=== PATIENT | male | born 1940 | race Caucasian/White ===

== ENCOUNTER → 2018-03-17 | Outpatient (CLI) | payer OTHER, MEDICARE | LOC: BHFA 14:00 | PROVIDERS: ATTEND Internal Medicine Cardiovascular Disease | DX: I25.10 Atherosclerotic heart disease of native coronary artery without angina pectoris (principal); E78.4 Other hyperlipidemia ==

== ENCOUNTER → 2018-04-14 | Outpatient (CLI) | payer OTHER, MEDICARE | LOC: FIMAGING 12:53 | PROVIDERS: ATTEND Internal Medicine Critical Care Medicine | DX: R91.1 Solitary pulmonary nodule (principal); J44.9 Chronic obstructive pulmonary disease, unspecified; N28.1 Cyst of kidney, acquired; I71.2 Thoracic aortic aneurysm, without rupture; Z95.1 Presence of aortocoronary bypass graft ==

== ENCOUNTER → 2018-07-22 | Outpatient (CLI) | payer OTHER, MEDICARE | LOC: BHFA 09:30 | PROVIDERS: ATTEND Internal Medicine Cardiovascular Disease | DX: R07.9 Chest pain, unspecified (principal); I25.10 Atherosclerotic heart disease of native coronary artery without angina pectoris; R06.02 Shortness of breath; R60.9 Edema, unspecified | CPT/HCPCS: 78452; 93017; A9500; J2785 ==

== ENCOUNTER 2018-07-30 00:16 | Inpatient (IN) | payer OTHER, MEDICARE ==
[2018-07-30] MEDS ORDERED: NS 1,000 ML IV ONE (00:17)
--- NOTE | 2018-07-30 00:30 | EDPHY ---
H & P Time Seen by Provider: 07/30/18 00:28 HPI/ROS: HPI CHIEF COMPLAINT: Substernal chest pressure. HISTORY OF PRESENT ILLNESS: 77-year-old male, history of coronary artery disease, and CABG, as well as AAA repair, chronic kidney disease, hypertension, COPD on 4 L nasal cannula 24 hr day, presents emergency room by EMS for chest discomfort. Describes substernal chest pressure. Is currently resolved prior to arrival. He had a for 3 hr prior to getting here. He did take 2 doses of nitro that did not really relieve his chest discomfort. Patient denies recent illness, denies cough, denies fever, denies pleuritic pain. Patient also reports to me is due to have a coronary angiogram this Friday coming up with Dr. Bloom. Past Medical History: Coronary artery disease, chronic kidney disease, hypertension, COPD on oxygen, AAA repair Past Surgical History: AAA repair, CABG, cardiac stent Social History: Denies daily use drugs alcohol tobacco. Resides at [facility]. Family History: Noncontributory Dr. 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 Exam Constitutional appears well nontoxic no acute distress triage nursing summary reviewed, vital signs reviewed, awake/alert. Eyes normal conjunctivae and sclera, EOMI, PERRLA. HENT normal inspection, atraumatic, moist mucus membranes, no epistaxis, neck supple/ no meningismus, no raccoon eyes. Respiratory clear to auscultation bilaterally, normal breath sounds, no respiratory distress, no wheezing. Cardiovascular rate normal, regular rhythm, no murmur, no edema, distal pulses normal. Gastrointestinal soft, non-tender, no rebound, no guarding, normal bowel sounds, no distension, no pulsatile mass. Genitourinary no CVA tenderness. Musculoskeletal no midline vertebral tenderness, full range of motion, no calf swelling, no tenderness of extremities, no meningismus, good pulses, neurovascularly intact. Skin pink, warm, & dry, no rash, skin atraumatic. Neurologic awake, alert and oriented x 3, AAOx3, moves all 4 extremities equally, motor intact, sensory intact, CN II-XII intact, normal cerebellar, normal vision, normal speech. Psychiatric normal mood/affect. Heme/Lymph/Immune no lymphadenopathy. Differential diagnosis includes but is not limited to: ACS, atypical chest pain , pneumothorax, pneumonia, pulmonary embolism, aortic dissection, congestive heart failure, tumor, musculoskeletal pain, esophageal pain, GERD, peptic ulcer disease, pancreatitis Medical Decision Making: Plan for this patient, IV establishment with IV fluid bolus, obtain EKG, full manager cardiac cath, troponin, chest x-ray and re-evaluate. He is chest pain-free at this time. Re-evaluation: EKG interpretation by me on record in [employer] system. Impression time of EKG 0024, sinus rhythm rate of 63 right bundle-branch block present. Abnormal T -wave abnormalities V4 V5 V6. No ST elevation. Troponin 0.29. Patient blood pressure checked in both arms very similar blood pressures. Additional on exam has good bilateral radial pulses. Equal and symmetrical. 1253: Spoke with Dr. Newell about this patient + Trop. Chest Pain. Will be admitted. NPO. Heparin. Plan on cath in am. 0115: Unable to perform CT scan of the chest due to elevated creatinine. Which is close to his baseline 2.3. I discussed the case with Cardiology. Plan for MP over midnight. Heparin drip. Plan for catheterization in the morning. Patient CT scan reviewed from 4 months ago shows a ascending aortic aneurysm 4.5 cm. Patient does not have any back pain or abdominal pain. Patient's vital signs are stable The patient does not have any abdominal pain or significant back pain. Blood pressure stable in both arms. Good radial pulses. Plan for heparin drip for angina and elevated troponin in the setting of coronary artery disease. Plan for catheterization tomorrow. Discussed this case with Dr. Newlel. Discussed this case with Dr. Polanco. Source: Patient, EMS Constitutional: Initial Vital Signs Temperature (C) 36.6 C 07/30/18 00:21 Heart Rate 66 07/30/18 00:21 Respiratory Rate 16 07/30/18 00:21 Blood Pressure 178/98 H 07/30/18 00:21 O2 Sat (%) 97 07/30/18 00:21 O2 Delivery Mode Nasal Cannula O2 (L/minute) 4 Allergies/Adverse Reactions: NSAIDS (Non-Steroidal Anti-Inflamma Allergy (Verified 07/30/18 08:20) Other-Enter Comments Home Medications: Medication Instructions Recorded Aspirin [Aspirin 81mg (*)] 81 mg PO DAILY 07/28/18 Atorvastatin Calcium [Lipitor 40 40 mg PO HS 07/28/18 mg (*)] Fluticasone/Salmeter 250/50Mcg 1 puffs IH BID 07/28/18 [Advair 250/50 (*)] Melatonin [Melatonin 3 MG (*)] 3 mg PO HS 07/28/18 Metoprolol Tartrate [Lopressor 25 25 mg PO BID 07/28/18 mg (*)] Tiotropium [place] [Spiriva 2 inh IH DAILY 07/28/18 Respimat] Zolpidem Tartrate [Ambien Cr] 6.25 mg PO HS 07/28/18 traZODone [traZODONE 100MG (*)] 100 mg PO HS 07/28/18 Albuterol [Proventil Inhaler HFA 1 - 2 puffs IH DAILY PRN 07/30/18 (*)] Aspirin [Aspirin 325 mg (*)] 325 mg PO DAILY PRN 07/30/18 Furosemide [Lasix 20 MG (*)] 20 mg PO DAILY 07/30/18 Ketoconazole 2% [Nizoral 2% Cream 1 evette TP DAILY PRN 07/30/18 (*)] Tamsulosin HCl [Flomax 0.4 MG (*)] 0.4 mg PO HS 07/30/18 guaiFENesin [Mucinex 600 MG (*)] 600 mg PO BID PRN 07/30/18 Medical Decision Making - Data Points Laboratory Results: Laboratory Results 07/30/18 00:31 07/30/18 00:31 Medications Given: Atorvastatin Calcium (Lipitor) 40 mg PO HS [facility] Stop: 01/26/19 20:59 Last Admin: 07/30/18 20:13 Dose: 40 mg Guaifenesin (Mucinex) 1,200 mg PO BID [facility] Stop: 01/26/19 20:59 Last Admin: 07/30/18 20:08 Dose: 600 mg Melatonin (Melatonin) 3 mg PO HS [facility] Stop: 01/26/19 20:59 Last Admin: 07/30/18 20:08 Dose: 3 mg Metoprolol Tartrate (Lopressor) 50 mg PO BID [facility] Stop: 01/26/19 20:59 Last Admin: 07/30/18 20:13 Dose: Not Given Fluticasone/Salmeterol (Advair) 1 puffs IH BID [facility] Stop: 01/26/19 20:59 Last Admin: 07/30/18 21:30 Dose: 1 puffs Tamsulosin HCl (Flomax) 0.4 mg PO [facility] Stop: 01/26/19 20:59 Last Admin: 07/30/18 20:14 Dose: 0.4 mg Trazodone HCl (Trazodone) 100 mg PO [facility] Stop: 01/26/19 20:59 Last Admin: 07/30/18 20:08 Dose: 100 mg Zolpidem Tartrate (Ambien) 5 mg PO [facility] Stop: 01/26/19 20:59 Last Admin: 07/30/18 20:07 Dose: 5 mg Discontinued Medications Aspirin Buffered (Aspirin Ec) 325 mg PO ONCE ONE Stop: 07/30/18 02:11 Last Admin: 07/30/18 02:41 Dose: 325 mg Aspirin Buffered (Aspirin Ec) 325 mg PO ONCALL ONE Stop: 07/30/18 12:20 Last Admin: 07/30/18 12:38 Dose: 325 mg Clopidogrel Bisulfate (Plavix) 300 mg PO ONCE ONE Stop: 07/30/18 14:10 Last Admin: 07/30/18 15:09 Dose: 300 mg Diazepam (Valium) 5 mg PO ONCALL ONE Stop: 07/30/18 12:20 Last Admin: 07/30/18 12:38 Dose: 5 mg Diphenhydramine HCl (Benadryl) 25 mg PO ONCALL ONE Stop: 07/30/18 12:20 Last Admin: 07/30/18 12:38 Dose: 25 mg Famotidine (Pepcid) 20 mg PO ONCALL ONE Stop: 07/30/18 12:20 Last Admin: 07/30/18 12:38 Dose: 20 mg Heparin Sodium (Porcine) (Heparin Injection) 0 unit IVP PRN PRN PRN Reason: re-Boluses required by protcol Stop: 01/26/19 01:29 Last Admin: 07/30/18 02:41 Dose: 5,310 units Sodium Chloride (Ns) 1,000 mls @ 0 mls/hr IV EDNOW ONE; Wide Open PRN Reason: Protocol Stop: 07/30/18 00:18 Last Admin: 07/30/18 00:31 Dose: 1,000 mls Heparin Sodium (Porcine) (Heparin 50 Units/Ml (Premix)) 500 mls @ 0 mls/hr IV EDNOW ONE; Per Protocol PRN Reason: Protocol Stop: 07/30/18 01:26 Last Admin: 07/30/18 03:37 Dose: Not Given Heparin Sodium (Porcine) (Heparin 50 Units/Ml (Premix)) 500 mls @ 0 mls/hr IV CONT [facility]O; Per Protocol PRN Reason: Protocol Stop: 01/26/19 01:29 Last Admin: 07/30/18 02:41 Dose: 500 mls Point of Care Test Results: Chemistry 07/30/18 00:29 POC Troponin I 0.29 ng/mL H ng/mL (0.00-0.08) Departure - Departure Disposition: [facility] Inpatient Acute Clinical Impression: Elevated troponin Chest pain Qualifiers: Chest pain type: unspecified Qualified Code(s): R07.9 - Chest pain, unspecified Condition: Fair
[2018-07-30 00:35] LABS: PLATELET COUNT 170 10^3/uL (150-400)
[2018-07-30 01:04] LABS: INR 0.98 (0.83-1.16); PROTIME(PATIENT) 13.2 SEC (12.0-15.0)
[2018-07-30] MEDS ORDERED: ONDANSETRON DISINTEGRATING 4 MG TAB PO PRN (01:16)
[2018-07-30] MEDS ORDERED: ONDANSETRON 4 MG/2 ML VIAL IVP PRN (01:16)
[2018-07-30] MEDS ORDERED: ACETAMINOPHEN 325 MG TAB PO PRN (01:16)
[2018-07-30] MEDS ORDERED: HEPARIN/DEXTROSE 500 ML IV ONE (01:25)
[2018-07-30] MEDS ORDERED: HEPARIN 10,000 UNIT/10 ML MDV (1,000 UNIT/ML) IVP PRN (01:30)
[2018-07-30] MEDS ORDERED: HEPARIN/DEXTROSE 500 ML IV SCH (01:30)
[2018-07-30] MEDS ORDERED: NITROGLYCERIN 0.4 MG BTL SL PRN (01:44)
--- NOTE | 2018-07-30 01:54 | PDGENHP ---
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 The patient was sitting on his recliner when he noted 7/10, central chest pain. He describes some radiation the L jaw. The pain lasted 3 hours and was generally unchanged by NTG. He has had episodes of similar pain with increasing frequency over the last few months. He has been undergoing evaluation with Dr. Bloom in the clinic. Review of these records reveals recent nuclear stress test with decreased EF (38%) and area of apical perfusion abnormality concerning for ischemia. Due to this he was scheduled for an outpatient C next Friday. At the time of my evaluation he is having very mild discomfort (10/22). Troponin in the ED noted to be in the indeterminate range; ECG on admission is stable compared to prior aside from now in NSR as opposed to AF. Case discussed with ED physician Dr. Rivers; records reviewed in [facility] and [place]; summarized above. History Information - Allergies/Home Medication List Allergies/Adverse Reactions: No Allergies [NKDA] Allergy (Verified 07/27/18 09:18) Home Medications: Aspirin [Aspirin 81mg (*)] 81 mg PO DAILY 07/28/18 [Last Taken Unknown] Atorvastatin Calcium [Lipitor 40 mg (*)] 40 mg PO HS 07/28/18 [Last Taken Unknown] Ferrous Sulfate [Ferrous Sulf 325 MG (*)] 325 mg PO DAILY 07/28/18 [Last Taken Unknown] Fluticasone/Salmeter 250/50Mcg [Advair 250/50 (*)] 1 puffs IH BID 07/28/18 [ Last Taken Unknown] Furosemide [Lasix 40 MG (*)] 20 mg PO DAILY 07/28/18 [Last Taken Unknown] Melatonin [Melatonin 3 MG (*)] 3 mg PO HS 07/28/18 [Last Taken Unknown] Metoprolol Tartrate [Lopressor 25 mg (*)] 25 mg PO BID 07/28/18 [Last Taken Unknown] Tiotropium [place] [Spiriva Respimat] 2 inh IH DAILY 07/28/18 [Last Taken Unknown] Zolpidem Tartrate [Ambien Cr] 6.25 mg PO HS 07/28/18 [Last Taken Unknown] traZODone [traZODONE 100MG (*)] 100 mg PO HS 07/28/18 [Last Taken Unknown] I have personally reviewed and updated: family history, medical history - Past Medical History coronary artery disease, COPD Additional medical history: AAA. CKD - Surgical History Reports: coronary bypass surgery, spinal surgery Additional surgical history: AAA repair - Family History Positive for: stroke. Negative for: CAD - Social History Smoking Status: Former smoker Review of Systems Review of Systems: ROS: 10pt was reviewed & negative except for what was stated in HPI & below Physical Exam Physical Exam: Temp Pulse Resp BP Pulse Ox 36.6 C 58 L 18 147/88 H 99 07/30/18 00:21 07/30/18 01:46 07/30/18 01:46 07/30/18 01:46 07/30/18 01:46 O2 (L/minute) 4 Constitutional: no apparent distress, appears nourished Eyes: PERRL, EOMI Ears, Nose, Mouth, Throat: moist mucous membranes, no oral mucosal ulcers Cardiovascular: regular rate and rhythym, systolic murmur, JVD (2 cm above clavicle @ 45 degrees), edema (2+ b/l KRISTEN) Respiratory: no respiratory distress, clear to auscultation Gastrointestinal: normoactive bowel sounds, soft, non-tender abdomen Skin: warm, normal color Musculoskeletal: full muscle strength, no muscle tenderness Neurologic: AAOx3, CN II-XII Intact Psychiatric: interacting appropriately, not anxious Lab Data & Imaging Review 07/30/18 00:31 07/30/18 00:31 WBC 6.93 10^3/uL (3.80-9.50) 07/30/18 00:31 RBC 3.89 10^6/uL (4.40-6.38) L 07/30/18 00:31 Hgb 12.2 g/dL (13.7-17.5) L 07/30/18 00:31 Hct 36.4 % (40.0-51.0) L 07/30/18 00:31 MCV 93.6 fL (81.5-99.8) 07/30/18 00:31 MCH 31.4 pg (27.9-34.1) 07/30/18 00:31 MCHC 33.5 g/dL (32.4-36.7) 07/30/18 00:31 RDW 13.7 % (11.5-15.2) 07/30/18 00:31 Plt Count 170 10^3/uL (150-400) 07/30/18 00:31 MPV 9.5 fL (8.7-11.7) 07/30/18 00:31 Neut % (Auto) 71.6 % (39.3-74.2) 07/30/18 00:31 Lymph % (Auto) 10.7 % (15.0-45.0) L 07/30/18 00:31 [place] % (Auto) 10.7 % (4.5-13.0) 07/30/18 00:31 Eos % (Auto) 5.1 % (0.6-7.6) 07/30/18 00:31 Baso % (Auto) 0.9 % (0.3-1.7) 07/30/18 00:31 Nucleat RBC Rel Count 0.0 % (0.0-0.2) 07/30/18 00:31 Absolute Neuts (auto) 4.97 10^3/uL (1.70-6.50) 07/30/18 00:31 Absolute Lymphs (auto) 0.74 10^3/uL (1.00-3.00) L 07/30/18 00:31 Absolute Monos (auto) 0.74 10^3/uL (0.30-0.80) 07/30/18 00:31 Absolute Eos (auto) 0.35 10^3/uL (0.03-0.40) 07/30/18 00:31 Absolute Basos (auto) 0.06 10^3/uL (0.02-0.10) 07/30/18 00:31 Absolute Nucleated RBC 0.00 10^3/uL (0-0.01) 07/30/18 00:31 Immature Gran % 1.0 % (0.0-1.1) 07/30/18 00:31 Immature Gran # 0.07 10^3/uL (0.00-0.10) 07/30/18 00:31 PT 13.2 SEC (12.0-15.0) 07/30/18 00:31 INR 0.98 (0.83-1.16) 07/30/18 00:31 APTT 27.2 SEC (23.0-38.0) 07/30/18 00:31 Sodium 140 mEq/L (135-145) 07/30/18 00:31 Potassium 4.8 mEq/L (3.3-5.0) 07/30/18 00:31 Chloride 102 mEq/L (97-110) 07/30/18 00: Carbon Dioxide 29 mEq/l (22-31) 07/30/18 00:31 Anion Gap 9 mEq/L (6-14) 07/30/18 00:31 BUN 38 mg/dL (7-23) H 07/30/18 00:31 Creatinine 2.3 mg/dL (0.7-1.3) H 07/30/18 00:31 Estimated GFR 28 07/30/18 00:31 Glucose 104 mg/dL (70-100) H 07/30/18 00:31 Calcium 9.2 mg/dL (8.5-10.4) 07/30/18 00: Magnesium 2.2 mg/dL (1.6-2.3) 07/30/18 00:31 Total Bilirubin 0.6 mg/dL (0.1-1.4) 07/30/18 00:31 Conjugated Bilirubin 0.3 mg/dL (0.0-0.5) 07/30/18 00:31 Unconjugated Bilirubin 0.3 mg/dL (0.0-1.1) 07/30/18 00:31 AST 21 IU/L (17-59) 07/30/18 00:31 ALT 24 IU/L (21-72) 07/30/18 00:31 Alkaline Phosphatase 75 IU/L (38-126) 07/30/18 00:31 POC Troponin I 0.29 ng/mL (0.00-0.08) H 07/30/18 00:29 NT-Pro-B Natriuret Pep 3810 pg/mL (0-450) H 07/30/18 00:31 Total Protein 7.1 g/dL (6.3-8.2) 07/30/18 00:31 Albumin 4.1 g/dL (3.5-5.0) 07/30/18 00:31 Lipase 196 IU/L (23-300) 07/30/18 00:31 Visualized and Interpreted EKG results: Yes EKG Interpretation: Positive for: normal sinsus rhythm, other (Lateral ST changes stable from comparison ECG), right bundle branch block Assessment & Plan Assessment: 77 yo M w/ CAD s/p CABG, COPD, 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 Plan: 1. Unstable angina - Anginal symptoms increasing in frequency; 7/10 pain today while at rest. Troponin in the indeterminate rage at 0.29. ECG(personally reviewed/interpreted) reveals lateral ST changes but these are stable from prior comparison (07/08/18). - S/p ASA 325 mg x1 - Will start heparin gtt - Monitor on telemetry, trend cardiac enzymes - Maintain NPO - Cardiology consulted, appreciate assistance 2. Hx CAD - S/p CABG in 1997; as described above, he has been having increasingly frequent anginal symptoms over the last few months. Nuclear perfusion stress test from 07/22 revealed apical defect concerning for ischemia and decreased EF(38%). - Acute management as above - Continue home medications pending reconciliation 3. Cardiomyopathy, presumed ischemic - EF 38% noted on 07/22 nuclear perfusion study. BNP elevated at 3810 with no prior comparison. He does have moderate lower extremity but patient states this is chronic. - Daily weights, monitor I/Os - Will hold off on Lasix for now noting likely need for contrast and known CKD - Cardiology consulted 4. COPD, CHRF - On 4 L/min O2 continuously at baseline, currently stable on the same. There is no evidence of acute exacerbation. - Continue home O2 - Continue home medications pending reconciliation 5. CKD, Stage 3/4 - Currently at creatine baseline (~2.3). - Avoid nephrotoxic agents as able - Renally dose medications - Monitor BMP 6. AAA - s/p repair Diet - NPO Code - Full Ppx - Heparin gtt Dispo - Admit under inpatient status
[2018-07-30] MEDS ORDERED: ASPIRIN EC 325 MG TAB PO ONE ×4 (02:10→12:21)
[2018-07-30 06:16] LABS: PLATELET COUNT 150 10^3/uL (150-400)
[2018-07-30] MEDS ORDERED: IOPAMIDOL (ISOVUE-370) 150 ML BTL IV ONE (10:42)
[2018-07-30] MEDS ORDERED: fentaNYL 100 MCG/2 ML INJ ONE (10:42)
[2018-07-30] MEDS ORDERED: LIDOCAINE 1% 300 MG/30 ML SDV ONE (10:42)
[2018-07-30] MEDS ORDERED: MIDAZOLAM 2 MG/2 ML VIAL ONE (10:42)
--- NOTE | 2018-07-30 10:43 | PDMN ---
Medical Necessity Medical necessity: Change to IP, as 07/30/18, per MD & MCG M-40; est los >2 mn for eval/tx of unstable angina; admit for further cardiac monitoring/further workup, Cardiology consult & Heparin drip; comorbid advanced age, COPD, CKD, CAD , CABG, chronic respiratory failure, AAA
--- NOTE | 2018-07-30 11:44 | ASMTCMCOM ---
CM Note CM Note Notes: Pt is a 77 y/o man admitted for chest pain. Pt is schedule for a heart heart. Pt will most likely d/c independent when medically stable. No therapies ordered at this time. CM available for changes. Plan: Independent Date Signed: 07/30/2018 11:44 AM Electronically Signed By:RADHA Shannon
[2018-07-30] MEDS ORDERED: FAMOTIDINE 20 MG TAB PO ONE (12:19)
[2018-07-30] MEDS ORDERED: diphenhydrAMINE 25 MG CAP PO ONE ×2 (12:19→12:21)
[2018-07-30] MEDS ORDERED: DIAZEPAM 5 MG TAB PO ONE (12:19)
[2018-07-30] MEDS ORDERED: FAMOTIDINE 20 MG TAB ONE (12:21)
[2018-07-30] MEDS ORDERED: DIAZEPAM 5 MG TAB ONE (12:21)
--- NOTE | 2018-07-30 12:22 | PDCARPN ---
Cardiology Progress Note Assessment/Plan: Mr. Delgado is a 79 year old male with a history of CAD, prior 3-vessel CABG in 1987, hypertension, chronic hypoxic respiratory failure, chronic kidney disease , and previous abdominal aortic aneurysm repair. He is typically followed by Dr. Bloom. Because of recent episodes of chest discomfort and an outpatient nuclear stress test which suggested apical ischemia, he had been scheduled for a heart catheterization early next week. However, he presented to the emergency room last night. He had an episode of substernal chest tightness that persisted approximately 3 hours. His initial ECG did not demonstrate any acute ischemic changes. His initial troponin was minimally elevated at 0.29. It has subsequently increased to 2.28. He is currently pain free. At this point we will proceed with cardiac catheterization and possible PCI today. 07/30/18 12:28 Subjective: No chest pain today. Objective: Vital Signs (8 Hrs) Temp Pulse Resp BP Pulse Ox 07/30/18 11:18 36.9 C 60 18 136/75 H 97 07/30/18 08:00 36.9 C 61 18 113/67 98 Intake/Output (24 Hrs) 07/29/18 07/30/18 07/31/18 05:59 05:59 05:59 Intake Total 1095 Balance 1095 Intake: Oral (ml) 0 IV Infused (ml) 1095 Heparin/Dextrose 500 ml @ 95 Per Protocol IV CONT [facility] Rx#:[id number] Other: Weight 88.5 kg 88.5 kg Result Diagrams: 07/30/18 05:59 07/30/18 05:59 Cardiac Labs: Cardiac Lab Results (72 Hrs) 07/30/18 05:59 Troponin I 2.280 H - Physical Exam Constitutional: no apparent distress Eyes: anicteric sclera Ears, Nose, Mouth, Throat: moist mucous membranes Cardiovascular: regular rate and rhythm, no murmurs, no gallops Respiratory: clear to auscultate bilat Gastrointestinal: normoactive bowel sounds, no tenderness, no masses Skin: other (2+ LE edema) Neurologic: AAOx3 Psychiatric: not anxious ICD10 Worksheet Patient Problems: Problems Problem Status Onset Chest pain Acute Elevated troponin Acute
--- NOTE | 2018-07-30 12:29 | PDHPUP ---
History & Physical Update H&P update statement: This history and physical update is based on an assessment of the patient which was completed after admission or registration (within 24 hours), but prior to the surgery/procedure. H&P update: H&P reviewed & patient examined, no change in patient's condition since H&P completed
[2018-07-30] MEDS ORDERED: NS 1,000 ML IV SCH (12:30)
--- NOTE | 2018-07-30 12:30 | PDPROPOC ---
Sedation Plan of Care Sedation Plan of Care: vital signs stable, mental status noted, patient educated of risks, benefits, alternatives, patient can tolerate sedation ASA Classification: ASA 2 Planned drugs: fentanyl, midazolam Mallampati Score: Class 2 Mallampati Reference Image: Patient passed 3-3-2 rule?: Yes
[2018-07-30] MEDS ORDERED: ATROPINE SULFATE 1 MG/10 ML SYR IVP PRN (14:06)
[2018-07-30] MEDS ORDERED: HYDROCODONE/APAP 5/325 TAB PO PRN (14:06)
[2018-07-30] MEDS ORDERED: CLOPIDOGREL BISULFATE 75 MG TAB PO ONE (14:09)
--- NOTE | 2018-07-30 14:15 | PDDXCAT ---
Diagnostic Cath Note - . Date: 07/30/18 [place] Opener: Chris Indication: other (Acute coronary syndrome and CAD with h/o CABG) - Procedure Access: right groin Procedure: left heart catheterization, coronary angiography, vein graft injection, DO injection - Materials Left Heart Cath size: 6F Left Heart Cath materials: standard multipack (JL4, JR4, pigtail), David's R, other (Multipurpose A-1) - Findings-Left Heart Catheterization LM: Normal. LAD: High-grade proximal LAD stenosis of at least 80% that jeopardizes a bifurcating diagonal branch; mid-LAD 100%. LCX: Proximal 100%. RCA: Proximal 100%. rSV) SVG to OM branch is widely patent; target vessel with mild irregularities. 2) SVG to distal RCA patent but with severe, diffuse ectasia; focal 70% stenosis in the distal graft body; target vessel with mild irregularities; supplies [id number] collaterals to the distal circumflex system. DO: DO to LAD is widley patent; target vessel with mild irregularites. LVEF: No LV-gram secondary to CKD. Complications: None Estimated blood loss: <50ml Closure method: manual pressure Assessment: 1) Severe sioux multi-vessel CAD. 2) All 3 bypass grafts patent. Plan: The patient has severe three-vessel CAD [id number] patent bypass grafts. The only lesions site with potential for PCI is the proximal LAD which jeopardizes a moderate-sized bifurcating diagonal branch. However, this does not fit anatomically with the apical ischemia that was seen on the patient's recent nuclear stress test. While the focal stenosis in the distal body of the SVG to RCA is 70%, the graft is so large and ectatic at this point that the actual lumen size is probably still a least 2.5 mm. For now, will continue with medical therapy. His metoprolol will be increased to 50 mg twice daily and isosorbide will be added. He will also have clopidogrel added for dual antiplatelet therapy. Patient Problems: Problems Problem Status Onset Chest pain Acute Elevated troponin Acute
[2018-07-30] MEDS: ZOLPIDEM TARTRATE 5 MG TAB PO SCH (20:07)
[2018-07-30] MEDS: MELATONIN 3 MG TAB PO SCH (20:08)
[2018-07-30] MEDS: traZODone 100 MG TAB PO SCH (20:08)
[2018-07-30] MEDS: guaiFENesin 600 MG TAB.ER PO SCH (20:08)
[2018-07-30] MEDS: METOPROLOL TARTRATE 50 MG TAB PO SCH (20:13)
[2018-07-30] MEDS: ATORVASTATIN CALCIUM 40 MG TAB PO SCH (20:13)
[2018-07-30] MEDS: TAMSULOSIN HCL 0.4 MG CAP PO SCH (20:14)
--- NOTE | 2018-07-30 20:24 | HOSPPROG ---
Hospitalist Progress Note Assessment/Plan: * Non-STEMI -cardiac cath without intervention - medical management -Plavix and Imdur added, increase beta-temitope * CAD/CABG -grafts patent on cath * CKD -hydrate post cath -follow creatinine * COPD with chronic respiratory failure 4L * Acute on chronic systolic CHF - EF 38% by stress test -check ECHO Subjective: Chest pain now gone Objective: Vital Signs Temp Pulse Resp BP Pulse Ox 36.7 C 61 16 116/66 96 07/30/18 19:39 07/30/18 19:39 07/30/18 19:39 07/30/18 19:39 07/30/18 19:39 Laboratory Results 07/30/18 05:59 07/30/18 05:59 07/29/18 07/30/18 07/31/18 05:59 05:59 05:59 Intake Total 1095 1085.3 Balance 1095 1085.3 PT 13.2 SEC (12.0-15.0) 07/30/18 00:31 INR 0.98 (0.83-1.16) 07/30/18 00:31 cath report reviewed - grafts patent, no stent placed - Physical Exam Constitutional: no apparent distress, appears nourished, not in pain Cardiovascular: regular rate and rhythym, no murmur, rub, or gallop Respiratory: no respiratory distress, no rales or rhonchi, clear to auscultation Gastrointestinal: normoactive bowel sounds, soft, non-tender abdomen, no palpable masses Skin: no rashes or abrasions, no fluctuance, no induration Neurologic: AAOx3, sensation intact bilaterally Psychiatric: interacting appropriately, not anxious, not encephalopathic, thought process linear ICD10 Worksheet Patient Problems: Problems Problem Status Onset Chest pain Acute Elevated troponin Acute
[2018-07-30] MEDS: FLUTICASONE/SALMETER 250/50MCG DISKUS IH SCH (21:30)
--- NOTE | 2018-07-30 23:58 | CPEKG ---
Test Reason : OPEN Blood Pressure : / mmHG Vent. Rate : 063 BPM Atrial Rate : 063 BPM P-R Int : 165 ms QRS Dur : 141 ms QT Int : 556 ms P-R-T Axes : 051 008 -43 degrees QTc Int : 570 ms Sinus rhythm Atrial premature complex Right bundle branch block Confirmed by Trever Collins ([id number]) on 07/30/2018 11:57:53 PM Also confirmed by Trever Collins ([id number]) on 07/30/2018 11:58:04 PM Referred By: Confirmed By:Trever Collins
[2018-07-31] MEDS: ISOSORBIDE MONONITRATE 30 MG TAB.SR PO SCH (08:44)
[2018-07-31] MEDS: ASPIRIN 81 MG CHEWABLE TAB PO SCH (08:44)
[2018-07-31] MEDS: CLOPIDOGREL BISULFATE 75 MG TAB PO SCH (08:45)
[2018-07-31] MEDS: METOPROLOL TARTRATE 50 MG TAB PO SCH ×2 (08:45→11:20)
[2018-07-31] MEDS: guaiFENesin 600 MG TAB.ER PO SCH ×2 (08:45→21:59)
[2018-07-31] MEDS: FLUTICASONE/SALMETER 250/50MCG DISKUS IH SCH ×2 (09:41→19:51)
[2018-07-31] MEDS: [UNRECOGNIZED DRUG - OTHER] IH SCH (09:42)
[2018-07-31] MEDS: TIOTROPIUM BROMIDE IH SCH (09:42)
--- NOTE | 2018-07-31 12:17 | ECHO ---
[email or web address] [address] [address] Main: [phone] Fax: Transthoracic Echocardiogram Name: MARCI QUIGLEY MR#: [id number] Study Date: 07/31/2018 Study Time: 08:34 AM Date of : 1940 Age: 77 year(s) Height: 172.7 cm (68 in.) Weight: 88.45 kg (195 lb.) BSA: 2.02 m2 Gender: Male Examination: Echo Indication: Post CATH, Hx of CABG Image Quality: Contrast: Requested by: Faith Vasquez BP: 148 mmHg/64 mmHg Heart Rate: Rhythm: Normal sinus rhythm Indication: Post CATH, Hx of CABG Procedure Staff Welfare Manager: Luis Palomares RDCS Reading Physician: Yair Richard MD Requesting Provider: Conclusions: Normal size left ventricle. EF is 53 %. There is basilar inferolateral hypokinesis, there is inferior hypokinesis.. The left atrium is moderately to severely dilated. Mild mitral valve regurgitation is present. Right ventricular systolic pressure measures Right ventricular systolic pressure measures {51}mmHgmmHg. There is no previous echocardiogram for comparison. Measurements: Chambers Valvular Assessment AV/MV Valvular Assessment TV/PV Normal Normal Normal Name Value Range Name Value Range Name Value Range Ao Mar (MM): 3.0 cm (2.2 cm-3.7 AV Vmax: 1.43 m/s (1 m/s-1.7 TR Vmax: 3.22 mm/s ( - ) cm) m/s) TR PGmax: 41 mmHg ( - ) IVSd (2D): 1.0 cm (0.6 cm-1.1 AV maxP mmHg ( - ) syst. PAP: 51 mmHg ( - ) cm) LVOT Vmax: 1.03 m/s (0.7 m/s-1.1 PV Vmax: 0.95 m/s (0.6 m/s-0.9 LVDd (2D): 4.6 cm (4.2 cm-5.9 m/s) m/s) cm) MV E Vmax: 0.75 m/s ( - ) PV PGmax: 4 mmHg ( - ) LVDs (2D): 3.4 cm (2.1 cm-4 MV A Vmax: 0.45 m/s ( - ) cm) MV E/A: 1.67 ( - ) LVPWd (2D): 1.1 cm (0.6 cm-1 cm) LVEF (MM): 53 (>=55 %) Continued Measurements: Chambers Valvular Assessment AV/MV Valvular Assessment TV/PV Name Value Name Value Name Value LADs Lon.4 cm MV E' Septal: 0.11 m/s CVP (est.): 10 mmHg Patient: MARCI QUIGLEY Study Date: 07/31/2018 Page 1 of 2 08:34 AM LA Area: 26.3 cm2 MV E/E' Septal: 7.00 LA Volume: 100 ml MV E/E' Lateral: 6.90 LA Volume Index: 49.5 ml/m2 Findings: Left Ventricle: Normal size left ventricle. Normal global systolic LV function. EF is 53 %. Grade 2 diastolic dysfunction (pseudonormalized LV filling pattern). There is basilar inferolateral hypokinesis, there is inferior hypokinesis.. Right Ventricle: Normal size right ventricle. Left Atrium: The left atrium is moderately to severely dilated. Right Atrium: The right atrium is mildly dilated. Mitral Valve: Mild mitral valve leaflet calcification is present. Mild mitral valve regurgitation is present. Aortic Valve: Mild aortic cusp calcification is noted. Tricuspid Valve: Right ventricular systolic pressure measures Right ventricular systolic pressure measures {51}mmHgmmHg. The pulmonary artery pressure is moderately increased. Pulmonic Valve: The pulmonic valve is normal in appearance and function. Trivial pulmonic valve regurgitation. Aorta: The ascending aorta has been repaired/replaced. Pericardium: No pericardial effusion. Exam Comments: (No Signature Object) Patient: MARCI QUIGLEY Study Date: 07/31/2018 Page 2 of 2 08:34 AM [id number]
[2018-07-31] MEDS: METOPROLOL TARTRATE 25 MG TAB PO SCH ×2 (13:31→22:01)
--- NOTE | 2018-07-31 16:44 | HOSPPROG ---
Hospitalist Progress Note Assessment/Plan: * Non-STEMI -cardiac cath without intervention - medical management -Plavix and Imdur added, continue beta-temitope -unclear if BP will tolerate the Imdur - continue to monitor -check lipid panel in am * CAD/CABG -grafts patent on cath * CKD -hydrate post cath -follow creatinine * COPD with chronic respiratory failure 4L * Acute on chronic diastolic CHF -EF normal by ECHO * Pulmonary HTN with LE edema -secondary to pulm disease -restart Lasix * h/o complicated AAA repair Subjective: Got up with PT today and BP dropped and he got very dizzy Objective: Vital Signs Temp Pulse Resp BP Pulse Ox 36.5 C 49 L 18 109/66 99 07/31/18 16:00 07/31/18 16:00 07/31/18 16:00 07/31/18 16:00 07/31/18 16:00 Laboratory Results 07/30/18 05:59 07/31/18 03:16 07/30/18 07/31/18 08/01/18 05:59 05:59 05:59 Intake Total 1095 1335.3 Output Total 400 Balance 1095 935.3 PT 13.2 SEC (12.0-15.0) 07/30/18 00:31 INR 0.98 (0.83-1.16) 07/30/18 00:31 ECHO - normal EF, + pulmonary HTN Old chart reviewed - previous CT chests all done without IV contrast, never rule out PE US legs - negative for DVT - Physical Exam Constitutional: no apparent distress, appears nourished, not in pain Cardiovascular: regular rate and rhythym, no murmur, rub, or gallop, edema (2+) Gastrointestinal: normoactive bowel sounds, soft, non-tender abdomen, no palpable masses Skin: no rashes or abrasions, no fluctuance, no induration Neurologic: AAOx3, sensation intact bilaterally Psychiatric: interacting appropriately, not anxious, not encephalopathic, thought process linear ICD10 Worksheet Patient Problems: Problems Problem Status Onset Chronic Disease Mgmt/Transitional Care Acute Chest pain Acute Elevated troponin Acute
--- NOTE | 2018-07-31 17:44 | PDCARPN ---
Cardiology Progress Note Assessment/Plan: Mr. Delgado is a 79 year old male with a history of CAD, prior 3-vessel CABG in 1987, hypertension, chronic hypoxic respiratory failure, chronic kidney disease , and previous abdominal aortic aneurysm repair. He is typically followed by Dr. Bloom. Coronary Artery Disease: Cardiac catheterization yesterday demonstrated severe, little traverse, 3-vessel CAD. All 3 of his bypass grafts from 20 years ago are still patent. He has a high grade proximal LAD lesion which jeopardizes a small to moderate-sized diagonal branch. This may be the source of his symptoms but does not match the anatomic distribution of the perfusion abnormality on his recent nuclear stress test. - Medical management for now. - Metoprolol increased. - Isosorbide added. - Clopidogrel added. Hypertension: Adequately controlled. - Continue current medications. Secondary Prevention: A lipid panel from one month ago demonstrated a total cholesterol of 131 with HDL 40, LDL 68, and triglycerides 115. - Continue current statin dosage. Disposition: Anticipate discharge tomorrow. The office staff at [facility] has been instructed to cancel the cardiac catheterization which had been scheduled for this coming Friday and to contact him to arrange a followup appointment with Dr. Bloom. 07/31/18 17:41 Subjective: No complaints. Reviewed/Discussed With: family Objective: Vital Signs (8 Hrs) Temp Pulse Resp BP Pulse Ox 07/31/18 16:00 36.5 C 49 L 18 109/66 99 07/31/18 11:47 36.7 C 59 L 16 142/67 H 99 07/31/18 11:20 56 L Intake/Output (24 Hrs) 07/30/18 07/31/18 08/01/18 05:59 05:59 05:59 Intake Total 1095 1335.3 Output Total 400 Balance 1095 935.3 Intake: Oral (ml) 0 490 IV Intake (ml) 750 IV Infused (ml) 1095 95.3 Heparin/Dextrose 500 ml @ 95 95.3 Per Protocol IV CONT CHAPARRO Rx#:[id number] Output: Urine (ml) 400 Toilet 400 Other: Weight 88.5 kg 88.5 kg 87.815 kg Number of Voids Toilet 1 Result Diagrams: 07/30/18 05:59 07/31/18 03:16 Cardiac Labs: Cardiac Lab Results (72 Hrs) 07/31/18 07/31/18 07/30/18 15:15 09:30 05:59 Troponin I 3.280 H 4.000 H 2.280 H - Physical Exam Constitutional: no apparent distress Eyes: anicteric sclera Ears, Nose, Mouth, Throat: moist mucous membranes Cardiovascular: regular rate and rhythm, no murmurs, no rubs, no gallops Respiratory: clear to auscultate bilat Gastrointestinal: normoactive bowel sounds, no tenderness, no masses Skin: other (2+ edema) Neurologic: AAOx3 Psychiatric: not anxious ICD10 Worksheet Patient Problems: Problems Problem Status Onset Chronic Disease Mgmt/Transitional Care Acute Chest pain Acute Elevated troponin Acute
[2018-07-31] MEDS: ALBUTEROL 60 PUFFS/8 GM MDI IH PRN (19:51)
[2018-07-31] MEDS: MELATONIN 3 MG TAB PO SCH (22:00)
[2018-07-31] MEDS: traZODone 100 MG TAB PO SCH (22:00)
[2018-07-31] MEDS: ATORVASTATIN CALCIUM 40 MG TAB PO SCH (22:00)
[2018-07-31] MEDS: ZOLPIDEM TARTRATE 5 MG TAB PO SCH (22:00)
[2018-07-31] MEDS: TAMSULOSIN HCL 0.4 MG CAP PO SCH (22:01)
[2018-08-01 04:36] LABS: PLATELET COUNT 131 10^3/uL (150-400)
[2018-08-01] MEDS: ALBUTEROL 60 PUFFS/8 GM MDI IH PRN (08:02)
[2018-08-01] MEDS: ISOSORBIDE MONONITRATE 30 MG TAB.SR PO SCH (08:05)
[2018-08-01] MEDS: METOPROLOL TARTRATE 25 MG TAB PO SCH (08:05)
[2018-08-01] MEDS: CLOPIDOGREL BISULFATE 75 MG TAB PO SCH (08:05)
[2018-08-01] MEDS: FLUTICASONE/SALMETER 250/50MCG DISKUS IH SCH (08:06)
[2018-08-01] MEDS: ASPIRIN 81 MG CHEWABLE TAB PO SCH (08:06)
[2018-08-01] MEDS: guaiFENesin 600 MG TAB.ER PO SCH (08:09)
[2018-08-01 08:15] VITALS: BP 176/110
[2018-08-01] MEDS: TIOTROPIUM BROMIDE IH SCH ×2 (09:00→09:41)
[2018-08-01] MEDS ORDERED: FUROSEMIDE 20 MG TAB PO SCH (09:00)
[2018-08-01] MEDS: [UNRECOGNIZED DRUG - OTHER] IH SCH ×2 (09:00→09:41)
--- NOTE | 2018-08-01 09:43 | PDIAF ---
- Diagnosis Diagnosis: non STEMI Code Status: Full Code - Medication Management Discharge Medications: Medications to Continue on Transfer Aspirin [Aspirin 81mg (*)] 81 mg PO DAILY 07/28/18 [Last Taken 07/29/18] Atorvastatin Calcium [Lipitor 40 mg (*)] 40 mg PO HS 07/28/18 [Last Taken ] Fluticasone/Salmeter 250/50Mcg [Advair 250/50 (*)] 1 puffs IH BID 07/28/18 [ Last Taken 07/29/18 21:00] Melatonin [Melatonin 3 MG (*)] 3 mg PO HS 07/28/18 [Last Taken 07/29/18] Metoprolol Tartrate [Lopressor 25 mg (*)] 25 mg PO BID 07/28/18 [Last Taken 21:00] Tiotropium Lucas [Spiriva Respimat] 2 inh IH DAILY 07/28/18 [Last Taken ] Zolpidem Tartrate [Ambien Cr] 6.25 mg PO HS 07/28/18 [Last Taken 07/29/18] traZODone [traZODONE 100MG (*)] 100 mg PO HS 07/28/18 [Last Taken 07/29/18] Albuterol [Proventil Inhaler HFA (*)] 1 - 2 puffs IH DAILY PRN 07/30/18 [Last Taken Unknown] Furosemide [Lasix 20 MG (*)] 20 mg PO DAILY 07/30/18 [Last Taken 07/29/18] Ketoconazole 2% [Nizoral 2% Cream (*)] 1 evette TP DAILY PRN 07/30/18 [Last Taken 3 Days Ago ~07/27/18] Tamsulosin HCl [Flomax 0.4 MG (*)] 0.4 mg PO HS 07/30/18 [Last Taken 07/29/18] guaiFENesin [Mucinex 600 MG (*)] 600 mg PO BID PRN 07/30/18 [Last Taken Unknown] Clopidogrel Bisulfate [Plavix (*)] 75 mg PO DAILY #30 tab 08/01/18 [Last Taken Unknown] Isosorbide Mononitrate [Imdur 30 mg (*)] 30 mg PO DAILY #30 tab.sr 10/20/18 [ Last Taken Unknown] Discharge Medications: Refer to the Discharge Home Medication list for PRN reason. - Orders Services needed: Home Care, Registered Nurse, Physical Therapy, Occupational Therapy Home Care Face to Face: I certify that this patient was under my care and that I had the required [id number] encounter meeting the encounter requirements on the discharge day. My findings support the fact that the patient is homebound as defined in Home Care Face to Face Continued: CMS Chapter 7 Medicare Benefits Manual 30.1.1 , The condition of the patient is such that there exists a normal inability to leave home and consequently, leaving home would require a considerable and taxing effort. Diet Recommendation: no restrictions on diet - Labs/Radiology BMP Date: 08/03/18 - Follow Up Care Current Providers and Referrals: David Espino MD [Primary Care Provider] - As per Instructions
--- NOTE | 2018-08-01 11:26 | PDCARPN ---
Cardiology Progress Note Chief Complaint: Patient reports he would like to go home. Assessment/Plan: Assessment: 77-year-old male with significant history of CAD, prior CABG x3 vessels in 1997 , hypertension, chronic hypoxic respiratory failure, chronic kidney disease, previous AAA repair. Recent outpatient MPI studies suggesting apical ischemia ( had anticipated elective cardiac catheterization scheduled for August 01 sec). Present to ED July 30 for pressure cyst and chest pressure x3 hour. Initial EKG did not show any acute ischemic changes, but elevated troponin up to 4.0. Cardiac catheterization done 07/30/2018 severe buckland 3VD, patent SVG to OM branch, patent SVG to RCA, and patent DO to the LAD. Zephyr by Dr. Perez, no disease was critical enough to need PCI at this time. Recommendation and continuation medical therapy. Patient started on dual anti- platelet therapy of aspirin and clopidogrel. Metoprolol and isosorbide. Echocardiogram (07/31/2018) showing normal LV size with EF 53% with basilar inferior hypokinesis, inferior hypokinesis, LA moderately to severely dilated, mild MR, RVSP 51 mm Hg. Yesterday noting episodes of lightheadedness with positional changes. 08/01/2018: Patient reports no chest pain or pressure. Reports no further episodes of lightheadedness. Denies of any significant orthopnea. Continues cardiac monitoring showing sinus rhythm with occasional PAC. 12 lead electrocardiogram showing sinus rhythm with right bundle branch block, PACs, inverted T-waves in inferior lateral leads, unchanged from previous EKGs. BUN creatinine 30 in 2.2 (patient's baseline). Fasting lipid panel showed adequate suppression with LDL at 69. Plan: 1. NSTEMI/CAD: Cardiac catheterization done showing 3 VD, patent grafts. Determine medical management at this time. Dual anti-platelet aspirin and clopidogrel. Continue on metoprolol. Isosorbide. 2. Hypertension: Mildly elevated today before medications, improved. Continue on med management as above. 3. Acute on chronic heart failure: EF 53% on echo. Continue home dose diuretic. Discussed with patient and family importance of low-sodium intake, daily weights. They are to notify us if he gains more than 2 lb in a day or 5 lb in a week. 4. Hyperlipidemia: Adequate suppression of LDL, continue home statin. 5. Renal insufficiency: Baseline creatinine since cardiac catheterization 6. Chronic hypoxic respiratory disease: Continue on around the clock oxygen. 7. Peripheral vascular disease: Remote AAA repair, anti-platelet therapy as mentioned above, blood pressure management, secondary risk prevention. Patient is planning to be discharged home today. Dr. Perez has notified our office, to schedule a follow-up visit later this week in office. Post cardiac catheterization discharge instructions went over with the patient and family. They have been told that if any problems or concerns, post discharge, they are to notify our office or return to the hospital. 08/01/18 11:26 Subjective: Patient denies of any chest pressure or pain. Reports OLIVAS has not worsen. Denies of any orthopnea, PND, palpitations, lightheadedness, near-syncope or syncopal events. Reviewed/Discussed With: hospitalist (Dr Vasquez), other (Dr Garcia) Objective: Vital Signs (8 Hrs) Temp Pulse Resp BP Pulse Ox 08/01/18 08:15 176/110 H 08/01/18 08:00 36.5 C 79 96 H 184/101 H 4 L 08/01/18 04:00 36.4 C 71 14 127/71 H 97 Intake/Output (24 Hrs) 07/31/18 08/01/18 08/02/18 05:59 05:59 05:59 Intake Total 1335.3 350 Output Total 400 500 Balance 935.3 -150 Intake: Oral (ml) 490 350 IV Intake (ml) 750 IV Infused (ml) 95.3 Heparin/Dextrose 500 ml @ 95.3 Per Protocol IV CONT CHAPARRO Rx#:[id number] Output: Urine (ml) 400 500 Toilet 400 500 Other: Weight 88.5 kg 87.5 kg Number of Voids Toilet 1 1 Result Diagrams: 08/01/18 00:22 08/01/18 04:06 Cardiac Labs: Cardiac Lab Results (72 Hrs) 07/31/18 07/31/18 07/30/18 15:15 09:30 05:59 Troponin I 3.280 H 4.000 H 2.280 H - Physical Exam Constitutional: no apparent distress Ears, Nose, Mouth, Throat: moist mucous membranes Cardiovascular: regular rate and rhythm, no murmurs, no rubs, pulses symmetric bilat, No jugular vein distention (Jugular vein elevation 3-4 cm above sternal notch at a 90 degree angle) Peripheral Pulses: 1+: dorsalis-pedis (R), dorsalis-pedis (L), 2+: carotid (R), carotid (L) Respiratory: other (Diminished in bases bilateral, no rhonchi, rales, wheezing noted. No accessary muscle use, no intercostal muscle retraction noted.) Gastrointestinal: normoactive bowel sounds Skin: warm, no edema (+1 to 2 peripheral edema bilateral lower extremities to ankles.) Neurologic: AAOx3 Psychiatric: cooperative, interactive, following commands ICD10 Worksheet Patient Problems: Problems Problem Status Onset Chronic Disease Mgmt/Transitional Care Acute Chest pain Acute Elevated troponin Acute
--- NOTE | 2018-08-01 12:23 | ASMTLACE ---
LACE Length of stay for Answers: 2 days current admission Comorbidities - select Answers: Chronic pulmonary disease all that apply Congestive heart failure Coronary Artery Disease Moderate or severe liver or renal disease Previous myocardial infarction Other Notes: HTN # of Emergency department Answers: 1-2 visits in the last 6 months Score: 15 Date Signed: 08/01/2018 12:17 PM Electronically Signed By:Leena Solomon RN
--- NOTE | 2018-08-01 12:27 | ASMTCMCOM ---
CM Note CM Note Notes: Patient medically cleared for discharge via hospital medicine. C arranged for RN/PT/OT via [facility]. Daughter taking patient home. He has portable oxygen. CM available should other needs arise. Plan: Home with HHC Date Signed: 08/01/2018 12:26 PM Electronically Signed By:Leena Solomon RN
--- NOTE | 2018-08-02 04:10 | GDS ---
DISCHARGE DIAGNOSES: 1. Joa-JX-teydluxyj myocardial infarction. 2. Coronary artery disease, status post previous coronary artery bypass graft. 3. Chronic kidney disease. Baseline creatinine 2.1. 4. Chronic obstructive pulmonary disease with chronic respiratory failure 4 L. 5. Acute on chronic diastolic congestive heart failure. 6. Pulmonary hypertension with cor pulmonale. 7. History of a complicated abdominal aortic aneurysm repair. HISTORY: The patient is a 77-year-old male who presented with chest pain, was found to have a non-ST -elevation SD. He went to cardiac catheterization, but there were no intervention options, so plan w ill be for medical management. Plavix and Imdur were added to his regimen, and he will continue on h is previous dose of metoprolol. He has chronic kidney disease, but appears to have tolerated the IV contrast dye of the cath without difficulties as his creatinine is stable. Echocardiogram showed nor mal ejection fraction. DISCHARGE MEDICATIONS: Please see computerized record for full detailed list. New medications: 1. Plavix 75 mg p.o. daily. 2. Imdur 30 mg p.o. daily. 3. Nitroglycerin 0.4 mg sublingual q.5 minutes as needed. ADDITIONAL DISCHARGE INSTRUCTION: Follow up with Cardiology and primary care. Greater than 30 minutes' time spent arranging this discharge. Patient seen and examined by me on the day of discharge. /[id number]/MODL
--- NOTE | 2018-08-03 10:47 | CPEKG ---
Test Reason : OPEN Blood Pressure : / mmHG Vent. Rate : 051 BPM Atrial Rate : 051 BPM P-R Int : 164 ms QRS Dur : 140 ms QT Int : 504 ms P-R-T Axes : 055 -17 264 degrees QTc Int : 465 ms Sinus rhythm Right bundle branch block Abnormal T, consider ischemia, lateral leads Confirmed by Raman Hinojosa ([id number]) on 08/03/2018 10:46:41 AM Referred By: Confirmed By:Raman Hinojosa
== END 2018-08-01 12:25 | disposition home health service (06) | DRG 280 ==
LOC: EDUNIT# → OBSVTOIN 02:08 → F2W 02:19
PROVIDERS: ADMIT Student in an Organized Health Care Education/Training Program; ATTEND Student in an Organized Health Care Education/Training Program
PROC: B2111ZZ Fluoroscopy of Multiple Coronary Arteries using Low Osmolar Contrast (ICD-10-PCS; principal; 2018-07-30)
PROC: B2181ZZ Fluoroscopy of Left Internal Mammary Bypass Graft using Low Osmolar Contrast (ICD-10-PCS; principal; 2018-07-30)
PROC: 4A023N7 Measurement of Cardiac Sampling and Pressure, Left Heart, Percutaneous Approach (ICD-10-PCS; principal; 2018-07-30)
PROC: B2121ZZ Fluoroscopy of Single Coronary Artery Bypass Graft using Low Osmolar Contrast (ICD-10-PCS; principal; 2018-07-30)
DX: I21.4 Non-ST elevation (NSTEMI) myocardial infarction (principal); I25.10 Atherosclerotic heart disease of native coronary artery without angina pectoris; I13.0 Hypertensive heart and chronic kidney disease with heart failure and stage 1 through stage 4 chronic kidney disease, or unspecified chronic kidney disease; I50.33 Acute on chronic diastolic (congestive) heart failure; N18.3 Chronic kidney disease, stage 3 (moderate); J44.9 Chronic obstructive pulmonary disease, unspecified; J96.11 Chronic respiratory failure with hypoxia; E78.5 Hyperlipidemia, unspecified; Z95.1 Presence of aortocoronary bypass graft; Z95.5 Presence of coronary angioplasty implant and graft; Z99.81 Dependence on supplemental oxygen; Z87.891 Personal history of nicotine dependence; Z23 Encounter for immunization
CPT/HCPCS: 84484-PO; 85520-90; 97162-GP; 97166-GO; 97535-GO; G0008; G8978-GP-CJ; G8979-GP-CI; G8987-GO-CJ; G8988-GO-CI; J1644; J2250; J3010; Q9967

== ENCOUNTER → 2018-08-13 | Outpatient (CLI) | payer OTHER, MEDICARE | LOC: BHFA 10:45 | PROVIDERS: ATTEND Physician Assistant | DX: I25.10 Atherosclerotic heart disease of native coronary artery without angina pectoris (principal); I21.4 Non-ST elevation (NSTEMI) myocardial infarction; I73.9 Peripheral vascular disease, unspecified; E78.5 Hyperlipidemia, unspecified; Z98.890 Other specified postprocedural states; Z86.79 Personal history of other diseases of the circulatory system; Z95.1 Presence of aortocoronary bypass graft ==

== ENCOUNTER 2018-09-01 18:45 | Inpatient (IN) | payer OTHER, MEDICARE ==
--- NOTE | 2018-09-01 18:54 | EDPHY ---
H & P Stated Complaint: cp lat night took nitro went back to sleep Time Seen by Provider: 09/01/18 18:54 - Personal History Current Tetanus Diphtheria and Acellular Pertussis (TDAP): Yes - Medical/Surgical History Hx Asthma: No Hx Chronic Respiratory Disease: Yes Hx Diabetes: No Hx Cardiac Disease: Yes Hx Renal Disease: Yes Hx Cirrhosis: No Hx Alcoholism: No Hx HIV/AIDS: No Hx Splenectomy or Spleen Trauma: No Other PMH: COPD 4l O2 at home, CKD, CABG 1997, angioplasty, abdominal aortic repair x2, HLD, anemia, HTN - Social History Smoking Status: Former smoker Constitutional: Initial Vital Signs Temperature (C) 36.6 C 09/01/18 18:47 Heart Rate 79 09/01/18 18:47 Respiratory Rate 18 09/01/18 18:47 Blood Pressure 157/85 H 09/01/18 18:47 O2 Sat (%) 96 09/01/18 18:47 O2 Delivery Mode Nasal Cannula O2 (L/minute) 4 Allergies/Adverse Reactions: NSAIDS (Non-Steroidal Anti-Inflamma [NSAIDS (Non-Steroidal Anti-Inflammatory Drug)] Allergy (Unknown, Verified 09/01/18 18:46) Other-Enter Comments Home Medications: Medication Instructions Recorded Aspirin [Aspirin 81mg (*)] 81 mg PO DAILY 07/28/18 Atorvastatin Calcium [Lipitor 40 40 mg PO HS 07/28/18 mg (*)] Fluticasone/Salmeter 250/50Mcg 1 puffs IH BID 07/28/18 [Advair 250/50 (*)] Melatonin [Melatonin 3 MG (*)] 3 mg PO HS 07/28/18 Metoprolol Tartrate [Lopressor 25 25 mg PO BID 07/28/18 mg (*)] Tiotropium [place] [Spiriva 2 inh IH DAILY 07/28/18 Respimat] Zolpidem Tartrate [Ambien Cr] 6.25 mg PO HS 07/28/18 traZODone [traZODONE 100MG (*)] 100 mg PO HS 07/28/18 Albuterol [Proventil Inhaler HFA 1 - 2 puffs IH DAILY PRN 07/30/18 (*)] Furosemide [Lasix 20 MG (*)] 20 mg PO DAILY 07/30/18 Ketoconazole 2% [Nizoral 2% Cream 1 evette TP DAILY PRN 07/30/18 (*)] Tamsulosin HCl [Flomax 0.4 MG (*)] 0.4 mg PO HS 07/30/18 guaiFENesin [Mucinex 600 MG (*)] 600 mg PO BID PRN 07/30/18 Clopidogrel Bisulfate [Plavix (*)] 75 mg PO DAILY #30 tab 08/01/18 Isosorbide Mononitrate [Imdur 30 30 mg PO DAILY #30 tab.sr 08/01/18 mg (*)] Nitroglycerin [Nitrostat 0.4 mg 0.4 mg SL Q5M PRN #30 bottle 08/01/18 (*)] Medical Decision Making ED Course/Re-evaluation: CHIEF COMPLAINT: "I know I had a heart attack last night" HISTORY OF PRESENT ILLNESS: The patient is a 77 y/o male with a history of severe CAD post CABG, ruptured AAA with repair x2, CHF, chronic kidney disease who arrives with his daughter for evaluation after what he describes as a " heart attack" last night. He was admitted last month on 07/30/18 for a nSTEMI and underwent catheterization at that time which showed 100% occlusions of his LCX and RCA, and 80% high-grade proximal stenosis of his LAD that he was told were "too narrow to stent." His bypass grafts had stenosis but were patent. At that time they opted to medically manage patient for this with Nitro, Plavix, and Imdur. Last night he had pain that felt exactly the same as his prior MIs and is sure that he was having a heart attack. He opted not to call 911 or call his daughter because he didn't want to trouble her before she had to go to work today. He took nitro and pain improved by this evening when his daughter heard about the incident and brought him to the ED. He is compliant with his medications including Plavix and aspirin. He has no chest pain currently. REVIEW OF SYSTEMS: A comprehensive 10 system review of systems is otherwise negative aside from elements mentioned in the history of present illness and medical decision making. PHYSICAL EXAM: HR, BP, O2 Sat, RR. Temp noted General Appearance: Alert, well hydrated, appropriate, and non-toxic appearing. Head: Atraumatic without scalp tenderness or obvious injury Eyes: Pupils equal, round, reactive to light and accommodation, EOMI, no trauma , no injection. Ears: Clear bilaterally, no perforation, normal landmarks Nose: Atraumatic, no rhinorrhea, clear. Throat: There is no erythema or exudates, no lesions, normal tonsils, mucus membranes moist. Neck: Supple, nontender, no lymphadenopathy. Respiratory: No retractions, no distress, no wheezes, and no accessory muscle use. Lungs are clear to auscultation bilaterally. Cardiovascular: Regular rate and rhythm, no murmurs, rubs, or gallops. Good capillary refill all extremities. Gastrointestinal: Abdomen is soft, nontender, non-distended, no masses, no rebound, no guarding, no peritoneal signs. Well-healed abdominal scars. Musculoskeletal: Normal active ROM of all extremities, atraumatic. Neurological: Alert, appropriate, and interactive. The patient has non-focal cranial nerves, motor, sensory, and cerebellar exam. Skin: No rashes, good turgor, no nodules on palpation. Past medical history: CAD, MIs, hypertension, renal insufficiency Past surgical history: CABG 1997, AAA repairs - 1993, 2015 Family history: Noncontributory Social history: Lives at [facility]. Daughter at bedside. Retired. DNR per patient. Prior medical records reviewed including admission and cardiology notes for nSTEMI. DIAGNOSTICS/PROCEDURES/CRITICAL CARE TIME: The 12 lead EKG was interpreted by myself. Sinus mechanism. RBBB. Dynamic EKGs compared to 07/30/18 and 08/01/18. See hard copy and/or "tracemaster" electronic copy for interpretation. DIFFERENTIAL DIAGNOSIS: The differential diagnosis for the patient's chest pain included but was not limited to myocardial ischemia, pulmonary embolus, chest wall pain, pleural inflammation, and pulmonary infectious causes. MEDICAL DECISION MAKING: This is a 77 y/o male with severe vasculopathy who presents after reported heart attack symptoms onset last night. He is currently chest pain free. Per patient and most recent catheterization report 07/30/18, he has high-grade stenosis that has been deemed medical management only. He is compliant with his antiplatelet agents. Plan for IV, labs, EKG, and cardiology consult. EKG shows sinus mechanism with RBBB. He has a dynamic EKG from prior. Labs show elevated creatinine, but at baseline for him. Troponin elevated at 0.48. 195: Consulted with Dr. Lombardo, cardiology. He agrees no interventions other than medical management at this time and recommends adding Lovenox and admitting for 24-48 hours. 80mg SQ Lovenox ordered. Spoke with hospitalist service. Dr. Whitfield accepts admission. - Data Points Laboratory Results: 09/01/18 09/01/18 19:26 19:24 POC Hgb 11.2 gm/dL L gm/dL (13.7-17.5) POC Hct 33 % L % (40-51) POC Sodium 138 mEq/L mEq/L (135-145) POC Potassium 4.3 mEq/L mEq/L (3.3-5.0) POC Chloride 101 mEq/L mEq/L (97-110) POC BUN 36 mg/dL H mg/dL (7-23) POC Creatinine 2.4 mg/dL H mg/dL (0.7-1.3) POC Glucose 83 mg/dL mg/dL (70-100) POC Troponin I 0.48 ng/mL H ng/mL (0.00-0.08) Point of Care Test Results: Chemistry 09/01/18 09/01/18 19:26 19:24 POC Sodium 138 mEq/L mEq/L (135-145) POC Potassium 4.3 mEq/L mEq/L (3.3-5.0) POC Chloride 101 mEq/L mEq/L (97-110) POC BUN 36 mg/dL H mg/dL (7-23) POC Creatinine 2.4 mg/dL H mg/dL (0.7-1.3) POC Glucose 83 mg/dL mg/dL (70-100) POC Troponin I 0.48 ng/mL H ng/mL (0.00-0.08) ISTAT H&H 09/01/18 19:26 POC Hgb 11.2 gm/dL L gm/dL (13.7-17.5) POC Hct 33 % L % (40-51) Departure - Departure Disposition: [facility] Inpatient Acute Clinical Impression: NSTEMI (non-ST elevated myocardial infarction) Condition: Fair Referrals: David Espino MD [Primary Care Provider] - As per Instructions Report Scribed for: Nikolas Flores Report Scribed by: Dalia Villagomez Date of Report: 09/01/18 Time of Report: 19:14
[2018-09-01] MEDS ORDERED: ENOXAPARIN 100 MG/ML SYR SC ONE (19:58)
[2018-09-01] MEDS ORDERED: ENOXAPARIN 80 MG/0.8 ML SYR SC ONE (20:02)
[2018-09-01] MEDS ORDERED: ONDANSETRON 4 MG/2 ML VIAL IVP PRN (22:18)
[2018-09-01] MEDS ORDERED: ACETAMINOPHEN 325 MG TAB PO PRN (22:18)
[2018-09-01] MEDS ORDERED: ONDANSETRON DISINTEGRATING 4 MG TAB PO PRN (22:18)
[2018-09-01] MEDS ORDERED: NITROGLYCERIN 0.4 MG BTL SL PRN (22:40)
[2018-09-01 23:00] LABS: PLATELET COUNT 155 10^3/uL (150-400)
[2018-09-01] MEDS ORDERED: ZOLPIDEM TARTRATE 5 MG TAB PO ONE (23:01)
[2018-09-01 23:08] LABS: INR 1.11 (0.83-1.16); PROTIME(PATIENT) 14.5 SEC (12.0-15.0)
--- NOTE | 2018-09-01 23:24 | PDGENHP ---
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 He was sitting in his recliner last night when he had an episode of severe central chest pain reminiscent of his recent NSTEMI. The pain was resistant to NTG and lasted several hours. He decided not to call EMS because he did not want to bother his daughter who had to work today. He finally fell asleep and woke up this morning feeling mostly fine. He thinks he may be a bit more short of breath than usual but otherwise has no complaints. he is chest pain free at the moment. He was admitted last month and evaluated for an NSTEMI. His troponin peaked at 4 during that admission. A cardiac cath showed patient grafts and no intervention was deemed necessary. Instead, he was recommended for medical therapy. Clopidogrel and Imdur were added at that time. He tells me he had been doing quite well since the last episode. He even went to cardiac rehab a few times without chest pain. Today his troponin was noted to be 0.48 in the ED. The case was discussed with Dr. Lombardo who recommended heparin and admission for observation. Case discussed with Dr. Whitfield; records reviewed and summarized above. History Information - Allergies/Home Medication List Allergies/Adverse Reactions: NSAIDS (Non-Steroidal Anti-Inflamma [NSAIDS (Non-Steroidal Anti-Inflammatory Drug)] Allergy (Unknown, Verified 09/01/18 20:54) Other-Enter Comments Home Medications: Aspirin [Aspirin 81mg (*)] 81 mg PO DAILY 07/28/18 [Last Taken 09/01/18] Fluticasone/Salmeter 250/50Mcg [Advair 250/50 (*)] 1 puffs IH BID 07/28/18 [ Last Taken 09/01/18 AM] Melatonin [Melatonin 3 MG (*)] 3 mg PO HS 07/28/18 [Last Taken 08/31/18] Metoprolol Tartrate [Lopressor 25 mg (*)] 25 mg PO BID 07/28/18 [Last Taken AM] Tiotropium [place] [Spiriva Respimat] 2 inh IH DAILY 07/28/18 [Last Taken ] Zolpidem Tartrate [Ambien Cr] 6.25 mg PO HS 07/28/18 [Last Taken 08/31/18] traZODone [traZODONE 100MG (*)] 100 mg PO HS 07/28/18 [Last Taken 08/31/18] Furosemide [Lasix 20 MG (*)] 20 mg PO DAILY 07/30/18 [Last Taken 09/01/18] Tamsulosin HCl [Flomax 0.4 MG (*)] 0.4 mg PO HS 07/30/18 [Last Taken 08/31/18] guaiFENesin [Mucinex 600 MG (*)] 600 mg PO DAILY PRN 07/30/18 [Last Taken ] Albuterol Sulfate [Ventolin Hfa] 1 - 2 puffs IH DAILY PRN 09/01/18 [Last Taken Unknown] Atorvastatin Calcium [Lipitor 20 mg (*)] 20 mg PO Q2D 09/01/18 [Last Taken 08/30] I have personally reviewed and updated: family history, medical history - Past Medical History coronary artery disease, COPD Additional medical history: AAA. CKD - Surgical History Reports: coronary bypass surgery, spinal surgery Additional surgical history: AAA repair - Family History Positive for: stroke. Negative for: CAD - Social History Smoking Status: Former smoker Review of Systems Review of Systems: ROS: 10pt was reviewed & negative except for what was stated in HPI & below Physical Exam Physical Exam: Temp Pulse Resp BP Pulse Ox 36.6 C 70 17 159/93 H 97 09/01/18 21:21 09/01/18 21:21 09/01/18 21:21 09/01/18 21:21 09/01/18 21:21 O2 (L/minute) 3 Constitutional: no apparent distress, not in pain Eyes: PERRL, EOMI Ears, Nose, Mouth, Throat: moist mucous membranes, no oral mucosal ulcers Cardiovascular: regular rate and rhythym, systolic murmur, edema (1+ b/l KRISTEN) Respiratory: no respiratory distress, clear to auscultation Gastrointestinal: normoactive bowel sounds, soft, non-tender abdomen Skin: warm, normal color Neurologic: AAOx3, CN II-XII Intact Psychiatric: interacting appropriately, not anxious Lab Data & Imaging Review 09/01/18 22:51 WBC 6.46 10^3/uL (3.80-9.50) 09/01/18 22:51 RBC 3.61 10^6/uL (4.40-6.38) L 09/01/18 22:51 Hgb 11.2 g/dL (13.7-17.5) L 09/01/18 22:51 POC Hgb 11.2 gm/dL (13.7-17.5) L 09/01/18 19:26 Hct 33.0 % (40.0-51.0) L 09/01/18 22:51 POC Hct 33 % (40-51) L 09/01/18 19:26 MCV 91.4 fL (81.5-99.8) 09/01/18 22:51 MCH 31.0 pg (27.9-34.1) 09/01/18 22:51 MCHC 33.9 g/dL (32.4-36.7) 09/01/18 22:51 RDW 13.4 % (11.5-15.2) 09/01/18 22:51 Plt Count 155 10^3/uL (150-400) 09/01/18 22:51 MPV 8.7 fL (8.7-11.7) 09/01/18 22:51 Neut % (Auto) 75.1 % (39.3-74.2) H 09/01/18 22:51 Lymph % (Auto) 9.0 % (15.0-45.0) L 09/01/18 22:51 Louisa % (Auto) 8.8 % (4.5-13.0) 09/01/18 22:51 Eos % (Auto) 5.4 % (0.6-7.6) 09/01/18 22:51 Baso % (Auto) 0.6 % (0.3-1.7) 09/01/18 22:51 Nucleat RBC Rel Count 0.0 % (0.0-0.2) 09/01/18 22:51 Absolute Neuts (auto) 4.85 10^3/uL (1.70-6.50) 09/01/18 22:51 Absolute Lymphs (auto) 0.58 10^3/uL (1.00-3.00) L 09/01/18 22:51 Absolute Monos (auto) 0.57 10^3/uL (0.30-0.80) 09/01/18 22:51 Absolute Eos (auto) 0.35 10^3/uL (0.03-0.40) 09/01/18 22:51 Absolute Basos (auto) 0.04 10^3/uL (0.02-0.10) 09/01/18 22:51 Absolute Nucleated RBC 0.00 10^3/uL (0-0.01) 09/01/18 22:51 Immature Gran % 1.1 % (0.0-1.1) 09/01/18 22:51 Immature Gran # 0.07 10^3/uL (0.00-0.10) 09/01/18 22:51 RBC/WBC/PLT Morphology TNP 09/01/18 22:51 Platelet Estimate TNP 09/01/18 22:51 PT 14.5 SEC (12.0-15.0) 09/01/18 22:51 INR 1.11 (0.83-1.16) 09/01/18 22:51 APTT 32.8 SEC (23.0-38.0) 09/01/18 22:51 POC Sodium 138 mEq/L (135-145) 09/01/18 19:26 POC Potassium 4.3 mEq/L (3.3-5.0) 09/01/18 19:26 POC Chloride 101 mEq/L (97-110) 09/01/18 19:26 POC BUN 36 mg/dL (7-23) H 09/01/18 19:26 POC Creatinine 2.4 mg/dL (0.7-1.3) H 09/01/18 19:26 POC Glucose 83 mg/dL (70-100) 09/01/18 19:26 POC Troponin I 0.48 ng/mL (0.00-0.08) H 09/01/18 19:24 Visualized and Interpreted EKG results: Yes EKG Interpretation: Positive for: normal sinsus rhythm, right bundle branch block, T waves inversion (Inferior and lateral leads, diminished from prior comparison) Assessment & Plan Assessment: 77 yo M w/ CAD s/p CABG, COPD, 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 Plan: 1. NSTEMI, recurrent - This is his first episode of significant angina after recent admission for NSTEMI. At that time he was medically managed with addition of clopidogrel and Imdur, which had worked well until last evening. Cardiac cath at that time revealed patent grafts and no culprit lesion appropriate for intervention. ECG (personally reviewed/interpreted) reveals inferior and lateral TWI's, but these are improved from previous comparison. Troponin 0.48 on admission. - S/p Lovenox x1 in ED; will start heparin gtt in the morning noting CKD - Monitor on telemetry, trend cardiac enzymes - He may benefit from addition of CCB or Ranolazine - Cardiology consulted (Dr. Lombardo) for further management, appreciate assistance 2. Hx CAD - S/p CABG in 1997; as described above, he was admitted for an NSTEMI last month. Cardiac cath at that time revealed patent bypass grafts. A proximal LAD lesion was noted but this did not fit anatomically with nuclear perfusion study and also jeopardized bifurcating branch if stented. Nuclear perfusion stress test from 07/22 revealed apical defect concerning for ischemia and decreased EF(38%). - Acute management as above - Continue home medications pending reconciliation 3. Cardiomyopathy, presumed ischemic - EF 38% noted on 07/22 nuclear perfusion study but improved to 53% on most recent TTE. He does have moderate lower extremity edema but patient states this is chronic. - Daily weights, monitor I/Os, cardiac diet - Continue home medications as he appears compensated - Cardiology consulted 4. COPD, CHRF - On 4 L/min O2 continuously at baseline, currently stable on the same. There is no evidence of acute exacerbation. - Continue home O2 - Continue home medications 5. CKD, Stage 3/4 - Currently at creatine baseline (~2.3). - Avoid nephrotoxic agents as able - Renally dose medications - Monitor BMP 6. AAA - s/p repair Diet - Cardiac Code - Full Ppx - Heparin gtt Dispo - Admit under inpatient status
[2018-09-01] MEDS: MELATONIN 3 MG TAB PO PRN (23:58)
[2018-09-01] MEDS: traZODone 100 MG TAB PO PRN (23:58)
[2018-09-01] MEDS: guaiFENesin 600 MG TAB.ER PO PRN (23:58)
[2018-09-01] MEDS: METOPROLOL TARTRATE 25 MG TAB PO SCH (23:59)
[2018-09-02 04:24] LABS: PLATELET COUNT 165 10^3/uL (150-400)
--- NOTE | 2018-09-02 08:23 | ASMTLACE ---
THOMASE Acuity / Level of Answers: Yes Care: Did the patient have an inpatient admission? Comorbidities - select Answers: Chronic pulmonary disease all that apply Congestive heart failure Moderate or severe liver or renal disease Previous myocardial infarction Other Notes: HTN; HLD # of Emergency department Answers: 1-2 visits in the last 6 months Score: 14 Date Signed: 09/02/2018 08:22 AM Electronically Signed By:Barbara Gomez
--- NOTE | 2018-09-02 08:35 | PDMN ---
Medical Necessity Medical necessity: Pt meets IP criteria per & MCG M-230; est los >2 mn for eval/tx of NSTEMI; requiring further monitoring, Cardiac consult & Heparin gtt; comorbid CAD, COPD, CKD; per IP order 09/01/18
[2018-09-02] MEDS ORDERED: METOPROLOL TARTRATE 25 MG TAB PO SCH (09:00)
[2018-09-02] MEDS ORDERED: HEPARIN/DEXTROSE 500 ML IV SCH (09:00)
[2018-09-02] MEDS ORDERED: HEPARIN 10,000 UNIT/10 ML MDV (1,000 UNIT/ML) IVP PRN (09:00)
[2018-09-02] MEDS: ASPIRIN 81 MG CHEWABLE TAB PO SCH (09:33)
[2018-09-02] MEDS: CLOPIDOGREL BISULFATE 75 MG TAB PO SCH (09:33)
[2018-09-02] MEDS: FUROSEMIDE 20 MG TAB PO SCH (09:33)
[2018-09-02] MEDS: METOPROLOL TARTRATE 25 MG TAB PO SCH (09:33)
[2018-09-02] MEDS: ISOSORBIDE MONONITRATE 30 MG TAB.SR PO SCH (09:33)
[2018-09-02] MEDS: FLUTICASONE/SALMETER 250/50MCG DISKUS IH SCH ×2 (10:11→20:15)
[2018-09-02] MEDS: Tiotropium Bromide [Spiriva Respimat] 2 INH IH SCH (10:13)
--- NOTE | 2018-09-02 10:26 | PDCARCONS ---
Cardiology Consult Reason for Consult: Recurrent chest pain Chief Complaint: Chest pain Requesting Physician: Pagan History of Present Illness: 77-year-old male well known to our service history of remote coronary artery bypass grafting with recent non-Q-wave myocardial infarction. Cardiac catheterization at that time showed degenerate vein graft to the distal right coronary artery severe [place] 3 vessel disease with a patent mammary artery to the LAD. Patient was felt to be a poor PCI/[place] coronary artery bypass graft candidate and was treated medically. He did well for 30 days. The day before yesterday he had an episode of substernal chest pressure similar to 1 month ago. It persisted overnight. Resolved by the next morning. He called into the office and was advised to come the emergency department. His EKG on arrival was not changed. His troponin was elevated and he was admitted for further evaluation. He has been pain-free since then. I have reviewed his diagnostic angiograms which showed a severely degenerated vein graft to the distal right with a critical stenosis. He had severe [place] disease including unprotected principal diagonal. His mammary artery is widely patent with retrograde filling of the diagonal. Echocardiogram showed inferior hypokinesis with overall preserved LV systolic function. No significant valvular abnormalities. Patient has had no fever or chills. He has had no abdominal pain diarrhea constipation. He has been compliant with medical therapy. On my arrival he is pain-free. He has had no PND orthopnea. No syncope near syncope. No palpitations. Medications: Ambulatory Orders Aspirin [Aspirin 81mg (*)] 81 mg PO DAILY 07/28/18 Fluticasone/Salmeter 250/50Mcg [Advair 250/50 (*)] 1 puffs IH BID 07/28/18 Melatonin [Melatonin 3 MG (*)] 3 mg PO HS 07/28/18 Metoprolol Tartrate [Lopressor 25 mg (*)] 25 mg PO BID 07/28/18 Tiotropium [place] [Spiriva Respimat] 2 inh IH DAILY 07/28/18 Zolpidem Tartrate [Ambien Cr] 6.25 mg PO HS 07/28/18 traZODone [traZODONE 100MG (*)] 100 mg PO HS 07/28/18 Furosemide [Lasix 20 MG (*)] 20 mg PO DAILY 07/30/18 Tamsulosin HCl [Flomax 0.4 MG (*)] 0.4 mg PO HS 07/30/18 guaiFENesin [Mucinex 600 MG (*)] 600 mg PO DAILY PRN 07/30/18 Clopidogrel Bisulfate [Plavix (*)] 75 mg PO DAILY #30 tab 08/01/18 Isosorbide Mononitrate [Imdur 30 mg (*)] 30 mg PO DAILY #30 tab.sr 08/01/18 Nitroglycerin [Nitrostat 0.4 mg (*)] 0.4 mg SL Q5M PRN #30 bottle 08/01/18 Albuterol Sulfate [Ventolin Hfa] 1 - 2 puffs IH DAILY PRN 09/01/18 Atorvastatin Calcium [Lipitor 20 mg (*)] 20 mg PO Q2D 09/01/18 History Information - Allergies/Home Medication List Allergies/Adverse Reactions: NSAIDS (Non-Steroidal Anti-Inflamma [NSAIDS (Non-Steroidal Anti-Inflammatory Drug)] Allergy (Unknown, Verified 09/01/18 20:54) Other-Enter Comments Home Medications: Aspirin [Aspirin 81mg (*)] 81 mg PO DAILY 07/28/18 [Last Taken 09/01/18] Fluticasone/Salmeter 250/50Mcg [Advair 250/50 (*)] 1 puffs IH BID 07/28/18 [ Last Taken 09/01/18 AM] Melatonin [Melatonin 3 MG (*)] 3 mg PO HS 07/28/18 [Last Taken 08/31/18] Metoprolol Tartrate [Lopressor 25 mg (*)] 25 mg PO BID 07/28/18 [Last Taken AM] Tiotropium [place] [Spiriva Respimat] 2 inh IH DAILY 07/28/18 [Last Taken ] Zolpidem Tartrate [Ambien Cr] 6.25 mg PO HS 07/28/18 [Last Taken 08/31/18] traZODone [traZODONE 100MG (*)] 100 mg PO HS 07/28/18 [Last Taken 08/31/18] Furosemide [Lasix 20 MG (*)] 20 mg PO DAILY 07/30/18 [Last Taken 09/01/18] Tamsulosin HCl [Flomax 0.4 MG (*)] 0.4 mg PO HS 07/30/18 [Last Taken 08/31/18] guaiFENesin [Mucinex 600 MG (*)] 600 mg PO DAILY PRN 07/30/18 [Last Taken ] Albuterol Sulfate [Ventolin Hfa] 1 - 2 puffs IH DAILY PRN 09/01/18 [Last Taken Unknown] Atorvastatin Calcium [Lipitor 20 mg (*)] 20 mg PO Q2D 09/01/18 [Last Taken 08/30] I have personally reviewed and updated: family history, medical history, social history, surgical history Past Medical History: - Past Medical History coronary artery disease - Surgical History Reports: coronary bypass surgery - Family History Positive for: non-pertinent - Social History Smoking Status: Former smoker Physical Exam Physical Exam: Temp Pulse Resp BP Pulse Ox 36.6 C 64 17 123/77 H 94 09/02/18 09:28 09/02/18 10:18 09/02/18 10:18 09/02/18 09:28 09/02/18 10:18 O2 (L/minute) 3 Lab and Imaging 09/02/18 03:49 09/02/18 03:49 WBC 5.85 10^3/uL (3.80-9.50) 09/02/18 03:49 RBC 3.35 10^6/uL (4.40-6.38) L 09/02/18 03:49 Hgb 10.3 g/dL (13.7-17.5) L 09/02/18 03:49 POC Hgb 11.2 gm/dL (13.7-17.5) L 09/01/18 19:26 Hct 31.1 % (40.0-51.0) L 09/02/18 03:49 POC Hct 33 % (40-51) L 09/01/18 19:26 MCV 92.8 fL (81.5-99.8) 09/02/18 03:49 MCH 30.7 pg (27.9-34.1) 09/02/18 03:49 MCHC 33.1 g/dL (32.4-36.7) 09/02/18 03:49 RDW 13.5 % (11.5-15.2) 09/02/18 03:49 Plt Count 165 10^3/uL (150-400) 09/02/18 03:49 MPV 9.3 fL (8.7-11.7) 09/02/18 03:49 Neut % (Auto) 68.4 % (39.3-74.2) 09/02/18 03:49 Lymph % (Auto) 10.3 % (15.0-45.0) L 09/02/18 03:49 [place]acken % (Auto) 12.0 % (4.5-13.0) 09/02/18 03:49 Eos % (Auto) 7.0 % (0.6-7.6) 09/02/18 03:49 Baso % (Auto) 0.9 % (0.3-1.7) 09/02/18 03:49 Nucleat RBC Rel Count 0.0 % (0.0-0.2) 09/02/18 03:49 Absolute Neuts (auto) 4.01 10^3/uL (1.70-6.50) 09/02/18 03:49 Absolute Lymphs (auto) 0.60 10^3/uL (1.00-3.00) L 09/02/18 03:49 Absolute Monos (auto) 0.70 10^3/uL (0.30-0.80) 09/02/18 03:49 Absolute Eos (auto) 0.41 10^3/uL (0.03-0.40) H 09/02/18 03:49 Absolute Basos (auto) 0.05 10^3/uL (0.02-0.10) 09/02/18 03:49 Absolute Nucleated RBC 0.00 10^3/uL (0-0.01) 09/02/18 03:49 Immature Gran % 1.4 % (0.0-1.1) H 09/02/18 03:49 Immature Gran # 0.08 10^3/uL (0.00-0.10) 09/02/18 03:49 RBC/WBC/PLT Morphology TNP 09/01/18 22:51 Platelet Estimate TNP 09/01/18 22:51 PT 14.5 SEC (12.0-15.0) 09/01/18 22:51 INR 1.11 (0.83-1.16) 09/01/18 22:51 APTT 32.8 SEC (23.0-38.0) 09/01/18 22:51 Heparin Anti-Xa, Unfract 0.54 IU/mL (0.32-0.67) 09/02/18 03:49 POC Sodium 138 mEq/L (135-145) 09/01/18 19:26 Sodium 138 mEq/L (135-145) 09/02/18 03:49 POC Potassium 4.3 mEq/L (3.3-5.0) 09/01/18 19:26 Potassium 4.4 mEq/L (3.3-5.0) 09/02/18 03:49 POC Chloride 101 mEq/L (97-110) 09/01/18 19:26 Chloride 104 mEq/L (97-110) 09/02/18 03:49 Carbon Dioxide 29 mEq/l (22-31) 09/02/18 03:49 Anion Gap 5 mEq/L (6-14) L 09/02/18 03:49 POC BUN 36 mg/dL (7-23) H 09/01/18 19:26 BUN 38 mg/dL (7-23) H 09/02/18 03:49 Creatinine 2.3 mg/dL (0.7-1.3) H 09/02/18 03:49 POC Creatinine 2.4 mg/dL (0.7-1.3) H 09/01/18 19:26 Estimated GFR 28 09/02/18 03:49 Glucose 115 mg/dL (70-100) H 09/02/18 03:49 POC Glucose 83 mg/dL (70-100) 09/01/18 19:26 Calcium 8.8 mg/dL (8.5-10.4) 09/02/18 03:49 Phosphorus 4.3 mg/dL (2.5-4.5) 09/02/18 03:49 Magnesium 2.2 mg/dL (1.6-2.3) 09/02/18 03:49 POC Troponin I 0.48 ng/mL (0.00-0.08) H 09/01/18 19:24 EKG additional interpertation: Sinus rhythm with inferior Q-waves, right bundle branch block. No acute ST-T changes noted. A/P Assessment: Impression: 77-year-old male known severe coronary disease with degenerate vein graft to the distal right, patent mammary artery to the LAD and [place] disease with recurrent resting chest pain associated with elevation in troponin. EKG does not show acute injury. He has been pain free for 24 hr. I reviewed his diagnostic angiogram from 1 month ago as well as echocardiogram. The only target would be his degenerate vein graft to the distal right. There was poor distal runoff and this is a very old vein graft. This would be a quite high risk procedure with significant risk of no reflow. At this point would recommend 48 hr of Lovenox for unstable angina/non-Q-wave myocardial infarction increase of beta-temitope, continue dual antiplatelet therapy with high-dose statin therapy. Trial of life afterwards. If he has recurrent symptoms would proceed with high risk PCI of the degenerate vein graft. He is hemodynamically stable with normal LV function and should tolerate this well. Questions were answered with him. Will follow him during this hospitalization. Plan: High-dose statin therapy. Lovenox 1 milligram/kilogram subcu twice daily for 48 hr. Increased beta-blockade. Review of Systems Review of Systems: - Review of Systems Constitutional: denies: chills, fever EENTM: no symptoms reported Respiratory: no symptoms reported Cardiac: chest pain. denies: edema, irregular heart rate, lightheadedness, palpitations, syncope Gastrointestinal/Abdominal: no symptoms reported Genitourinary: no symptoms Musculoskelatal: no symptoms Skin: no symptoms Neurological: no symptoms Hematologic/Lymphatic: no symptoms reported Immunologic/allergic: no symptoms reported
[2018-09-02] MEDS ORDERED: ENOXAPARIN 100 MG/ML SYR SC SCH (10:45)
--- NOTE | 2018-09-02 13:53 | ASMTCMCOM ---
CM Note CM Note Notes: Pts case discussed in tx rounds. Pt is a 77 y/o man admitted for non stemi myocardial infraction. Cards has been consulted. Pt will most likely d/c without any needs when medically stable. No therapies ordered at this time. CM available for changes. Plan: Independent Date Signed: 09/02/2018 01:53 PM Electronically Signed By:RADHA Shannon
--- NOTE | 2018-09-02 14:18 | HOSPPROG ---
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 NSTEMI, recurrent - This is his first episode of significant angina after recent admission for NSTEMI. At that time he was medically managed with addition of clopidogrel and Imdur, which had worked well until last evening. Cardiac cath at that time revealed patent grafts and no culprit lesion appropriate for intervention. ECG (personally reviewed/interpreted) reveals inferior and lateral TWI's, but these are improved from previous comparison. Troponin 0.48 on admission. -Cards (Dr. Lombardo) following -Cont with Lovenox BID x 48 hrs -High dose Statin therapy -Increased Beta blockade -If there are recurrent sx's, then Cards would proceed with PCI of degenerate vein graft to the distal right. This would be a quite high risk procedure with significant risk of no reflow. 2. Hx CAD - S/p CABG in 1997; as described above, he was admitted for an NSTEMI last month. 3. Cardiomyopathy, presumed ischemic - EF 38% noted on 07/22 nuclear perfusion study but improved to 53% on most recent TTE. He does have moderate lower extremity edema but patient states this is chronic. - Daily weights, monitor I/Os, cardiac diet - Continue home medications as he appears compensated - Cardiology following 4. COPD, CHRF - On 4 L/min O2 continuously at baseline, currently stable on the same. There is no evidence of acute exacerbation. - Continue home O2 - Continue home medications 5. CKD, Stage 3/4 - Currently at creatine baseline (~2.3). - Avoid nephrotoxic agents as able - Renally dose medications - Monitor BMP 6. AAA - s/p repair Diet - Cardiac Code - Full Ppx - Lovenox Dispo - cont inpatient Subjective: no current cp or sob. Objective: Vital Signs Temp Pulse Resp BP Pulse Ox 36.4 C 56 L 16 91/59 L 97 09/02/18 11:21 18 11:21 09/02/18 11:21 09/02/18 11:21 09/02/18 11:21 Laboratory Results 09/02/18 03:49 09/02/18 03:49 09/01/18 09/02/18 09/03/18 05:59 05:59 05:59 Intake Total 200 Output Total 320 Balance -120 PT 14.5 SEC (12.0-15.0) 09/01/18 22:51 INR 1.11 (0.83-1.16) 09/01/18 22:51 - Physical Exam Constitutional: no apparent distress Eyes: PERRL Ears, Nose, Mouth, Throat: moist mucous membranes, hearing normal Cardiovascular: regular rate and rhythym Respiratory: no respiratory distress Gastrointestinal: normoactive bowel sounds, soft, non-tender abdomen Skin: warm Neurologic: AAOx3 Psychiatric: interacting appropriately, not anxious, not encephalopathic Lymph, Heme, Immunologic: No petechiae ICD10 Worksheet Patient Problems: Problems Problem Status Onset NSTEMI (non-ST elevated myocardial infarction) Acute Chest pain Acute Chronic Disease Mgmt/Transitional Care Acute Elevated troponin Acute
[2018-09-02] MEDS: ENOXAPARIN 100 MG/ML SYR SC SCH (22:07)
[2018-09-02] MEDS: traZODone 100 MG TAB PO PRN (22:07)
[2018-09-02] MEDS: METOPROLOL TARTRATE 50 MG TAB PO SCH (22:08)
[2018-09-02] MEDS: MELATONIN 3 MG TAB PO PRN (22:08)
[2018-09-02] MEDS: TAMSULOSIN HCL 0.4 MG CAP PO SCH (22:08)
[2018-09-02] MEDS: guaiFENesin 600 MG TAB.ER PO PRN (22:09)
[2018-09-03] MEDS: FUROSEMIDE 20 MG TAB PO SCH (08:42)
[2018-09-03] MEDS: ISOSORBIDE MONONITRATE 30 MG TAB.SR PO SCH (08:42)
[2018-09-03] MEDS: ASPIRIN 81 MG CHEWABLE TAB PO SCH (08:42)
[2018-09-03] MEDS: CLOPIDOGREL BISULFATE 75 MG TAB PO SCH (08:42)
[2018-09-03] MEDS: FLUTICASONE/SALMETER 250/50MCG DISKUS IH SCH ×2 (08:43→21:24)
[2018-09-03] MEDS: Tiotropium Bromide [Spiriva Respimat] 2 INH IH SCH (08:43)
[2018-09-03] MEDS ORDERED: ATORVASTATIN CALCIUM 40 MG TAB PO SCH (09:00)
[2018-09-03] MEDS ORDERED: ATORVASTATIN CALCIUM 20 MG TAB PO SCH (09:00)
--- NOTE | 2018-09-03 10:31 | SOAPPROG ---
[facility] Progress Note Assessment/Plan: 1. CAD - Pt has known CAD and is s/p CABG x 3. He presented with an ACS in and was taken to the cardiac catheterization laboratory for risk stratification. Coronary angiography demonstrated 3VD with patent grafts to the LAD and LCX. The SVG to RCA was diseased as well as the [place] LAD prior to the diagonal artery. Pt was not felt to be a good interventional candidate secondary to renal insufficiency and degenerated vein graft. Pt was started on long acting nitrates and did well for approximately 1 month when he developed recurrent symptoms. Will add ranexa to his medications. Discussed high risk intervention if symptoms not controlled with medications. --> Continue asa, plavix, metoprolol, and lipitor --> Continue lovenox for 48 to 72 hours --> Start ranexa 2. Hyperlipidemia - Pts LDL is 84 on atorvastatin 20 mg daily. Will increase atorvastatin to 80 mg daily. 3. bradycardia - Pt has asymptomatic bradycardia. He is unlikely to tolerate higher doses of metoprolol 4. Hypertension - Bp is well controlled on metoprolol. Consider hydralazine. 09/03/18 10:31 Subjective: Pt admitted with recurrent chest pain and + troponin See Dr Lombardo's consult + chest pain this am No further episodes of chest pain No orthopnea or PND Pt is not interested in dialysis if required. Objective: Vital Signs Temp Pulse Resp BP Pulse Ox 36.6 C 61 20 138/70 H 99 09/03/18 08:00 09/03/18 08:00 09/03/18 08:00 09/03/18 08:00 09/03/18 08:00 Laboratory Results 09/03/18 03:38 09/03/18 03:38 09/02/18 09/03/18 09/04/18 05:59 05:59 05:59 Intake Total 200 630 Output Total 320 950 500 Balance -120 -320 -500 PT 14.5 SEC (12.0-15.0) 09/01/18 22:51 INR 1.11 (0.83-1.16) 09/01/18 22:51 Physical Exam - Physical Exam General Appearance: alert, no apparent distress Respiratory: lungs clear Cardiac/Chest: regular rate, rhythm Abdomen: non-tender, soft Extremities: other (trace edema B) ICD10 Worksheet Patient Problems: Problems Problem Status Onset NSTEMI (non-ST elevated myocardial infarction) Acute Chest pain Acute Chronic Disease Mgmt/Transitional Care Acute Elevated troponin Acute
[2018-09-03] MEDS: METOPROLOL TARTRATE 50 MG TAB PO SCH (10:57)
[2018-09-03] MEDS: RANOLAZINE 500 MG TAB.ER PO SCH ×2 (12:58→20:33)
[2018-09-03] MEDS: METOPROLOL TARTRATE 25 MG TAB PO SCH ×2 (12:58→20:33)
--- NOTE | 2018-09-03 13:55 | HOSPPROG ---
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 NSTEMI, recurrent - This is his first episode of significant angina after recent admission for NSTEMI. At that time he was medically managed with addition of clopidogrel and Imdur, which had worked well until last evening. Cardiac cath at that time revealed patent grafts and no culprit lesion appropriate for intervention. ECG (personally reviewed/interpreted) reveals inferior and lateral TWI's, but these are improved from previous comparison. Troponin 0.48 on admission. -Cards (Dr. Lombardo) following -Cont with Lovenox BID x 48 hrs -High dose Statin therapy -decrease Beta temitope due to Bradycardia -Start Ranexa -If there are recurrent sx's, then Cards would proceed with PCI of degenerate vein graft to the distal right. This would be a quite high risk procedure with significant risk of no reflow. 2. Hx CAD - S/p CABG in 1997; as described above, he was admitted for an NSTEMI last month. 3. Cardiomyopathy, presumed ischemic - EF 38% noted on 07/22 nuclear perfusion study but improved to 53% on most recent TTE. He does have moderate lower extremity edema but patient states this is chronic. - Daily weights, monitor I/Os, cardiac diet - Continue home medications as he appears compensated - Cardiology following 4. COPD, CHRF - On 4 L/min O2 continuously at baseline, currently stable on the same. There is no evidence of acute exacerbation. - Continue home O2 - Continue home medications 5. CKD, Stage 3/4 - Currently at creatine baseline (~2.3). - Avoid nephrotoxic agents as able - Renally dose medications - Monitor BMP 6. AAA - s/p repair Diet - Cardiac Code - Full Ppx - Lovenox Dispo - cont inpatient Subjective: no current chest pain. some Bradycardia Objective: Vital Signs Temp Pulse Resp BP Pulse Ox 36.8 C 75 15 107/53 L 98 09/03/18 12:35 09/03/18 12:35 09/03/18 12:35 09/03/18 12:35 09/03/18 12:35 Laboratory Results 09/03/18 03:38 09/03/18 03:38 09/02/18 09/03/18 09/04/18 05:59 05:59 05:59 Intake Total 200 630 Output Total 320 950 500 Balance -120 -320 -500 PT 14.5 SEC (12.0-15.0) 09/01/18 22:51 INR 1.11 (0.83-1.16) 09/01/18 22:51 - Physical Exam Constitutional: no apparent distress Eyes: PERRL Ears, Nose, Mouth, Throat: moist mucous membranes, hearing normal Cardiovascular: regular rate and rhythym Respiratory: no respiratory distress, no rales or rhonchi, clear to auscultation Gastrointestinal: normoactive bowel sounds, soft, non-tender abdomen Skin: warm Neurologic: AAOx3 Psychiatric: interacting appropriately, not anxious, not encephalopathic Lymph, Heme, Immunologic: No petechiae ICD10 Worksheet Patient Problems: Problems Problem Status Onset NSTEMI (non-ST elevated myocardial infarction) Acute Chest pain Acute Chronic Disease Mgmt/Transitional Care Acute Elevated troponin Acute
[2018-09-03] MEDS: MELATONIN 3 MG TAB PO PRN (20:33)
[2018-09-03] MEDS: TAMSULOSIN HCL 0.4 MG CAP PO SCH (20:33)
[2018-09-03] MEDS: ENOXAPARIN 100 MG/ML SYR SC SCH (20:35)
[2018-09-04] MEDS ORDERED: ATORVASTATIN CALCIUM 40 MG TAB PO SCH (08:54)
[2018-09-04] MEDS: Tiotropium Bromide [Spiriva Respimat] 2 INH IH SCH (09:56)
[2018-09-04] MEDS: FLUTICASONE/SALMETER 250/50MCG DISKUS IH SCH ×2 (09:56→21:13)
[2018-09-04] MEDS: FUROSEMIDE 20 MG TAB PO SCH (10:06)
[2018-09-04] MEDS: RANOLAZINE 500 MG TAB.ER PO SCH ×2 (10:06→20:39)
[2018-09-04] MEDS: CLOPIDOGREL BISULFATE 75 MG TAB PO SCH (10:06)
[2018-09-04] MEDS: METOPROLOL TARTRATE 25 MG TAB PO SCH ×2 (10:06→20:39)
[2018-09-04] MEDS: ASPIRIN 81 MG CHEWABLE TAB PO SCH (10:06)
[2018-09-04] MEDS: ISOSORBIDE MONONITRATE 30 MG TAB.SR PO SCH (10:07)
--- NOTE | 2018-09-04 10:49 | SOAPPROG ---
[facility] Progress Note Assessment/Plan: 1. CAD - Pt has known CAD and is s/p CABG x 3. He presented with an ACS in and was taken to the cardiac catheterization laboratory for risk stratification. Coronary angiography demonstrated 3VD with patent grafts to the LAD and LCX. The SVG to RCA was diseased as well as the [place] LAD prior to the diagonal artery. Pt was not felt to be a good interventional candidate secondary to renal insufficiency and degenerated vein graft. Pt was started on long acting nitrates and did well for approximately 1 month when he developed recurrent symptoms. No further angina since starting ranexa. Discussed high risk intervention if symptoms not controlled with medications. --> Continue asa, plavix, metoprolol, and lipitor --> Continue lovenox for 48 to 72 hours --> Continue ranexa. Will check chem 7 on 09/05 as there are case reports of deterioration of renal function with this medication. 2. Hyperlipidemia - Pts LDL is 84 on atorvastatin 20 mg daily. Will increase atorvastatin to 40 mg daily as a dose increase is expected with ranexa. 3. bradycardia - Pt has asymptomatic bradycardia. He is unlikely to tolerate higher doses of metoprolol 4. Hypertension - Bp is well controlled on metoprolol. Consider hydralazine. Subjective: No further episodes of chest pain ambulation is limited at this time No orthopnea or PND Objective: Vital Signs Temp Pulse Resp BP Pulse Ox 36.6 C 75 16 136/75 H 95 09/04/18 08:41 09/04/18 10:06 09/04/18 10:01 09/04/18 08:41 09/04/18 10:01 Laboratory Results 09/03/18 03:38 09/03/18 03:38 09/03/18 09/04/18 09/05/18 05:59 05:59 05:59 Intake Total 630 660 Output Total 950 1225 Balance -320 -565 PT 14.5 SEC (12.0-15.0) 09/01/18 22:51 INR 1.11 (0.83-1.16) 09/01/18 22:51 Physical Exam - Physical Exam General Appearance: no apparent distress Respiratory: lungs clear Cardiac/Chest: regular rate, rhythm Extremities: pedal edema Neuro/Psych: alert, oriented x 3 ICD10 Worksheet Patient Problems: Problems Problem Status Onset NSTEMI (non-ST elevated myocardial infarction) Acute Chest pain Acute Chronic Disease Mgmt/Transitional Care Acute Elevated troponin Acute
--- NOTE | 2018-09-04 11:51 | HOSPPROG ---
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 NSTEMI, recurrent - This is his first episode of significant angina after recent admission for NSTEMI. At that time he was medically managed with addition of clopidogrel and Imdur, which had worked well until last evening. Cardiac cath at that time revealed patent grafts and no culprit lesion appropriate for intervention. ECG (personally reviewed/interpreted) reveals inferior and lateral TWI's, but these are improved from previous comparison. Troponin 0.48 on admission. -Cards (Dr. Lombardo) following -Cont with Lovenox BID x 24 additional hrs -High dose Statin therapy -decrease Beta temitope due to Bradycardia -contRanexa -If there are recurrent sx's, then Cards would proceed with PCI of degenerate vein graft to the distal right. This would be a quite high risk procedure with significant risk of no reflow. 2. Hx CAD - S/p CABG in 1997; as described above, he was admitted for an NSTEMI last month. 3. Cardiomyopathy, presumed ischemic - EF 38% noted on 07/22 nuclear perfusion study but improved to 53% on most recent TTE. He does have moderate lower extremity edema but patient states this is chronic. - Daily weights, monitor I/Os, cardiac diet - Continue home medications as he appears compensated - Cardiology following 4. COPD, CHRF - On 4 L/min O2 continuously at baseline, currently stable on the same. There is no evidence of acute exacerbation. - Continue home O2 - Continue home medications 5. CKD, Stage 3/4 - Currently at creatine baseline (~2.3). - Avoid nephrotoxic agents as able - Renally dose medications - Monitor BMP 6. AAA - s/p repair 7. Insomnia: the pt has been taking his own Ambien. This need pharmacy approval and this was d/w the pt. Ok for pt to take his own Ambien if ok with pharmacy. Diet - Cardiac Code - Full Ppx - Lovenox Dispo - cont inpatient Subjective: no cp or sob. no n/v. Objective: Vital Signs Temp Pulse Resp BP Pulse Ox 36.8 C 63 16 119/67 95 09/04/18 11:14 09/04/18 11:14 09/04/18 11:14 09/04/18 11:14 09/04/18 11:14 Laboratory Results 09/03/18 03:38 09/03/18 03:38 09/03/18 09/04/18 09/05/18 05:59 05:59 05:59 Intake Total 630 660 240 Output Total 950 1225 375 Balance -320 -565 -135 PT 14.5 SEC (12.0-15.0) 09/01/18 22:51 INR 1.11 (0.83-1.16) 09/01/18 22:51 - Physical Exam Constitutional: no apparent distress Eyes: PERRL Ears, Nose, Mouth, Throat: moist mucous membranes Cardiovascular: regular rate and rhythym, No edema Respiratory: no respiratory distress, no rales or rhonchi, clear to auscultation Gastrointestinal: normoactive bowel sounds Skin: warm, normal color Neurologic: AAOx3 Psychiatric: interacting appropriately, not anxious, not encephalopathic Lymph, Heme, Immunologic: No petechiae ICD10 Worksheet Patient Problems: Problems Problem Status Onset NSTEMI (non-ST elevated myocardial infarction) Acute Chest pain Acute Chronic Disease Mgmt/Transitional Care Acute Elevated troponin Acute
[2018-09-04] MEDS: ENOXAPARIN 100 MG/ML SYR SC SCH (20:39)
[2018-09-04] MEDS: TAMSULOSIN HCL 0.4 MG CAP PO SCH (20:39)
[2018-09-05] MEDS: CLOPIDOGREL BISULFATE 75 MG TAB PO SCH (08:19)
[2018-09-05] MEDS: ASPIRIN 81 MG CHEWABLE TAB PO SCH (08:19)
[2018-09-05] MEDS: METOPROLOL TARTRATE 25 MG TAB PO SCH (08:20)
[2018-09-05] MEDS: ISOSORBIDE MONONITRATE 30 MG TAB.SR PO SCH (08:20)
[2018-09-05] MEDS: FUROSEMIDE 20 MG TAB PO SCH (08:20)
[2018-09-05] MEDS ORDERED: ATORVASTATIN CALCIUM 40 MG TAB PO SCH (09:00)
[2018-09-05] MEDS: Tiotropium Bromide [Spiriva Respimat] 2 INH IH SCH (09:23)
[2018-09-05] MEDS: FLUTICASONE/SALMETER 250/50MCG DISKUS IH SCH (09:24)
--- NOTE | 2018-09-05 09:41 | SOAPPROG ---
[facility] Progress Note Assessment/Plan: 1. CAD - Pt has known CAD and is s/p CABG x 3. He presented with an ACS in and was taken to the cardiac catheterization laboratory for risk stratification. Coronary angiography demonstrated 3VD with patent grafts to the LAD and LCX. The SVG to RCA was diseased as well as the [place] LAD prior to the diagonal artery. Pt was not felt to be a good interventional candidate secondary to renal insufficiency and degenerated vein graft. Pt was started on long acting nitrates and did well for approximately 1 month when he developed recurrent symptoms. No further angina since starting ranexa. However, we will need to DC ranexa secondary to renal insufficiency. Discussed high risk intervention if symptoms not controlled with medications. --> Continue asa, plavix, metoprolol, and lipitor --> DC ranexa given renal insufficiency. Will check chem 7 on 09/08 with results to Wolf/dillon/Que --> Increase long acting nitrates to 60 mg per day 2. Hyperlipidemia - Pts LDL is 84 on atorvastatin 20 mg daily. Will increase atorvastatin to 80 mg daily. 3. bradycardia - Pt has asymptomatic bradycardia. He is unlikely to tolerate higher doses of metoprolol 4. Hypertension - Bp is well controlled on metoprolol. Consider hydralazine. Subjective: No further episodes of angina ambulating with out difficulty Cr increased from 2.4 to 2.7 on ranexa No orthopnea or PND Objective: Vital Signs Temp Pulse Resp BP Pulse Ox 36.6 C 48 L 16 148/75 H 98 09/05/18 07:27 09/05/18 09:28 09/05/18 09:28 09/05/18 07:27 09/05/18 09:28 Laboratory Results 09/03/18 03:38 09/05/18 03:40 09/04/18 09/05/18 09/06/18 05:59 05:59 05:59 Intake Total 660 1640 Output Total 1225 1000 Balance -565 640 PT 14.5 SEC (12.0-15.0) 09/01/18 22:51 INR 1.11 (0.83-1.16) 09/01/18 22:51 Physical Exam - Physical Exam General Appearance: alert, no apparent distress Respiratory: lungs clear Cardiac/Chest: regular rate, rhythm Extremities: pedal edema Neuro/Psych: alert, oriented x 3 ICD10 Worksheet Patient Problems: Problems Problem Status Onset NSTEMI (non-ST elevated myocardial infarction) Acute Chest pain Acute Chronic Disease Mgmt/Transitional Care Acute Elevated troponin Acute
[2018-09-05] MEDS ORDERED: NS 500 ML IV ONE (14:07)
--- NOTE | 2018-09-05 14:11 | PDDCSUM ---
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 Pt has known CAD and is s/p CABG x 3. He presented with an ACS in 07/30 and was taken to the cardiac catheterization laboratory for risk stratification. Coronary angiography demonstrated 3VD with patent grafts to the LAD and LCX. The SVG to RCA was diseased as well as the [place] LAD prior to the diagonal artery. Pt was not felt to be a good interventional candidate secondary to renal insufficiency and degenerated vein graft. Pt was started on long acting nitrates and did well for approximately 1 month when he developed recurrent symptoms. No further angina since starting ranexa. However, we will need to DC ranexa secondary to renal insufficiency as Cr increased on the days of admission: Cardiology recommends --> Continue asa, plavix, metoprolol, and lipitor --> DC ranexa given renal insufficiency. Will check chem 7 on 09/08 with results to Wolf/dillon/Que. The pt was given a script for this --> Increase long acting nitrates to 60 mg per day He was noted to have dizziness and confusion just prior to discharge. He was walked around the [place] and again weakness was noted. He was offered and recommended to stay but the pt requests discharge as he feels that he is at baseline. Oral intake was encouraged. IVF was also recommended and ordered as the pt appeared dry but he refused these as well, choosing to increase his PO intake instead. DDX: 1. NSTEMI, recurrent - 2. Hx CAD - S/p CABG in 1997; as described above, he was admitted for an NSTEMI last month. 3. Cardiomyopathy, presumed ischemic - EF 38% noted on 07/22 nuclear perfusion study but improved to 53% on most recent TTE. He does have moderate lower extremity edema but patient states this is chronic. 4. COPD, CHRF - On 4 L/min O2 continuously at baseline, currently stable on the same. There is no evidence of acute exacerbation. 5. Acute on chronic renal injury. Hx of CKD, Stage 3/4 - Currently at creatine baseline (~2.3). -Cr today is 2.7 6. AAA - s/p repair 7. Insomnia Exam: NAD AAOX3 RRR CTA B S/NT/ND MEDS: SEE MED REC F/U: CARDIOLOGY IN 1-2 WEEKS TOTAL TIME SPENT ON D/C IS 35 MINS
--- NOTE | 2018-09-05 14:50 | ASDISCHSUM ---
Discharge Information Plan Status:Home with No Needs Medically Cleared to Leave:09/04/2018 Discharge Date:09/04/2018 CM D/C Disposition:Home, Routine, Self-Care ADT D/C Disposition:Home, Routine, Self-Care Projected Discharge Date:09/04/2018 Transportation at D/C:Family Discharge Delay Reason: Follow-Up Date:09/04/2018 Discharge Slot: Final Diagnosis: Placement Information Patient Contact Information Contact Name:TASHA Relationship:Daughter Address: City: [facility] Phone: State/Zip Code: Email: Financial Information Financial Class:Medicare Primary Plan Desc:MEDICARE INPATIENT Primary Plan Number:[id number] Secondary Plan Desc:[employer]ARP/MDR SUPPLEMENT Secondary Plan Number:[id number] Assessment Information LACE LACE Acuity / Level of Answers: Yes Care: Did the patient have an inpatient admission? Comorbidities - select Answers: Chronic pulmonary disease all that apply Congestive heart failure Moderate or severe liver or renal disease Previous myocardial infarction Other Notes: HTN; HLD # of Emergency department Answers: 1-2 visits in the last 6 months Score: 14 Date Signed: 09/02/2018 08:22 AM Electronically Signed By:Barbara Gomez [facility] CM Progress Note CM Note CM Note Notes: Pts case discussed in tx rounds. Pt is a 77 y/o man admitted for non stemi myocardial infraction. Cards has been consulted. Pt will most likely d/c without any needs when medically stable. No therapies ordered at this time. CM available for changes. Plan: Independent Date Signed: 09/02/2018 01:53 PM Electronically Signed By:RADHA Shannon Case Management Discharge Plan Note Case Management Discharge Discharge Order Complete? Answers: Yes Patient to Obtain Answers: via Family Medications Transportation Arranged Answers: Family/Friends Discharge Comments Notes: 09/05/2018 Case Management Note IM signed. Pt plans for grandson to transport home. There are no identified case management d/c needs. Discharge plan: Independent with follow up as directed. Date Signed: 09/05/2018 02:49 PM Electronically Signed By:Zoe Arriola RN Intervention Information Intervention Type:*Incorrect Registration Date of Service:09/01/2018 08:29 AM Patient Type:Observation Staff Member:DHRUV Howard Courtney Hours: Discipline: Severity: Comment: Intervention Type:*IM-Signed Date of Service:09/05/2018 02:48 PM Patient Type:Inpatient Staff Member:DHRUV Arriola, Zoe Hours: Discipline: Severity: Comment:
[2018-09-05 15:15] VITALS: BP 122/70
--- NOTE | 2018-09-07 20:55 | CPEKG ---
Test Reason : OPEN Blood Pressure : / mmHG Vent. Rate : 064 BPM Atrial Rate : 032 BPM P-R Int : 170 ms QRS Dur : 134 ms QT Int : 526 ms P-R-T Axes : -05 -04 -28 degrees QTc Int : 543 ms Sinus rhythm Atrial premature complexes Right bundle branch block Confirmed by Nikolas Flores ([id number]) on 09/07/2018 8:54:53 PM Referred By: Confirmed By:Nikolas Florse
== END 2018-09-05 15:18 | disposition home or self-care (01) | DRG 281 ==
LOC: F2W 21:13 → OBSVTOIN 21:17
PROVIDERS: ADMIT Internal Medicine; ATTEND Family Medicine
DX: I21.4 Non-ST elevation (NSTEMI) myocardial infarction (principal); I25.10 Atherosclerotic heart disease of native coronary artery without angina pectoris; I12.9 Hypertensive chronic kidney disease with stage 1 through stage 4 chronic kidney disease, or unspecified chronic kidney disease; N18.4 Chronic kidney disease, stage 4 (severe); J96.11 Chronic respiratory failure with hypoxia; I25.5 Ischemic cardiomyopathy; E78.5 Hyperlipidemia, unspecified; D64.9 Anemia, unspecified; I25.2 Old myocardial infarction; J44.9 Chronic obstructive pulmonary disease, unspecified; G47.00 Insomnia, unspecified; R00.1 Bradycardia, unspecified; R42 Dizziness and giddiness; R41.0 Disorientation, unspecified; Z95.1 Presence of aortocoronary bypass graft; Z95.5 Presence of coronary angioplasty implant and graft; Z66 Do not resuscitate
CPT/HCPCS: 82435-PO; 82565-PO; 82947-PO; 84132-PO; 84295-PO; 84484-PO; 84520-PO; 85014-PO; 85520-90; 96374; J1644; J1650

== ENCOUNTER 2018-09-08 15:39 | Inpatient (IN) | payer OTHER, MEDICARE ==
--- NOTE | 2018-09-08 15:47 | EDPHY ---
H & P Time Seen by Provider: 09/08/18 15:42 - Medical/Surgical History Hx Asthma: No Hx Chronic Respiratory Disease: Yes Hx Diabetes: No Hx Cardiac Disease: Yes Hx Renal Disease: Yes Hx Cirrhosis: No Hx Alcoholism: No Hx HIV/AIDS: No Hx Splenectomy or Spleen Trauma: No Other PMH: COPD 4l O2 at home, CKD, CABG 1997, angioplasty, abdominal aortic repair x2, HLD, anemia, HTN, TX unable to stent JUL 30 - Social History Smoking Status: Former smoker Constitutional: Initial Vital Signs Temperature (C) 36.6 C 09/08/18 15:44 Heart Rate 83 09/08/18 15:44 Respiratory Rate 20 09/08/18 15:44 Blood Pressure 106/81 H 09/08/18 15:44 O2 Sat (%) 92 09/08/18 15:44 O2 Delivery Mode Nasal Cannula O2 (L/minute) 4 Allergies/Adverse Reactions: NSAIDS (Non-Steroidal Anti-Inflamma [NSAIDS (Non-Steroidal Anti-Inflammatory Drug)] Allergy (Unknown, Verified 09/08/18 17:19) Other-Enter Comments Home Medications: Medication Instructions Recorded Aspirin [Aspirin 81mg (*)] 81 mg PO DAILY 07/28/18 Fluticasone/Salmeter 250/50Mcg 1 puffs IH BID 07/28/18 [Advair 250/50 (*)] Melatonin [Melatonin 3 MG (*)] 3 mg PO HS 07/28/18 Metoprolol Tartrate [Lopressor 25 25 mg PO BID 07/28/18 mg (*)] Tiotropium [place] [Spiriva 2 inh IH DAILY 07/28/18 Respimat] Zolpidem Tartrate [Ambien Cr] 6.25 mg PO HS 07/28/18 Furosemide [Lasix 20 MG (*)] 20 mg PO DAILY 07/30/18 Tamsulosin HCl [Flomax 0.4 MG (*)] 0.4 mg PO HS 07/30/18 guaiFENesin [Mucinex 600 MG (*)] 600 mg PO DAILY PRN 07/30/18 Clopidogrel Bisulfate [Plavix (*)] 75 mg PO DAILY #30 tab 08/01/18 Nitroglycerin [Nitrostat 0.4 mg 0.4 mg SL Q5M PRN #30 bottle 08/01/18 (*)] Albuterol Sulfate [Ventolin Hfa] 1 - 2 puffs IH DAILY PRN 09/01/18 Atorvastatin Calcium [Lipitor 40 80 mg PO DAILY #30 tab 09/05/18 mg (*)] Isosorbide Mononitrate [Imdur 30 60 mg PO DAILY 09/08/18 mg (*)] Medical Decision Making - Diagnostics Imaging Results: Imaging Impressions Hip X-Ray 09/08/18 15:51 Impression: Mildly displaced fracture of the right femoral neck. Imaging: I viewed and interpreted images myself ED Course/Re-evaluation: CHIEF COMPLAINT: Right leg pain HISTORY OF PRESENT ILLNESS: The patient is an anticoagulated (Lovenox) 77 y/o male with an extensive cardiac history including TX unable to stent JUL 30, CABG 1997, angioplasty, abdominal aortic repair x2 arriving via EMS complaining of right leg pain secondary to falling today. He tripped over his oxygen tube and was unable to catch his fall. He denies hitting his head or loss of consciousness. He was unable to stand up and called 911. While in the emergency department he is still having right leg pain and is unable to lift his right leg due to the pain. No fever, headache, chest pain shortness of breath, abdominal pain, urinary or bowel complaints, numbness. REVIEW OF SYSTEMS: A comprehensive 10 system review of systems is otherwise negative aside from elements mentioned in the history of present illness and medical decision making. PHYSICAL EXAM: HR, BP, O2 Sat, RR. Temp noted General Appearance: Alert, well hydrated, appropriate, and non-toxic appearing. Head: Atraumatic without scalp tenderness or obvious injury Eyes: Pupils equal, round, reactive to light and accommodation, EOMI, no trauma , no injection. Ears: Clear bilaterally, no perforation, normal landmarks Nose: Atraumatic, no rhinorrhea, clear. Throat: There is no erythema or exudates, no lesions, normal tonsils, mucus membranes moist. Neck: Supple, 2+ carotid upstroke, nontender, no lymphadenopathy. Respiratory: No retractions, no distress, no wheezes, and no accessory muscle use. Lungs are clear to auscultation bilaterally. Cardiovascular: Regular rate and rhythm, no murmurs, rubs, or gallops. Bilateral carotid, radial, dorsalis pedis, and posterior tibial pulses intact. Good capillary refill all extremities. Gastrointestinal: Abdomen is soft, nontender, non-distended, no masses, no rebound, no guarding, no peritoneal signs. Musculoskeletal: Shortened and everted right leg. Neurological: Alert, appropriate, and interactive. The patient has normal DTRs and non-focal cranial nerves, motor, sensory, and cerebellar exam. Skin: No rashes, good turgor, no nodules on palpation. Past medical history: COPD 4l O2 at home, CKD, HLD, anemia, HTN, TX unable to stent JUL 30 Past surgical history: CABG 1997, angioplasty, abdominal aortic repair x2 Family history: Denies Social history: Lives in [place], single, retired DIAGNOSTICS/PROCEDURES/CRITICAL CARE TIME: Right hip x-ray: Mildly displaced fracture of the right femoral neck. DIFFERENTIAL DIAGNOSIS: The differential diagnosis for the patient's trauma included but was not limited to intracranial injury, long bone and pelvic bone fractures, spinal injury, intra-abdominal injury, and intra-thoracic injury. MEDICAL DECISION MAKING: The patient is an anticoagulated (Lovenox) 77 y/o male with an extensive cardiac history including TX unable to stent JUL 30, CABG 1997, angioplasty, abdominal aortic repair x2 arriving via EMS complaining of right leg pain secondary to tripping over his oxygen tubing today. On exam his right leg is shortened and everted. Right hip x-ray ordered. 1615: I reviewed patient's hip x-ray at the bedside which reveals a mildly displaced fracture of the right femoral neck. 1616: Reassessed patient and discussed imaging findings. He will need to have surgery; I will consult with orthopedics, cardiology, and the hospitalist for surgery clearance. He is comfortable with plan for admission and probable surgery. 1617: I consulted with Dr. Gilmore, orthopedic surgery, regarding this patient. 1624: I consulted with Melissa at [facility] regarding this patient. [facility] will consult on this patient during his admission. 1642: I consulted with Dr. Perez, forgesmith, regarding this patient. 1647: I consulted with the hospitalist service, Dr. Doherty accepts admission of this patient. 1736: I consulted with Dr. Gilmore regarding this patient as he is in the emergency department now. - Data Points Laboratory Results: Laboratory Results 09/08/18 16:36 09/08/18 16:36 09/08/18 09/08/18 09/08/18 16:36 16:36 16:36 WBC 7.61 10^3/uL 10^3/uL (3.80-9.50) RBC 3.58 10^6/uL L 10^6/uL (4.40-6.38) Hgb 11.0 g/dL L g/dL (13.7-17.5) Hct 32.6 % L % (40.0-51.0) MCV 91.1 fL fL (81.5-99.8) MCH 30.7 pg pg (27.9-34.1) MCHC 33.7 g/dL g/dL (32.4-36.7) RDW 13.6 % % (11.5-15.2) Plt Count 175 10^3/uL 10^3/uL (150-400) MPV 9.4 fL fL (8.7-11.7) Neut % (Auto) 82.1 % H % (39.3-74.2) Lymph % (Auto) 4.2 % L % (15.0-45.0) [place] % (Auto) 9.9 % % (4.5-13.0) Eos % (Auto) 2.2 % % (0.6-7.6) Baso % (Auto) 0.5 % % (0.3-1.7) Nucleat RBC Rel Count 0.0 % % (0.0-0.2) Absolute Neuts (auto) 6.25 10^3/uL 10^3/uL (1.70-6.50) Absolute Lymphs (auto) 0.32 10^3/uL L 10^3/uL (1.00-3.00) Absolute Monos (auto) 0.75 10^3/uL 10^3/uL (0.30-0.80) Absolute Eos (auto) 0.17 10^3/uL 10^3/uL (0.03-0.40) Absolute Basos (auto) 0.04 10^3/uL 10^3/uL (0.02-0.10) Absolute Nucleated RBC 0.00 10^3/uL 10^3/uL (0-0.01) Immature Gran % 1.1 % % (0.0-1.1) Immature Gran # 0.08 10^3/uL 10^3/uL (0.00-0.10) RBC/WBC/PLT Morphology TNP Platelet Estimate TNP PT 13.6 SEC SEC (12.0-15.0) INR 1.02 (0.83-1.16) APTT 26.9 SEC SEC (23.0-38.0) Sodium 136 mEq/L mEq/L (135-145) Potassium 4.7 mEq/L mEq/L (3.3-5.0) Chloride 99 mEq/L mEq/L (97-110) Carbon Dioxide 28 mEq/l mEq/l (22-31) Anion Gap 9 mEq/L mEq/L (6-14) BUN 36 mg/dL H mg/dL (7-23) Creatinine 2.2 mg/dL H mg/dL (0.7-1.3) Estimated GFR 29 Glucose 103 mg/dL H mg/dL (70-100) Calcium 9.0 mg/dL mg/dL (8.5-10.4) Medications Given: Discontinued Medications Hydromorphone HCl (Dilaudid) 1 mg IVP EDNOW ONE Stop: 09/08/18 16:58 Last Admin: 09/08/18 17:00 Dose: 1 mg Sodium Chloride (Ns) 1,000 mls @ 0 mls/hr IV EDNOW ONE; Wide Open PRN Reason: Protocol Stop: 09/08/18 16:23 Last Admin: 09/08/18 16:38 Dose: 1,000 mls Departure - Departure Disposition: [facility] Inpatient Acute Clinical Impression: Fracture of femoral neck, right Qualifiers: Encounter type: initial encounter Fracture type: closed Qualified Code(s): S72.001A - Fracture of unspecified part of neck of right femur, initial encounter for closed fracture Condition: Fair Referrals: Patient,NotPresent [Unknown] - As per Instructions Report Scribed for: Nikolas Flores Report Scribed by: Ebonie Ladd Date of Report: 09/08/18 Time of Report: 16:04
[2018-09-08] MEDS ORDERED: NS 1,000 ML IV ONE (16:22)
[2018-09-08 16:43] LABS: PLATELET COUNT 175 10^3/uL (150-400)
[2018-09-08 16:51] LABS: INR 1.02 (0.83-1.16); PROTIME(PATIENT) 13.6 SEC (12.0-15.0)
[2018-09-08] MEDS ORDERED: HYDROmorphONE/DILAUDID 2 MG/ML INJ IVP ONE (16:57)
[2018-09-08] MEDS ORDERED: HYDROmorphONE/DILAUDID 1 MG/ML INJ IVP PRN (17:07)
[2018-09-08] MEDS ORDERED: ONDANSETRON DISINTEGRATING 4 MG TAB PO PRN (17:07)
[2018-09-08] MEDS ORDERED: NITROGLYCERIN 0.4 MG BTL SL PRN (17:57)
[2018-09-08] MEDS ORDERED: LACTULOSE 20 GM/30 ML UDCUP PO PRN (18:06)
[2018-09-08] MEDS ORDERED: POLYETHYLENE GLYCOL 3350 17 GM PKT PO PRN (18:06)
[2018-09-08] MEDS ORDERED: MAGNESIUM HYDROXIDE 30 ML UDCUP PO PRN (18:06)
--- NOTE | 2018-09-08 18:06 | PDGENHP ---
History and Physical - Chief Complaint Right hip fracture - History of Present Illness 77 y/o male with an extensive and complicated cardiac history presents after sustaining a mechanical fall today, subsequently fracturing his right femoral neck with mild displacement per hip x-ray. He was getting up from a sitting position at home and unfortunately, tripped on his oxygen tank and landed on his right hip. He denies hitting his head or LOC. No other pain noted. He denies recent sickness, n/v, chest pains, lightheadedness, headache, fevers, chills, dysuria. Past Medical/Surgical History 1. COPD (home oxygen 4L [place] baseline) 2. NSTEMI, unable to stent in July 2018 3. AAA repair x 2 4. HTN 5. CABG x 3 (1997) 6. Angioplasty 7. HLD 8. Anemia 9. CKD IV 10. Cauda Equina Syndrome (1993 - residual RLE weakness) 11. Laminectomy x 2 Social 1. Former smoker of cigarettes. Quit in 2015. He vapes flavors (i.e., mint, strawberry, watermelon), no nicotine. Denies alcohol or illicit drug use. 2. Daughter lives in [place] 3. He lives independently in a senior-living community. It is not assisted- living. Does not use any ambulation device. Vital Signs 106/81 83 HR 92 % 4L NC 36.6c History Information - Allergies/Home Medication List Allergies/Adverse Reactions: NSAIDS (Non-Steroidal Anti-Inflamma [NSAIDS (Non-Steroidal Anti-Inflammatory Drug)] Allergy (Unknown, Verified 09/08/18 17:19) Other-Enter Comments Home Medications: Aspirin [Aspirin 81mg (*)] 81 mg PO DAILY 07/28/18 [Last Taken 09/08/18] Fluticasone/Salmeter 250/50Mcg [Advair 250/50 (*)] 1 puffs IH BID 07/28/18 [ Last Taken 09/08/18 AM DOSE] Melatonin [Melatonin 3 MG (*)] 3 mg PO HS 07/28/18 [Last Taken 09/07/18] Metoprolol Tartrate [Lopressor 25 mg (*)] 25 mg PO BID 07/28/18 [Last Taken AM DOSE] Tiotropium [place] [Spiriva Respimat] 2 inh IH DAILY 07/28/18 [Last Taken ] Zolpidem Tartrate [Ambien Cr] 6.25 mg PO HS 07/28/18 [Last Taken 09/07/18] Furosemide [Lasix 20 MG (*)] 20 mg PO DAILY 07/30/18 [Last Taken 09/08/18] Tamsulosin HCl [Flomax 0.4 MG (*)] 0.4 mg PO HS 07/30/18 [Last Taken 09/07/18] guaiFENesin [Mucinex 600 MG (*)] 600 mg PO DAILY PRN 07/30/18 [Last Taken ] Albuterol Sulfate [Ventolin Hfa] 1 - 2 puffs IH DAILY PRN 09/01/18 [Last Taken Unknown] Isosorbide Mononitrate [Imdur 30 mg (*)] 60 mg PO DAILY 09/08/18 [Last Taken ] I have personally reviewed and updated: family history, medical history, social history, surgical history Past Medical History: See HPI list - Past Medical History coronary artery disease Additional medical history: AAA. CKD - Surgical History Reports: coronary bypass surgery Additional surgical history: AAA repair - Family History Positive for: non-pertinent - Social History Smoking Status: Former smoker Alcohol Use: None Drug Use: None Additional social history: See HPI list Review of Systems Review of Systems: ROS: 10pt was reviewed & negative except for what was stated in HPI & below Constitutional: Reports: recent injury EENMT: Reports: no symptoms Cardiac: Reports: no symptoms Respiratory: Reports: cough (Chronic), shortness of breath (Chronic) Gastrointestinal: Reports: constipation (Last BM was yesterday and it was hard stool) Genitourinary: Reports: no symptoms Muscolosketal: Reports: joint pain (Right hip), muscle pain Skin: Reports: other (Bruises LUE) Neurological: Reports: depressed, pre-existing deficit (Cauda equina syndrome 1993 - residual RLE weakness.) Hematologic/Lymphatic: Reports: easy bruising Immunologic/Allergy: Reports: other (See Allergy list) Physical Exam Physical Exam: Lab data and imaging were reviewed Temp Pulse Resp BP Pulse Ox 36.6 C 76 20 108/69 96 09/08/18 15:44 09/08/18 17:47 09/08/18 17:47 09/08/18 17:47 09/08/18 17:47 O2 (L/minute) 4 Constitutional: appears nourished, uncomfortable Eyes: PERRL, anicteric sclera, EOMI Ears, Nose, Mouth, Throat: moist mucous membranes, hearing normal, ears appear normal, no oral mucosal ulcers Cardiovascular: regular rate and rhythym, no murmur, rub, or gallop, pulses symmetric bilaterally, No edema Peripheral Pulses: 2+: dorsalis-pedis (R) (Radial 2+), dorsalis-pedis (L) ( Radial 2+) Respiratory: reduced air movement (Reduced air throughout lung field) Gastrointestinal: normoactive bowel sounds, soft, non-tender abdomen, no palpable masses, other (Soft, rounded abdomen) Genitourinary: no bladder fullness, no bladder tenderness Skin: warm, normal color, no fluctuance, no induration, abrasion (Noted LUE bruises - he reports these are from the IVs a month prior), No mottled Musculoskeletal: joint tenderness (Unable to move RLE d/t pain and weakness; quad strength 3/5), pain with ROM Neurologic: AAOx3, CN II-XII Intact, other (RLE sensation is decreased d/t 1994 cauda equina) Psychiatric: interacting appropriately, not anxious, not encephalopathic, thought process linear Lymph, Heme, Immunologic: no cervical LAD, no supraclavicular LAD Lab Data & Imaging Review 09/08/18 16:36 09/08/18 16:36 WBC 7.61 10^3/uL (3.80-9.50) 09/08/18 16:36 RBC 3.58 10^6/uL (4.40-6.38) L 09/08/18 16:36 Hgb 11.0 g/dL (13.7-17.5) L 09/08/18 16:36 Hct 32.6 % (40.0-51.0) L 09/08/18 16:36 MCV 91.1 fL (81.5-99.8) 09/08/18 16:36 MCH 30.7 pg (27.9-34.1) 09/08/18 16:36 MCHC 33.7 g/dL (32.4-36.7) 09/08/18 16:36 RDW 13.6 % (11.5-15.2) 09/08/18 16:36 Plt Count 175 10^3/uL (150-400) 09/08/18 16:36 MPV 9.4 fL (8.7-11.7) 09/08/18 16:36 Neut % (Auto) 82.1 % (39.3-74.2) H 09/08/18 16:36 Lymph % (Auto) 4.2 % (15.0-45.0) L 09/08/18 16:36 [place] % (Auto) 9.9 % (4.5-13.0) 09/08/18 16:36 Eos % (Auto) 2.2 % (0.6-7.6) 09/08/18 16:36 Baso % (Auto) 0.5 % (0.3-1.7) 09/08/18 16:36 Nucleat RBC Rel Count 0.0 % (0.0-0.2) 09/08/18 16:36 Absolute Neuts (auto) 6.25 10^3/uL (1.70-6.50) 09/08/18 16:36 Absolute Lymphs (auto) 0.32 10^3/uL (1.00-3.00) L 09/08/18 16:36 Absolute Monos (auto) 0.75 10^3/uL (0.30-0.80) 09/08/18 16:36 Absolute Eos (auto) 0.17 10^3/uL (0.03-0.40) 09/08/18 16:36 Absolute Basos (auto) 0.04 10^3/uL (0.02-0.10) 09/08/18 16:36 Absolute Nucleated RBC 0.00 10^3/uL (0-0.01) 09/08/18 16:36 Immature Gran % 1.1 % (0.0-1.1) 09/08/18 16:36 Immature Gran # 0.08 10^3/uL (0.00-0.10) 09/08/18 16:36 RBC/WBC/PLT Morphology TNP 09/08/18 16:36 Platelet Estimate TNP 09/08/18 16:36 PT 13.6 SEC (12.0-15.0) 09/08/18 16:36 INR 1.02 (0.83-1.16) 09/08/18 16:36 APTT 26.9 SEC (23.0-38.0) 09/08/18 16:36 Sodium 136 mEq/L (135-145) 09/08/18 16:36 Potassium 4.7 mEq/L (3.3-5.0) 09/08/18 16:36 Chloride 99 mEq/L (97-110) 09/08/18 16:36 Carbon Dioxide 28 mEq/l (22-31) 09/08/18 16:36 Anion Gap 9 mEq/L (6-14) 09/08/18 16:36 BUN 36 mg/dL (7-23) H 09/08/18 16:36 Creatinine 2.2 mg/dL (0.7-1.3) H 09/08/18 16:36 Estimated GFR 29 09/08/18 16:36 Glucose 103 mg/dL (70-100) H 09/08/18 16:36 Calcium 9.0 mg/dL (8.5-10.4) 09/08/18 16:36 Assessment & Plan Plan: 77 y/o male with extensive and complicated cardiac history presents with right femoral neck fracture after sustaining a mechanical fall. 1. Cardiac history/recent NSTEMI with inability to stent -Cards has been consulted and is aware; Dr. Perez is aware and has spoken with the patient. Dr. Perez will give cardiac clearance. -D/t recent AL and extensive health history, the pt is at very high risk of complications -Continue ASA and plavix for now 2. Right hip fracture -Ortho has been consulted and is aware; Dr. Gilmore at bedside with pt discussing surgical options. He will need a hemiarthroplasty versus pinning. Pt requested Dr. Sosa from [facility] to perform surgery because Dr. Sosa has performed numerous successful surgeries on his family members. Dr. Sosa is willing to care for the patient. -Pain control PO/IVP PRN Chronic health conditions: 1. COPD (home oxygen 4L NC baseline): continue oxygen use and home medications 2. HTN: continue home medications 3. HLD: continue home medications 4. Anemia 5. CKD IV: monitor. Gentle IVF. Diet: Cardiac now, NPO at midnight for possible surgery tomorrow VTE ppx: SCDs, will appreciate ortho and cards recommendation post-op for anti- coag Code: DNR Dispo: Admit to inpatient
--- NOTE | 2018-09-08 18:51 | GCON ---
DATE OF CONSULTATION: 09/08/2018 REFERRING PHYSICIAN: Nikolas Flores MD HISTORY: The patient is a 77-year-old male familiar to me from a hospital admission in July of this year for a non ST-segment elevation myocardial infarction. He has a history of CAD with a prior 3-vessel CABG performed 20 years ago. He also has hypertension, chronic hypoxic respiratory failure, chronic kidney disease, and previous abdominal aortic aneurysm repair. During his admission in July, his troponin peaked at approximately 4.0. He underwent a cardiac catheterization, which demonstrated severe [place] 3-vessel coronary disease, including a high-grade proximal LAD lesion, which jeopardizes a bifurcating diagonal branch. His left internal mammary graft to the left anterior descending is patent and provides retrograde filling of the diagonal branch in question. His saphenous vein graft to the circumflex territory was widely patent. He has a severely degenerated, and aneurysmal saphenous vein graft to the RCA, which has a high-grade stenosis in the distal graft body. He was felt to be high risk for PCI of his distal SVG to RCA lesion because of his renal insufficiency and because of the severe ectatic, aneurysmal appearance of the graft combined with its age. Therefore, he was managed medically with the addition of a long-acting nitrate and Plavix, in addition to his baseline aspirin. The patient did well for a few weeks and was participating in cardiac rehab without chest discomfort. However, he presented a week ago with recurrent chest pain, and had a small increase in his troponin up to 0.48. He was seen by 2 of my interventional cardiology colleagues who both also agreed that he was an unattractive candidate for percutaneous coronary intervention. He received subcutaneous Lovenox for 48 hours and was discharged home. Today, he tripped on his oxygen tubing sustaining a fall that produced a right intertrochanteric hip fracture. Surgical correction is now being contemplated. PAST MEDICAL HISTORY: 1. Coronary artery disease. 2. COPD. 3. Hypertension. 4. Chronic hypoxic respiratory failure. 5. Monoclonal gammopathy. 6. Iron deficiency anemia. 7. Secondary pulmonary hypertension. PAST SURGICAL HISTORY: 1. Coronary bypass surgery in 1987. 2. Abdominal aortic aneurysm repair, most recently in 2016. FAMILY HISTORY: Noncontributory. SOCIAL HISTORY: He is single and lives alone. He has a daughter in the local area. He is a former smoker. He does not consume alcohol. REVIEW OF SYMPTOMS: Notable for chronic shortness of breath, and recent issues with angina. Hip pain related to his fall today. Otherwise, a 10-point review was negative. PHYSICAL EXAMINATION: VITAL SIGNS: Heart rate in the 70s with sinus rhythm on monitor. Blood pressure 108/69. O2 saturation 96% on 4 L/min nasal cannula oxygen. GENERAL: The patient is a chronically ill-appearing male in no acute distress. He is alert and oriented x3. He exhibits pursed lip breathing. HEAD AND NECK: No scleral icterus. Mucous membranes moist. Carotid pulses 2+ without bruits. There is no JVD. CHEST: Lung hugo with diminished breath sounds throughout. CARDIAC: Regular rate and rhythm with a normal S1 and S2. There is no murmur or gallop. ABDOMEN: Soft, nontender, nondistended, with normal bowel sounds. EXTREMITIES: 2+ bilateral lower extremity edema. ECG: His ECG demonstrates normal sinus rhythm. He has a right bundle branch block. There are no Q-waves or acute ischemic changes. IMPRESSION: This is a 77-year-old male with the complex cardiac and medical history as outlined above. He sustained a mechanical fall and hip fracture. Surgery for his hip fracture is now being contemplated. RECOMMENDATIONS: Clearly, with his long-term and recent history, he is at significantly increased risk of an adverse perioperative cardiac event. However , his near-term morbidity and mortality without surgical correction of his hip fracture is also very high. Would likely prefer proceeding with surgical hip repair despite his high risk. An additional concern is the fact that he has been on dual antiplatelet therapy, which increases his risk of significant blood loss in conjunction with surgery. A limited review of the medical literature indicates that platelet transfusion preoperatively in the setting of antiplatelet therapy is not beneficial. /[id number]/MODL MTDD
--- NOTE | 2018-09-08 19:22 | HOSPPROG ---
Hospitalist Progress Note Assessment/Plan: I have personally seen and evaluated Gulshan Delgado. I agree with the assessment and plan as outlined by ROSALINA Barnes. Objective: Vital Signs Temp Pulse Resp BP Pulse Ox 36.9 C 93 16 174/84 H 90 L 09/08/18 18:27 09/08/18 18:27 09/08/18 18:27 09/08/18 18:27 09/08/18 18:27 09/07/18 09/08/18 09/09/18 05:59 05:59 05:59 Output Total 0 Balance 0 PT 13.6 SEC (12.0-15.0) 09/08/18 16:36 INR 1.02 (0.83-1.16) 09/08/18 16:36 ICD10 Worksheet Patient Problems: Problems Problem Status Onset Fracture of femoral neck, right Acute Chest pain Acute Chronic Disease Mgmt/Transitional Care Acute Elevated troponin Acute NSTEMI (non-ST elevated myocardial infarction) Acute
--- NOTE | 2018-09-08 20:04 | ASMTLACE ---
LACE Acuity / Level of Answers: Yes Care: Did the patient have an inpatient admission? Comorbidities - select Answers: Chronic pulmonary disease all that apply Coronary Artery Disease History of falls Moderate or severe liver or renal disease Previous myocardial infarction Other Notes: HTN, HLD, NSTEMI, AAA repair x 2, CABGx3, CK D stage IV, laminectomy x2, anemia, angioplasty , c auda equina syndrome (w/residual RLE weaknes s) # of Emergency department Answers: 3-4 visits in the last 6 months Score: 19 Date Signed: 09/08/2018 08:04 PM Electronically Signed By:Maria De Jesus Elise RN
--- NOTE | 2018-09-08 20:27 | ASMTCMCOM ---
CM Note CM Note Notes: Pt presented to the ED via EMS for right sided hip pain after having a mechanical fall at home. Pt had tripped on his oxygen tubing while trying to get out of his recliner and look at his calendar for upcoming medical appt possibilities. Pt admitted for a right femoral neck fracture. Received a call from Hamida Stiles RN w/[facility] ([phone]). Pt has extensive PMH including 2 recent SD's (admtd 07/30-08/01/18 and 09/01-09/05/18). TC re-started following pt this last weekend when he was d/c'd home again. See H&P for additional PMH. Pt's PCP is Dr David Espino at [facility]. [facility] RN [employer], Mayra Agee ([phone]) has also been involved with following pt and recently set pt up w/[facility] PT to start tomorrow. Per Hamida, pt has been depressed recently due to his recent SD's (they were unable to stent) and complex ongoing medical issues. Hamida states that Kiera Soto ([phone]), Behavioral Health Specialist at [facility], called pt today and was talking to him when he tripped on his oxygen tubing and fell. 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 Pt normally is on 4L O2 at home. Pt is normally independent w/ADLs. Spoke w/pt and discussed that he may be recommended to DC to SNF. Pt states he understands this and had been in a SNF in [place] after his AAA repair. Pt's daughter, Elizabeth Delgado ([phone]), is also a pharmacist that works in [place] but lives in [place]; she is on her way to [facility] this evening. Pt also has a son, Soren. Exact DC needs TBD. CM to follow. Date Signed: 09/08/2018 08:26 PM Electronically Signed By:Maria De Jesus Elise RN
[2018-09-08] MEDS: ONDANSETRON 4 MG/2 ML VIAL IVP PRN (21:22)
[2018-09-08] MEDS: NS 1,000 ML IV SCH (21:57)
[2018-09-08] MEDS: oxyCODONE IR 5 MG TAB PO PRN (22:24)
[2018-09-08] MEDS: FLUTICASONE/SALMETER 250/50MCG DISKUS IH SCH (22:31)
[2018-09-08] MEDS: PROMETHAZINE HCL 25 MG/ML INJ IVP PRN (23:22)
[2018-09-09] MEDS: ONDANSETRON 4 MG/2 ML VIAL IVP PRN (01:23)
[2018-09-09] MEDS: MELATONIN 3 MG TAB PO SCH ×2 (01:37→21:00)
[2018-09-09] MEDS: METOPROLOL TARTRATE 25 MG TAB PO SCH ×3 (01:38→21:00)
[2018-09-09] MEDS: SENNOSIDES/DOCUSATE SODIUM TAB PO SCH ×3 (01:38→21:00)
[2018-09-09] MEDS: TAMSULOSIN HCL 0.4 MG CAP PO SCH ×2 (01:38→21:00)
[2018-09-09] MEDS: Zolpidem Tartrate [Ambien Cr] 6.25 MG PO SCH ×2 (01:38→21:00)
[2018-09-09] MEDS ORDERED: LORazepam 2 MG/ML INJ IVP ONE (04:31)
--- NOTE | 2018-09-09 05:20 | GCON ---
REFERRING PHYSICIAN: Nikolas Flores MD CHIEF COMPLAINT: Right hip fracture. HISTORY OF PRESENT ILLNESS: The patient is a 77-year-old male with a complicated cardiac history who was brought in by ambulance after a fall at home today where he states he was at home and tripped on his oxygen tank tubing, landing on his right hip. He complains of pain in the right hip and inabili ty to bear weight. I was consulted by Dr. Flores for orthopedic management of his fracture. Of not e, the patient had a recent admission for an [place] and is being treated with heparin, as he is in "un-st entable" per Cardiology service. Of note, the patient states that his right leg is weak due to cauda equina syndrome in 1993. He states he has a poor sensation of the foot and inability to push off. He ambulates without any assistive device. PAST MEDICAL HISTORY: He has COPD, on 4 L home oxygen. He has a past history of an NSTEMI that was unable to be stented in July 2018. He has had a AAA repair x2 and a history of hypertension. He has had a CABG in 1997. He has hyperlipidemia, anemia, CKD, has a history of cauda equina syndrome i n 1993. PAST SURGICAL HISTORY: He has had 2 laminectomies for the cauda equina syndrome. He has had a CABG and AAA repair x2. SOCIAL HISTORY: He is a former smoker. He lives with his daughter in [place]. He lives independent ly in a shelter community. OBJECTIVE: GENERAL: Lying in bed, in no apparent distress. EXTREMITIES: Right lower extremity lake rtened, rotated right leg. Pain with log roll. The foot is well perfused. IMAGING: X-ray of the pelvis was reviewed by me and shows a displaced femoral neck fracture for Adriana en 4. ASSESSMENT/PLAN: Status post right femoral neck fracture. I recommend a timely having a hemiarthrop lasty or total hip arthroplasty for this injury. His has a significant perioperative cardiac risk an d will need to work with Cardiology to decide on the best perioperative risk modification and timing. I would personally recommend a hemiarthroplasty to decrease operative time, assess cardiac risk. A fter discussion, the patient wished to have another orthopedic surgeon assume his care. I will help facilitate. /[id number]/MODL
--- NOTE | 2018-09-09 06:16 | SOAPPROG ---
[facility] Progress Note Assessment/Plan: Assessment: R femoral neck fx Plan: R hip hemiarthroplasty planned for this evening pending medical clearance. IF concern too great, can consider percutaneous screw fixation. This will, however require limited weight bearing and a high risk of non - union. 09/09/18 06:14 Objective: Vital Signs Temp Pulse Resp BP Pulse Ox 36.9 C 86 17 155/91 H 95 09/09/18 04:00 09/09/18 04:00 09/09/18 04:00 09/09/18 04:00 09/09/18 04:00 09/08/18 09/09/18 09/10/18 05:59 05:59 05:59 Output Total 325 Balance -325 PT 13.6 SEC (12.0-15.0) 09/08/18 16:36 INR 1.02 (0.83-1.16) 09/08/18 16:36 ICD10 Worksheet Patient Problems: Problems Problem Status Onset Fracture of femoral neck, right Acute Chest pain Acute Chronic Disease Mgmt/Transitional Care Acute Elevated troponin Acute NSTEMI (non-ST elevated myocardial infarction) Acute
[2018-09-09] MEDS: NS 1,000 ML IV SCH ×2 (07:25→16:52)
[2018-09-09] MEDS: ASPIRIN 81 MG CHEWABLE TAB PO SCH (07:27)
[2018-09-09] MEDS: CLOPIDOGREL BISULFATE 75 MG TAB PO SCH (07:27)
[2018-09-09] MEDS: PROMETHAZINE HCL 25 MG/ML INJ IVP PRN (08:47)
[2018-09-09] MEDS: Tiotropium Bromide [Spiriva Respimat] IH SCH (08:52)
[2018-09-09] MEDS: FLUTICASONE/SALMETER 250/50MCG DISKUS IH SCH ×2 (08:53→20:30)
--- NOTE | 2018-09-09 10:54 | PDMN ---
Medical Necessity Medical necessity: Pt meets IP criteria as of 09/09/2018 per MD and VERNA VERDUGO- ( Musculoskeletal Disease); est los > 2 mn for ongoing tx and management of R femoral neck fracture after mechanical fall; requiring IV pain management, orthopedic consult with suggested surgical intervention, cardiology consult (d/ t recent NSTEMI and complicated cardiac hx), and therapies. Comorbid advanced age, COPD, HTN, anemia, CKD
[2018-09-09] MEDS: FUROSEMIDE 20 MG TAB PO SCH (11:08)
[2018-09-09] MEDS: ISOSORBIDE MONONITRATE 30 MG TAB.SR PO SCH (11:09)
[2018-09-09] MEDS: ATORVASTATIN CALCIUM 40 MG TAB PO SCH (11:14)
--- NOTE | 2018-09-09 12:15 | PDCARPN ---
Cardiology Progress Note Assessment/Plan: 77 year old male with multiple cardiovascular and medical problems. Currently admitted after a mechanical fall and right hip fracture. Has a history of CAD with a remote CABG in 1987. He has had 2 recent ischemic episodes. The first was a non-ST elevation ID in July with a peak troponin of 4.0. The second event was milder acute coronary syndrome just over a week ago with a troponin of 0.48. Currently chest pain free. Cardiac catheterization in July demonstrated severe [place] 3-vessel CAD. All of his bypass grafts are open but he does have a high-grade stenosis in the distal portion of the SVG to RCA. There is also a diagonal branch of the LAD at some jeopardy. Three out of the five interventional cardiologists in our group have recently been involved in his care. All 3 felt that he had very poor prospects for PCI and that any such procedure would be high-risk. He has been on dual antiplatelet therapy with aspirin and clopidogrel since his event in July. He has preserved left ventricular systolic function and no hemodynamically significant valvular heart disease. He is scheduled for surgery for his hip fracture later today. He is at significantly increased risk for cardiac instability perioperatively. However, I think the prospects of a catastrophic and/or fatal cardiac event are fairly low given his normal LV function and the fact that the majority of his myocardium is adequately revascularized. The considerable morbidity and mortality of an unrepaired hip fracture at his age favors proceeding with his surgery, despite his suboptimal cardiac status and the potential for excess bleeding related to his antiplatelet therapy. As mentioned in my dictation yesterday, prophylactic platelet transfusion has not been shown to be effective for patients on aspirin and clopidogrel. 09/09/18 12:10 Subjective: No chest pain. Objective: Vital Signs (8 Hrs) Temp Pulse Resp BP Pulse Ox 09/09/18 11:09 83 160/100 H 09/09/18 08:56 84 16 90 L 09/09/18 07:38 37.4 C 83 17 160/85 H 92 Intake/Output (24 Hrs) 09/08/18 09/09/18 09/10/18 05:59 05:59 05:59 Output Total 325 650 Balance -325 -650 Output: Urine (ml) 325 250 Urinal 325 250 Emesis (ml) 400 Other: Weight 84.822 kg Number of Voids Urinal 1 Number of Emesis 1 2 Occurrences Result Diagrams: 09/08/18 16:36 09/08/18 16:36 - Physical Exam Constitutional: other (chronically ill-appearing) Eyes: anicteric sclera Ears, Nose, Mouth, Throat: moist mucous membranes Cardiovascular: regular rate and rhythm, no murmurs Respiratory: other (clear anteriorly) Gastrointestinal: normoactive bowel sounds, no tenderness, no masses Psychiatric: not anxious ICD10 Worksheet Patient Problems: Problems Problem Status Onset Fracture of femoral neck, right Acute Chest pain Acute Chronic Disease Mgmt/Transitional Care Acute Elevated troponin Acute NSTEMI (non-ST elevated myocardial infarction) Acute
[2018-09-09] MEDS: IPRATROPIUM/ALBUTEROL 3 ML DEYVIAL IH PRN (15:19)
[2018-09-09] MEDS: METOCLOPRAMIDE 10 MG/2 ML VIAL IVP PRN (15:38)
[2018-09-09] MEDS ORDERED: BUPIVACAINE 0.5% 30 ML SDV ONE (15:51)
[2018-09-09] MEDS ORDERED: NS 1,000 ML IV ONE (16:44)
--- NOTE | 2018-09-09 17:36 | HOSPPROG ---
Hospitalist Progress Note Assessment/Plan: 77 y/o male with extensive and complicated cardiac history presents with right femoral neck fracture after sustaining a mechanical fall. First Encounter, chart reviewed. #Right hip fracture -D/W Dr Sosa -plan for OR today - hemiarthroplasty versus pinning -Pain control PO/IVP PRN # Cardiac history/recent NSTEMI with inability to stent -D/W Dr. Perez is aware and has spoken with the patient -D/t recent MT and extensive health history, the pt is at very high risk of complications -Hold ASA and plavix #Nausea -cont supportive care Chronic health conditions: #COPD (home oxygen 4L NC baseline): continue oxygen use and home medications add duonebs #HTN: continue home medications #HLD: continue home medications #Anemia -follow labs post op #CKD IV: -monitor. -Gentle IVF. Diet: NPO for surgery VTE ppx: SCDs, will appreciate ortho and cards recommendation post-op for anti-coag Code: DNR Subjective: Doesn't feel well. Frustrated. Tired. Objective: Vital Signs Temp Pulse Resp BP Pulse Ox 36.7 C 90 16 156/87 H 91 L 09/09/18 16:19 09/09/18 16:19 09/09/18 16:19 09/09/18 16:19 09/09/18 16:19 09/08/18 09/09/18 09/10/18 05:59 05:59 05:59 Intake Total 863 Output Total 325 1100 Balance -325 -237 PT 13.6 SEC (12.0-15.0) 09/08/18 16:36 INR 1.02 (0.83-1.16) 09/08/18 16:36 - Physical Exam Constitutional: chronically ill appearing, obese, uncomfortable Eyes: PERRL, anicteric sclera, EOMI Ears, Nose, Mouth, Throat: moist mucous membranes, hearing normal, ears appear normal Cardiovascular: No JVD, No tachycardia, No edema Respiratory: no respiratory distress, no rales or rhonchi, reduced air movement Gastrointestinal: normoactive bowel sounds, No tenderness, No ascites Skin: warm, normal color, No mottled Musculoskeletal: pain with ROM, muscular tenderness, abnormal gait, generalized weakness Neurologic: AAOx3 Psychiatric: interacting appropriately, not anxious, not encephalopathic, thought process linear ICD10 Worksheet Patient Problems: Problems Problem Status Onset NSTEMI (non-ST elevated myocardial infarction) Acute Fracture of femoral neck, right Acute Chronic Disease Mgmt/Transitional Care Acute Chest pain Acute Elevated troponin Acute
--- NOTE | 2018-09-09 19:41 | PDANEPAE ---
ANE History of Present Illness hip maida ANE Past Medical History - Cardiovascular History Hx Hypertension: Yes Hx Arrhythmias: Yes Hx Chest Pain: Yes Hx Coronary Artery / Peripheral Vascular Disease: Yes Hx CHF / Valvular Disease: No Hx Palpitations: No Cardiovascular History Comment: s/p SC 07-30 and 08-30, no PCI possible - Pulmonary History Hx COPD: Yes Hx Asthma/Reactive Airway Disease: No Hx Recent Upper Respiratory Infection: No Hx Oxygen in Use at Home: Yes O2 in Use at Home (L/minute): 4 Hx Sleep Apnea: No Sleep Apnea Screening Result - Last Documented: Positive - Neurologic History Hx Cerebrovascular Accident: No Hx Seizures: No Hx Dementia: No - Endocrine History Hx Diabetes: No Hypothyroid: No Hyperthyroid: No Obesity: no - Renal History Hx Renal Disorders: Yes - Liver History Hx Hepatic Disorders: No - Chronic Pain History Chronic Pain: No ANE Review of Systems Review of Systems: - Exercise capacity Exercise capacity: <4 METS ANE Patient History - Allergies Allergies/Adverse Reactions: NSAIDS (Non-Steroidal Anti-Inflamma [NSAIDS (Non-Steroidal Anti-Inflammatory Drug)] Allergy (Unknown, Verified 09/08/18 17:19) Other-Enter Comments - Home Medications Home medications: home medication list seen and reviewed Home Medications: Aspirin [Aspirin 81mg (*)] 81 mg PO DAILY 07/28/18 [Last Taken 09/08/18] Fluticasone/Salmeter 250/50Mcg [Advair 250/50 (*)] 1 puffs IH BID 07/28/18 [ Last Taken 09/08/18 AM DOSE] Melatonin [Melatonin 3 MG (*)] 3 mg PO HS 07/28/18 [Last Taken 09/07/18] Metoprolol Tartrate [Lopressor 25 mg (*)] 25 mg PO BID 07/28/18 [Last Taken AM DOSE] Tiotropium [place] [Spiriva Respimat] 2 inh IH DAILY 07/28/18 [Last Taken ] Zolpidem Tartrate [Ambien Cr] 6.25 mg PO HS 07/28/18 [Last Taken 09/07/18] Furosemide [Lasix 20 MG (*)] 20 mg PO DAILY 07/30/18 [Last Taken 09/08/18] Tamsulosin HCl [Flomax 0.4 MG (*)] 0.4 mg PO HS 07/30/18 [Last Taken 09/07/18] guaiFENesin [Mucinex 600 MG (*)] 600 mg PO DAILY PRN 07/30/18 [Last Taken ] Albuterol Sulfate [Ventolin Hfa] 1 - 2 puffs IH DAILY PRN 09/01/18 [Last Taken Unknown] Isosorbide Mononitrate [Imdur 30 mg (*)] 60 mg PO DAILY 09/08/18 [Last Taken ] - NPO status NPO Status: no food or drink >8 hours NPO Since - Liquids (Date): 09/09/18 NPO Since - Liquids (Time): 00:00 NPO Since - Solids (Date): 09/09/18 NPO Since - Solids (Time): 00:00 - Anes Hx Anes Hx: no prior problems - Smoking Hx Smoking Status: Former smoker - Alcohol Use Alcohol Use: None ANE Labs/Vital Signs - Labs Result Diagrams: 09/08/18 16:36 09/08/18 16:36 - Vital Signs Blood Pressure: 156/87 Heart Rate: 90 Respiratory Rate: 16 O2 Sat (%): 91 Height: 175.26 cm Weight: 84.822 kg ANE Physical Exam - Airway Mallampati Score: Class 2 Mouth exam: normal dental/mouth exam - Pulmonary Pulmonary: no respiratory distress - Cardiovascular Cardiovascular: regular rate and rhythym - ASA Status ASA Status: IV ANE Anesthesia Plan Anesthesia Plan: general endotracheal anesthesia (extensive discussion with patient and daughter regarding the risks involved with today's anesthetic including, transfusion, post-op resp failure, periop SC, and periop .)
[2018-09-09] MEDS ORDERED: ROCURONIUM 100 MG/10 ML VIAL ONE (19:43)
[2018-09-09] MEDS ORDERED: PHENYLEPHRINE 10 MG/ML SDV ONE (19:43)
[2018-09-09] MEDS ORDERED: SUCCINYLCHOLINE CHLORIDE 200 MG/10 ML SYR IVP ONE (19:43)
[2018-09-09] MEDS ORDERED: LIDOCAINE 2% 5 ML SDV ONE (19:44)
[2018-09-09] MEDS ORDERED: fentaNYL 250 MCG/5 ML INJ ONE (19:44)
[2018-09-09] MEDS ORDERED: PROPOFOL 200 MG/20 ML VIAL ONE (19:44)
[2018-09-09] MEDS ORDERED: ceFAZolin 2 GM/DEXTROSE 100 ML IV ONE (20:38)
[2018-09-09] MEDS ORDERED: ceFAZolin 1 GM VIAL ONE ×2 (21:09)
[2018-09-09] MEDS ORDERED: ALBUMIN 5% 250 ML BOTTLE IV ONE (21:24)
[2018-09-09] MEDS ORDERED: ONDANSETRON 4 MG/2 ML VIAL ONE (22:08)
[2018-09-09] MEDS ORDERED: NALOXONE HCL 0.4 MG/ML INJ IVP PRN (22:32)
[2018-09-09] MEDS ORDERED: fentaNYL 100 MCG/2 ML INJ IVP PRN (22:32)
[2018-09-09] MEDS ORDERED: ONDANSETRON 4 MG/2 ML VIAL IVP PRN (22:32)
[2018-09-09] MEDS ORDERED: ALBUTEROL 3 ML DEYVIAL IH PRN (22:32)
[2018-09-09] MEDS ORDERED: PHENYLEPHRINE HCL 100 MCG/ML SYR IVP PRN (22:32)
--- NOTE | 2018-09-09 22:34 | POSTANESTH ---
Post Anesthetic Evaluation Cardiovascular Status: Normal, Stable Respiratory Status: Normal, Stable Level of Consciousness/Mental Status: Can Participate in Eval Pain Control: Adequate, Prn Tx Ordered Nausea/Vomiting Control: Adequate, Prn Tx Ordered Complications Possibly Related to Anesthesia: None Noted
--- NOTE | 2018-09-09 22:34 | POSTOPPROG ---
Post Op Note Date of Operation: 09/09/18 Surgeon: Oscar Sosa Anesthesia: GET(General Endotracheal) Pre-op Diagnosis: R femoral neck fx Post-op Diagnosis: same Procedure: R hip hemiarthroplasty Inf/Abcess present in the surg proc area at time of surgery?: No EBL: 50-100
--- NOTE | 2018-09-09 23:48 | GOP ---
DATE OF OPERATION: 09/08/2018 SURGEON: Oscar Sosa MD ANESTHESIA: General. PREOPERATIVE DIAGNOSIS: POSTOPERATIVE DIAGNOSIS: Right femoral neck fracture. PROCEDURE PERFORMED: Right hip bipolar hemiarthroplasty. FINDINGS: ESTIMATED BLOOD LOSS: Approximately 100 mL. INDICATIONS: Patient is a 77-year-old with a significant heart and lung history. He tripped on his oxygen, falling, resulting in a displaced right femoral neck fracture. After a thorough discussion w ith the patient regarding treatment options, it was recommended that operative treatment consisting o f implant hemiarthroplasty be pursued. It was acknowledged by his canvas shrinker and anesthesiologist that patient was at a very high risk for intraoperative fatality, but despite this, there was no real good option other than pursuing operative treatment. Patient acknowledged he understood the potenti al risks, including but not limited to, bleeding; infection; neurovascular damage including loss of l imb or limb function; implant failure including dislocation, periprosthetic fracture, subsidence, or progressive pain requiring revision or conversion to a total hip arthroplasty; and anesthetic risks. He acknowledged he understood the potential risks, planned procedure, and postoperative plan well an d had all questions answered. He gave consent for the operative procedure. DESCRIPTION OF PROCEDURE: The patient was brought to the operating after IV antibiotics were adminis tered. He was placed in a supine position on his bed, where general anesthetic was administered. Pa tient was transferred to the operating table with gel padding and pegboard support and transferred to a left lateral decubitus position with axillary roll and padding of all bony prominences. The right hip and lower extremity were prepped and draped in standard sterile fashion. A longitudinal incisio n was made and centered on the greater trochanter along the lateral aspect of the upper thigh and hip . Skin and subcutaneous tissue were sharply incised. Dissection was carried down through the glutea l fascia. Trochanteric bursa was excised. A Wen clamp was placed underneath the gluteal tendons, and a portion of them were released with electrocautery. The anterior capsule was identified and ope neil in an "H-type fashion." A provisional neck cut on the femur was made with a saw and bone portion s removed with a rongeur. Utilizing a corkscrew, the femoral head was removed en toto and measured t o be 50 mm. A 50 mm trial showed favorable fit. The hip was then dislocated to allow for preparatio n of the femur. A box osteotome was utilized to create a lateralizing position along the medial aspe ct of the greater trochanter. A migratory farm hand was then placed on the intramedullary canal. Broaching was performed starting at 0 and progressing. At size 3, very favorable stability was achieved. A -3 head-neck extension was applied with a 50 mm trial head, and trial reduction was performed. Hip was found to be stable with symmetric leg lengths. Definitive implants were then placed. A size 3 stem was impacted into place, ensuring a favorable version which had been accomplished during broaching w as maintained. A -3 head-neck extension and 50 mm bipolar head were placed. Reduction was performed . While the joint was not "unstable," it was felt to be slightly loose. His hip was dislocated, and the bipolar head was removed. A +0 head/neck insertion was then placed, and a bipolar head was put back on. Hip was reduced and found to be very stable throughout all range of motions. Leg lengths w ere symmetric. Attention was directed towards closure. The capsule was closed with 0 Vicryl suture in interrupted f ashion. The gluteal fascia and fascia over the vastus lateralis were similarly closed with 0 Vicryl interrupted fashion. The deep subcu was closed with 2-0 Vicryl suture in interrupted fashion. The s ubcutaneous tissue was closed with 3-0 Vicryl suture in interrupted fashion. Skin was closed with sk in ravi. 0.5% Marcaine without epinephrine was injected in the wound sites. The wounds were dres sed with sterile Adaptic, 4 x 4, and ABD. An abduction pillow was placed, and the patient was taken to the recovery room in stable condition postoperatively. All sponge, needle, and instrument counts were reported as being correct. POSTOPERATIVE DIAGNOSIS: Right femoral neck fracture. DRAINS: None. COMPLICATIONS: None. PLAN: The patient will be admitted for medical management. He would be weightbearing as tolerated o n his operative extremity. /[id number]/MODL
[2018-09-10] MEDS: FLUTICASONE/SALMETER 250/50MCG DISKUS IH SCH ×2 (05:56→21:19)
[2018-09-10] MEDS: Tiotropium Bromide [Spiriva Respimat] IH SCH (05:58)
[2018-09-10] MEDS: METOPROLOL TARTRATE 25 MG TAB PO SCH ×2 (08:37→21:58)
[2018-09-10] MEDS: ASPIRIN 81 MG CHEWABLE TAB PO SCH (08:37)
[2018-09-10] MEDS: ATORVASTATIN CALCIUM 40 MG TAB PO SCH (08:37)
[2018-09-10] MEDS: CLOPIDOGREL BISULFATE 75 MG TAB PO SCH (08:37)
[2018-09-10] MEDS: METOCLOPRAMIDE 10 MG/2 ML VIAL IVP PRN ×2 (08:37→20:09)
[2018-09-10] MEDS: FUROSEMIDE 20 MG TAB PO SCH (08:38)
[2018-09-10] MEDS: SENNOSIDES/DOCUSATE SODIUM TAB PO SCH ×2 (08:38→22:01)
[2018-09-10] MEDS: ISOSORBIDE MONONITRATE 30 MG TAB.SR PO SCH (08:38)
--- NOTE | 2018-09-10 08:42 | SOAPPROG ---
SOAP Progress Note Assessment/Plan: Assessment: Plan: Objective: Vital Signs Temp Pulse Resp BP Pulse Ox 36.9 C 82 25 H 122/57 H 98 09/10/18 07:17 09/10/18 07:17 09/10/18 07:17 09/10/18 07:17 09/10/18 07:17 Laboratory Results 09/10/18 05:17 09/10/18 05:17 09/09/18 09/10/18 09/11/18 05:59 05:59 05:59 Intake Total 5963 Output Total 325 2550 Balance -325 3413 PT 13.6 SEC (12.0-15.0) 09/08/18 16:36 INR 1.02 (0.83-1.16) 09/08/18 16:36 ICD10 Worksheet Patient Problems: Problems Problem Status Onset Fracture of femoral neck, right Acute Chest pain Acute Chronic Disease Mgmt/Transitional Care Acute Elevated troponin Acute NSTEMI (non-ST elevated myocardial infarction) Acute
[2018-09-10] MEDS ORDERED: AMIODARONE HCL 200 ML IV ONE (09:55)
[2018-09-10] MEDS ORDERED: AMIODARONE HCL 100 ML IV ONE (09:55)
--- NOTE | 2018-09-10 10:43 | HOSPPROG ---
Hospitalist Progress Note Assessment/Plan: 77 yo M a cad, 02 dependent copd here w hip fracture 77 y/o male with extensive and complicated cardiac history presents with right femoral neck fracture after sustaining a mechanical fall. First Encounter, chart reviewed. Right hip fracture s/p hemiarthroplasty Cardiac history/recent NSTEMI with inability to stent no CP did have CP w last NSTEMI continue asa/plavix/statin AF: recurrent but has had before on amio gtt- used this during last episode after AAA repair COPD (home oxygen 4L NC baseline): on 4 L proph: needs lmwh CKD and asa/plavix noted start 09/11 CKD IV: follow daily Diet: NPO for surgery VTE ppx: SCDs, will appreciate ortho and cards recommendation post-op for anti-coag Code: DNR Subjective: case d/w river leslie and lonnie. AF today, not new. pain OK Objective: Vital Signs Temp Pulse Resp BP Pulse Ox 36.9 C 82 25 H 122/57 H 98 09/10/18 07:17 09/10/18 07:17 09/10/18 07:17 09/10/18 07:17 09/10/18 07:17 Laboratory Results 09/10/18 05:17 09/10/18 05:17 09/09/18 09/10/18 09/11/18 05:59 05:59 05:59 Intake Total 5963 Output Total 325 2550 Balance -325 3413 PT 13.6 SEC (12.0-15.0) 09/08/18 16:36 INR 1.02 (0.83-1.16) 09/08/18 16:36 - Physical Exam Constitutional: no apparent distress, appears nourished Eyes: PERRL, anicteric sclera Ears, Nose, Mouth, Throat: moist mucous membranes, hearing normal Cardiovascular: no murmur, rub, or gallop, irregularly irregular Respiratory: no respiratory distress, no rales or rhonchi Gastrointestinal: normoactive bowel sounds, soft, non-tender abdomen Genitourinary: no bladder fullness, No davis in urethra Skin: warm, normal color Musculoskeletal: full muscle strength Neurologic: AAOx3 ICD10 Worksheet Patient Problems: Problems Problem Status Onset Fracture of femoral neck, right Acute Chest pain Acute Chronic Disease Mgmt/Transitional Care Acute Elevated troponin Acute NSTEMI (non-ST elevated myocardial infarction) Acute
--- NOTE | 2018-09-10 11:25 | PDCARPN ---
Cardiology Progress Note Assessment/Plan: 77 year-old male with a complex cardiovascular and medical history. Has had 2 recent acute coronary syndromes. He was admitted to the hospital yesterday after a mechanical fall resulting in a right hip fracture. The patient underwent surgical repair yesterday evening. 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 He does not notice his arrhythmia. He is hemodynamically stable. He also had postoperative atrial fibrillation following repair of his abdominal aortic aneurysm in 2016. He reports that, at that time, he was on amiodarone temporarily. He also reports that he had a number of side affects but he cannot provide specifics. - Will load with intravenous amiodarone. - Will then plan for very low-dose oral amiodarone consisting of 50 mg daily or potentially only on Friday/Friday/Friday. Anemia: His hematocrit went from 32.6 pre-op to 22.6 today. The patient has been on dual antiplatelet therapy with aspirin and clopidogrel raising significant concern over the potential for excess bleeding at the time of his surgery. There was no mention of significant blood loss in the operative report or the anesthesiologist's postoperative assessment. - Will monitor with serial hemoglobin/hematocrit. - Would have a low threshold for considering transfusion with packed red blood cells given his cardiac status. 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 Cardiac catheterization in July of this year demonstrated severe [place] CAD, a patent DO to LAD graft, a patent SVG to obtuse marginal, and a patent but highly degenerated and aneurysmal SVG to the RCA with a high grade stenosis in the distal graft body. I ,and 2 other interventional cardiologists in our practice, have deemed his SVG to the RCA to be a poor target for PCI associated with significantly increased risk for complications or poor outcome. - He is not experiencing any angina at present. - Continue medical management and secondary prevention. 09/10/18 11:25 Subjective: No angina. Objective: Vital Signs (8 Hrs) Temp Pulse Resp BP Pulse Ox 09/10/18 07:17 36.9 C 82 25 H 122/57 H 98 09/10/18 05:56 84 22 H 100 09/10/18 04:00 36.4 C 85 19 149/62 H 100 Intake/Output (24 Hrs) 09/09/18 09/10/18 09/11/18 05:59 05:59 05:59 Intake Total 5963 Output Total 325 2550 Balance -325 3413 Intake: Oral (ml) 1250 IV Intake (ml) 3000 IV Infused (ml) 1713 Ns 1,000 ml @ 100 mls/hr 1663 IV CONT [facility] Rx#: [id number] ceFAZolin 1 GM/DEXTROSE 50 50 ml @ 200 mls/hr IV Q8H [facility] Rx#:[id number] Output: Urine (ml) 325 1550 Catheter 1050 Urinal 325 500 Estimated Blood Loss (ml) 400 Emesis (ml) 600 Other: Weight 84.822 kg 84.822 kg Intake Quantity Yes Sufficient Number of Voids Urinal 1 2 Number of Emesis 1 2 Occurrences Result Diagrams: 09/10/18 05:17 09/10/18 05:17 - Physical Exam Constitutional: no apparent distress Eyes: anicteric sclera Ears, Nose, Mouth, Throat: moist mucous membranes Cardiovascular: irregularly irregular Respiratory: other (clear anteriorly) Gastrointestinal: normoactive bowel sounds, no tenderness, no masses Skin: other (2+ edema) Neurologic: AAOx3 Psychiatric: not anxious ICD10 Worksheet Patient Problems: Problems Problem Status Onset Fracture of femoral neck, right Acute Chest pain Acute Chronic Disease Mgmt/Transitional Care Acute Elevated troponin Acute NSTEMI (non-ST elevated myocardial infarction) Acute
--- NOTE | 2018-09-10 11:27 | GCON ---
SILVERER CONSULTATION REASON FOR ADMISSION: Status post hip fracture, atrial fibrillation. HISTORY OF PRESENT ILLNESS: The patient is a very pleasant 77-year-old white male with an extensive past medical history, including chronic renal insufficiency, anemia, coronary artery disease with byp ass and angioplasty, hypertension, and chronic obstructive pulmonary disease, for which he is on supp lemental oxygen at home. He apparently tripped over his oxygen tank, landing on his right hip. He t hen sought medical attention and was found to have a hip fracture, which has subsequently been repair ed. He was admitted to the intensive care unit because of atrial fibrillation with rapid response. In discussion with the patient, he states that with the exception of his hip pain, he is doing quite well. He denies any chest pain, pleuritic-type chest pain or angina equivalent. There is no cough o r production of sputum. He has no fever or night sweats. He recently moved to [place] in January of this year to be closer to his daughter. PAST MEDICAL HISTORY: Significant for chronic obstructive pulmonary disease, coronary artery disease , anemia, chronic renal insufficiency, cauda equina syndrome. PAST SURGICAL HISTORY: Had coronary bypass graft, AAA repair, angioplasty, and laminectomy x2. FAMILY HISTORY: Noncontributory. REVIEW OF SYSTEMS: Ten-point review of systems was performed and negative, except for what is listed in the HPI. SOCIAL HISTORY: Previous heavy smoker, quit several years ago. He does continue to vape. He denies any significant alcohol use. 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 He is single, with 3 children . He has lived in [place] since January of this year, is originally from [place] and [place]. MEDICATIONS: At home include aspirin, Advair, melatonin, metoprolol, Spiriva, Ambien, Lasix, Flomax, Mucinex, Ventolin, and Imdur. PHYSICAL EXAM: VITAL SIGNS: Blood pressure is 122/57, pulse 82, respirations 25, temperature 36.9, oxygen saturation 98% on 4 L. GENERAL: He is a thin, but well-developed elderly white male who is r esting comfortably, on supplemental oxygen. HEENT: Eyes PERRL, EOMI. He has bilateral arcus senili s present. Throat shows no erythema nor tonsillar hypertrophy. NECK: Supple. No cervical adenopat hy. HEART: Irregular/regular with a 2/6 systolic murmur at the left sternal border, without radiati on. LUNGS: Diminished breath sounds, with significant prolongation of expiratory phase, but there i s no wheeze. ABDOMEN: Soft, nontender. Bowel sounds are present in all 4 quadrants. EXTREMITIES: No clubbing, cyanosis, or edema. LABORATORIES: White count is 9.1, hemoglobin 8.6, hematocrit 26, and platelet count is 142. Sodium 141, potassium 4.3, chloride 104. CO2 is 33, BUN 36, creatinine 2. Glucose is 131. IMPRESSION: 1. Hip fracture, status post right hip hemiarthroplasty. 2. Atrial fibrillation with rapid response. 3. Chronic obstructive pulmonary disease, on supplemental oxygen. 4. History of coronary artery disease. 5. Chronic renal insufficiency. RECOMMENDATIONS: 1. Agree with amiodarone. 2. Frequent nebulization of both albuterol and Atrovent. 3. DVT and PE prophylaxis. 4. Stress ulcer prophylaxis. 5. Adequate pain control. 6. PT and OT. /[id number]/MODL
--- NOTE | 2018-09-10 12:23 | CPEKG ---
Test Reason : OPEN Blood Pressure : / mmHG Vent. Rate : 106 BPM Atrial Rate : 130 BPM P-R Int : 189 ms QRS Dur : 136 ms QT Int : 364 ms P-R-T Axes : 061 -22 -08 degrees QTc Int : 484 ms Atrial fibrillation -- New since September 01, 2018 Right bundle branch block Nonspecific T abnormalities, lateral leads Confirmed by Rohan Jon ([id number]) on 09/10/2018 12:22:34 PM Referred By: Confirmed By:Rohan Jon
[2018-09-10] MEDS: ALBUTEROL 60 PUFFS/8 GM MDI IH PRN (13:30)
[2018-09-10] MEDS: ENOXAPARIN 30 MG/0.3 ML SYR SC SCH (14:55)
[2018-09-10] MEDS ORDERED: AMIODARONE HCL 540 MG in D5W 300 ML IV ONE (17:00)
[2018-09-10] MEDS: ONDANSETRON 4 MG/2 ML VIAL IVP PRN (18:46)
[2018-09-10] MEDS: PROMETHAZINE HCL 25 MG/ML INJ IVP PRN (20:02)
[2018-09-10] MEDS: TAMSULOSIN HCL 0.4 MG CAP PO SCH (21:30)
[2018-09-10] MEDS: MELATONIN 3 MG TAB PO SCH (22:01)
[2018-09-10] MEDS: Zolpidem Tartrate [Ambien Cr] 6.25 MG PO SCH (22:01)
[2018-09-11] MEDS ORDERED: CEPACOL LOZENGE PO ONE (04:43)
[2018-09-11 05:09] LABS: PLATELET COUNT 153 10^3/uL (150-400)
[2018-09-11] MEDS: FLUTICASONE/SALMETER 250/50MCG DISKUS IH SCH ×2 (09:22→20:46)
[2018-09-11] MEDS: Tiotropium Bromide [Spiriva Respimat] IH SCH (09:22)
--- NOTE | 2018-09-11 09:47 | ASMTCMCOM ---
CM Note CM Note Notes: Therapies are recommending SNF rehab for patient. Will meet with patient today to discuss which programs he is interested in. CM will follow. Date Signed: 09/11/2018 09:46 AM Electronically Signed By:Sherri Tyson LCSW
[2018-09-11] MEDS: METOPROLOL TARTRATE 25 MG TAB PO SCH ×2 (09:50→21:35)
[2018-09-11] MEDS: ENOXAPARIN 30 MG/0.3 ML SYR SC SCH (09:50)
--- NOTE | 2018-09-11 09:50 | PDINTPN ---
Chemical Analytical Sampler Progress Note Assessment/Plan: Assessment/plan: * Hip fracture-status post hemiarthroplasty * Atrial fibrillation with rapid ventricular response-on amiodarone -will discuss with Cardiology rib guarding cardioversion * COPD-stable * Coronary artery disease * Chronic renal insufficiency * Pain-well controlled * VTE prophylaxis * Nutrition-adequate Subjective: Sitting up in chair. Resting comfortably. Pain well tolerated. No current complaints. Objective: Vital Signs Temp Pulse Resp BP Pulse Ox 36.7 C 84 18 143/87 H 90 L 09/11/18 08:00 09/11/18 09:24 09/11/18 09:24 09/11/18 08:00 09/11/18 09:24 Laboratory Results 09/11/18 04:50 09/11/18 04:50 09/10/18 09/11/18 09/12/18 05:59 05:59 05:59 Intake Total 5963 651 Output Total 2550 750 Balance 3413 -99 PT 13.6 SEC (12.0-15.0) 09/08/18 16:36 INR 1.02 (0.83-1.16) 09/08/18 16:36 - Time Spent With Patient Time Spent With Patient: 35 min of time spent with patient, over 1/2 involved coordination of care or counseling. Case discussed with nursing Physical Exam - Physical Exam General Appearance: WD/WN, alert EENT: PERRL/EOMI Neck: non-tender, full range of motion Respiratory: prolonged expiration, No respiratory distress, No wheezing Cardiac/Chest: systolic murmur, irregularly irregular Peripheral Pulses: 2+: carotid (R), carotid (L), femoral (R), femoral (L), dorsalis-pedis (R), dorsalis-pedis (L) Abdomen: normal bowel sounds, non-tender, soft Male Genitalia: deferred Rectal: deferred Skin: normal color, warm/dry Extremities: normal range of motion, non-tender, normal inspection, normal capillary refill Neuro/Psych: alert, normal mood/affect, oriented x 3 ICD10 Worksheet Patient Problems: Problems Problem Status Onset Fracture of femoral neck, right Acute Chest pain Acute Chronic Disease Mgmt/Transitional Care Acute Elevated troponin Acute NSTEMI (non-ST elevated myocardial infarction) Acute
[2018-09-11] MEDS: ASPIRIN 81 MG CHEWABLE TAB PO SCH (09:51)
[2018-09-11] MEDS: ATORVASTATIN CALCIUM 40 MG TAB PO SCH (09:51)
[2018-09-11] MEDS: FUROSEMIDE 20 MG TAB PO SCH (09:51)
[2018-09-11] MEDS: ISOSORBIDE MONONITRATE 30 MG TAB.SR PO SCH (09:51)
[2018-09-11] MEDS: SENNOSIDES/DOCUSATE SODIUM TAB PO SCH ×2 (09:55→21:35)
[2018-09-11] MEDS: AMIODARONE HCL 200 MG TAB PO SCH (14:32)
[2018-09-11] MEDS: guaiFENesin 600 MG TAB.ER PO PRN (14:35)
--- NOTE | 2018-09-11 15:10 | HOSPPROG ---
Hospitalist Progress Note Assessment/Plan: 77 yo M a cad, 02 dependent copd here w hip fracture 77 y/o male with extensive and complicated cardiac history presents with right femoral neck fracture after sustaining a mechanical fall. First Encounter, chart reviewed. Right hip fracture s/p hemiarthroplasty Cardiac history/recent NSTEMI with inability to stent no CP did have CP w last NSTEMI continue asa/plavix/statin AF: recurrent but has had before on amio gtt- used this during last episode after AAA repair COPD (home oxygen 4L NC baseline): on 4 L this is chronic hypoxemic respiratory failure proph: needs lmwh CKD and asa/plavix noted start 09/11 holding plavix (no stents) CKD IV: follow daily Diet: NPO for surgery VTE ppx: SCDs, will appreciate ortho and cards recommendation post-op for anti-coag Code: DNR Subjective: case d.w dr leslie. has not moved bowels. feels well Objective: Vital Signs Temp Pulse Resp BP Pulse Ox 36.9 C 78 28 H 109/66 100 09/11/18 11:22 09/11/18 11:22 09/11/18 11:22 09/11/18 11:22 09/11/18 11:22 Laboratory Results 09/11/18 04:50 09/11/18 04:50 09/10/18 09/11/18 09/12/18 05:59 05:59 05:59 Intake Total 5963 651 Output Total 2550 750 Balance 3413 -99 PT 13.6 SEC (12.0-15.0) 09/08/18 16:36 INR 1.02 (0.83-1.16) 09/08/18 16:36 - Physical Exam Constitutional: no apparent distress, appears nourished Eyes: PERRL, anicteric sclera Ears, Nose, Mouth, Throat: moist mucous membranes, hearing normal Cardiovascular: regular rate and rhythym, no murmur, rub, or gallop Respiratory: no respiratory distress, no rales or rhonchi Gastrointestinal: normoactive bowel sounds, soft, non-tender abdomen Genitourinary: no bladder fullness, No davis in urethra Skin: warm, normal color Musculoskeletal: No full muscle strength Neurologic: AAOx3 ICD10 Worksheet Patient Problems: Problems Problem Status Onset Fracture of femoral neck, right Acute Chest pain Acute Chronic Disease Mgmt/Transitional Care Acute Elevated troponin Acute NSTEMI (non-ST elevated myocardial infarction) Acute
--- NOTE | 2018-09-11 16:01 | ASMTCMCOM ---
CM Note CM Note Notes: Spoke with patient who chose [facility] rehab. A referral was sent to [facility]. CM will follow. Date Signed: 09/11/2018 04:00 PM Electronically Signed By:Sherri Tyson LCSW
--- NOTE | 2018-09-11 17:35 | CPEKG ---
Test Reason : OPEN Blood Pressure : / mmHG Vent. Rate : 071 BPM Atrial Rate : 128 BPM P-R Int : 133 ms QRS Dur : 136 ms QT Int : 444 ms P-R-T Axes : 134 000 -28 degrees QTc Int : 483 ms Atrial fibrillation Incomplete right bundle branch block No significant change from September 10, 2018 Confirmed by Rohan Jon ([id number]) on 09/11/2018 5:34:26 PM Referred By: Confirmed By:Rohan Jon
--- NOTE | 2018-09-11 18:11 | SOAPPROG ---
SOAP Progress Note Assessment/Plan: Assessment: R femoral neck fx Plan: R hip hemiarthroplasty planned for this evening pending medical clearance. IF concern too great, can consider percutaneous screw fixation. This will, however require limited weight bearing and a high risk of non - union. 09/09/18 06:14 09/11/18 18:09 S/P R hip hemiarthroplasty Up ambulating Minimal R hip pain Dresiing intact. No D/C leg lengths/rotation = Con't OOB/PT OK for D/C from ortho standpoint when medically stable Objective: Vital Signs Temp Pulse Resp BP Pulse Ox 36.9 C 84 19 109/66 91 L 09/11/18 11:22 09/11/18 16:00 09/11/18 16:00 09/11/18 16:00 09/11/18 16:00 Laboratory Results 09/11/18 04:50 09/11/18 04:50 09/10/18 09/11/18 09/12/18 05:59 05:59 05:59 Intake Total 5963 651 860 Output Total 2550 750 640 Balance 3413 -99 220 PT 13.6 SEC (12.0-15.0) 09/08/18 16:36 INR 1.02 (0.83-1.16) 09/08/18 16:36 ICD10 Worksheet Patient Problems: Problems Problem Status Onset Fracture of femoral neck, right Acute Chest pain Acute Chronic Disease Mgmt/Transitional Care Acute Elevated troponin Acute NSTEMI (non-ST elevated myocardial infarction) Acute
[2018-09-11] MEDS: MELATONIN 3 MG TAB PO SCH (21:35)
[2018-09-11] MEDS: TAMSULOSIN HCL 0.4 MG CAP PO SCH (21:35)
[2018-09-11] MEDS: POLYETHYLENE GLYCOL 3350 17 GM PKT PO SCH (21:35)
[2018-09-11] MEDS: Zolpidem Tartrate [Ambien Cr] 6.25 MG PO SCH (21:35)
--- NOTE | 2018-09-11 23:15 | PDCARPN ---
Cardiology Progress Note Assessment/Plan: Late entry - Patient was seen mid-day today. 77 year-old male with a complex cardiovascular and medical history. Has had 2 recent acute coronary syndromes. He was admitted to the hospital 09/08 after a mechanical fall resulting in a right hip fracture. The patient underwent surgical repair 09/09. Paroxysmal Atrial Fibrillation: The patient went into atrial fibrillation with a rapid ventricular response in the print developer automatic hours of 09/10 and he did not notice his arrhythmia. He remained hemodynamically stable. He also had postoperative atrial fibrillation following abdominal aortic aneurysm repair in 2016. He reports that, at that time, he was on amiodarone for 4-5 months. He also reports that he had some side affects but he cannot provide specifics. - Loaded with intravenous amiodarone overnight; he appears to be transitioning to sinus rhythm. - Will then plan for amiodarone 200 mg QD while in-hospital followed by very low -dose oral amiodarone consisting of 50 mg daily or potentially only on Friday/ Friday/Friday. Anemia: His hematocrit went from 32.6 pre-op to 26.6 yesterday and 24.6 today. The patient has been on dual antiplatelet therapy with aspirin and clopidogrel raising significant concern over the potential for excess bleeding at the time of his surgery. There was no mention of significant blood loss in the operative report or the anesthesiologist's postoperative assessment. - Will monitor with serial hemoglobin/hematocrit. - Would have a low threshold for considering transfusion with packed red blood cells given his cardiac status. 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 Cardiac catheterization in July of this year demonstrated severe [place] CAD, a patent DO to LAD graft, a patent SVG to obtuse marginal, and a patent but highly degenerated and aneurysmal SVG to the RCA with a high grade stenosis in the distal graft body. I ,and 2 other interventional cardiologists in our practice, have deemed his SVG to the RCA to be a poor target for PCI associated with significantly increased risk for complications or poor outcome. - He is not experiencing any angina at present. - He was started on dual antiplatelet therapy to reduce the theoretic risk of a recurrent ischemic event after his NSTEMI in July; he now needs systemic anticoagulation for DVT prophylaxis following hip surgery; his clopidogrel may be DCed at this point. - Continue medical management and secondary prevention. 09/11/18 23:27 Subjective: No CV complaints. Objective: Vital Signs (8 Hrs) Temp Pulse Resp BP Pulse Ox 09/11/18 21:35 80 127/73 H 09/11/18 20:00 36.8 C 80 26 H 100 09/11/18 16:00 84 19 109/66 91 L Intake/Output (24 Hrs) 09/10/18 09/11/18 09/12/18 05:59 05:59 05:59 Intake Total 5963 651 860 Output Total 2550 750 640 Balance 3413 -99 220 Intake: Oral (ml) 1250 100 860 IV Intake (ml) 3000 IV Infused (ml) 1713 551 Amiodarone HCl 100 ml @ 100 600 mls/hr IV ONCE ONE Rx #:[id number] Amiodarone HCl 200 ml @ 200 33.333 mls/hr IV ONCE ONE Rx#:[id number] Amiodarone HCl 540 mg In 171 D5w 300 ml @ 16.667 mls/ hr IV ONCE ONE Rx#: [id number] Ns 1,000 ml @ 100 mls/hr 1663 IV CONT [place] Rx#: [id number] ceFAZolin 1 GM/DEXTROSE 50 80 50 ml @ 200 mls/hr IV Q8H [facility] Rx#:[id number] Output: Urine (ml) 1550 575 640 Catheter 1050 Urinal 500 575 640 Estimated Blood Loss (ml) 400 Emesis (ml) 600 175 Other: Weight 84.822 kg Urine Specific [place] Urinal 1 Intake Quantity Yes Sufficient Number of Voids Urinal 2 Number of Stools Urinal 0 Bladder Scan Volume (ml) Urinal 254 Number of Emesis 2 Occurrences Result Diagrams: 09/11/18 04:50 09/11/18 04:50 - Physical Exam Constitutional: no apparent distress Eyes: anicteric sclera Ears, Nose, Mouth, Throat: moist mucous membranes Cardiovascular: regular rate and rhythm, no murmurs, no gallops Respiratory: clear to auscultate bilat Gastrointestinal: normoactive bowel sounds, no tenderness, no masses Skin: other (Mild LE edema) Neurologic: AAOx3 Psychiatric: not anxious ICD10 Worksheet Patient Problems: Problems Problem Status Onset Fracture of femoral neck, right Acute Chest pain Acute Chronic Disease Mgmt/Transitional Care Acute Elevated troponin Acute NSTEMI (non-ST elevated myocardial infarction) Acute
[2018-09-12] MEDS ORDERED: AMIODARONE A.FIB-LOAD DOSE(ORDER 1/3) PREMIX IV ONE (00:30)
[2018-09-12] MEDS ORDERED: AMIODARONE A.FIB-6HR INFSN (ORDER 2/3) PREMIX IV ONE (00:30)
[2018-09-12 05:51] LABS: PLATELET COUNT 177 10^3/uL (150-400)
[2018-09-12] MEDS ORDERED: AMIODARONE A.FIB-18HR INFSN (ORDER 3/3) IV ONE (07:00)
[2018-09-12] MEDS: METOCLOPRAMIDE 10 MG/2 ML VIAL IVP PRN (07:57)
[2018-09-12] MEDS: Tiotropium Bromide [Spiriva Respimat] IH SCH (09:00)
[2018-09-12] MEDS: FLUTICASONE/SALMETER 250/50MCG DISKUS IH SCH ×2 (09:00→20:02)
[2018-09-12] MEDS: POLYETHYLENE GLYCOL 3350 17 GM PKT PO SCH ×2 (09:36→22:07)
[2018-09-12] MEDS: SENNOSIDES/DOCUSATE SODIUM TAB PO SCH ×2 (09:36→22:07)
[2018-09-12] MEDS: ISOSORBIDE MONONITRATE 30 MG TAB.SR PO SCH (09:43)
[2018-09-12] MEDS: METOPROLOL TARTRATE 25 MG TAB PO SCH ×2 (09:43→19:55)
[2018-09-12] MEDS: FUROSEMIDE 20 MG TAB PO SCH (09:43)
[2018-09-12] MEDS: ENOXAPARIN 30 MG/0.3 ML SYR SC SCH (09:43)
[2018-09-12] MEDS: ASPIRIN 81 MG CHEWABLE TAB PO SCH (09:44)
[2018-09-12] MEDS: ATORVASTATIN CALCIUM 40 MG TAB PO SCH (09:44)
[2018-09-12] MEDS ORDERED: FUROSEMIDE 20 MG/2 ML VIAL IVP ONE ×2 (10:20→14:00)
[2018-09-12] MEDS: AMIODARONE HCL 200 MG TAB PO SCH (10:51)
--- NOTE | 2018-09-12 12:26 | PDCARPN ---
Cardiology Progress Note Chief Complaint: Patient reports fatigue. Assessment/Plan: Assessment: 77-year-old male with history of CAD, prior CABG x3 vessels 20 years ago, recent cardiac catheterization in July of this year demonstrating severe [place] CAD, patent DO to LAD, patent SVG to OM, patent but highly degraded and aneurysm a SVG to RCA with high-grade stenosis in the distal body (felt by interventional cardiology to be a poor target for PCI with significant increased risk for complications and or poor outcome). Ischemic cardiomyopathy (EF 53% echo 07/2018), COPD, hypertension, hyperlipidemia, PVD with previous AAA repair x2 chronic hypoxic respiratory failure, monoclonal gammopath, iron deficient see anemia, secondary pulmonary hypertension, chronic kidney disease stage 4. Admitted on 09/08 status pulse mechanical fall with diagnosis a right hip fracture. Underwent repair evening of 09/08. Postoperatively developed atrial fibrillation with rapid ventricular response. Has been started on IV amiodarone. Noted postop anemia. 09/12/2018: Patient maintains AFib with rates running at rest 100-110, with exertion, up to the 140s. Continues to be on amiodarone drip. Patient reports palpitations, denies of any significant chest pressure. Laboratories today show decrease in H&H today at 7.9 in 23.8. Patient denies of any significant shortness of breath, but is very sedentary due to recent surgery. Plan: 1. Paroxysmal atrial fibrillation: Continues to be in atrial fibrillation with better rate control, since being placed on amiodarone drip. Potentially elevated heart rate also due to anemia. Continue on amiodarone drip for 24 hr, with plans of transitioning back to oral amiodarone. Continue on metoprolol. Anticoagulated on Lovenox. 2. CAD: Recent catheterization noting ischemic coronary artery disease, unamenable to PCI. Patient has been resumed on aspirin, per Dr. Perez, clopidogrel has been discontinued due to needing systemic anticoagulation. Patient denies of any chest pressure. Continue on metoprolol, and isosorbide. Secondary risk prevention of atorvastatin. 3. Anemia: H&H down. Patient with known flow limiting CAD, postop atrial fibrillation and hemoglobin less than 8, hematocrit less than 24. After discussion with both Dr. Howard and Dr. Matthew, have ordered for transfusion today , 2 units packed red blood cells. Will plan for patient to get 20 of Lasix IV after each dose. Recheck H&H in a.m.. 4. Ischemic cardiomyopathy: Most recent echocardiogram showing EF of 53%. Patient has been resumed on home dose beta-temitope metoprolol. He has not a candidate for [place] or Arb due to his renal insufficiency. Continue on isosorbide. Consideration of starting hydralazine if BP can tolerate. 5. Hyperlipidemia: Resumed on home dose of atorvastatin. 6. Femur fracture: Status post repair. Defer treatment to orthopedics and physical therapy. 7. Chronic kidney disease: Baseline creatinine 2.0. Will monitor closely. Repeat BMP in a.m.. 09/12/18 12:23 Subjective: He denies of any chest pressure or pain. Denies of any shortness of breath. Does admit that he feels palpitations with fast heart rates. Denies of any orthopnea. Lightheadedness, near-syncope or syncopal events. Reviewed/Discussed With: hospitalist (Dr Howard), other (Dr Matthew) Objective: Vital Signs (8 Hrs) Temp Pulse Resp BP Pulse Ox 09/12/18 08:00 36.9 C 118 H 18 121/88 H 99 Intake/Output (24 Hrs) 09/11/18 09/12/18 09/13/18 05:59 05:59 05:59 Intake Total 651 1405 Output Total 750 1065 Balance -99 340 Intake: Oral (ml) 100 1160 IV Infused (ml) 551 245 Amiodarone HCl 100 ml @ 100 600 mls/hr IV ONCE ONE Rx #:[id number] Amiodarone HCl 100 ml @ 100 600 mls/hr IV ONCE ONE Rx #:[id number] Amiodarone HCl 200 ml @ 200 33.333 mls/hr IV ONCE ONE Rx#:[id number] Amiodarone HCl 540 mg In 171 D5w 300 ml @ 16.667 mls/ hr IV ONCE ONE Rx#: [id number] Amiodarone HCl 540 mg In 145 D5w 300 ml @ 16.667 mls/ hr IV ONCE ONE Rx#: [id number] ceFAZolin 1 GM/DEXTROSE 80 50 ml @ 200 mls/hr IV Q8H [facility] Rx#:[id number] Output: Urine (ml) 575 1065 Urinal 575 1065 Emesis (ml) 175 Other: Urine Specific [place] Urinal 1 Number of Stools Urinal 0 Bladder Scan Volume (ml) Urinal 254 Result Diagrams: 09/12/18 05:40 09/12/18 05:40 - Physical Exam Constitutional: WDWN, no apparent distress Ears, Nose, Mouth, Throat: moist mucous membranes Cardiovascular: irregularly irregular (Atrial fibrillation), pulses symmetric bilat, No jugular vein distention, No carotid bruit Peripheral Pulses: 1+: dorsalis-pedis (R), dorsalis-pedis (L), 2+: carotid (R), carotid (L) Respiratory: other (Diminished in bases bilateral, no rhonchi, rales, or wheezing noted.) Gastrointestinal: normoactive bowel sounds Skin: warm Neurologic: AAOx3 Psychiatric: cooperative, interactive ICD10 Worksheet Patient Problems: Problems Problem Status Onset NSTEMI (non-ST elevated myocardial infarction) Acute Fracture of femoral neck, right Acute Chronic Disease Mgmt/Transitional Care Acute Chest pain Acute Elevated troponin Acute
--- NOTE | 2018-09-12 15:50 | HOSPPROG ---
Hospitalist Progress Note Assessment/Plan: 77 yo M a cad, 02 dependent copd here w hip fracture 77 y/o male with extensive and complicated cardiac history presents with right femoral neck fracture after sustaining a mechanical fall. First Encounter, chart reviewed. ABLA: 2 units today Right hip fracture s/p hemiarthroplasty Cardiac history/recent NSTEMI with inability to stent no CP did have CP w last NSTEMI continue asa/plavix/statin AF: recurrent but has had before on amio gtt- used this during last episode after AAA repair COPD (home oxygen 4L [place] baseline): on 4 L this is chronic hypoxemic respiratory failure proph: needs lmwh CKD and asa/plavix noted start 09/11 holding plavix (no stents) CKD IV: follow daily Diet: regular VTE ppx: see above Code: DNR Subjective: case d/w shamar emiliano, cardiology RESEARCH BIOSTATISTICIAN Objective: Vital Signs Temp Pulse Resp BP Pulse Ox 36.8 C 100 25 H 114/70 98 09/12/18 12:00 09/12/18 12:00 09/12/18 12:00 09/12/18 12:00 09/12/18 12:00 Laboratory Results 09/12/18 05:40 09/12/18 05:40 09/11/18 09/12/18 09/13/18 05:59 05:59 05:59 Intake Total 651 1405 350 Output Total 750 1065 Balance -99 340 350 PT 13.6 SEC (12.0-15.0) 09/08/18 16:36 INR 1.02 (0.83-1.16) 09/08/18 16:36 - Physical Exam Constitutional: no apparent distress, appears nourished Eyes: PERRL, anicteric sclera Ears, Nose, Mouth, Throat: moist mucous membranes, hearing normal Cardiovascular: regular rate and rhythym, no murmur, rub, or gallop Respiratory: no respiratory distress, no rales or rhonchi Gastrointestinal: normoactive bowel sounds, soft, non-tender abdomen Genitourinary: no bladder fullness, No davis in urethra Skin: warm, normal color Musculoskeletal: No full muscle strength Neurologic: AAOx3 ICD10 Worksheet Patient Problems: Problems Problem Status Onset Fracture of femoral neck, right Acute Chest pain Acute Chronic Disease Mgmt/Transitional Care Acute Elevated troponin Acute NSTEMI (non-ST elevated myocardial infarction) Acute
[2018-09-12] MEDS: TAMSULOSIN HCL 0.4 MG CAP PO SCH (20:11)
[2018-09-12] MEDS: Zolpidem Tartrate [Ambien Cr] 6.25 MG PO SCH (20:58)
[2018-09-12] MEDS: MELATONIN 3 MG TAB PO SCH (20:58)
[2018-09-13 03:40] LABS: PLATELET COUNT 201 10^3/uL (150-400)
[2018-09-13] MEDS: AMIODARONE HCL 200 MG TAB PO SCH (07:31)
[2018-09-13] MEDS: METOPROLOL TARTRATE 25 MG TAB PO SCH ×2 (07:32→20:50)
[2018-09-13] MEDS ORDERED: ENOXAPARIN 40 MG/0.4 ML SYR SC SCH (09:00)
[2018-09-13] MEDS: BISACODYL 10 MG SUPP PR PRN (09:02)
[2018-09-13] MEDS: ASPIRIN 81 MG CHEWABLE TAB PO SCH (09:04)
[2018-09-13] MEDS: POLYETHYLENE GLYCOL 3350 17 GM PKT PO SCH ×2 (09:04→22:03)
[2018-09-13] MEDS: FUROSEMIDE 20 MG TAB PO SCH (09:04)
[2018-09-13] MEDS: ISOSORBIDE MONONITRATE 30 MG TAB.SR PO SCH (09:04)
[2018-09-13] MEDS: ATORVASTATIN CALCIUM 40 MG TAB PO SCH (09:04)
[2018-09-13] MEDS: SENNOSIDES/DOCUSATE SODIUM TAB PO SCH ×2 (09:04→20:50)
--- NOTE | 2018-09-13 09:33 | PDCARPN ---
Cardiology Progress Note Assessment/Plan: 77-year-old male with history of CAD, prior CABG x3 vessels 20 years ago, recent cardiac catheterization in July of this year demonstrating severe [place] CAD, patent DO to LAD, patent SVG to OM, patent but highly degraded and aneurysm a SVG to RCA with high-grade stenosis in the distal body (felt by interventional cardiology to be a poor target for PCI with significant increased risk for complications and or poor outcome). Ischemic cardiomyopathy (EF 53% echo 07/2018), COPD, hypertension, hyperlipidemia, PVD with previous AAA repair x2 chronic hypoxic respiratory failure, monoclonal gammopathy, iron deficiency anemia, secondary pulmonary hypertension, chronic kidney disease stage 4. Admitted on 09/08 status pulse mechanical fall with diagnosis a right hip fracture. Underwent repair evening of 09/08. Postoperatively developed atrial fibrillation with rapid ventricular response. 1. PAF -d.w. Dr. Huntley and Dr. Howard. Patient will be changed to full dose lovenox, CHADSVASC 4 -continue PO amiodarone, consider RASHAD guided cardioversion prior to d.c. 2. CAD, ICMP -no intervention -BB continued. No ACEI or ARB due to CRI 3. Anemia -post transfusion 4. HLD Subjective: Feels well, no new complaint Reviewed/Discussed With: multidisciplinary team Time Spent with Patient: greater than 25 minutes Time Spent with Patient: Greater than 25 minutes spent on this patients care, greater than 50% of time spent counseling, educating, and coordinating care regarding the above mentioned plan. Objective: Vital Signs (8 Hrs) Temp Pulse Resp BP Pulse Ox 09/13/18 07:30 118 H 15 144/89 H 93 09/13/18 03:28 36.5 C 112 H 24 H 153/97 H 98 Intake/Output (24 Hrs) 09/11/18 09/12/18 09/13/18 11:59 11:59 11:59 Intake Total 651 1405 1554 Output Total 750 1065 1625 Balance -99 340 -71 Intake: Oral (ml) 100 1160 500 IV Infused (ml) 551 527 354 Amiodarone HCl 100 ml @ 100 600 mls/hr IV ONCE ONE Rx #:[id number] Amiodarone HCl 100 ml @ 100 600 mls/hr IV ONCE ONE Rx #:[id number] Amiodarone HCl 200 ml @ 200 33.333 mls/hr IV ONCE ONE Rx#:[id number] Amiodarone HCl 540 mg In 171 D5w 300 ml @ 16.667 mls/ hr IV ONCE ONE Rx#: [id number] Amiodarone HCl 540 mg In 145 354 D5w 300 ml @ 16.667 mls/ hr IV ONCE ONE Rx#: [id number] ceFAZolin 1 GM/DEXTROSE 80 50 ml @ 200 mls/hr IV Q8H [facility] Rx#:[id number] Packed Red Blood Cells ( 700 ml) Output: Urine (ml) 575 1065 1625 Urinal 575 1065 1625 Emesis (ml) 175 Other: Urine Specific [place] Urinal 1 Number of Stools Urinal 0 0 Bladder Scan Volume (ml) Urinal 254 Result Diagrams: 09/13/18 03:25 09/13/18 03:25 Telemetry: AFIB with controlled V rate ICD10 Worksheet Patient Problems: Problems Problem Status Onset NSTEMI (non-ST elevated myocardial infarction) Acute Fracture of femoral neck, right Acute Chronic Disease [facility]/Transitional Care Acute Chest pain Acute Elevated troponin Acute
[2018-09-13] MEDS ORDERED: ENOXAPARIN 80 MG/0.8 ML SYR SC SCH (09:45)
[2018-09-13] MEDS ORDERED: ENOXAPARIN 40 MG/0.4 ML SYR SC ONE (10:00)
[2018-09-13] MEDS: Tiotropium Bromide [Spiriva Respimat] IH SCH (10:22)
[2018-09-13] MEDS: FLUTICASONE/SALMETER 250/50MCG DISKUS IH SCH ×2 (10:22→21:10)
[2018-09-13] MEDS: guaiFENesin 600 MG TAB.ER PO PRN (10:26)
[2018-09-13] MEDS: METOCLOPRAMIDE 10 MG/2 ML VIAL IVP PRN (10:54)
[2018-09-13] MEDS ORDERED: METOPROLOL TARTRATE 25 MG TAB PO ONE (14:04)
--- NOTE | 2018-09-13 14:08 | HOSPPROG ---
Hospitalist Progress Note Assessment/Plan: 77 yo M a cad, 02 dependent copd here w hip fracture 77 y/o male with extensive and complicated cardiac history presents with right femoral neck fracture after sustaining a mechanical fall. First Encounter, chart reviewed. ABLA: 2 units today Right hip fracture s/p hemiarthroplasty Cardiac history/recent NSTEMI with inability to stent no CP did have CP w last NSTEMI continue asa/plavix/statin AF: recurrent but has had before on amio gtt- used this during last episode after AAA repair 09/13 faster now that off amio gtt on metoprolol give add'l 25 po X 1 now should be cardioverted this admit on full dose anticoag COPD (home oxygen 4L [place] baseline): on 4 L this is chronic hypoxemic respiratory failure proph: needs lmwh CKD and asa/plavix noted start 09/11 holding plavix (no stents) CKD IV: follow daily Diet: regular VTE ppx: see above Code: DNR Subjective: case d/w dr dunn. tele: af in low 100's. faster than yesterday. moved bowels Objective: Vital Signs Temp Pulse Resp BP Pulse Ox 36.7 C 116 H 20 113/78 95 09/13/18 12:00 09/13/18 12:00 09/13/18 12:00 09/13/18 12:00 09/13/18 12:00 Laboratory Results 09/13/18 03:25 09/13/18 03:25 09/12/18 09/13/18 09/14/18 05:59 05:59 05:59 Intake Total 1405 1554 Output Total 1065 1625 250 Balance 340 -71 -250 PT 13.6 SEC (12.0-15.0) 09/08/18 16:36 INR 1.02 (0.83-1.16) 09/08/18 16:36 - Physical Exam Constitutional: no apparent distress, appears nourished Eyes: PERRL, anicteric sclera Ears, Nose, Mouth, Throat: moist mucous membranes, hearing normal Cardiovascular: irregularly irregular Respiratory: no respiratory distress, no rales or rhonchi Gastrointestinal: normoactive bowel sounds, soft, non-tender abdomen Genitourinary: no bladder fullness, No davis in urethra Skin: warm, normal color Musculoskeletal: full muscle strength Neurologic: AAOx3 ICD10 Worksheet Patient Problems: Problems Problem Status Onset Fracture of femoral neck, right Acute Chest pain Acute Chronic Disease Mgmt/Transitional Care Acute Elevated troponin Acute NSTEMI (non-ST elevated myocardial infarction) Acute
[2018-09-13] MEDS: ENOXAPARIN 80 MG/0.8 ML SYR SC SCH (20:48)
[2018-09-13] MEDS: TAMSULOSIN HCL 0.4 MG CAP PO SCH (20:49)
[2018-09-13] MEDS: MELATONIN 3 MG TAB PO SCH (20:49)
[2018-09-13] MEDS: Zolpidem Tartrate [Ambien Cr] 6.25 MG PO SCH (21:10)
[2018-09-13] MEDS: ALBUTEROL 60 PUFFS/8 GM MDI IH PRN (22:40)
[2018-09-14] MEDS: guaiFENesin 600 MG TAB.ER PO PRN (05:33)
[2018-09-14] MEDS: ATORVASTATIN CALCIUM 40 MG TAB PO SCH (08:55)
[2018-09-14] MEDS: METOPROLOL TARTRATE 25 MG TAB PO SCH ×2 (08:56→21:51)
[2018-09-14] MEDS: AMIODARONE HCL 200 MG TAB PO SCH (08:56)
[2018-09-14] MEDS: ASPIRIN 81 MG CHEWABLE TAB PO SCH (08:56)
[2018-09-14] MEDS: SENNOSIDES/DOCUSATE SODIUM TAB PO SCH ×2 (09:01→21:51)
[2018-09-14] MEDS: ISOSORBIDE MONONITRATE 30 MG TAB.SR PO SCH (09:02)
[2018-09-14] MEDS: FUROSEMIDE 20 MG TAB PO SCH (09:03)
[2018-09-14] MEDS: FLUTICASONE/SALMETER 250/50MCG DISKUS IH SCH ×2 (09:05→21:26)
[2018-09-14] MEDS: Tiotropium Bromide [Spiriva Respimat] IH SCH (09:05)
[2018-09-14] MEDS: ENOXAPARIN 80 MG/0.8 ML SYR SC SCH ×2 (09:06→21:51)
[2018-09-14] MEDS: POLYETHYLENE GLYCOL 3350 17 GM PKT PO SCH ×2 (09:06→21:50)
[2018-09-14 09:50] LABS: CREATINE KINASE 162 IU/L (0-224)
[2018-09-14] MEDS ORDERED: ATROPINE SULFATE 1 MG/10 ML SYR IVP ONE (09:51)
[2018-09-14] MEDS ORDERED: NS 1,000 ML IV ONE (09:52)
--- NOTE | 2018-09-14 09:58 | HOSPPROG ---
Hospitalist Progress Note Assessment/Plan: 77 yo M a cad, 02 dependent copd here w hip fracture 77 y/o male with extensive and complicated cardiac history presents with right femoral neck fracture after sustaining a mechanical fall. First Encounter, chart reviewed. ABLA: 2 units today Right hip fracture s/p hemiarthroplasty, pod 5 Cardiac history/recent NSTEMI with inability to stent no CP did have CP w last NSTEMI continue asa/statin/bb AF: recurrent but has had before on amio gtt- used this during last episode after AAA repair 09/13 faster now that off amio gtt on metoprolol give add'l 25 po X 1 now 09/14 remains in AF w rates > 100 DCCV today d/w cardiology CP: severe CAD he says different than previous NSTEMI cycle trop COPD (home oxygen 4L [place] baseline): on 4 L this is chronic hypoxemic respiratory failure proph: needs lmwh CKD and asa/plavix noted start 09/11 holding plavix (no stents) CKD IV: follow daily Diet: regular VTE ppx: see above Code: DNR Subjective: chest pain this AM- ekg w no ischemic changes (interp by me). case d.w dr maxwell Objective: Vital Signs Temp Pulse Resp BP Pulse Ox 36.8 C 120 H 20 148/113 H 96 09/14/18 07:26 09/14/18 08:56 09/14/18 07:26 09/14/18 09:02 09/14/18 07:26 Laboratory Results 09/13/18 03:25 09/13/18 03:25 09/13/18 09/14/18 09/15/18 05:59 05:59 05:59 Intake Total 1554 1050 Output Total 1625 815 Balance -71 235 PT 13.6 SEC (12.0-15.0) 09/08/18 16:36 INR 1.02 (0.83-1.16) 09/08/18 16:36 - Physical Exam Constitutional: no apparent distress, appears nourished Eyes: PERRL, anicteric sclera Ears, Nose, Mouth, Throat: moist mucous membranes, hearing normal Cardiovascular: no murmur, rub, or gallop, irregularly irregular Respiratory: no respiratory distress, no rales or rhonchi Gastrointestinal: normoactive bowel sounds, soft, non-tender abdomen Genitourinary: No davis in urethra Skin: warm, normal color Musculoskeletal: No full muscle strength Neurologic: AAOx3 ICD10 Worksheet Patient Problems: Problems Problem Status Onset Fracture of femoral neck, right Acute Chest pain Acute Chronic Disease [facility]/Transitional Care Acute Elevated troponin Acute NSTEMI (non-ST elevated myocardial infarction) Acute
[2018-09-14] MEDS ORDERED: MIDAZOLAM 2 MG/2 ML VIAL ONE (11:51)
[2018-09-14] MEDS ORDERED: fentaNYL 100 MCG/2 ML INJ ONE (11:52)
[2018-09-14] MEDS ORDERED: ETOMIDATE 40 MG/20 ML INJ ONE (11:52)
--- NOTE | 2018-09-14 12:36 | PDTEE1 ---
RASHAD Cardioversion Procedure Procedure: electrical cardioversion, transesophageal echo Indications: atrial fibrillation Consent: signed and in chart Procedural Details: PROCEDURE: Elective RAHSAD and DC cardioversion. DATE OF PROCEDURE: 09/14/2018 COMPLICATIONS: None CELLOPHANE BAG MACHINE OPERATOR: Alfredo Bloom MD INDICATION AND APPROPRIATE USE CRITERIA: PROCEDURE IN DETAIL: After informed consent was obtained and n.p.o. status was confirmed, the back of the patient's throat was numbed with 1% cetacaine solution. The RASHAD probe was advanced in to the patient's esophagus and the ultrasound reviewed without evidence of left atrial clot or thrombus. Please see the RASHAD report for other details. We proceeded with elective DC cardioversion, the pads were placed in the anterior and posterior position. The patient was given 7mg of Etomidate. 200Joules of synchronized biphasic counter shock was delivered with the patches in the anterior and posterior position. The patient was successfully returned to normal sinus rhythm with PACs intermittent junctional escape. FINAL IMPRESSION: Successful elective DC cardioversion without immediate complication. I am concerned about the frequency of the ectopy post cardioversion, and I am concerned that the likelihood of recurrent atrial fibrillation will be high. Synchronized cardioversion attempt #1: 200J Results: normal sinus rhythm Conclusions: successful RASHAD cardioversion Conclusion Comment: Successful RASHAD/Cardioversion. Patient converted to normal sinus rhythm with frequent and consecutive PAC's and PVC's. The patient was given 150mg of Amiodarone to try to stabilize the rhythm post cardioversion. Patient Problems: Problems Problem Status Onset NSTEMI (non-ST elevated myocardial infarction) Acute Fracture of femoral neck, right Acute Chronic Disease Mgmt/Transitional Care Acute Chest pain Acute Elevated troponin Acute
[2018-09-14] MEDS ORDERED: AMIODARONE HCL 100 ML IV ONE (13:00)
--- NOTE | 2018-09-14 15:17 | ECHO ---
[email or web address] [address] [address] Main: [phone] Fax: Transesophageal Echocardiography Name: MARCI QUIGLEY MR#: [id number] Study Date: 09/14/2018 Study Time: 11:50 AM Date of : 1940 Age: 77 year(s) Height: ( ) Weight: ( ) BSA: Gender: Male Examination: RASHAD Indication: afib;pre-cardioversion Image Quality: Contrast: Requested by: Alfredo Bloom Heart Rate: Rhythm: BP: / Procedure Staff Greige Goods Marker: Mara Ruano [facility] Reading Physician: Alfredo Bloom MD Requesting Provider: RASHAD Exam Details Conclusions: Normal size left ventricle. Normal global systolic LV function. Normal size right ventricle. Normal RV function. Left atrial enlargement. No thrombus in left appendage. There is an aneurysm off the SVG noted near the right atrium. This RASHAD was done as a study to evaluate risk of cardioversion in a patient with atrial fibrillation who has been off of anticoagulation for repair of a broken hip. The RASHAD was negative for left atrial appendage clot as well as negative for spontaneous echocontrast. We proceeded with sucessful elective DC cardioversion. The patient has known RCA SVG aneurysm by CT which is noted to be partially impinging on the tricuspid valve annulus without causing concommitant tricuspid stenosis or significant regurgitation. Measurements: Chambers Valvular Assessment AV/MV Valvular Assessment TV/PV Normal Normal Normal Name Value Range Name Value Range Name Value Range Additional Measurements: Findings: Left Ventricle: Patient: MARCI QUIGLEY Study Date: 09/14/2018 Page 1 of 2 11:50 AM Normal size left ventricle. Normal global systolic LV function. Right Ventricle: Normal size right ventricle. Normal RV function. Left Atrium: Left atrial enlargement. . Left Atrial Appendage: No thrombus in left appendage. Right Atrium: There is an aneurysm off the SVG noted near the right atrium. Mitral Valve: The mitral valve is normal in appearance and function. Moderate mitral valve regurgitation is present. Aortic Valve: The aortic valve is tri-leaflet and functions normally. There is no aortic valve regurgitation. Tricuspid Valve: The tricuspid valve is normal in appearance and function. Mild tricuspid regurgitation is present. l1n (No Signature Object) Patient: MARCI QUIGLEY Study Date: 09/14/2018 Page 2 of 2 11:50 AM [id number]
[2018-09-14] MEDS ORDERED: AMIODARONE HCL 200 ML IV ONE (16:17)
[2018-09-14] MEDS: IPRATROPIUM/ALBUTEROL 3 ML DEYVIAL IH PRN (16:20)
--- NOTE | 2018-09-14 16:41 | CPEKG ---
Test Reason : OPEN Blood Pressure : / mmHG Vent. Rate : 114 BPM Atrial Rate : 125 BPM P-R Int : 146 ms QRS Dur : 134 ms QT Int : 367 ms P-R-T Axes : 000 -20 -22 degrees QTc Int : 506 ms Atrial fibrillation Right bundle branch block Borderline ST depression, lateral leads Confirmed by Yanick Ga ([id number]) on 09/14/2018 4:41:13 PM Referred By: Confirmed By:Yanick Ga
--- NOTE | 2018-09-14 16:42 | CPEKG ---
Test Reason : OPEN Blood Pressure : / mmHG Vent. Rate : 075 BPM Atrial Rate : 141 BPM P-R Int : 089 ms QRS Dur : 136 ms QT Int : 410 ms P-R-T Axes : 000 -20 -30 degrees QTc Int : 458 ms Sinus rhythm Supraventricular bigeminy Short WI interval Right bundle branch block Borderline ST depression, lateral leads Confirmed by Yanick Ga ([id number]) on 09/14/2018 4:42:40 PM Referred By: Confirmed By:Yanick Ga
[2018-09-14] MEDS: MELATONIN 3 MG TAB PO SCH (21:51)
[2018-09-14] MEDS: TAMSULOSIN HCL 0.4 MG CAP PO SCH (21:51)
[2018-09-14] MEDS: Zolpidem Tartrate [Ambien Cr] 6.25 MG PO SCH (22:01)
[2018-09-15] MEDS ORDERED: AMIODARONE HCL 540 MG in D5W 300 ML IV ONE
[2018-09-15] MEDS: IPRATROPIUM/ALBUTEROL 3 ML DEYVIAL IH PRN (09:39)
--- NOTE | 2018-09-15 09:43 | HOSPPROG ---
Hospitalist Progress Note Assessment/Plan: 77 yo M a cad, 02 dependent copd here w hip fracture 77 y/o male with extensive and complicated cardiac history presents with right femoral neck fracture after sustaining a mechanical fall. First Encounter, chart reviewed. ABLA: 2 units today Right hip fracture s/p hemiarthroplasty, pod 5 Cardiac history/recent NSTEMI with inability to stent no CP did have CP w last NSTEMI continue asa/statin/bb low level + trop noted AF: recurrent but has had before on amio gtt- used this during last episode after AAA repair 09/13 faster now that off amio gtt on metoprolol give add'l 25 po X 1 now 09/14 remains in AF w rates > 100 DCCV today d/w cardiology 09/15: two ekg's overnight probably AF, although could be sinus w pAC's ( interp by me) 1. repeat ekg now 2. repeat DCCV if AF 3. d/w alissa renal: poor uop overnight feels dry hold lasix, check labs IVF if cr rising CP: severe CAD he says different than previous NSTEMI cycle trop COPD (home oxygen 4L [place] baseline): on 4 L this is chronic hypoxemic respiratory failure proph: needs lmwh CKD and asa/plavix noted start 09/11 holding plavix (no stents) CKD IV: follow daily Diet: regular VTE ppx: see above Code: DNR Subjective: case discussed w dr maxwell Objective: Vital Signs Temp Pulse Resp BP Pulse Ox 37.3 C 95 16 138/82 H 95 09/15/18 07:09 09/15/18 07:09 09/15/18 07:09 09/15/18 07:09 09/15/18 07:09 Laboratory Results 09/13/18 03:25 09/13/18 03:25 09/14/18 09/15/18 09/16/18 05:59 05:59 05:59 Intake Total 1050 780 Output Total 815 Balance 235 780 PT 13.6 SEC (12.0-15.0) 09/08/18 16:36 INR 1.02 (0.83-1.16) 09/08/18 16:36 - Physical Exam Constitutional: no apparent distress, appears nourished Eyes: PERRL, anicteric sclera Ears, Nose, Mouth, Throat: moist mucous membranes, hearing normal Cardiovascular: no murmur, rub, or gallop, irregularly irregular Respiratory: no respiratory distress, no rales or rhonchi Gastrointestinal: normoactive bowel sounds, soft, non-tender abdomen Genitourinary: no bladder fullness, No davis in urethra Skin: warm, normal color Musculoskeletal: full muscle strength, no muscle tenderness Neurologic: AAOx3 Psychiatric: interacting appropriately ICD10 Worksheet Patient Problems: Problems Problem Status Onset Fracture of femoral neck, right Acute Chest pain Acute Chronic Disease [facility]/Transitional Care Acute Elevated troponin Acute NSTEMI (non-ST elevated myocardial infarction) Acute
[2018-09-15] MEDS: FLUTICASONE/SALMETER 250/50MCG DISKUS IH SCH ×2 (09:54→21:47)
[2018-09-15] MEDS: Tiotropium Bromide [Spiriva Respimat] IH SCH (09:54)
[2018-09-15] MEDS: ISOSORBIDE MONONITRATE 30 MG TAB.SR PO SCH (10:13)
[2018-09-15] MEDS: ASPIRIN 81 MG CHEWABLE TAB PO SCH (10:14)
[2018-09-15] MEDS: ATORVASTATIN CALCIUM 40 MG TAB PO SCH (10:14)
[2018-09-15] MEDS: ENOXAPARIN 80 MG/0.8 ML SYR SC SCH ×2 (10:15→21:21)
[2018-09-15] MEDS: SENNOSIDES/DOCUSATE SODIUM TAB PO SCH ×2 (10:15→21:20)
[2018-09-15] MEDS: AMIODARONE HCL 200 MG TAB PO SCH (10:15)
[2018-09-15] MEDS: METOPROLOL TARTRATE 25 MG TAB PO SCH ×2 (10:15→21:21)
[2018-09-15] MEDS: FUROSEMIDE 20 MG TAB PO SCH (10:24)
[2018-09-15] MEDS: POLYETHYLENE GLYCOL 3350 17 GM PKT PO SCH ×2 (10:36→21:26)
--- NOTE | 2018-09-15 11:49 | CPEKG ---
Test Reason : OPEN Blood Pressure : / mmHG Vent. Rate : 100 BPM Atrial Rate : 179 BPM P-R Int : 135 ms QRS Dur : 137 ms QT Int : 444 ms P-R-T Axes : 069 054 043 degrees QTc Int : 573 ms Atrial fibrillation PVC Right bundle branch block Confirmed by Yanick Ga ([id number]) on 09/15/2018 11:48:57 AM Referred By: Confirmed By:Yanick Ga
--- NOTE | 2018-09-15 11:52 | CPEKG ---
Test Reason : OPEN Blood Pressure : / mmHG Vent. Rate : 124 BPM Atrial Rate : 222 BPM P-R Int : 135 ms QRS Dur : 136 ms QT Int : 365 ms P-R-T Axes : 000 032 -20 degrees QTc Int : 525 ms Atrial fibrillation Right bundle branch block Confirmed by Yanick Ga ([id number]) on 09/15/2018 11:51:44 AM Referred By: Confirmed By:Yanick Ga
--- NOTE | 2018-09-15 12:28 | CPEKG ---
Test Reason : OPEN Blood Pressure : / mmHG Vent. Rate : 091 BPM Atrial Rate : 137 BPM P-R Int : 124 ms QRS Dur : 143 ms QT Int : 430 ms P-R-T Axes : 083 -09 000 degrees QTc Int : 530 ms Atrial Fibrillation Multiple premature complexes, vent & supraven Right bundle branch block Confirmed by Yanick Ga ([id number]) on 09/15/2018 12:28:45 PM Referred By: Confirmed By:Yanick Ga
--- NOTE | 2018-09-15 15:11 | ASMTCMCOM ---
CM Note CM Note Notes: Discussed pt in rounds. 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 [facility] has attempted to evaluate him for placement, but he has been too weak or ill to participate. They will attempt again. PT is recommending SNF at this time and pt has been accepted by [facility]. Transitional Care team is also following him. Pt is likely to discharge tomorrow. CM to follow. D/C Plan: [facility] v [facility] Date Signed: 09/15/2018 03:10 PM Electronically Signed By:Yesy Burdick
[2018-09-15] MEDS: METOCLOPRAMIDE 10 MG/2 ML VIAL IVP PRN (16:55)
[2018-09-15] MEDS: MELATONIN 3 MG TAB PO SCH (21:25)
[2018-09-15] MEDS: TAMSULOSIN HCL 0.4 MG CAP PO SCH (21:26)
[2018-09-15] MEDS: ALBUTEROL 60 PUFFS/8 GM MDI IH PRN (21:47)
[2018-09-15] MEDS: Zolpidem Tartrate [Ambien Cr] 6.25 MG PO SCH (22:13)
--- NOTE | 2018-09-15 22:50 | PDCARPN ---
Cardiology Progress Note Chief Complaint: A fib with rapid ventricular response s/p cardioversion and repeat amiodarone load. Assessment/Plan: Assessment: 1. Atrial fibrillation with rapid ventricular response. status post cardioversion yesterday. The patient has had frequent and consecutive PACS and PVCs with intermittent sinus beats as well as a junctional escape rhythm. I have reloaded with additional IV Amiodarone to try to control the patient's rhythm and prevent recurrent atrial fibrillation. 2. 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 The patient has had 3 episodes of chest discomfort with associated troponin elevation and has evidence of severe [place] band vessel and graft obstruction with a stentable lesion of the SVG to the RCA. this same vesslel not only supplies the distal RCA but also the circumflex proper via a right to left collateral. At some point, once the issues with his hip fracture and anemia have settled down the coronary obstruction and recurrent chest discomfort with troponin elevation will have to be addressed. 3. Hip fracture status post ORIF complicated by post operative bleeding/anemia requiring transfusion as well as atrial fibrillation with RVR requiring cardioversion. Once the perioperative bleeding risk is lower he may benefit from planned high risk PCI to address 2, above, Plan: As above. 09/15/18 22:39 Subjective: I am feeling better and have less chest pain. Reviewed/Discussed With: family, hospitalist, multidisciplinary team Time Spent with Patient: greater than 25 minutes Time Spent with Patient: Greater than 25 minutes spent on this patients care, greater than 50% of time spent counseling, educating, and coordinating care regarding the above mentioned plan. Objective: Vital Signs (8 Hrs) Temp Pulse Resp BP Pulse Ox 09/15/18 21:40 83 11 L 96 09/15/18 21:21 74 127/82 H 09/15/18 20:00 37.6 C 76 20 89/54 L 95 09/15/18 16:00 36.9 C 78 20 106/75 93 Intake/Output (24 Hrs) 09/14/18 09/15/18 09/16/18 05:59 05:59 05:59 Intake Total 1050 780 480 Output Total 815 510 Balance 235 780 -30 Intake: Oral (ml) 1050 780 480 Output: Urine (ml) 815 510 Urinal 815 510 Other: Intake Quantity Yes Yes Sufficient Number of Voids Bedside Commode 1 Urinal 1 2 Number of Stools Bedside Commode 1 Result Diagrams: 09/15/18 09:50 09/15/18 09:50 Cardiac Labs: Cardiac Lab Results (72 Hrs) 09/14/18 09/14/18 15:50 09:26 CK-MB (CK-2) Fraction 2.35 Troponin I 0.120 H 0.104 H EKG: Sinus rhythm with frequent and consecutive PACs with intermittent junctional escape beats and intermittent PVCs Telemetry: See EKG interpretation above. Similar findings on telemetry.... - Physical Exam Constitutional: no apparent distress Eyes: PERRL, EOMI, anicteric sclera Ears, Nose, Mouth, Throat: moist mucous membranes Cardiovascular: systolic murmur, irregularly irregular Respiratory: clear to auscultate bilat, no crackles, no wheezes Gastrointestinal: normoactive bowel sounds, no tenderness, no masses Skin: no rashes Neurologic: AAOx3 Psychiatric: cooperative, interactive - . Pending Discharge Within 24 Hours: Yes ICD10 Worksheet Patient Problems: Problems Problem Status Onset NSTEMI (non-ST elevated myocardial infarction) Acute Fracture of femoral neck, right Acute Chronic Disease Mgmt/Transitional Care Acute Chest pain Acute Elevated troponin Acute
[2018-09-16] MEDS: ASPIRIN 81 MG CHEWABLE TAB PO SCH (08:05)
[2018-09-16] MEDS: ATORVASTATIN CALCIUM 40 MG TAB PO SCH (08:05)
[2018-09-16] MEDS: METOPROLOL TARTRATE 25 MG TAB PO SCH ×2 (08:05→21:33)
[2018-09-16] MEDS: ISOSORBIDE MONONITRATE 30 MG TAB.SR PO SCH (08:08)
[2018-09-16] MEDS: ACETAMINOPHEN 325 MG TAB PO PRN (08:08)
[2018-09-16] MEDS: guaiFENesin 600 MG TAB.ER PO PRN (08:08)
[2018-09-16] MEDS: SENNOSIDES/DOCUSATE SODIUM TAB PO SCH ×2 (08:08→21:29)
[2018-09-16] MEDS: AMIODARONE HCL 200 MG TAB PO SCH (08:08)
[2018-09-16] MEDS: oxyCODONE IR 5 MG TAB PO PRN (08:09)
[2018-09-16] MEDS: ENOXAPARIN 80 MG/0.8 ML SYR SC SCH ×2 (08:10→21:35)
[2018-09-16] MEDS: METOCLOPRAMIDE 10 MG/2 ML VIAL IVP PRN ×2 (08:18→17:19)
[2018-09-16] MEDS: IPRATROPIUM/ALBUTEROL 3 ML DEYVIAL IH PRN ×2 (08:18→21:04)
[2018-09-16] MEDS: FLUTICASONE/SALMETER 250/50MCG DISKUS IH SCH ×2 (08:40→21:06)
[2018-09-16] MEDS: Tiotropium Bromide [Spiriva Respimat] IH SCH (08:40)
[2018-09-16] MEDS: POLYETHYLENE GLYCOL 3350 17 GM PKT PO SCH ×2 (09:27→22:01)
--- NOTE | 2018-09-16 16:31 | CPEKG ---
Test Reason : persistent atrial fibrillation Blood Pressure : / mmHG Vent. Rate : 106 BPM Atrial Rate : 211 BPM P-R Int : 047 ms QRS Dur : 137 ms QT Int : 394 ms P-R-T Axes : 000 -29 005 degrees QTc Int : 524 ms Atrial fibrillation Right bundle branch block Probable inferior infarct, age indeterminate Lateral leads are also involved Confirmed by Yanick Ga ([id number]) on 09/16/2018 4:30:57 PM Referred By: Confirmed By:Yanick Ga
--- NOTE | 2018-09-16 16:52 | HOSPPROG ---
Hospitalist Progress Note Assessment/Plan: 77 y/o male with extensive and complicated cardiac history presents with right femoral neck fracture after sustaining a mechanical fall. First Encounter, chart reviewed. #Recent ABLA: No e/o of ongoing bleed #Hypotension: -Query Postural -appears to be improving with small IVF bolus #Right hip fracture s/p hemiarthroplasty, pod 6 #Cardiac history/recent NSTEMI with inability to stent/recurrent NSTEMI continue asa/statin/bb Afib with RVR s/p Cardioversion -cont Amio -Cont Lopressor -Cards following -AC with Lovenox Acute on Chronic Renal Failure, stage IV, at baseline Cr which is around 2.0 COPD (home oxygen 4L [place] baseline): on 4 L this is chronic hypoxemic respiratory failure RUL Nodule: will obtain CT now Diet: regular VTE ppx: see above Code: DNR Plan: was called to bedside urgently due to BP 60/40. The pt feels weak. No CP. A 250ml Bolus was already ordered an on repeat the BP is better now in the 70's systolic. He is not having any CP. The abrupt drop in BP occurred while working with PT. He reports a hx of postural hypotension. BP prior to today's has been appropriate. I ordered a stat H/H and this is unchanged, he does not have acute bleeding. A CXR showed a new RUL nodule. BP after an hour was in the 90's systolic and this afternoon it is within his baseline range. will await Card recc regarding ongoing dosing of Nitrate and BB. cont AC, will need to d/w Cards. await CT chest total critical care time with this pt with acute hypotension is 35 minutes Subjective: no cp or sob. no n/v. feels weak, lightheaded. Objective: Vital Signs Temp Pulse Resp BP Pulse Ox 36.6 C 74 16 120/79 99 09/16/18 15:46 09/16/18 15:46 09/16/18 15:46 09/16/18 15:46 09/16/18 15:46 Laboratory Results 09/16/18 12:30 09/16/18 05:46 09/15/18 09/16/18 09/17/18 05:59 05:59 05:59 Intake Total 780 880 250 Output Total 1510 Balance 780 -630 250 PT 13.6 SEC (12.0-15.0) 09/08/18 16:36 INR 1.02 (0.83-1.16) 09/08/18 16:36 - Physical Exam Constitutional: chronically ill appearing Eyes: PERRL Ears, Nose, Mouth, Throat: moist mucous membranes, hearing normal Cardiovascular: regular rate and rhythym Respiratory: no respiratory distress, no rales or rhonchi, reduced air movement Gastrointestinal: normoactive bowel sounds Skin: warm Neurologic: AAOx3 Psychiatric: interacting appropriately, not anxious, not encephalopathic Lymph, Heme, Immunologic: No petechiae ICD10 Worksheet Patient Problems: Problems Problem Status Onset Fracture of femoral neck, right Acute Chest pain Acute Chronic Disease Mgmt/Transitional Care Acute Elevated troponin Acute NSTEMI (non-ST elevated myocardial infarction) Acute
[2018-09-16] MEDS: TAMSULOSIN HCL 0.4 MG CAP PO SCH (21:34)
[2018-09-16] MEDS: MELATONIN 3 MG TAB PO SCH (21:34)
[2018-09-16] MEDS: Zolpidem Tartrate [Ambien Cr] 6.25 MG PO SCH (21:35)
[2018-09-17 04:48] LABS: PLATELET COUNT 239 10^3/uL (150-400)
[2018-09-17 04:55] LABS: INR 1.14 (0.83-1.16); PROTIME(PATIENT) 14.8 SEC (12.0-15.0)
[2018-09-17] MEDS: ALBUTEROL 60 PUFFS/8 GM MDI IH PRN (05:40)
[2018-09-17] MEDS ORDERED: ATROPINE SULFATE 1 MG/10 ML SYR IVP ONE (06:00)
[2018-09-17] MEDS: FUROSEMIDE 20 MG TAB PO SCH (08:40)
[2018-09-17] MEDS: METOPROLOL TARTRATE 25 MG TAB PO SCH ×2 (08:40→22:07)
[2018-09-17] MEDS: ATORVASTATIN CALCIUM 40 MG TAB PO SCH (08:40)
[2018-09-17] MEDS: AMIODARONE HCL 200 MG TAB PO SCH (08:41)
[2018-09-17] MEDS: ENOXAPARIN 80 MG/0.8 ML SYR SC SCH ×2 (08:42→22:06)
--- NOTE | 2018-09-17 09:28 | PDHPUP ---
History & Physical Update H&P update statement: This history and physical update is based on an assessment of the patient which was completed after admission or registration (within 24 hours), but prior to the surgery/procedure. H&P update: H&P reviewed & patient examined, changes noted H&P changes: patient has reverted to atrial fibrillation needs cardioversion to help avoid hypotension
--- NOTE | 2018-09-17 09:29 | PDPROPOC ---
Sedation Plan of Care Sedation Plan of Care: vital signs stable, mental status noted, patient educated of risks, benefits, alternatives, patient can tolerate sedation ASA Classification: ASA 3 Planned drugs: midazolam, other (etomidate) Mallampati Score: Class 3 Mallampati Reference Image: Patient passed 3-3-2 rule?: Yes
[2018-09-17] MEDS ORDERED: ADENOSINE 6 MG/2 ML VIAL ONE ×2 (09:59→10:03)
[2018-09-17] MEDS ORDERED: ATROPINE SULFATE 1 MG/10 ML SYR ONE (10:00)
[2018-09-17] MEDS ORDERED: ETOMIDATE 40 MG/20 ML INJ ONE (10:00)
--- NOTE | 2018-09-17 10:02 | CPEKG ---
Test Reason : OPEN Blood Pressure : / mmHG Vent. Rate : 092 BPM Atrial Rate : 128 BPM P-R Int : 130 ms QRS Dur : 140 ms QT Int : 498 ms P-R-T Axes : 044 004 057 degrees QTc Int : 617 ms Atrial fibrillation versus atrial bigeminy (with the latter half of the ECG) Right bundle branch block In comparison to prior ECG, atrial fibrillation was more noted. Confirmed by Raman Hinojosa ([id number]) on 09/17/2018 10:02:38 AM Referred By: Confirmed By:Raman Hinojosa
[2018-09-17] MEDS ORDERED: fentaNYL 100 MCG/2 ML INJ ONE (10:17)
[2018-09-17] MEDS ORDERED: MIDAZOLAM 2 MG/2 ML VIAL ONE (10:17)
[2018-09-17] MEDS: FLUTICASONE/SALMETER 250/50MCG DISKUS IH SCH ×2 (10:56→21:06)
[2018-09-17] MEDS: Tiotropium Bromide [Spiriva Respimat] IH SCH (10:57)
[2018-09-17] MEDS: SENNOSIDES/DOCUSATE SODIUM TAB PO SCH ×2 (12:46→22:09)
[2018-09-17] MEDS: ASPIRIN 81 MG CHEWABLE TAB PO SCH (12:46)
[2018-09-17] MEDS: BISACODYL 10 MG SUPP PR PRN (13:44)
--- NOTE | 2018-09-17 14:01 | ASMTCMCOM ---
CM Note CM Note Notes: 09/17/2018 Case Management Note Pt had cardioversion today. Updated [facility] [employer] [facility] Inpatient rehab notified case management via phone on Friday that review was complete and pt was declined. Case Management d/c poc: [facility] when medically stable. Case Management to follow. Date Signed: 09/17/2018 02:00 PM Electronically Signed By:Zoe Arriola RN
[2018-09-17] MEDS: POLYETHYLENE GLYCOL 3350 17 GM PKT PO SCH ×2 (14:29→22:09)
[2018-09-17] MEDS: ISOSORBIDE MONONITRATE 30 MG TAB.SR PO SCH (14:29)
--- NOTE | 2018-09-17 18:11 | HOSPPROG ---
Hospitalist Progress Note Assessment/Plan: 77 y/o male with extensive and complicated cardiac history presents with right femoral neck fracture after sustaining a mechanical fall. First Encounter, chart reviewed. #Recent ABLA: No e/o of ongoing bleed #Hypotension: #Right hip fracture s/p hemiarthroplasty, pod 6 #Cardiac history/recent NSTEMI with inability to stent/recurrent NSTEMI continue asa/statin/bb Afib with RVR s/p Cardioversion -cont Amio -Cont Lopressor -Cards following -AC with Lovenox Acute on Chronic Renal Failure, stage IV, at baseline Cr which is around 2.0 COPD (home oxygen 4L [place] baseline): on 4 L this is chronic hypoxemic respiratory failure RUL Nodule: will obtain CT now Diet: regular VTE ppx: see above Code: DNR Plan: -pt had cardioversion today. Hopefully he will stay in Sinus. Monitor overnight. Cont CV meds. Imdur is being held -Cont AC. For now cont Lovenox but once cleared from further procedures will need oral agent -I will discuss the result of his CT scan and nodule with him tomorrow Subjective: Had cardioversion today. no cp or sob. Objective: Vital Signs Temp Pulse Resp BP Pulse Ox 36.6 C 84 18 100/71 98 09/17/18 15:24 09/17/18 15:24 09/17/18 15:24 09/17/18 15:24 09/17/18 15:24 Laboratory Results 09/17/18 03:52 09/17/18 03:52 09/16/18 09/17/18 09/18/18 05:59 05:59 05:59 Intake Total 880 450 250 Output Total 1510 575 350 Balance -630 -125 -100 PT 14.8 SEC (12.0-15.0) 09/17/18 03:52 INR 1.14 (0.83-1.16) 09/17/18 03:52 - Physical Exam Constitutional: no apparent distress Eyes: PERRL, EOMI Ears, Nose, Mouth, Throat: moist mucous membranes, hearing normal Cardiovascular: regular rate and rhythym, No edema Respiratory: no respiratory distress, no rales or rhonchi Gastrointestinal: normoactive bowel sounds, soft, non-tender abdomen Skin: warm Neurologic: AAOx3 Psychiatric: interacting appropriately, not anxious, not encephalopathic Lymph, Heme, Immunologic: No petechiae ICD10 Worksheet Patient Problems: Problems Problem Status Onset Fracture of femoral neck, right Acute Chest pain Acute Chronic Disease Mgmt/Transitional Care Acute Elevated troponin Acute NSTEMI (non-ST elevated myocardial infarction) Acute
[2018-09-17] MEDS: guaiFENesin 600 MG TAB.ER PO PRN (18:25)
--- NOTE | 2018-09-17 19:23 | CPIP ---
PROCEDURE PERFORMED: Elective synchronized DC cardioversion. PROCEDURE IN DETAIL: After informed consent was obtained, n.p.o. status was confirmed, the patient w as anesthetized with 2 mg of Versed and appropriate 5 mg dose of etomidate given at less than 0.8 mcg per kilo. After adequate deep sedation had been achieved, the patient underwent an adenosine infusi on to determine if he had underlying sinus rhythm. There was no evidence of sinus rhythm and it appe ared that there may have been unorganized atrial activity suggestive of atrial fibrillation. For thi s reason, the patient underwent elective DC cardioversion with 360 joules of biphasic countershock, d elivered with patches in the anterior and posterior position with subsequent return of the rhythm wit h an intermittent junctional sinus arrest and sinus pauses of 1 to 1.2 seconds with frequent and cons ecutive PACs. FINAL IMPRESSION: Successful elective DC cardioversion for indication of probable atrial fibrillatio n with subsequent rhythm as a junctional escape rhythm with intermittent sinus arrest, frequent PACs, both isolated and consecutively. /[id number]/MODL
[2018-09-17] MEDS: METOCLOPRAMIDE 10 MG/2 ML VIAL IVP PRN (20:07)
[2018-09-17] MEDS: Zolpidem Tartrate [Ambien Cr] 6.25 MG PO SCH (22:07)
[2018-09-17] MEDS: MELATONIN 3 MG TAB PO SCH (22:07)
[2018-09-17] MEDS: TAMSULOSIN HCL 0.4 MG CAP PO SCH (22:07)
[2018-09-17] MEDS: oxyCODONE IR 5 MG TAB PO PRN (23:22)
[2018-09-18] MEDS: IPRATROPIUM/ALBUTEROL 3 ML DEYVIAL IH PRN ×2 (01:46→08:54)
[2018-09-18 04:02] LABS: PLATELET COUNT 271 10^3/uL (150-400)
[2018-09-18] MEDS: Tiotropium Bromide [Spiriva Respimat] IH SCH (08:48)
[2018-09-18] MEDS: FLUTICASONE/SALMETER 250/50MCG DISKUS IH SCH ×2 (08:48→20:47)
[2018-09-18] MEDS: METOPROLOL TARTRATE 25 MG TAB PO SCH ×2 (09:14→22:12)
[2018-09-18] MEDS: ASPIRIN 81 MG CHEWABLE TAB PO SCH (09:14)
[2018-09-18] MEDS: ATORVASTATIN CALCIUM 40 MG TAB PO SCH (09:14)
[2018-09-18] MEDS: FUROSEMIDE 20 MG TAB PO SCH (09:14)
[2018-09-18] MEDS: AMIODARONE HCL 200 MG TAB PO SCH (09:14)
[2018-09-18] MEDS: ENOXAPARIN 80 MG/0.8 ML SYR SC SCH ×2 (09:14→22:13)
[2018-09-18] MEDS: SENNOSIDES/DOCUSATE SODIUM TAB PO SCH ×2 (09:15→22:11)
[2018-09-18] MEDS: POLYETHYLENE GLYCOL 3350 17 GM PKT PO SCH ×2 (09:15→22:16)
[2018-09-18] MEDS: oxyCODONE IR 5 MG TAB PO PRN (09:24)
--- NOTE | 2018-09-18 10:17 | CPEKG ---
Test Reason : OPEN Blood Pressure : / mmHG Vent. Rate : 088 BPM Atrial Rate : 126 BPM P-R Int : 147 ms QRS Dur : 137 ms QT Int : 497 ms P-R-T Axes : 057 -36 044 degrees QTc Int : 602 ms atrial fibrillation. Right bundle branch block Nonspecific T abnormalities, lateral leads Confirmed by Yanick Ga ([id number]) on 09/18/2018 10:17:38 AM Referred By: Confirmed By:Yanick Ga
--- NOTE | 2018-09-18 10:23 | CPEKG ---
Test Reason : OPEN Blood Pressure : / mmHG Vent. Rate : 053 BPM Atrial Rate : 101 BPM P-R Int : 110 ms QRS Dur : 143 ms QT Int : 591 ms P-R-T Axes : 020 -14 000 degrees QTc Int : 555 ms atrial fibrillation. Non specific st-t changes Supraventricular bigeminy Right bundle branch block Confirmed by Yanick Ga ([id number]) on 09/18/2018 10:23:43 AM Referred By: Confirmed By:Yanick Ga
--- NOTE | 2018-09-18 16:23 | HOSPPROG ---
Hospitalist Progress Note Assessment/Plan: 77 y/o male with extensive and complicated cardiac history presents with right femoral neck fracture after sustaining a mechanical fall. First Encounter, chart reviewed. #Recent ABLA: No e/o of ongoing bleed #Hypotension: improving #Right hip fracture s/p hemiarthroplasty #Cardiac history/recent NSTEMI with inability to stent/recurrent NSTEMI continue asa/statin/bb Afib with RVR s/p Cardioversion -cont Amio -Cont Lopressor -Cards following -AC with Lovenox Acute on Chronic Renal Failure, stage IV, at baseline Cr which is around 2.0 COPD (home oxygen 4L NC baseline): on 4 L this is chronic hypoxemic respiratory failure RUL Nodule Ventricular Tachycardia: -17 beats, not symptomatic -awaiting Cards reccs Diet: regular VTE ppx: see above Code: DNR Plan: -Awaiting Cards reccs -Cont AC. For now cont Lovenox but once cleared from further procedures will need oral agent -I will discuss the result of his CT scan with Oncology today Subjective: had 17 beats of Vtach today. no cp or sob. Objective: Vital Signs Temp Pulse Resp BP Pulse Ox 36.9 C 71 18 98/62 L 98 09/18/18 15:14 09/18/18 15:14 09/18/18 15:14 09/18/18 15:14 09/18/18 15:14 Laboratory Results 09/18/18 03:32 09/18/18 03:32 09/17/18 09/18/18 09/19/18 05:59 05:59 05:59 Intake Total 450 450 360 Output Total 575 525 175 Balance -125 -75 185 PT 14.8 SEC (12.0-15.0) 09/17/18 03:52 INR 1.14 (0.83-1.16) 09/17/18 03:52 - Physical Exam Constitutional: no apparent distress Eyes: PERRL Ears, Nose, Mouth, Throat: moist mucous membranes, hearing normal Cardiovascular: regular rate and rhythym, no murmur, rub, or gallop Respiratory: no respiratory distress, no rales or rhonchi, clear to auscultation Gastrointestinal: normoactive bowel sounds, soft, non-tender abdomen Skin: warm Musculoskeletal: full muscle strength Neurologic: AAOx3 Psychiatric: interacting appropriately, not anxious, not encephalopathic ICD10 Worksheet Patient Problems: Problems Problem Status Onset Fracture of femoral neck, right Acute Chest pain Acute Chronic Disease Mgmt/Transitional Care Acute Elevated troponin Acute NSTEMI (non-ST elevated myocardial infarction) Acute
[2018-09-18] MEDS ORDERED: TEMAZEPAM 15 MG CAP PO PRN (19:04)
--- NOTE | 2018-09-18 19:17 | PDPROPOC ---
Sedation Plan of Care Sedation Plan of Care: vital signs stable, mental status noted, patient educated of risks, benefits, alternatives, patient can tolerate sedation ASA Classification: ASA 4 Planned drugs: fentanyl, midazolam Mallampati Score: Class 2 Mallampati Reference Image: Patient passed 3-3-2 rule?: Yes
--- NOTE | 2018-09-18 19:18 | PDHPUP ---
History & Physical Update H&P update statement: This history and physical update is based on an assessment of the patient which was completed after admission or registration (within 24 hours), but prior to the surgery/procedure. H&P update: H&P reviewed & patient examined, no change in patient's condition since H&P completed (the patient had a 17 beat run of ventricular tachycardia.) , changes noted
--- NOTE | 2018-09-18 19:21 | PDCARPN ---
Cardiology Progress Note Chief Complaint: I am feeling weak and dizzy when I stand Assessment/Plan: Assessment: 1. Atrial fibrillation with rapid ventricular response. status post cardioversion again yesterday. The patient has had frequent and consecutive PACS and PVCs with intermittent sinus beats as well as a junctional escape rhythm. I have reloaded with additional IV Amiodarone to try to control the patient's rhythm and prevent recurrent atrial fibrillation. the patient had a 17 beat run of wide complex tachycardia and we planned to so a cath today to REPAIR THE SVG TO THE RCA BUT WE WERE BUMPED LATE IN THE DAY WITH AN ACUTE ME PLAN TO DO HIM AT 930 AM WITH PLANNED INTERVENTION FROM THE RIGHT GROIN. 2. 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 The patient has had 3 episodes of chest discomfort with associated troponin elevation and has evidence of severe koi vessel and graft obstruction with a stentable lesion of the SVG to the RCA. this same vesslel not only supplies the distal RCA but also the circumflex proper via a right to left collateral. 3. Hip fracture status post ORIF complicated by post operative bleeding/anemia requiring transfusion as well as atrial fibrillation with RVR requiring cardioversion. Plan: CATH TOMORROW. 09/15/18 22:39 09/18/18 19:18 Objective: Vital Signs (8 Hrs) Temp Pulse Resp BP Pulse Ox 09/18/18 15:14 36.9 C 71 18 98/62 L 98 09/18/18 11:48 36.8 C 73 18 111/70 98 Intake/Output (24 Hrs) 09/17/18 09/18/18 09/19/18 05:59 05:59 05:59 Intake Total 450 450 360 Output Total 575 525 225 Balance -125 -75 135 Intake: Oral (ml) 200 450 360 IV Intake (ml) 250 Output: Urine (ml) 575 450 225 Urinal 575 450 225 Emesis (ml) 75 Other: Number of Voids Bedside Commode 1 Urinal 1 Number of Stools Bedside Commode 1 Incontinence 1 Number of Emesis 1 Occurrences Result Diagrams: 09/18/18 03:32 09/18/18 03:32 - Physical Exam Constitutional: other (weak orthostatic) Eyes: PERRL, EOMI, anicteric sclera Ears, Nose, Mouth, Throat: moist mucous membranes Cardiovascular: irregularly irregular Respiratory: clear to auscultate bilat Gastrointestinal: normoactive bowel sounds, no tenderness, no masses Neurologic: AAOx3 Psychiatric: cooperative, interactive, following commands ICD10 Worksheet Patient Problems: Problems Problem Status Onset NSTEMI (non-ST elevated myocardial infarction) Acute Fracture of femoral neck, right Acute Chronic Disease Mgmt/Transitional Care Acute Chest pain Acute Elevated troponin Acute
[2018-09-18] MEDS: METOCLOPRAMIDE 10 MG/2 ML VIAL IVP PRN (19:39)
[2018-09-18] MEDS: MELATONIN 3 MG TAB PO SCH (22:12)
[2018-09-18] MEDS: TAMSULOSIN HCL 0.4 MG CAP PO SCH (22:12)
[2018-09-18] MEDS: Zolpidem Tartrate [Ambien Cr] 6.25 MG PO SCH (22:13)
[2018-09-19 04:19] LABS: PLATELET COUNT 298 10^3/uL (150-400)
[2018-09-19 04:34] LABS: INR 1.17 (0.83-1.16); PROTIME(PATIENT) 15.1 SEC (12.0-15.0)
[2018-09-19] MEDS ORDERED: NS 1,000 ML IV ONE (06:00)
[2018-09-19] MEDS ORDERED: FAMOTIDINE 20 MG TAB PO ONE ×2 (06:00→09:45)
[2018-09-19] MEDS ORDERED: DIAZEPAM 5 MG TAB PO ONE ×2 (06:00→09:45)
[2018-09-19] MEDS: ASPIRIN 81 MG CHEWABLE TAB PO SCH (08:01)
[2018-09-19] MEDS: METOPROLOL TARTRATE 25 MG TAB PO SCH ×2 (08:01→22:15)
[2018-09-19] MEDS: ATORVASTATIN CALCIUM 40 MG TAB PO SCH (08:01)
[2018-09-19] MEDS: SENNOSIDES/DOCUSATE SODIUM TAB PO SCH ×2 (08:01→22:16)
[2018-09-19] MEDS: AMIODARONE HCL 200 MG TAB PO SCH (08:01)
[2018-09-19] MEDS: Tiotropium Bromide [Spiriva Respimat] IH SCH (09:06)
[2018-09-19] MEDS: FLUTICASONE/SALMETER 250/50MCG DISKUS IH SCH ×2 (09:07→21:52)
[2018-09-19] MEDS ORDERED: LIDOCAINE 1% 300 MG/30 ML SDV ONE (09:17)
[2018-09-19] MEDS ORDERED: fentaNYL 100 MCG/2 ML INJ ONE ×2 (09:17→10:40)
[2018-09-19] MEDS ORDERED: IOPAMIDOL (ISOVUE-370) 150 ML BTL IV ONE (09:18)
[2018-09-19] MEDS ORDERED: MIDAZOLAM 2 MG/2 ML VIAL ONE ×2 (09:18→10:40)
[2018-09-19] MEDS ORDERED: EPINEPHrine 1 MG/10 ML SYR IVP ONE (10:09)
[2018-09-19] MEDS ORDERED: ATROPINE SULFATE 1 MG/10 ML SYR ONE (10:09)
[2018-09-19] MEDS ORDERED: BIVALIRUDIN 250 MG/5 ML VIAL IV ONE (10:09)
[2018-09-19] MEDS: POLYETHYLENE GLYCOL 3350 17 GM PKT PO SCH ×2 (10:54→22:17)
[2018-09-19] MEDS ORDERED: CLOPIDOGREL BISULFATE 75 MG TAB ONE (11:45)
[2018-09-19] MEDS ORDERED: CLOPIDOGREL BISULFATE 75 MG TAB PO ONE (11:46)
[2018-09-19] MEDS ORDERED: OXYCODONE/APAP 5/325 TAB PO PRN (11:46)
[2018-09-19] MEDS ORDERED: ATROPINE SULFATE 1 MG/10 ML SYR IVP PRN (11:46)
[2018-09-19] MEDS ORDERED: NS 1,000 ML IV SCH (12:00)
[2018-09-19] MEDS: FUROSEMIDE 20 MG TAB PO SCH (12:40)
[2018-09-19] MEDS: ENOXAPARIN 80 MG/0.8 ML SYR SC SCH (12:47)
--- NOTE | 2018-09-19 17:12 | HOSPPROG ---
Hospitalist Progress Note Assessment/Plan: 77 y/o male with extensive and complicated cardiac history presents with right femoral neck fracture after sustaining a mechanical fall. The pt has a hx of SVGA along the RCA. He has been having Ventricular Tachycardia per below and is scheduled for cardiac cath today. #Recent ABLA: No e/o of ongoing bleed #Hypotension: resolved #Right hip fracture s/p hemiarthroplasty #Cardiac history/recent NSTEMI with inability to stent/recurrent NSTEMI continue asa/statin/bb Afib with RVR s/p Cardioversion -cont Amio -Cont Lopressor -Cards following -AC with Lovenox. Will need to be changed to an oral agent pending Cath Acute on Chronic Renal Failure, stage IV, at baseline Cr which is around 2.0 COPD (home oxygen 4L NC baseline): on 4 L this is chronic hypoxemic respiratory failure RUL Nodule Ventricular Tachycardia: -17 beats, not symptomatic -awaiting Cards reccs Diet: regular VTE ppx: see above Code: DNR Plan: -Cardiac cath today -I had a discussion with Oncology about the pt's chest CT which is suspicious for malignancy. They will consult. Subjective: no cp or sob. no n/v. awaiting cath Objective: Vital Signs Temp Pulse Resp BP Pulse Ox 36.9 C 77 21 H 113/62 95 09/19/18 07:11 09/19/18 16:00 09/19/18 16:00 09/19/18 16:00 09/19/18 16:00 Laboratory Results 09/19/18 03:24 09/19/18 03:24 09/18/18 09/19/18 09/20/18 05:59 05:59 05:59 Intake Total 450 510 398 Output Total 525 525 700 Balance -75 -15 -302 PT 15.1 SEC (12.0-15.0) H 09/19/18 03:24 INR 1.17 (0.83-1.16) H 09/19/18 03:24 - Physical Exam Constitutional: no apparent distress Eyes: PERRL Ears, Nose, Mouth, Throat: moist mucous membranes, hearing normal Cardiovascular: regular rate and rhythym, No edema Respiratory: no respiratory distress, no rales or rhonchi, clear to auscultation Gastrointestinal: normoactive bowel sounds, soft, non-tender abdomen Skin: warm Neurologic: AAOx3 Psychiatric: interacting appropriately, not anxious, not encephalopathic Lymph, Heme, Immunologic: No petechiae ICD10 Worksheet Patient Problems: Problems Problem Status Onset Fracture of femoral neck, right Acute Chest pain Acute Chronic Disease Mgmt/Transitional Care Acute Elevated troponin Acute NSTEMI (non-ST elevated myocardial infarction) Acute
[2018-09-19] MEDS: guaiFENesin 600 MG TAB.ER PO PRN (20:57)
[2018-09-19] MEDS: ALBUTEROL 60 PUFFS/8 GM MDI IH PRN (21:52)
[2018-09-19] MEDS: Zolpidem Tartrate [Ambien Cr] 6.25 MG PO SCH (22:15)
[2018-09-19] MEDS: MELATONIN 3 MG TAB PO SCH (22:15)
[2018-09-19] MEDS: TAMSULOSIN HCL 0.4 MG CAP PO SCH (22:15)
--- NOTE | 2018-09-19 23:36 | CPIP ---
PROCEDURE PERFORMED: 1. Coronary catheterization. 2. Saphenous vein graft angiography of the saphenous vein graft to the right coronary artery. 3. Percutaneous coronary angioplasty of anastomosis of the saphenous vein graft to the distal right coronary artery. 4. Stent of saphenous vein graft of the right coronary artery with a 5.0 x 16 bare metal stent. COMPLICATIONS: None. FIELD RADIO TECHNICIAN: Alfredo Bloom MD. INDICATIONS FOR THE PROCEDURE: Unstable angina with recurrent subendocardial myocardial infarction r ight foot as well as junctional bradycardia and hypotension. PROCEDURE IN DETAIL: After informed consent was obtained and n.p.o. status was confirmed, the region of the right groin was cleaned, prepped, and draped in sterile fashion. A micropuncture set was use d to gain access to the right common femoral artery with single anterior puncture of the vessel. The patient then underwent diagnostic angiography with the use of a 6-[place] multipurpose guiding cathet er. An attempt to place a filter wire in the distal vein graft to the RCA was unsuccessful as the le adina in the RCA which was 95% was noted to be too tight for the wire to pass with the associated bask et. We therefore abandoned the FilterWire. Initially an Intuition wire was used to balloon open the vessel with a 3.0 x 12 NC Emerge balloon. The vessel was subsequently stented with a 5.0 x 16 bare metal coronary stent. This was inflated to maximum pressure of 21 atmospheres. Attempts to post dil ate over the same wire were unsuccessful and therefore 0.014 wiggle wire was advanced across the sten t with a loop to ensure that we were not behind a stent strut. The Intuition wire was then removed, and the vessel was ballooned with a 6.0 x 15 coronary balloon to maximum pressure of 16 atmospheres, which should be 6.45 mm in size. Following angiography, it was noted that there was a critical steno sis of the anastomosis to the distal RCA distal to the saphenous vein graft aneurysm and therefore, a n Intuition wire was directed into this area, and the vessel was primarily ballooned with a 3.0 x 12 Emerge balloon with excellent angiographic results, 10% residual stenosis of the anastomosis lesion t o the PLV branch of the RCA, and a 10% residual stenosis of the 90% stenosis of the saphenous vein gr aft to the RCA proximal to the aneurysm. Of note is that post stent implantation and post procedure angiography documented that the saphenous vein graft aneurysm was pressurized and appeared to be puls atile with each systolic contraction of the heart consistent with the pressurized SVG aneurysm. Ther e was excellent ANGY-3 flow to the PLV, PLV branches and the large collateral to the circumflex obtus e marginal with significant improvement in coronary flow as well as improvement in the patient's rhyt hm from a junctional escape rhythm in the 60s to sinus rhythm in the 80s with a blood pressure of 110 systolic post procedure. IMPRESSION: Successful balloon angioplasty and stent implantation of a critical stenosis of the saph enous vein graft to the right coronary artery with balloon angioplasty of the anastomosis of the saph enous vein graft to the right coronary artery, PLV proper. The patient should be treated for at leas t 30 days with aspirin and Plavix in combination. Consideration for ongoing Plavix treatment along w ith Eliquis may be reasonable because the patient has had atrial fibrillation. It may be reasonable to use Eliquis 5 mg p.o. b.i.d. as well as Plavix 75, to be continued indefinitely post procedure. /[id number]/MODL
[2018-09-20] MEDS: IPRATROPIUM/ALBUTEROL 3 ML DEYVIAL IH PRN ×2 (04:56→20:22)
[2018-09-20] MEDS: POLYETHYLENE GLYCOL 3350 17 GM PKT PO SCH ×2 (08:02→20:22)
[2018-09-20] MEDS: METOPROLOL TARTRATE 25 MG TAB PO SCH ×2 (08:03→21:24)
[2018-09-20] MEDS: ASPIRIN EC 325 MG TAB PO SCH (08:04)
[2018-09-20] MEDS: FUROSEMIDE 20 MG TAB PO SCH (08:04)
[2018-09-20] MEDS: AMIODARONE HCL 200 MG TAB PO SCH (08:04)
[2018-09-20] MEDS: CLOPIDOGREL BISULFATE 75 MG TAB PO SCH (08:04)
[2018-09-20] MEDS: ATORVASTATIN CALCIUM 40 MG TAB PO SCH (08:04)
[2018-09-20] MEDS: APIXABAN 5 MG TAB PO SCH ×2 (08:04→21:23)
[2018-09-20] MEDS: SENNOSIDES/DOCUSATE SODIUM TAB PO SCH ×2 (08:05→20:22)
[2018-09-20] MEDS ORDERED: APIXABAN 5 MG TAB PO SCH (09:00)
[2018-09-20] MEDS: FLUTICASONE/SALMETER 250/50MCG DISKUS IH SCH ×2 (09:39→20:22)
[2018-09-20] MEDS: Tiotropium Bromide [Spiriva Respimat] IH SCH (09:39)
--- NOTE | 2018-09-20 15:41 | PDCARPN ---
Cardiology Progress Note Assessment/Plan: 77 year-old male with a complex cardiovascular and medical history. Has had recent recurrent acute coronary syndromes. He was admitted to the hospital after a mechanical fall resulting in a right hip fracture. The patient underwent surgical repair 09/09. Paroxysmal Atrial Fibrillation: Has had issues with post-op AF/RVR requiring IV and PO amiodarone plus cardioversion. In NSR today. - Cont PO amiodarone. - Systemic anticoagulation with Eliquis. 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 Cardiac catheterization in July of this year demonstrated severe [place] CAD, a patent DO to LAD graft, a patent SVG to obtuse marginal, and a patent but highly degenerated and aneurysmal SVG to the RCA with a high grade stenosis in the distal graft body. High risk for complications and poor outcome led to deferring PCI. However, with recurrent episodes od angina and small troponin increases, it was felt the risk had to be taken. Dr. Bloom performed successful PCI/stent in the distal body of SVG to RCA yesterday along with balloon PTCA just distal to the graft anastamosis. - He is not experiencing any angina at present. - He is currently on aspirin, clopidogrel, and Eliquis. At some point the aspirin component of his DAPT can be stopped as long as he is taking Eliquis. - Continue medical management and secondary prevention. 09/20/18 15:48 Subjective: No chest pain. Objective: Vital Signs (8 Hrs) Temp Pulse Resp BP Pulse Ox 09/20/18 12:00 36.7 C 71 18 92/51 L 95 09/20/18 09:43 66 27 H 99 09/20/18 09:10 62 Intake/Output (24 Hrs) 09/19/18 09/20/18 09/21/18 05:59 05:59 05:59 Intake Total 510 723 Output Total 525 1210 100 Balance -15 -487 -100 Intake: Oral (ml) 510 IV Intake (ml) 0 IV Infused (ml) 723 Ns 1,000 ml @ 100 mls/hr 723 IV CONT CHAPARRO Rx#: [id number] Output: Urine (ml) 525 1210 100 Incontinence 100 Urinal 525 1210 Other: Number of Voids Urinal 1 2 Number of Stools Incontinence 1 Result Diagrams: 09/19/18 03:24 09/19/18 03:24 - Physical Exam Constitutional: no apparent distress (chronically ill-appearing), other Eyes: anicteric sclera Ears, Nose, Mouth, Throat: moist mucous membranes Cardiovascular: regular rate and rhythm, no murmurs, no gallops Respiratory: clear to auscultate bilat Gastrointestinal: normoactive bowel sounds, no tenderness, no masses Skin: other (mild edema) Neurologic: AAOx3 Psychiatric: not anxious ICD10 Worksheet Patient Problems: Problems Problem Status Onset NSTEMI (non-ST elevated myocardial infarction) Acute Fracture of femoral neck, right Acute Chronic Disease Mgmt/Transitional Care Acute Chest pain Acute Elevated troponin Acute
--- NOTE | 2018-09-20 15:50 | HOSPPROG ---
Hospitalist Progress Note Assessment/Plan: * Femoral neck fracture s/p hemiarthroplasty * Non-STEMI -h/o CAD/CABG - stent to SVG graft yesterday -ASA/Plavix -stop ASA after 30 days * afib s/p cardioversion -amiodarone, metoprolol -Eliquis * Vtach -possible due to ischemia -follow post stent * Acute blood loss anemia - stable * COPD with chronic respiratory failure 4L * Right lung mass -outpatient PET/CT * CKD - at baseline creatinine 2.0 * AAA repair Subjective: Lots of clear drainage from hip wound Objective: Vital Signs Temp Pulse Resp BP Pulse Ox 36.7 C 71 18 92/51 L 95 09/20/18 12:00 09/20/18 12:00 09/20/18 12:00 09/20/18 12:00 09/20/18 12:00 Laboratory Results 09/19/18 03:24 09/19/18 03:24 09/19/18 09/20/18 09/21/18 05:59 05:59 05:59 Intake Total 510 723 Output Total 525 1210 100 Balance -15 -487 -100 PT 15.1 SEC (12.0-15.0) H 09/19/18 03:24 INR 1.17 (0.83-1.16) H 09/19/18 03:24 cath report reviewed - stent to SVG CT chest - concerning for lung cancer RU lobe EKG viewed, my personal interpretation is - afib with RBBB - Physical Exam Constitutional: no apparent distress, appears nourished, not in pain Cardiovascular: regular rate and rhythym, no murmur, rub, or gallop Respiratory: no respiratory distress, no rales or rhonchi, clear to auscultation Gastrointestinal: normoactive bowel sounds, soft, non-tender abdomen, no palpable masses Skin: no rashes or abrasions, no fluctuance, no induration Neurologic: AAOx3, sensation intact bilaterally Psychiatric: interacting appropriately, not anxious, not encephalopathic, thought process linear ICD10 Worksheet Patient Problems: Problems Problem Status Onset Fracture of femoral neck, right Acute Chest pain Acute Chronic Disease Mgmt/Transitional Care Acute Elevated troponin Acute NSTEMI (non-ST elevated myocardial infarction) Acute
[2018-09-20] MEDS: MELATONIN 3 MG TAB PO SCH (21:23)
[2018-09-20] MEDS: TAMSULOSIN HCL 0.4 MG CAP PO SCH (21:23)
[2018-09-20] MEDS: Zolpidem Tartrate [Ambien Cr] 6.25 MG PO SCH (21:24)
[2018-09-21 04:35] LABS: PLATELET COUNT 312 10^3/uL (150-400)
[2018-09-21] MEDS: FLUTICASONE/SALMETER 250/50MCG DISKUS IH SCH ×2 (08:10→20:16)
[2018-09-21] MEDS: Tiotropium Bromide [Spiriva Respimat] IH SCH (08:10)
[2018-09-21] MEDS: IPRATROPIUM/ALBUTEROL 3 ML DEYVIAL IH PRN ×2 (08:10→20:16)
[2018-09-21] MEDS: FUROSEMIDE 20 MG TAB PO SCH (10:20)
[2018-09-21] MEDS: ASPIRIN EC 325 MG TAB PO SCH (10:20)
[2018-09-21] MEDS: APIXABAN 5 MG TAB PO SCH ×2 (10:22→21:08)
[2018-09-21] MEDS: SENNOSIDES/DOCUSATE SODIUM TAB PO SCH ×2 (10:22→21:07)
[2018-09-21] MEDS: AMIODARONE HCL 200 MG TAB PO SCH (10:22)
[2018-09-21] MEDS: METOPROLOL TARTRATE 25 MG TAB PO SCH ×2 (10:22→21:08)
[2018-09-21] MEDS: CLOPIDOGREL BISULFATE 75 MG TAB PO SCH (10:22)
[2018-09-21] MEDS: POLYETHYLENE GLYCOL 3350 17 GM PKT PO SCH (10:23)
[2018-09-21] MEDS: ATORVASTATIN CALCIUM 40 MG TAB PO SCH (10:23)
[2018-09-21] MEDS ORDERED: FUROSEMIDE 40 MG/4 ML VIAL IVP ONE (12:22)
[2018-09-21] MEDS ORDERED: POLYETHYLENE GLYCOL 3350 17 GM PKT PO PRN (12:23)
--- NOTE | 2018-09-21 12:26 | ASMTCMCOM ---
CM Note CM Note Notes: Per hospital medicine, patient will transfer to SNF tomorrow. Christin at [facility] notified. Date Signed: 09/21/2018 12:25 PM Electronically Signed By:Orin Huber RN
--- NOTE | 2018-09-21 12:41 | WOCRNPDOC ---
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 Patient stated he was not aware of the wound until pointed out to him by staff, and stated that he bruises easily. Please reconsult if wound opens.
--- NOTE | 2018-09-21 13:32 | PDCARPN ---
Cardiology Progress Note Chief Complaint: CAD with admit chest pain Assessment/Plan: Assessment: 77 year-old male with a complex cardiovascular and medical history. Recent recurrent ACS. He was admitted to the hospital 09/08 after a mechanical fall with right hip fracture, and surgical repair 09/09. 1. Paroxysmal Atrial Fibrillation: Post-op AF/RVR requiring IV and PO amiodarone and DCCV. SR yesterday. Today Atrial Fib with well controlled rate 74. - Cont PO amiodarone, and anticoagulation with Eliquis. 2. Coronary Artery Disease: History of multivessel CAD with 3-vessel CABG 20 years ago. Cardiac angiogram in July 2018 showed severe [place] CAD, a patent DO to LAD graft, a patent SVG to obtuse marginal, and a patent but highly degenerated and aneurysmal SVG to the RCA with a high grade stenosis in the distal graft body. High risk for complications and poor outcome led to deferring PCI. However, with recurrent episodes of angina and small troponin increases, it was felt the risk had to be taken. He was taken to the cathode maker by Dr. Bloom with successful PCI/stent in the distal body of SVG to RCA Sep 20 2018, along with balloon PTCA just distal to the graft anastomosis. Today he has no chest pain or SOB. Current medications: aspirin, clopidogrel, and Eliquis. After 30 days the aspirin component of his DAPT can be stopped as long as he continues Eliquis. Plan: Continue to follow closely on Telemetry monitoring for V-Tach which he has had in the past. He is in A Fib with well controlled Ventricular rate of 74. 09/21/18 13:17 Reviewed/Discussed With: family, hospitalist, multidisciplinary team Time Spent with Patient: greater than 25 minutes Time Spent with Patient: Greater than 25 minutes spent on this patients care, greater than 50% of time spent counseling, educating, and coordinating care regarding the above mentioned plan. Objective: Vital Signs (8 Hrs) Temp Pulse Resp BP Pulse Ox 09/21/18 11:29 36.8 C 74 18 122/68 H 96 09/21/18 08:11 72 94 09/21/18 07:41 36.4 C 81 19 128/75 H 91 L Intake/Output (24 Hrs) 09/20/18 09/21/18 09/22/18 05:59 05:59 05:59 Intake Total 723 500 Output Total 1210 750 Balance -487 -250 Intake: Oral (ml) 500 IV Intake (ml) 0 IV Infused (ml) 723 Ns 1,000 ml @ 100 mls/hr 723 IV CONT CHAPARRO Rx#: [id number] Output: Urine (ml) 1210 750 Incontinence 400 Urinal 1210 350 Other: Intake Quantity Yes Sufficient Number of Voids Bedside Commode 1 Urinal 2 1 Number of Stools Bedside Commode 1 Incontinence 1 Result Diagrams: 09/21/18 03:38 09/21/18 03:22 - Physical Exam Constitutional: no apparent distress Cardiovascular: no rubs, no gallops, irregularly irregular Respiratory: clear to auscultate bilat, no crackles, no wheezes Skin: warm Neurologic: AAOx3 Psychiatric: cooperative, interactive ICD10 Worksheet Patient Problems: Problems Problem Status Onset Fracture of femoral neck, right Acute Chest pain Acute Chronic Disease [facility]/Transitional Care Acute Elevated troponin Acute NSTEMI (non-ST elevated myocardial infarction) Acute
--- NOTE | 2018-09-21 16:15 | HOSPPROG ---
Hospitalist Progress Note Assessment/Plan: * Femoral neck fracture s/p hemiarthroplasty * Non-STEMI -h/o CAD/CABG - s/p stent to SVG graft -ASA/Plavix -stop ASA after 30 days * afib s/p cardioversion -amiodarone, metoprolol -Eliquis * Vtach -possible due to ischemia -follow post stent * Acute blood loss anemia - stable * COPD with chronic respiratory failure 4L * Right lung mass -outpatient PET/CT * CKD - at baseline creatinine 2.0 -watch closely s/p IV contrast for cardiac cath * AAA repair * Acute on chronic diastolic CHF -volume overload with evidence of pulmonary edema -IV lasix Subjective: more SOB today, still swollen with serosanguinous drainage from wound Objective: Vital Signs Temp Pulse Resp BP Pulse Ox 36.8 C 65 21 H 131/68 H 94 09/21/18 15:36 09/21/18 15:36 09/21/18 15:36 09/21/18 15:36 09/21/18 15:36 Laboratory Results 09/21/18 03:38 09/21/18 03:22 09/20/18 09/21/18 09/22/18 05:59 05:59 05:59 Intake Total 723 500 Output Total 1210 750 450 Balance -487 -250 -450 PT 15.1 SEC (12.0-15.0) H 09/19/18 03:24 INR 1.17 (0.83-1.16) H 09/19/18 03:24 OLD CHART REVIEWED - had ECHO in july that showed EF 53% tele - rate controlled afib - Physical Exam Constitutional: no apparent distress, appears nourished, not in pain Cardiovascular: no murmur, rub, or gallop, irregularly irregular, edema Respiratory: inspiratory crackles, respiratory distress (mild), No expiratory wheeze Gastrointestinal: normoactive bowel sounds, soft, non-tender abdomen, no palpable masses Skin: no rashes or abrasions, no fluctuance, no induration Neurologic: AAOx3, sensation intact bilaterally Psychiatric: interacting appropriately, not anxious, not encephalopathic, thought process linear ICD10 Worksheet Patient Problems: Problems Problem Status Onset NSTEMI (non-ST elevated myocardial infarction) Acute Fracture of femoral neck, right Acute Chronic Disease Mgmt/Transitional Care Acute Chest pain Acute Elevated troponin Acute
[2018-09-21] MEDS: ALBUTEROL 60 PUFFS/8 GM MDI IH PRN (17:46)
[2018-09-21] MEDS: METOCLOPRAMIDE 10 MG/2 ML VIAL IVP PRN (18:26)
[2018-09-21] MEDS: MELATONIN 3 MG TAB PO SCH (21:07)
[2018-09-21] MEDS: TAMSULOSIN HCL 0.4 MG CAP PO SCH (21:07)
[2018-09-22] MEDS: IPRATROPIUM/ALBUTEROL 3 ML DEYVIAL IH PRN (04:36)
[2018-09-22] MEDS: FUROSEMIDE 20 MG TAB PO SCH (06:17)
[2018-09-22] MEDS: Tiotropium Bromide [Spiriva Respimat] IH SCH (08:23)
[2018-09-22] MEDS: FLUTICASONE/SALMETER 250/50MCG DISKUS IH SCH ×2 (08:23→21:52)
[2018-09-22] MEDS: AMIODARONE HCL 200 MG TAB PO SCH (08:52)
[2018-09-22] MEDS: ASPIRIN EC 325 MG TAB PO SCH (08:52)
[2018-09-22] MEDS: METOPROLOL TARTRATE 25 MG TAB PO SCH ×2 (08:52→20:55)
[2018-09-22] MEDS: SENNOSIDES/DOCUSATE SODIUM TAB PO SCH ×2 (08:52→20:55)
[2018-09-22] MEDS: ATORVASTATIN CALCIUM 40 MG TAB PO SCH (08:53)
[2018-09-22] MEDS: APIXABAN 5 MG TAB PO SCH ×2 (08:53→20:55)
[2018-09-22] MEDS: CLOPIDOGREL BISULFATE 75 MG TAB PO SCH (08:53)
[2018-09-22] MEDS: IPRATROPIUM/ALBUTEROL 3 ML DEYVIAL IH SCH ×3 (11:14→21:52)
--- NOTE | 2018-09-22 16:03 | HOSPPROG ---
Hospitalist Progress Note Assessment/Plan: * Femoral neck fracture s/p hemiarthroplasty * Non-STEMI -h/o CAD/CABG - s/p stent to SVG graft -ASA/Plavix -stop ASA after 30 days * afib s/p cardioversion -amiodarone, metoprolol -Eliquis * Vtach -possible due to ischemia -follow post stent * Acute blood loss anemia - stable * COPD with chronic respiratory failure 4L * Right lung mass -outpatient PET/CT * CKD - baseline creatinine 2.0 -watch closely s/p IV contrast for cardiac cath -creatinine rising - continue to monitor * AAA repair * Acute on chronic diastolic CHF -hold further lasix due to creatinine rising Subjective: Very SOB, very bad night Objective: Vital Signs Temp Pulse Resp BP Pulse Ox 36.7 C 68 20 93/50 L 98 09/22/18 12:00 09/22/18 12:00 09/22/18 12:00 09/22/18 11:48 09/22/18 12:00 Laboratory Results 09/21/18 03:38 09/22/18 03:10 09/21/18 09/22/18 09/23/18 05:59 05:59 05:59 Intake Total 500 250 Output Total 750 1450 Balance -250 -1200 PT 15.1 SEC (12.0-15.0) H 09/19/18 03:24 INR 1.17 (0.83-1.16) H 09/19/18 03:24 CXR viewed, my personal interpretation is - very hyperexpanded d/w Dr. Colby regarding increased creatinine - he sees Dr. Barroso as outpatient - Physical Exam Constitutional: no apparent distress, appears nourished, not in pain Cardiovascular: regular rate and rhythym, no murmur, rub, or gallop, edema Respiratory: no respiratory distress, no rales or rhonchi, clear to auscultation Gastrointestinal: normoactive bowel sounds, soft, non-tender abdomen, no palpable masses Skin: no rashes or abrasions, no fluctuance, no induration Neurologic: AAOx3, sensation intact bilaterally Psychiatric: interacting appropriately, not anxious, not encephalopathic, thought process linear ICD10 Worksheet Patient Problems: Problems Problem Status Onset NSTEMI (non-ST elevated myocardial infarction) Acute Fracture of femoral neck, right Acute Chronic Disease Mgmt/Transitional Care Acute Chest pain Acute Elevated troponin Acute
--- NOTE | 2018-09-22 17:20 | GCON ---
DATE OF CONSULTATION: 09/22/2018 REASON FOR CONSULTATION: Opinion regarding rising creatinine. HISTORY OF PRESENT ILLNESS: The patient is a very pleasant 77-year-old gentleman with known stage 4 chronic kidney disease, baseline creatinine as an outpatient in the 2.2 to 2.4 range, measured glomer ular filtration rate in June 2018 was 28 cc/minute. The patient has a complicated past medical history with chronic kidney disease stage 4, hypertension, vascular disease, coronary artery disease status post coronary artery bypass grafting x3 in 1987. Status post aortic aneurysm repair x2, most r ecently in 2015. This was complicated by acute kidney injury requiring 5 weeks of hemodialysis. 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 Pu lmonary hypertension and systolic heart failure. The patient moved from [place] to the [facility] 2017 to be closer to his daughter. He follows with Dr. Barroso for his chronic kidney disease sta ge 4, initial consultation was in March with followup in June. The patient was in his usual state of health until July when he had some chest pain with a rise in his troponin level, he had a coronary angiogram at that time, but no intervention. His angiogram sh owed aneurysmal dilatation and severe stenosis of the saphenous vein graft to his RCA and he also had a severe high-grade proximal LAD lesion, but his previous bypass grafting was apparently protective. The patient had another episode of chest pain with a moderate rise in troponin in August. The matt hardin is on chronic oxygen therapy and tripped over his oxygen cannula on 09/08/2018, sustaining a hi p fracture. After consultation with Cardiology, he did undergo right hemiarthroplasty. Postoperativ romain, he did have a couple of episodes of atrial fibrillation requiring direct cardioversion, transeso phageal echocardiogram was negative for left atrial clot. He was started on Plavix at that time. Th e patient due to his atrial fibrillation was taken back to the technical laboratory asst on 09/19/2018 and underwent s tenting of the high-grade right coronary artery, saphenous vein graft. A bare metal stent was placed . 30 days of aspirin and Plavix as well as Eliquis was to be continued. I have been asked to see for a rising serum creatinine over the course of the past several days from 1.9 on the day of the cardia c catheterization, now has increased to 2.1 on the and 2.3 today. Urine output has been reasona ble with 1.5 L from yesterday to today, 750 cc the day prior, 1.2 L the day prior to that (postop loni nt day 1.) Currently, he feels well, his hip is a bit sore. He has not been having fevers, chills, nausea, vomiting, chest pain. He does have chronic shortness of breath, which is about at his baseli ne with intermittently productive cough. No hemoptysis, hematemesis, epistaxis, abdominal pain, diar rosa, constipation, melena, hematochezia, blurry vision, double vision, headache, orthopnea, paroxysm al nocturnal dyspnea, palpitations, syncope, gross hematuria or dysuria. CURRENT MEDICATIONS: Include: 1. Albuterol inhalers. 2. Amiodarone 200 mg daily. 3. Eliquis 5 mg twice daily. 4. Aspirin 325 mg daily. 5. Lipitor 40 mg daily. 6. Plavix 75 mg daily. 7. Lasix 20 mg daily. 8. Imdur 60 mg daily. 9. Reglan every 6 hours as needed for nausea. 10. Metoprolol 25 mg twice daily. 11. Zofran. 12. Oxycodone. 13. Restoril. 14. Flomax 0.4 mg daily. PAST MEDICAL HISTORY: Significant for: 1. Chronic kidney disease stage 4, likely due to a combination of nephrosclerosis of aging, hyperten adina, congestive heart failure, and vascular disease. Baseline creatinine between 2.2 and 2.4. 2. Proteinuria. 3. Hypertension. 4. Peripheral vascular occlusive disease. 5. Status post abdominal aortic aneurysm repair twice, most recently in 2015. 6. COPD. 7. Coronary artery disease. 8. Status post 3 vessel coronary artery bypass grafting in 1987. 9. Recent coronary stent placed on 09/19/2018. 10. History of needing temporary dialysis (5 weeks) after his last aortic aneurysm repair. 11. 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 12. History of pulmonary nodules. 13. Pulmonary hypertension. 14. Systolic congestive heart failure with an ejection fraction of 40%. 15. History of non ST elevated acute myocardial infarction in July and August of 2018. 16. Anemia of chronic kidney disease. FAMILY HISTORY: Negative for renal failure. ALLERGIES: None known. 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 He has not had tobacco for greater than 10 years. Does not use alcohol, IV or recreation al drugs. He enjoys fly fishing and boating. 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 REVIEW OF SYSTEMS: A complete 12-point review of systems was performed with pertinent positives and negatives as per the previous sections. PHYSICAL EXAMINATION: VITAL SIGNS: Blood pressure is 125/68, pulse 72, respirations 18, temperature 36.9 degrees. Over the course of the past several days since his cardiac catheterization he has see n blood pressures as low as 92/51 on the , on the , he had a blood pressure of 103/62, on the he has had blood pressures of 90/60, most recently 125/68. I should say on the he did have a blood pressure of 95/60, as well. GENERAL: He is sitting up in his chair. He is awake, alert, cooperative and is in no acute distress , pain seems to be managed fine. HEENT: Pupils are reactive to light. Extraocular movements are int act. Mucous membranes are moist. NECK: No lymphadenopathy. He does have some JVD. HEART: Regular . Tones are distant. No rub. No S3. Has a grade 1/6 murmur. LUNGS: Decreased breath sounds in hi s bases. No rhonchi or wheezes. ABDOMEN: Bowel sounds are positive. Soft, nontender, nondistended. No obvious organomegaly, masses, or bruits. EXTREMITIES: Trace to +1 edema. No cyanosis or clubbin g. Edema greater on the right than on the left. NEUROLOGIC: No asterixis. He moves all of his extr emities. SKIN: Changes of arterial insufficiency in his lower extremities bilaterally. LYMPH: No pal pable lymphadenopathy or lymphedema. MUSCULOSKELETAL: No effusions. He does have tenderness over hi s right hip. LABORATORY: Serum sodium is 135, potassium 4, chloride 102, CO2 27, BUN 32, creatinine 2.3 up from 2 .1 yesterday and 1.9 two days prior to that, calcium 8.2. WBCs 8, hemoglobin 8.7, hematocrit 26, love telet count 312,000. Baseline hemoglobin between 12 and 12.5. Lipid panel on admission showed a cholesterol of 82, trigly cerides of 120, LDL 34, HDL 24. IMPRESSION: 1. Acute kidney injury with a rise in his serum creatinine of 1.9 up to most recently 2.3, I suspect this is due in part to intravenous contrast after his stenting. Also, he has had a number of low bl ood pressures in the 90s over 50s and 60s, he says his blood pressure generally runs in the 110s to 1 20s over 70s. 2. Chronic kidney disease stage 4, baseline creatinine appears to be around 2.2 to 2.4, at least ove r the course of the past 6 months. 3. Fall at home. 4. Right hip fracture status post repair with right hemiarthroplasty. 5. Non ST elevated myocardial infarction in July and August. 6. Postop day #3 stenting of aneurysmal and high-grade stenosis of the saphenous vein graft to the r ight coronary artery. 7. Paroxysmal atrial fibrillation status post cardioversion x2 since he has been in the hospital. 8. Chronic anti-platelet therapy. 9. Hypertension, but most recently hypotensive. 10. Peripheral vascular disease. 11. Chronic obstructive pulmonary disease. RECOMMENDATIONS: 1. I do not think I would do anything differently at this time other than watch his blood pressures closely, we may need to adjust his anti hypertensive medications, however, after a recent acute myoca rdial infarction, I would like to keep his beta temitope and nitrates in place. 2. No urgent dialysis needs. 3. Continue to follow his electrolytes, volume status and renal function. 4. Sounds like he may be going to a rehab unit tomorrow, I think if his creatinine is stable to decr ease that would be fine. 5. He has an appointment to see Dr. Barroso on September 30. all. 6. Questions were answered to the patient's satisfaction. Thank you for allowing me to participate in the care of your patient. If there are any questions, ple ase do not hesitate to contact us. We will be following along with you. /[id number]/MODL
[2018-09-22] MEDS: TAMSULOSIN HCL 0.4 MG CAP PO SCH (20:53)
[2018-09-22] MEDS: MELATONIN 3 MG TAB PO SCH (20:54)
[2018-09-22] MEDS: Zolpidem Tartrate [Ambien Cr] 6.25 MG PO SCH ×2 (21:27)
[2018-09-22] MEDS: oxyCODONE IR 5 MG TAB PO PRN (23:10)
[2018-09-23] MEDS: IPRATROPIUM/ALBUTEROL 3 ML DEYVIAL IH SCH ×4 (06:14→21:53)
[2018-09-23] MEDS: METOCLOPRAMIDE 10 MG/2 ML VIAL IVP PRN (08:28)
[2018-09-23] MEDS: APIXABAN 5 MG TAB PO SCH ×2 (09:16→21:42)
[2018-09-23] MEDS: SENNOSIDES/DOCUSATE SODIUM TAB PO SCH ×2 (09:16→21:42)
[2018-09-23] MEDS: METOPROLOL TARTRATE 25 MG TAB PO SCH (09:17)
[2018-09-23] MEDS: ASPIRIN EC 325 MG TAB PO SCH (09:17)
[2018-09-23] MEDS: CLOPIDOGREL BISULFATE 75 MG TAB PO SCH (09:17)
[2018-09-23] MEDS: ATORVASTATIN CALCIUM 40 MG TAB PO SCH (09:17)
[2018-09-23] MEDS: AMIODARONE HCL 200 MG TAB PO SCH (09:17)
[2018-09-23] MEDS: guaiFENesin 600 MG TAB.ER PO PRN (09:22)
--- NOTE | 2018-09-23 11:55 | PDCARPN ---
Cardiology Progress Note Assessment/Plan: Assessment: 77 year-old male with a complex cardiovascular and medical history. Recent recurrent ACS. He was admitted to the hospital 09/08 after a mechanical fall with right hip fracture, and surgical repair 09/09. 1. Paroxysmal Atrial Fibrillation: Post-op AF/RVR requiring IV and PO amiodarone and DCCV. SR yesterday. Today Atrial Fib with well controlled rate 74. - Cont PO amiodarone, and anticoagulation with Eliquis. 2. Coronary Artery Disease: History of multivessel CAD with 3-vessel CABG 20 years ago. Cardiac angiogram in July 2018 showed severe nondalton CAD, a patent DO to LAD graft, a patent SVG to obtuse marginal, and a patent but highly degenerated and aneurysmal SVG to the RCA with a high grade stenosis in the distal graft body. High risk for complications and poor outcome led to deferring PCI. However, with recurrent episodes of angina and small troponin increases, it was felt the risk had to be taken. He was taken to the molder labels by Dr. Bloom with successful PCI/stent in the distal body of SVG to RCA Sep 20 2018, along with balloon PTCA just distal to the graft anastomosis. Today he has no chest pain or SOB. Current medications: aspirin, clopidogrel, and Eliquis. After 30 days the aspirin component of his DAPT can be stopped as long as he continues Eliquis. Plan: Continue to follow closely on Telemetry monitoring for V-Tach which he has had in the past. He is in A Fib with well controlled Ventricular rate of 74. 09/21/18 13:17 09/22/18 patient was seen and evaluated. His Cr had elevated to 2.5, likely related to contrast used for Angiogram, and perhaps not hydrating well enough. His exam was unchanged. He did walk with physical therapy to the day room and felt he tolerated it well. 09/23/18 11:47 Gulshan continues to improve. He has no cardiac complaints. He was seen by Nephrology yesterday with no new recommendations. His Cr baseline is 2.2 to 2.4. [place] the increase Cr was due to angiogram, and hypotension yesterday. No V -Tach has been noted on telemetry since before revascularization with Stent placement. He feels he is progressing well. He will likely be going to Rehab for his hip fracture in the next couple days. 09/23/18 17:47 Dr Neville Terrazas re-examined Gulshan. Will get weight in AM. Agrees with reducing Metoprolol dose. Watch his Hgb as it has declined. This may be contributing to his SOB. He has COPD, and he likely is SOB related to his COPD. Recommend Spirometer. Will check BNP in AM. Medications were reviewed, and no recommendation for changing dose except the Metoprolol. Reviewed/Discussed With: multidisciplinary team Time Spent with Patient: greater than 25 minutes Time Spent with Patient: Greater than 25 minutes spent on this patients care, greater than 50% of time spent counseling, educating, and coordinating care regarding the above mentioned plan. Objective: Vital Signs (8 Hrs) Temp Pulse Resp BP Pulse Ox 09/23/18 09:17 76 118/70 09/23/18 08:00 37.2 C 76 19 118/70 99 Intake/Output (24 Hrs) 09/22/18 09/23/18 09/24/18 05:59 05:59 05:59 Intake Total 250 118 Output Total 1450 800 300 Balance -1200 -800 -182 Intake: Oral (ml) 250 118 Output: Urine (ml) 1450 800 300 Incontinence 325 Urinal 1450 475 300 Other: Number of Voids Incontinence 1 1 Urinal 1 1 Result Diagrams: 09/21/18 03:38 09/23/18 06:03 - Physical Exam Constitutional: no apparent distress Cardiovascular: regular rate and rhythm, no murmurs, no rubs Respiratory: clear to auscultate bilat, no crackles, no wheezes Skin: warm, no edema, other (abdomen full,not firm) Neurologic: AAOx3 Psychiatric: cooperative, interactive ICD10 Worksheet Patient Problems: Problems Problem Status Onset NSTEMI (non-ST elevated myocardial infarction) Acute Fracture of femoral neck, right Acute Chronic Disease Mgmt/Transitional Care Acute Chest pain Acute Elevated troponin Acute
[2018-09-23] MEDS: Tiotropium Bromide [Spiriva Respimat] IH SCH (12:11)
[2018-09-23] MEDS: FLUTICASONE/SALMETER 250/50MCG DISKUS IH SCH ×2 (12:11→21:51)
--- NOTE | 2018-09-23 12:17 | SOAPPROG ---
SOAP Progress Note Assessment/Plan: Assessment: CKD 4, baseline creat 2.2-2.4 NIRMALA after cath, likely combination of hypotension and contrast, creat 2.4 today , 2.3 yesterday 1.9 most of his hospital stay AMI, s/p stenting of RCA SVG 09/19/18 Intermitant hypotension since cor intervention complained of nausea and vomiting this morning, better now Plan: May need to consider adjusting cardiac meds for low BP, will leave that to cardiology continue other therapies check troponin/CK/EKG 09/23/18 11:57 Subjective: nausea and vomiting this morning no cp or worsening of SOB up to chair at bedside Objective: Vital Signs Temp Pulse Resp BP Pulse Ox 37.2 C 76 19 118/70 99 09/23/18 08:00 09/23/18 09:17 09/23/18 08:00 09/23/18 09:17 09/23/18 08:00 Laboratory Results 09/21/18 03:38 09/23/18 06:03 09/22/18 09/23/18 09/24/18 05:59 05:59 05:59 Intake Total 250 118 Output Total 1450 800 300 Balance -1200 -800 -182 PT 15.1 SEC (12.0-15.0) H 09/19/18 03:24 INR 1.17 (0.83-1.16) H 09/19/18 03:24 Physical Exam - Physical Exam General Appearance: alert Respiratory: rales, No wheezing, No pleural rub Cardiac/Chest: regular rate, rhythm, edema, No friction rub Abdomen: normal bowel sounds, non-tender, soft Extremities: swelling Neuro/Psych: alert, oriented x 3 ICD10 Worksheet Patient Problems: Problems Problem Status Onset Fracture of femoral neck, right Acute Chest pain Acute Chronic Disease Mgmt/Transitional Care Acute Elevated troponin Acute NSTEMI (non-ST elevated myocardial infarction) Acute
[2018-09-23] MEDS ORDERED: NS 500 ML IV ONE (13:55)
[2018-09-23 14:11] LABS: CREATINE KINASE 111 IU/L (0-224)
[2018-09-23] MEDS: ALBUTEROL 60 PUFFS/8 GM MDI IH PRN (14:15)
--- NOTE | 2018-09-23 16:19 | HOSPPROG ---
Hospitalist Progress Note Assessment/Plan: * Femoral neck fracture s/p hemiarthroplasty * Non-STEMI -h/o CAD/CABG - s/p stent to SVG graft -ASA/Plavix -stop ASA after 30 days * afib s/p cardioversion -amiodarone, metoprolol -Eliquis * Vtach -possible due to ischemia -follow post stent * Acute blood loss anemia - stable * COPD with chronic respiratory failure 4L * Right lung mass -outpatient PET/CT * CKD - baseline creatinine 2.0 -watch closely s/p IV contrast for cardiac cath -creatinine rising - continue to monitor * AAA repair * Acute on chronic diastolic CHF -hold further lasix due to creatinine rising * SOB/OLIVAS -unclear etiology - rule out viral -check limited ECHO Subjective: Still very SOB, worse at night, OLIVAS with only minimal exertion - started after cath Objective: Vital Signs Temp Pulse Resp BP Pulse Ox 36.8 C 65 16 114/64 92 09/23/18 15:54 09/23/18 15:54 09/23/18 15:54 09/23/18 15:54 09/23/18 15:54 Microbiology 09/23/18 13:13 Respiratory Panel (PCR) - Final Nasal, Sinus - Swab No Organism Detected By Pcr Laboratory Results 09/21/18 03:38 09/23/18 06:03 09/22/18 09/23/18 09/24/18 05:59 05:59 05:59 Intake Total 250 368 Output Total 1450 800 550 Balance -1200 -800 -182 PT 15.1 SEC (12.0-15.0) H 09/19/18 03:24 INR 1.17 (0.83-1.16) H 09/19/18 03:24 d/w DR. Mary and Radha Ace - very SOB, vomited - Physical Exam Constitutional: no apparent distress, appears nourished, not in pain Cardiovascular: regular rate and rhythym, no murmur, rub, or gallop Respiratory: no respiratory distress, no rales or rhonchi, clear to auscultation Gastrointestinal: normoactive bowel sounds, soft, non-tender abdomen, no palpable masses Skin: no rashes or abrasions, no fluctuance, no induration Neurologic: AAOx3, sensation intact bilaterally Psychiatric: interacting appropriately, not anxious, not encephalopathic, thought process linear ICD10 Worksheet Patient Problems: Problems Problem Status Onset NSTEMI (non-ST elevated myocardial infarction) Acute Fracture of femoral neck, right Acute Chronic Disease Mgmt/Transitional Care Acute Chest pain Acute Elevated troponin Acute
--- NOTE | 2018-09-23 16:48 | ECHO ---
[email or web address] [address] Main: [phone] Fax: Transthoracic Echocardiogram Name: MARCI QUIGLEY MR#: [id number] Study Date: 09/23/2018 Study Time: 02:30 PM Date of : 1940 Age: 77 year(s) Height: 175.3 cm (69 in.) Weight: 84.82 kg (187 lb.) BSA: 2.01 m2 Gender: Male Examination: Limited Echo Indication: assess for change from last echo/severe SOB/OLIVAS since cardiac cath Image Quality: Contrast: Requested by: Faith Vasquez BP: 72 mmHg/43 mmHg Heart Rate: Rhythm: Indication: assess for change from last echo/severe SOB/OLIVAS since cardiac cath Procedure Staff Green Meat Packer: Annmarie Valverde RDCS Reading Physician: Neville Terrazas MD Requesting Provider: Conclusions: The ejection fraction is estimated to be 65-70 %. LV basal inferior akinesis. All remaining LV segments have normal motion.. Normal RV function. There is mild thickening of the mitral valve leaflets. Mild mitral valve leaflet calcification is present. Trivial mitral valve regurgitation. Trivial tricuspid valve regurgitation. The IVC is dilated. No pericardial effusion. No pleural effusion. Measurements: Chambers Valvular Assessment AV/MV Valvular Assessment TV/PV Normal Normal Normal Name Value Range Name Value Range Name Value Range EF Range: 65-70 % Continued Measurements: Findings: Left Ventricle: The ejection fraction is estimated to be 65-70 %. LV basal inferior akinesis. All remaining LV segments have normal motion.. Right Ventricle: Normal RV function. Mitral Valve: There is mild thickening of the mitral valve leaflets. Mild mitral valve leaflet calcification is present. Trivial mitral valve regurgitation. Patient: MARCI QUIGLEY Study Date: 09/23/2018 Page 1 of 2 02:30 PM Tricuspid Valve: The tricuspid valve appears normal. Trivial tricuspid valve regurgitation. IVC: The IVC is dilated. Pericardium: No pericardial effusion. No pleural effusion. (No Signature Object) Patient: MARCI QUIGLEY Study Date: 09/23/2018 Page 2 of 2 02:30 PM [id number]
[2018-09-23] MEDS: TAMSULOSIN HCL 0.4 MG CAP PO SCH (21:42)
[2018-09-23] MEDS: Zolpidem Tartrate [Ambien Cr] 6.25 MG PO SCH (21:43)
[2018-09-23] MEDS: MELATONIN 3 MG TAB PO SCH (21:46)
[2018-09-23] MEDS: ACETAMINOPHEN 325 MG TAB PO PRN (23:15)
[2018-09-23] MEDS: oxyCODONE IR 5 MG TAB PO PRN (23:16)
[2018-09-24] MEDS: IPRATROPIUM/ALBUTEROL 3 ML DEYVIAL IH SCH ×2 (05:14→09:52)
[2018-09-24 07:54] VITALS: BP 166/84
[2018-09-24] MEDS ORDERED: METOPROLOL TARTRATE 25 MG TAB PO SCH ×3 (08:00→21:00)
[2018-09-24 08:45] LABS: PLATELET COUNT 341 10^3/uL (150-400)
--- NOTE | 2018-09-24 08:46 | SOAPPROG ---
SOAP Progress Note Assessment/Plan: Assessment: CKD 4, baseline creat 2.2-2.4 NIRMALA after cath, likely combination of hypotension and contrast, creat pending today, 2.4 yesterday 2.3 day prior, 1.9 most of his hospital stay AMI, s/p stenting of RCA SVG 09/19/18 Intermitant hypotension since cor intervention Plan: metoprolol at 12.5mg BID, bp better today continue other therapies check troponin again today 09/23/18 11:57 09/24/18 08:43 Subjective: up to chair brighter spirits today no nausea or vomiting today no cp or significant sob says his edema is better than at home Objective: Vital Signs Temp Pulse Resp BP Pulse Ox 36.8 C 66 19 166/84 H 100 09/24/18 07:52 09/24/18 07:52 09/24/18 07:52 09/24/18 07:52 09/24/18 07:52 Microbiology 09/23/18 13:13 Respiratory Panel (PCR) - Final Nasal, Sinus - Swab No Organism Detected By Pcr Laboratory Results 09/21/18 03:38 09/23/18 06:03 09/23/18 09/24/18 09/25/18 05:59 05:59 05:59 Intake Total 368 Output Total 800 850 Balance -800 -482 PT 15.1 SEC (12.0-15.0) H 09/19/18 03:24 INR 1.17 (0.83-1.16) H 09/19/18 03:24 Physical Exam - Physical Exam General Appearance: alert Neck: normal inspection Respiratory: rales, No rhonchi, No wheezing Cardiac/Chest: regular rate, rhythm, edema, No friction rub Abdomen: normal bowel sounds, non-tender, soft Skin: warm/dry Extremities: swelling (trace to +1) Neuro/Psych: alert, normal mood/affect, oriented x 3 ICD10 Worksheet Patient Problems: Problems Problem Status Onset Fracture of femoral neck, right Acute Chest pain Acute Chronic Disease Mgmt/Transitional Care Acute Elevated troponin Acute NSTEMI (non-ST elevated myocardial infarction) Acute
[2018-09-24] MEDS: ASPIRIN EC 325 MG TAB PO SCH (09:49)
[2018-09-24] MEDS: APIXABAN 5 MG TAB PO SCH (09:50)
[2018-09-24] MEDS: ATORVASTATIN CALCIUM 40 MG TAB PO SCH (09:50)
[2018-09-24] MEDS: CLOPIDOGREL BISULFATE 75 MG TAB PO SCH (09:51)
[2018-09-24] MEDS: AMIODARONE HCL 200 MG TAB PO SCH (09:51)
[2018-09-24] MEDS: SENNOSIDES/DOCUSATE SODIUM TAB PO SCH (09:51)
[2018-09-24] MEDS: FLUTICASONE/SALMETER 250/50MCG DISKUS IH SCH (09:52)
[2018-09-24] MEDS: Tiotropium Bromide [Spiriva Respimat] IH SCH (09:52)
--- NOTE | 2018-09-24 10:00 | PDIAF ---
- Diagnosis Diagnosis: hip fracture, cardiac stent Code Status: Do Not Resuscitate - Medication Management Discharge Medications: electronically signed and located in the Home Medication List. - Orders Services needed: Physical Therapy, Occupational Therapy Diet Recommendation: no restrictions on diet Additional Instructions: For new cardiac stent - must stay of Plavix for minimum 1 year Take Aspirin 325mg for 1 month, then stop, but stay on Plavix Post-op hip instructions per ortho - Dr. Sosa Outpatient PET/CT with Dr. Mayberry to evaluate lung mass - Follow Up Care Current Providers and Referrals: Oscar Sosa MD [Medical Doctor] - Patient,NotPresent [Unknown] - As per Instructions Raman Mayberry MD [Medical Doctor] - Ar Perez MD [Medical Doctor] - follow up in 2 weeks
--- NOTE | 2018-09-24 11:40 | ASMTDCNOTE ---
Case Management Discharge Discharge Order Complete? Answers: Yes Patient to Obtain Answers: Other Notes: [facility] Medications Transportation Arranged Answers: Other Notes: wheelchair with O2 arranged by [facility] Transport will Pick (Date 09/24/2018 01:15 PM & Time) Faxed Final Orders Answers: Yes Notes: to [facility] Agency/Facility Transfer Answers: Yes Notes: to [facility] Report Printed & Faxed to Receiving Agency Discharge Comments Notes: 09/24/2018 Case Management Note Faxed final orders to [facility]. RN to call report. Transport arranged by Alina at [facility] for 1300 sampler pickup. Case Management d/c poc: [facility]hab Date Signed: 09/24/2018 11:40 AM Electronically Signed By:Zoe Arriola RN
--- NOTE | 2018-09-24 11:41 | ASDISCHSUM ---
Discharge Information Plan Status:SNF Medically Cleared to Leave:09/23/2018 Discharge Date:09/23/2018 CM D/C Disposition:Shelter Facility ADT D/C Disposition:Shelter Facility Projected Discharge Date:09/14/2018 11:00 AM Transportation at D/C:Wheelchair Van Discharge Delay Reason: Follow-Up Date:09/14/2018 11:00 AM Discharge Slot: Final Diagnosis: Placement Information Referral Type:*Half-Way/SNF Referral ID:[id number] Provider Name:[facility] Address 1:[address] Address 2: City:[place] Selection Factors: State:[place] Patient Contact Information Contact Name:TASHA Relationship:Daughter Address:[address] City:[place] Alternate Phone: State/Zip Code:[place] [address] Email: Financial Information Financial Class:Medicare Primary Plan Desc:MEDICARE INPATIENT Primary Plan Number:[id number] Secondary Plan Desc:AARP/MDR SUPPLEMENT Secondary Plan Number:[id number] Assessment Information LACE LACE Acuity / Level of Answers: Yes Care: Did the patient have an inpatient admission? Comorbidities - select Answers: Chronic pulmonary disease all that apply Coronary Artery Disease History of falls Moderate or severe liver or renal disease Previous myocardial infarction Other Notes: HTN, HLD, NSTEMI, AAA repair x 2, CABGx3, CK D stage IV, laminectomy x2, anemia, angioplasty , c auda equina syndrome (w/residual RLE weaknes s) # of Emergency department Answers: 3-4 visits in the last 6 months Score: 19 Date Signed: 09/08/2018 08:04 PM Electronically Signed By:Maria De Jesus Elise RN [facility] CM Progress Note CM Note CM Note Notes: Pt presented to the ED via EMS for right sided hip pain after having a mechanical fall at home. Pt had tripped on his oxygen tubing while trying to get out of his recliner and look at his calendar for upcoming medical appt possibilities. Pt admitted for a right femoral neck fracture. Received a call from Hamida Stiles RN w/[facility] Transitional Care ([phone]). Pt has extensive PMH including 2 recent NC's (admtd 07/30-08/01/18 and 09/01-09/05/18). TC re-started following pt this last weekend when he was d/c'd home again. See H&P for additional PMH. Pt's PCP is Dr David Espino at [facility]. [place] RN Senior Analyst Programmer, Mayra Agee ([phone]) has also been involved with following pt and recently set pt up w/[facility] PT to start tomorrow. Per Hamida, pt has been depressed recently due to his recent NC's (they were unable to stent) and complex ongoing medical issues. Hamida states that Kiera Soto ([phone]), Behavioral Health Specialist at [place], called pt today and was talking to him when he tripped on his oxygen tubing and fell. 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 Pt normally is on 4L O2 at home. Pt is normally independent w/ADLs. Spoke w/pt and discussed that he may be recommended to DC to SNF. Pt states he understands this and had been in a SNF in [place] after his AAA repair. Pt's daughter, Elizabeth Delgado ([phone]), is also a pharmacist that works in [place] but lives in [place]; she is on her way to [facility] this evening. Pt also has a son, Soren. Exact DC needs TBD. CM to follow. Date Signed: 09/08/2018 08:26 PM Electronically Signed By:Maria De Jesus Elise RN [facility] CM Progress Note CM Note CM Note Notes: Therapies are recommending SNF rehab for patient. Will meet with patient today to discuss which programs he is interested in. CM will follow. Date Signed: 09/11/2018 09:46 AM Electronically Signed By:Sherir Tyson LCSW [facility] CM Progress Note CM Note CM Note Notes: [facility] A referral was sent to [facility]. CM will follow. Date Signed: 09/11/2018 04:00 PM Electronically Signed By:Sherri Tyson LCSW [facility] CM Progress Note CM Note CM Note Notes: Discussed pt in rounds. 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 In Rehab has attempted to evaluate him for placement, but he has been too weak or ill to participate. They will attempt again. PT is recommending SNF at this time and pt has been accepted by [facility]. Transitional Care team is also following him. Pt is likely to discharge tomorrow. CM to follow. D/C Plan: [facility] Rehab v Inpt Rehab Date Signed: 09/15/2018 03:10 PM Electronically Signed By:Yesy Burdick [facility] CM Progress Note CM Note CM Note Notes: 09/17/2018 Case Management Note Pt had cardioversion today. Updated [place] via [employer]. Inpatient rehab notified case management via phone on Friday that review was complete and pt was declined. Case Management d/c poc: [facility] rehab when medically stable. Case Management to follow. Date Signed: 09/17/2018 02:00 PM Electronically Signed By:Zoe Arriola RN [facility] CM Progress Note CM Note CM Note Notes: Per hospital medicine, patient will transfer to [facility] tomorrow. Christin at [facility] notified. Date Signed: 09/21/2018 12:25 PM Electronically Signed By:Orin Huber RN Case Management Discharge Plan Note Case Management Discharge Discharge Order Complete? Answers: Yes Patient to Obtain Answers: Other Notes: [facility] Medications Transportation Arranged Answers: Other Notes: wheelchair with O2 arranged by [facility] Transport will Pick (Date 09/24/2018 01:15 PM & Time) Faxed Final Orders Answers: Yes Notes: to [facility] Agency/Facility Transfer Answers: Yes Notes: to [facility] Report Printed & Faxed to Receiving Agency Discharge Comments Notes: 09/24/2018 Case Management Note [facility] to call report. Transport arranged by Alina at [facility] for [address] room. [facility] Date Signed: 09/24/2018 11:40 AM Electronically Signed By:Zoe Arriola RN Intervention Information Intervention Type:*IM-Signed Date of Service:09/24/2018 10:30 AM Patient Type:Inpatient Staff Member:Barbara Gomez Hours: Discipline: Severity: Comment:
--- NOTE | 2018-09-24 12:34 | PDCARPN ---
Cardiology Progress Note Assessment/Plan: Assessment: 77 year-old male with a complex cardiovascular and medical history. Recent recurrent ACS. He was admitted to the hospital 09/08 after a mechanical fall with right hip fracture, and surgical repair 09/09. 1. Paroxysmal Atrial Fibrillation: Post-op AF/RVR requiring IV and PO amiodarone and DCCV. SR yesterday. Today Atrial Fib with well controlled rate 74. - Cont PO amiodarone, and anticoagulation with Eliquis. 2. Coronary Artery Disease: History of multivessel CAD with 3-vessel CABG 20 years ago. Cardiac angiogram in July 2018 showed severe anvik CAD, a patent DO to LAD graft, a patent SVG to obtuse marginal, and a patent but highly degenerated and aneurysmal SVG to the RCA with a high grade stenosis in the distal graft body. High risk for complications and poor outcome led to deferring PCI. However, with recurrent episodes of angina and small troponin increases, it was felt the risk had to be taken. He was taken to the lab rn by Dr. Bloom with successful PCI/stent in the distal body of SVG to RCA Sep 20 2018, along with balloon PTCA just distal to the graft anastomosis. Today he has no chest pain or SOB. Current medications: aspirin, clopidogrel, and Eliquis. After 30 days the aspirin component of his DAPT can be stopped as long as he continues Eliquis. Plan: Continue to follow closely on Telemetry monitoring for V-Tach which he has had in the past. He is in A Fib with well controlled Ventricular rate of 74. 09/21/18 13:17 09/22/18 patient was seen and evaluated. His Cr had elevated to 2.5, likely related to contrast used for Angiogram, and perhaps not hydrating well enough. His exam was unchanged. He did walk with physical therapy to the day room and felt he tolerated it well. 09/23/18 11:47 Gulshan continues to improve. He has no cardiac complaints. He was seen by Nephrology yesterday with no new recommendations. His Cr baseline is 2.2 to 2.4. [place] the increase Cr was due to angiogram, and hypotension yesterday. No V -Tach has been noted on telemetry since before revascularization with Stent placement. He feels he is progressing well. He will likely be going to Rehab for his hip fracture in the next couple days. 09/23/18 17:47 Dr Neville Terrazas re-examined Gulshan. Will get weight in AM. Agrees with reducing Metoprolol dose. Watch his Hgb as it has declined. This may be contributing to his SOB. He has COPD, and he likely is SOB related to his COPD. Recommend Spirometer. Will check BNP in AM. Medications were reviewed, and no recommendation for changing dose except the Metoprolol. 09/24/18 12:25 Gulshan is up in the chair. he denies SOB when sitting. He did walk in the rucker this morning and got SOB. He is talkative, and appears in no distress. He does have 1+ pitting edema lower legs. His abdomen is full, and firmer than yesterday. BNP today 8000+, Will restart Lasix at 10 mg QD, taking into consideration his tendency for elevation of Cr. The Lasix has been on HOLD. He is tolerating the lower dose of Metoprolol well (now at 25 mg QD). He continues on Eliquis, Plavix and ASA. After 30 days on the ASA/Plavix combo, he can stop the ASA. (Approx Oct 20 2018.)He does have a follow up with Dr Bloom in one month scheduled. He is generally doing better today. Subjective: I feel better today. Not SOB sitting in the chair. With walk I do get SOB. Reviewed/Discussed With: hospitalist, multidisciplinary team Time Spent with Patient: greater than 25 minutes Time Spent with Patient: Greater than 25 minutes spent on this patients care, greater than 50% of time spent counseling, educating, and coordinating care regarding the above mentioned plan. Objective: Vital Signs (8 Hrs) Temp Pulse Resp BP Pulse Ox 09/24/18 09:56 72 18 98 09/24/18 07:52 36.8 C 66 19 166/84 H 100 Intake/Output (24 Hrs) 09/23/18 09/24/18 09/25/18 05:59 05:59 05:59 Intake Total 368 Output Total 800 850 Balance -800 -482 Intake: Oral (ml) 368 IV Intake (ml) 0 Output: Urine (ml) 800 850 Incontinence 325 Urinal 475 850 Other: Number of Voids Incontinence 1 Urinal 1 Result Diagrams: 09/24/18 08:10 09/24/18 08:10 Cardiac Labs: Cardiac Lab Results (72 Hrs) 09/24/18 09/23/18 08:05 12:59 Troponin I 0.123 H 0.133 H - Physical Exam Constitutional: no apparent distress Cardiovascular: regular rate and rhythm, no murmurs, no rubs Respiratory: clear to auscultate bilat, no crackles, no wheezes Skin: warm Neurologic: AAOx3 Psychiatric: cooperative, interactive ICD10 Worksheet Patient Problems: Problems Problem Status Onset NSTEMI (non-ST elevated myocardial infarction) Acute Fracture of femoral neck, right Acute Chronic Disease Mgmt/Transitional Care Acute Chest pain Acute Elevated troponin Acute
[2018-09-24] MEDS ORDERED: FUROSEMIDE 20 MG TAB PO SCH (15:00)
--- NOTE | 2018-09-25 04:28 | GDS ---
DISCHARGE DIAGNOSES: 1. Femoral neck fracture, status post hemiarthroplasty. 2. Bwx-ED-obuyitizv myocardial infarction. 3. Status post stent to the SVG graft. 4. Coronary artery disease, status post previous coronary artery bypass graft. 5. Atrial fibrillation, status post cardioversion. 6. Ventricular tachycardia due to ischemia, no recurrence post stent. 7. Acute blood loss anemia. 8. Chronic obstructive pulmonary disease with chronic respiratory failure 4 L. 9. Right lung mass. Needs outpatient PET-CT scan. 10. Chronic kidney disease. Baseline creatinine 2.0-2.4. 11. Abdominal aortic aneurysm repair. 12. Acute on chronic diastolic congestive heart failure. HISTORY: The patient is a 77-year-old male, who presented with a femoral neck fracture. He went to surgery with Dr. Sosa and had a hemiarthroplasty. His hospitalization was prolonged due to cardiac decompensation, non ST-elevation UT, atrial fibrillation requiring cardioversion, and ventricular ta chycardia. After his hip fracture, he went to cardiac catheterization and had a stent placed to his SVG graft. He has a previous history of CABG and was known to have a stenosis at this level and medical manageme nt had been attempted; however, was felt to have failed, and so decision was made to proceed with loni nt to the graft despite his high risk status. He has done relatively well with this stent, although he did go into some worsening renal failure due to the IV contrast, although this was mild and transi ent, and he was back to his baseline creatinine at the time of discharge. He also had new onset atrial fibrillation during this hospitalization and underwent cardioversion. Shyanne gardner is now on amiodarone and metoprolol as well as Eliquis for stroke prevention. He will be on triple therapy; aspirin, Plavix and Eliquis for 30 days. However, after 30 days are complete, he can go to Plavix and Eliquis alone. Ventricular tachycardia was noted prior to his cardiac stent. This is presumed due to ischemia as he has had no recurrence of ventricular tachycardia since the stent was placed. His respiratory status has also been marginal during this hospitalization. We incidentally found a r ight lung mass that is suspicious for cancer and outpatient PET-CT scan is recommended. He was given nebulizer treatments and significant respiratory support as he was having problems with severe short ness of breath after his cardiac catheterization. At the time of discharge, however, I believe he montalvo s stabilized to near baseline and can transfer to [facility] for further rehabilitation. DISCHARGE MEDICATIONS: Please see computerized record for full detailed list. New medications: 1. Amiodarone 200 mg p.o. daily. 2. Aspirin 325 mg p.o. daily. 3. Eliquis 5 mg p.o. twice daily. 4. Oxycodone 5-10 mg p.o. q.3 hours as needed. 5. Aspirin increased from 81 to 325 mg p.o. daily. Discontinued medications are: Imdur 60 mg p.o. daily. ADDITIONAL DISCHARGE INSTRUCTIONS: 1. Must stay on Plavix for 1 year after new cardiac stent. 2. Take aspirin 325 mg for 1 month and then stop and go to Plavix alone. 3. Outpatient PET-CT scan with Dr. Mayberry to evaluate lung mass. 4. Postoperative hip fracture per Orthopedic surgery, and he should follow up with Dr. Sosa the 1s t week in October. 5. Follow up with Dr. Ar Perez of Cardiology in 2 weeks. Greater than 30 minutes' time was spent arranging this discharge. Patient was seen and examined by aneesh gardner on day of discharge. /[id number]/MODL
== END 2018-09-24 13:52 | DRG 469 ==
LOC: EDUNIT# → EDBD → F3N 18:22 → F2N 09-09 23:53 → F3N 09-13 15:35 → F2W 09-14 12:44 → F2N 09-19 11:40 → F2W 09-19 16:55
PROVIDERS: ADMIT Internal Medicine; ATTEND Internal Medicine
PROC: 0SRR0JZ Replacement of Right Hip Joint, Femoral Surface with Synthetic Substitute, Open Approach (ICD-10-PCS; principal; 2018-09-08)
PROC: 30233N1 Transfusion of Nonautologous Red Blood Cells into Peripheral Vein, Percutaneous Approach (ICD-10-PCS; 2018-09-09)
PROC: 5A2204Z Restoration of Cardiac Rhythm, Single (ICD-10-PCS; 2018-09-14)
PROC: B245ZZ4 Ultrasonography of Left Heart, Transesophageal (ICD-10-PCS; 2018-09-14)
PROC: 5A2204Z Restoration of Cardiac Rhythm, Single (ICD-10-PCS; 2018-09-18)
PROC: 027034Z Dilation of Coronary Artery, One Artery with Drug-eluting Intraluminal Device, Percutaneous Approach (ICD-10-PCS; 2018-09-19)
DX: S72.001A Fracture of unspecified part of neck of right femur, initial encounter for closed fracture (principal); I21.4 Non-ST elevation (NSTEMI) myocardial infarction; I13.0 Hypertensive heart and chronic kidney disease with heart failure and stage 1 through stage 4 chronic kidney disease, or unspecified chronic kidney disease; I50.33 Acute on chronic diastolic (congestive) heart failure; N18.4 Chronic kidney disease, stage 4 (severe); I47.2 Ventricular tachycardia; D62 Acute posthemorrhagic anemia; J96.10 Chronic respiratory failure, unspecified whether with hypoxia or hypercapnia; W01.0XXA Fall on same level from slipping, tripping and stumbling without subsequent striking against object, initial encounter; Y92.019 Unspecified place in single-family (private) house as the place of occurrence of the external cause; E86.9 Volume depletion, unspecified; I25.10 Atherosclerotic heart disease of native coronary artery without angina pectoris; I48.0 Paroxysmal atrial fibrillation; J44.9 Chronic obstructive pulmonary disease, unspecified; R91.8 Other nonspecific abnormal finding of lung field; Z95.1 Presence of aortocoronary bypass graft; Z87.891 Personal history of nicotine dependence; Z66 Do not resuscitate; I25.5 Ischemic cardiomyopathy; E78.5 Hyperlipidemia, unspecified; Z99.81 Dependence on supplemental oxygen; I45.10 Unspecified right bundle-branch block
CPT/HCPCS: 96374; 97110-GO; 97110-GP; 97116-GP; 97162-GP; 97164-GP; 97166-GO; 97530-GO; 97530-GP; 97535-GO; C1725; C1769; C1876; C1884; C1887; G8978-GP-CJ; G8978-GP-CM; G8979-GP-CI; G8979-GP-CJ; G8987-GO-CL; G8988-GO-CI; J0153; J0282; J0330; J0461; J0583; J0690; J1170; J1200; J1644; J1650; J1940; J2060; J2250; J2270; J2370; J2405; J2550; J2704; J2765; J3010; P9016; P9041; Q9967

== ENCOUNTER 2018-09-29 11:46 | Inpatient (IN) | payer OTHER, MEDICARE ==
--- NOTE | 2018-09-29 12:01 | EDPHY ---
HPI/HX/ROS/PE/MDM Narrative: CHIEF COMPLAINT: Abdominal distention HISTORY OF PRESENT ILLNESS: This patient is a 77 year old male with history of COPD, kidney disease, CHF, CAD s/p CABG and stent placement. He recently had a prolonged admission following femoral neck fracture s/p hemiarthroplasty which was complicated due to cardiac decompensation, non-STEMI with stent placement, atrial fibrillation, and ventricular tachycardia. He was discharged to rehab five days ago, 09/24/18 , and feels as if he has been "going downhill" since then. He complains of weakness, nausea, and inability to sleep. He endorses cough. His last bowel movement was Friday, three days ago. He has been taking hydrocodone as directed for pain. He is currently on triple anticoagulation therapy with aspirin, Plavix, and Eliquis. No fever, chills, chest pain, palpitations, vomiting, diarrhea, urinary complaints, headache, lightheadedness. REVIEW OF SYSTEMS: A comprehensive 10 system review of systems is otherwise negative aside from elements mentioned in the history of present illness and medical decision making. PAST MEDICAL HISTORY: 1. Stage IV COPD, on 4L O2. 2. Stage IV CKD, previously on dialysis. 3. History of AAA s/p repair. 4. Laminectomy. 5. CAD s/p CABG. 6. Right femoral neck fracture s/p right hip replacement 09/08/18. 7. Atrial fibrillation s/p cardioversion. Medications: Ambien, Amiodarone, ASA, Breo, Eliquis, Flomax, DuoNeb, Lasix, Lipitor, Metoprolol, Melatonin, Nitro prn, Oxycodone, Plavix, Reglan, Ventolin. SOCIAL HISTORY: Currently staying at [facility] following recent admission. Retired. Lives in [place]. VITAL SIGNS: Reviewed by me GENERAL: Elderly, weak, tired-appearing. In no respiratory distress. HEENT: Atraumatic. Eyes: No icterus, no injection. Mouth: dry mucous membranes, lips are bleeding due to dryness. No erythema or lesions. Neck: supple with no adenopathy. LUNGS: Clear to auscultation bilaterally, no wheezes, rhonchi or rales. CARDIAC: Regular rate and rhythm, no rubs, murmurs or gallops. ABDOMEN: Grossly distended, tympanitic, diffusely tender. No rebound or guarding. BACK: No CVA tenderness. EXTREMITIES: No trauma. No edema. Range of motion is normal throughout. NEURO: Alert and oriented, grossly nonfocal. SKIN: Warm and dry, no rash. PSYCHIATRIC: Normal mentation, no agitation. Portions of this note were transcribed by a medical administrator. I personally performed a history, physical exam, medical decision making, and confirmed accuracy of information the transcribed note. ED Course: 77 year old male who is currently on triple anticoagulation therapy (ASA, Eliquis, Plavix) presents with apparent failure to thrive in rehabilitation following a prolonged admission for right femoral neck fracture with significant cardiac complications. He has significant abdominal distention and tenderness on exam. Plan for EKG, labs including CBC, chemistries, troponin, liver, UA. Plan for x-ray of abdomen. 12-LEAD EKG: Please see the full report in [facility]. My interpretation: Sinus rhythm, rate 67. RBBB. Laboratory studies consistent with worsening renal failure, creatinine 2.8. Patient was noted to have acute blood loss anemia during his recent admission, and his hematocrit is low at 25.6 today. X-ray of abdomen shows evidence of obstipation. Troponin elevated at 0.37. Plan to admit for concerns regarding dehydration, worsening renal failure, abdominal pain, elevated troponin. 13:13 Spoke with hospitalist service. Dr. Whitfield accepts admission for renal failure, dehydration, obstipation, abdominal pain. MDM: Differential diagnoses for the patient's symptom complex was considered including but not limited to constipation, obstipation, bowel obstruction, severe dehydration, electrolyte abnormalities, worsening renal insufficiency, coronary artery disease. - Data Points Imaging Results: Imaging Impressions Abdomen X-Ray 09/29/18 12:05 Impression: Suspect obstipation vs ileus. Imaging: I viewed and interpreted images myself Laboratory Results: Laboratory Results 09/29/18 12:07 09/29/18 12:07 09/29/18 09/29/18 09/29/18 13:02 12:07 12:07 WBC RBC Hgb Hct MCV MCH MCHC RDW Plt Count MPV Neut % (Auto) Lymph % (Auto) [place] % (Auto) Eos % (Auto) Baso % (Auto) Nucleat RBC Rel Count Absolute Neuts (auto) Absolute Lymphs (auto) Absolute Monos (auto) Absolute Eos (auto) Absolute Basos (auto) Absolute Nucleated RBC Immature Gran % Seg Neutrophils % Band Neutrophils % Lymphocytes % Monocytes % Eosinophils % Basophils % Metamyelocytes % Myelocytes % Promyelocytes % Blast Cells % Immature Gran # Absolute Seg Neuts Absolute Band Neuts Absolute Lymphocytes Absolute Monocytes Absolute Eosinophils Absolute Basophils Absolute Metamyelocyte Absolute Myelocytes Absolute Promyelocytes Absolute Plasma Cells Nucleated RBCs Absolute Blast Cells Plasma Cells % Platelet Estimate PT 20.8 SEC H SEC (12.0-15.0) INR 1.78 H (0.83-1.16) Sodium Potassium Chloride Carbon Dioxide Anion Gap BUN Creatinine Estimated GFR Glucose Calcium Total Bilirubin Conjugated Bilirubin Unconjugated Bilirubin AST ALT Alkaline Phosphatase POC Troponin I 0.31 ng/mL H ng/mL (0.00-0.08) Troponin I NT-Pro-B Natriuret Pep 10471 pg/mL H pg/mL (0-450) Total Protein Albumin 09/29/18 09/29/18 09/29/18 12:07 12:07 12:07 WBC 10.06 10^3/uL H 10^3/uL (3.80-9.50) RBC 2.75 10^6/uL L 10^6/uL (4.40-6.38) Hgb 8.4 g/dL L g/dL (13.7-17.5) Hct 25.6 % L % (40.0-51.0) MCV 93.1 fL fL (81.5-99.8) MCH 30.5 pg pg (27.9-34.1) MCHC 32.8 g/dL g/dL (32.4-36.7) RDW 14.6 % % (11.5-15.2) Plt Count 368 10^3/uL 10^3/uL (150-400) MPV 8.6 fL L fL (8.7-11.7) Neut % (Auto) Not Reported Lymph % (Auto) Not Reported [place] % (Auto) Not Reported Eos % (Auto) Not Reported Baso % (Auto) Not Reported Nucleat RBC Rel Count Not Reported Absolute Neuts (auto) Not Reported Absolute Lymphs (auto) Not Reported Absolute Monos (auto) Not Reported Absolute Eos (auto) Not Reported Absolute Basos (auto) Not Reported Absolute Nucleated RBC Not Reported Immature Gran % Not Reported Seg Neutrophils % 91.0 % % Band Neutrophils % 0.0 % % Lymphocytes % 3.0 % % Monocytes % 4.0 % % Eosinophils % 0.0 % % Basophils % 2.0 % % Metamyelocytes % 0.0 % % Myelocytes % 0.0 % % Promyelocytes % 0.0 % % Blast Cells % 0.0 % % Immature Gran # Not Reported Absolute Seg Neuts 9.15 10^3/uL H 10^3/uL (1.70-6.50) Absolute Band Neuts 0.00 10^3/uL 10^3/uL (0.00-0.70) Absolute Lymphocytes 0.30 10^3/uL L 10^3/uL (1.00-3.00) Absolute Monocytes 0.40 10^3/uL 10^3/uL (0.30-0.80) Absolute Eosinophils 0.00 10^3/uL L 10^3/uL (0.03-0.40) Absolute Basophils 0.20 10^3/uL H 10^3/uL (0.02-0.10) Absolute Metamyelocyte 0.00 10^3/mL 10^3/mL (0.00-0.00) Absolute Myelocytes 0.00 10^3/mL 10^3/mL (0.00-0.00) Absolute Promyelocytes 0.00 10^3/uL 10^3/uL (0.00-0.00) Absolute Plasma Cells 0.00 10^3/uL 10^3/uL (0.00-0.00) Nucleated RBCs 0 /100 WBC /100 WBC (0-0) Absolute Blast Cells 0.00 10^3/uL 10^3/uL (0.00-0.00) Plasma Cells % 0.0 % % Platelet Estimate ADEQUATE (ADEQ) PT INR Sodium 132 mEq/L L mEq/L (135-145) Potassium 4.6 mEq/L mEq/L (3.5-5.2) Chloride 97 mEq/L mEq/L (97-110) Carbon Dioxide 27 mEq/l mEq/l (22-31) Anion Gap 8 mEq/L mEq/L (6-14) BUN 41 mg/dL H mg/dL (7-23) Creatinine 2.8 mg/dL H mg/dL (0.7-1.3) Estimated GFR 22 Glucose 126 mg/dL H mg/dL (70-100) Calcium 8.2 mg/dL L mg/dL (8.5-10.4) Total Bilirubin 1.1 mg/dL mg/dL (0.1-1.4) Conjugated Bilirubin 0.6 mg/dL H mg/dL (0.0-0.5) Unconjugated Bilirubin 0.5 mg/dL mg/dL (0.0-1.1) AST 23 IU/L IU/L (17-59) ALT 19 IU/L L IU/L (21-72) Alkaline Phosphatase 73 IU/L IU/L (38-126) POC Troponin I Troponin I 0.369 ng/mL H ng/mL (0.000-0.034) NT-Pro-B Natriuret Pep Total Protein 6.1 g/dL L g/dL (6.3-8.2) Albumin 3.0 g/dL L g/dL (3.5-5.0) Medications Given: Albuterol/Ipratropium (Duoneb) 3 ml IH Q6HRS [facility] Stop: 03/28/19 17:59 Last Admin: 09/29/18 21:36 Dose: 3 ml Sodium Chloride (Ns) 1,000 mls @ 75 mls/hr IV CONT [facility] Stop: 03/28/19 15:14 Last Admin: 09/29/18 18:35 Dose: 1,000 mls Metoclopramide HCl (Reglan) 5 mg PO TID [facility] Stop: 03/28/19 15:59 Last Admin: 09/29/18 20:24 Dose: 5 mg Scopolamine HBr (Scopolamine Patch) 1 patch TD Q72H [facility] Stop: 03/28/19 17:14 Last Admin: 09/29/18 18:35 Dose: 1 patch Discontinued Medications Bisacodyl (Dulcolax Rectal) 10 mg GA ONCE ONE Stop: 09/29/18 15:09 Last Admin: 09/29/18 18:36 Dose: 10 mg Sodium Chloride (Ns) 1,000 mls @ 0 mls/hr IV ONCE ONE; Wide Open PRN Reason: Protocol Stop: 09/29/18 12:06 Last Admin: 09/29/18 12:19 Dose: 1,000 mls Ondansetron HCl (Zofran) 4 mg IVP EDNOW ONE Stop: 09/29/18 12:06 Last Admin: 09/29/18 12:20 Dose: 4 mg Point of Care Test Results: Chemistry 09/29/18 13:02 POC Troponin I 0.31 ng/mL H ng/mL (0.00-0.08) General Time Seen by Provider: 09/29/18 11:48 Initial Vital Signs: Initial Vital Signs Temperature (C) 37 C 09/29/18 11:53 Heart Rate 76 09/29/18 11:53 Respiratory Rate 11 L 09/29/18 11:53 Blood Pressure 124/72 H 09/29/18 11:53 O2 Sat (%) 95 09/29/18 11:53 O2 Delivery Mode Nasal Cannula O2 (L/minute) 4 Allergies/Adverse Reactions: NSAIDS (Non-Steroidal Anti-Inflamma [NSAIDS (Non-Steroidal Anti-Inflammatory Drug)] Allergy (Unknown, Verified 09/08/18 17:19) Other-Enter Comments Home Medications: Medication Instructions Recorded Melatonin [Melatonin 3 MG (*)] 3 mg PO HS 07/28/18 Metoprolol Tartrate [Lopressor 25 12.5 mg PO BID 07/28/18 mg (*)] Tiotropium [place] [Spiriva 2 inh IH DAILY 07/28/18 Respimat] Zolpidem Tartrate [Ambien Cr] 6.25 mg PO HS 07/28/18 Furosemide [Lasix 20 MG (*)] 20 mg PO DAILY 07/30/18 Tamsulosin HCl [Flomax 0.4 MG (*)] 0.4 mg PO HS 07/30/18 Clopidogrel Bisulfate [Plavix (*)] 75 mg PO DAILY #30 tab 08/01/18 Nitroglycerin [Nitrostat 0.4 mg 0.4 mg SL Q5M PRN #30 bottle 08/01/18 (*)] Albuterol Sulfate [Ventolin Hfa] 1 - 2 puffs IH DAILY PRN 09/01/18 Amiodarone HCl [Pacerone (*)] 200 mg PO DAILY #30 tab 09/24/18 Apixaban [Eliquis] 5 mg PO BID #60 tab 09/24/18 Aspirin EC [Aspirin EC 325 mg (*)] 325 mg PO DAILY #30 tab 09/24/18 oxyCODONE IR [Oxycodone Ir (*)] 5 - 10 mg PO Q3HRS PRN #20 tab 09/24/18 Atorvastatin Calcium [Lipitor 40 40 mg PO HS 09/29/18 mg (*)] Fluticasone/Vilanterol [Breo 1 each IH DAILY 09/29/18 Ellipta 100-25 Mcg INH] Ipratropium/Albuterol [Duoneb (*)] 3 ml IH Q6HRS 09/29/18 Metoclopramide [Reglan 5 mg (*)] 5 mg PO Q8HRS PRN 09/29/18 Metoclopramide [Reglan 5 mg (*)] 5 mg PO TID 09/29/18 guaiFENesin [Mucinex 600 MG (*)] 600 mg PO DAILY 09/29/18 Departure - Departure Disposition: [facility] Acute Clinical Impression: Obstipation, Dehydration, Elevated troponin Abdominal pain Qualifiers: Abdominal location: generalized Qualified Code(s): R10.84 - Generalized abdominal pain Renal failure Qualifiers: Renal failure chronicity: acute on chronic Acute renal failure type: unspecified Chronic kidney disease stage: stage 4 (severe) Qualified Code(s): N17.9 - Acute kidney failure, unspecified Condition: Fair Report Scribed for: Gina Rivera Report Scribed by: Kate Whitney Date of Report: 09/29/18 Time of Report: 12:01
[2018-09-29] MEDS ORDERED: ONDANSETRON 4 MG/2 ML VIAL IVP ONE (12:05)
[2018-09-29] MEDS ORDERED: NS 1,000 ML IV ONE (12:05)
[2018-09-29 12:11] LABS: PLATELET COUNT 368 10^3/uL (150-400)
[2018-09-29] MEDS ORDERED: ONDANSETRON DISINTEGRATING 4 MG TAB PO PRN (13:51)
[2018-09-29] MEDS ORDERED: ACETAMINOPHEN 325 MG TAB PO PRN (13:51)
[2018-09-29 14:12] LABS: INR 1.78 (0.83-1.16); PROTIME(PATIENT) 20.8 SEC (12.0-15.0)
--- NOTE | 2018-09-29 14:58 | PDGENHP ---
<Berenice Mallory - Last Filed: 09/29/18 16:14> History and Physical - Chief Complaint Abdominal pain, nausea, vomiting - History of Present Illness 77 y/o male with extensive and complicated medial history presents to the emergency from his rehab facility with increased creatinine levels, abdominal discomfort and distention, and nausea. He was recently admitted here on 09/08/18 d/t mechanical fall that caused a right hip fracture. Subsequently, the same day he underwent a right hip hemiarthroplasty after being cleared by cardiology, although it was noted he was a high risk for adverse events d/t his multiple morbidities. Postoperatively, he had a couple of episodes of atrial fibrillation requiring cardioversion. RASHAD was negative for left atrial clot. He was started on Plavix at that time. D/t his atrial fibrillation, he went to the slab puller on and was stented the high-grade right coronary artery , saphenous vein graft with a bare metal stent. He was to continue aspirin and Plavix for 30 days as well as continuation of his Eliquis. At the same time, Dr. Mike Garcia consulted with the pt for his increasing creatinine levels; no urgent dialysis and no changes to his medications were recommended as well as monitoring his blood pressures closely with the possibility of adjusting blood pressure medications but keeping his beta temitope and nitrates d/t his recent DE. He was scheduled to see Dr. Barroso tomorrow as a f/u. The pt was discharged on 09/24/18 to a rehab facility. The pt reports since stent placement, he noticed he is more out of breath with positional changes and it takes approximately one minute before he is able to catch his breath and carry on with his activity. Denies chest pains, fevers, chills. Approximately 4 days ago, he experienced nausea and vomiting. The sight of food or the smell of food is what triggers his vomiting. It is a small amount each time and it usually is food or clear liquids. He has vomited 2-3 times per day. Denies hematemesis. He admits to poor fluid intake, preferring coffee over water. His last bowel movement was Friday and he normally has them every 3 days. He does not have the urge to defecate currently. Denies hematochezia or melena. Abdominal discomfort is rated 1-4/ 10. He also discusses the inability to sleep; uses Oxy IR, Melatonin, and Ambien to help him sleep. He reports reasons for possible insomnia is anxiety and depression. He denies any issues with his surgical hip, mild pain with ambulation and use of a walker. At the rehab facility, he is out of bed 1-2 times with physical therapy/occupational therapy and will occasionally sit up in a chair. Abdominal x-ray: obstipation vs ileus He is being admitted for further diagnostic work-up and monitoring. Past Medical/Surgical History 1. CKD, Stage IV, baseline creatinine 2.2-2.4 2. Proteinuria 3. Hypertension 4. Peripheral vascular occlusive disease 5. S/p AAA repair x 2 (most recent one in 2015) 6. COPD (3-4L NC O2 baseline) 7. CAD 8. S/p CABG x 3 vessels (1987) 9. Coronary stent (09/19/18) 10. Hx of temporary dialysis (5 weeks) after last AAA repair 11. 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 Hx of pulmonary nodules 13. Systolic CHF with EF 40% 15. Hx of non-STEMI in July and August 2018 16. Anemia of CKD Social 1. Former smoker of cigarettes. Quit in 2016. He vapes flavors, no nicotine. Denies alcohol or illicit drug use. 2. Daughter, Elizabeth, lives in [place] 3. He lives in a senior-living facility community. Not assisted-living. Vital Signs 107/67 67 HR 20 Respirations 37.0c 96% 4L NC History Information - Allergies/Home Medication List Allergies/Adverse Reactions: NSAIDS (Non-Steroidal Anti-Inflamma [NSAIDS (Non-Steroidal Anti-Inflammatory Drug)] Allergy (Unknown, Verified 09/08/18 17:19) Other-Enter Comments Home Medications: Melatonin [Melatonin 3 MG (*)] 3 mg PO HS 07/28/18 [Last Taken 09/07/18] Metoprolol Tartrate [Lopressor 25 mg (*)] 12.5 mg PO BID 07/28/18 [Last Taken AM DOSE] Tiotropium [place] [Spiriva Respimat] 2 inh IH DAILY 07/28/18 [Last Taken ] Zolpidem Tartrate [Ambien Cr] 6.25 mg PO HS 07/28/18 [Last Taken 09/07/18] Furosemide [Lasix 20 MG (*)] 20 mg PO DAILY 07/30/18 [Last Taken 09/08/18] Tamsulosin HCl [Flomax 0.4 MG (*)] 0.4 mg PO HS 07/30/18 [Last Taken 09/07/18] Albuterol Sulfate [Ventolin Hfa] 1 - 2 puffs IH DAILY PRN 09/01/18 [Last Taken Unknown] Atorvastatin Calcium [Lipitor 40 mg (*)] 40 mg PO HS 09/29/18 [Last Taken Unknown] Fluticasone/Vilanterol [Breo Ellipta 100-25 Mcg INH] 1 each IH DAILY 09/29/18 [ Last Taken Unknown] Ipratropium/Albuterol [Duoneb (*)] 3 ml IH Q6HRS 09/29/18 [Last Taken Unknown] Metoclopramide [Reglan 5 mg (*)] 5 mg PO Q8HRS PRN 09/29/18 [Last Taken Unknown] Metoclopramide [Reglan 5 mg (*)] 5 mg PO TID 09/29/18 [Last Taken Unknown] guaiFENesin [Mucinex 600 MG (*)] 600 mg PO DAILY 09/29/18 [Last Taken Unknown] I have personally reviewed and updated: family history, medical history, social history, surgical history Past Medical History: See HPI list - Past Medical History coronary artery disease Additional medical history: AAA. CKD - Surgical History Reports: coronary bypass surgery Additional surgical history: AAA repair - Family History Positive for: non-pertinent - Social History Smoking Status: Former smoker Additional social history: See HPI list Review of Systems Review of Systems: ROS: 10pt was reviewed & negative except for what was stated in HPI & below Constitutional: Reports: malaise, recent injury EENMT: Reports: other (Dry mouth, cracked lips) Cardiac: Reports: no symptoms Respiratory: Reports: shortness of breath Gastrointestinal: Reports: vomitting, abdominal pain (RLQ - rating it 1-4/10), abdominal distention, nausea, other (+flatus) Genitourinary: Reports: no symptoms Muscolosketal: Reports: no symptoms Skin: Reports: dryness Neurological: Reports: anxiety, depressed, pre-existing deficit Hematologic/Lymphatic: Reports: anemia Immunologic/Allergy: Reports: other (See Allergy list) Physical Exam Physical Exam: Lab data and imaging reviewed EKG: SR, RBBB Abdominal x-ray: see HPI list WBC: 10.06 RBC: 2.76 Hgb/Hct: 8.4/25.6 MCV: 93.1 Na: 132 BUN/Creatinine: 41/2.8 Ca: 8.2 Troponin: 0.31 Total protein: 6.1 Albumin: 3.0 Temp Pulse Resp BP Pulse Ox 37 C 67 20 107/67 96 09/29/18 11:53 09/29/18 13:00 09/29/18 13:00 09/29/18 13:00 09/29/18 13:00 Constitutional: no apparent distress, other (Dried blood on mouth) Eyes: PERRL, anicteric sclera, EOMI Ears, Nose, Mouth, Throat: hearing normal, ears appear normal, dry mucous membranes Cardiovascular: regular rate and rhythym, no murmur, rub, or gallop, edema (BLE mild edema - non-pitting) Peripheral Pulses: 2+: dorsalis-pedis (R) (Radial 2+), dorsalis-pedis (L) ( Radial 2+) Respiratory: reduced air movement (Throughout entire lung field) Gastrointestinal: normoactive bowel sounds, tenderness (RLQ tenderness; however around the area of discomfort are bruises from Lovenox injections.), distension Genitourinary: no bladder fullness, no bladder tenderness Skin: warm, abrasion (BUE multiple bruises - he is unsure how he received those bruises. Didn't remember running into anything. No bruises noted on BLE. Some abdominal bruises from Lovenox injections.) Musculoskeletal: full muscle strength, no muscle tenderness, normal joint ROM, no joint effusions, other (Right hip surgical incision is C/D/I. ) Neurologic: AAOx3, sensation intact bilaterally, CN II-XII Intact Psychiatric: interacting appropriately, not anxious, not encephalopathic, thought process linear Lymph, Heme, Immunologic: no cervical LAD, no supraclavicular LAD Lab Data & Imaging Review 09/29/18 12:07 09/29/18 12:07 WBC 10.06 10^3/uL (3.80-9.50) H 09/29/18 12:07 RBC 2.75 10^6/uL (4.40-6.38) L 09/29/18 12:07 Hgb 8.4 g/dL (13.7-17.5) L 09/29/18 12:07 Hct 25.6 % (40.0-51.0) L 09/29/18 12:07 MCV 93.1 fL (81.5-99.8) 09/29/18 12:07 MCH 30.5 pg (27.9-34.1) 09/29/18 12:07 MCHC 32.8 g/dL (32.4-36.7) 09/29/18 12:07 RDW 14.6 % (11.5-15.2) 09/29/18 12:07 Plt Count 368 10^3/uL (150-400) 09/29/18 12:07 MPV 8.6 fL (8.7-11.7) L 09/29/18 12:07 Neut % (Auto) Not Reported 09/29/18 12:07 Lymph % (Auto) Not Reported 09/29/18 12:07 [place] % (Auto) Not Reported 09/29/18 12:07 Eos % (Auto) Not Reported 09/29/18 12:07 Baso % (Auto) Not Reported 09/29/18 12:07 Nucleat RBC Rel Count Not Reported 09/29/18 12:07 Absolute Neuts (auto) Not Reported 09/29/18 12:07 Absolute Lymphs (auto) Not Reported 09/29/18 12:07 Absolute Monos (auto) Not Reported 09/29/18 12:07 Absolute Eos (auto) Not Reported 09/29/18 12:07 Absolute Basos (auto) Not Reported 09/29/18 12:07 Absolute Nucleated RBC Not Reported 09/29/18 12:07 Immature Gran % Not Reported 09/29/18 12:07 Seg Neutrophils % 91.0 % 09/29/18 12:07 Band Neutrophils % 0.0 % 09/29/18 12:07 Lymphocytes % 3.0 % 09/29/18 12:07 Monocytes % 4.0 % 09/29/18 12:07 Eosinophils % 0.0 % 09/29/18 12:07 Basophils % 2.0 % 09/29/18 12:07 Metamyelocytes % 0.0 % 09/29/18 12:07 Myelocytes % 0.0 % 09/29/18 12:07 Promyelocytes % 0.0 % 09/29/18 12:07 Blast Cells % 0.0 % 09/29/18 12:07 Immature Gran # Not Reported 09/29/18 12:07 Absolute Seg Neuts 9.15 10^3/uL (1.70-6.50) H 09/29/18 12:07 Absolute Band Neuts 0.00 10^3/uL (0.00-0.70) 09/29/18 12:07 Absolute Lymphocytes 0.30 10^3/uL (1.00-3.00) L 09/29/18 12:07 Absolute Monocytes 0.40 10^3/uL (0.30-0.80) 09/29/18 12:07 Absolute Eosinophils 0.00 10^3/uL (0.03-0.40) L 09/29/18 12:07 Absolute Basophils 0.20 10^3/uL (0.02-0.10) H 09/29/18 12:07 Absolute Metamyelocyte 0.00 10^3/mL (0.00-0.00) 09/29/18 12:07 Absolute Myelocytes 0.00 10^3/mL (0.00-0.00) 09/29/18 12:07 Absolute Promyelocytes 0.00 10^3/uL (0.00-0.00) 09/29/18 12:07 Absolute Plasma Cells 0.00 10^3/uL (0.00-0.00) 09/29/18 12:07 Nucleated RBCs 0 /100 WBC (0-0) 09/29/18 12:07 Absolute Blast Cells 0.00 10^3/uL (0.00-0.00) 09/29/18 12:07 Plasma Cells % 0.0 % 09/29/18 12:07 Platelet Estimate ADEQUATE (ADEQ) 09/29/18 12:07 PT 20.8 SEC (12.0-15.0) H 09/29/18 12:07 INR 1.78 (0.83-1.16) H 09/29/18 12:07 Sodium 132 mEq/L (135-145) L 09/29/18 12:07 Potassium 4.6 mEq/L (3.5-5.2) 09/29/18 12:07 Chloride 97 mEq/L (97-110) 09/29/18 12:07 Carbon Dioxide 27 mEq/l (22-31) 09/29/18 12:07 Anion Gap 8 mEq/L (6-14) 09/29/18 12:07 BUN 41 mg/dL (7-23) H 09/29/18 12:07 Creatinine 2.8 mg/dL (0.7-1.3) H 09/29/18 12:07 Estimated GFR 22 09/29/18 12:07 Glucose 126 mg/dL (70-100) H 09/29/18 12:07 Calcium 8.2 mg/dL (8.5-10.4) L 09/29/18 12:07 Total Bilirubin 1.1 mg/dL (0.1-1.4) 09/29/18 12:07 Conjugated Bilirubin 0.6 mg/dL (0.0-0.5) H 09/29/18 12:07 Unconjugated Bilirubin 0.5 mg/dL (0.0-1.1) 09/29/18 12:07 AST 23 IU/L (17-59) 09/29/18 12:07 ALT 19 IU/L (21-72) L 09/29/18 12:07 Alkaline Phosphatase 73 IU/L (38-126) 09/29/18 12:07 POC Troponin I 0.31 ng/mL (0.00-0.08) H 09/29/18 13:02 Troponin I 0.369 ng/mL (0.000-0.034) H 09/29/18 12:07 Total Protein 6.1 g/dL (6.3-8.2) L 09/29/18 12:07 Albumin 3.0 g/dL (3.5-5.0) L 09/29/18 12:07 Assessment & Plan Plan: 77 y/o male presents with approximately 4 days worth of nausea, vomiting, and abdominal discomfort and distention; imaging suggests possible ileus. 1. Acute Abdominal pain: Abdominal x-ray demonstrates possible ileus. I do not think it is obstipation as he was actively passing gas while I was in the room and while I pressed on his abdomen. He also had active bowel sounds, tympanic with percussion. -NPO status; may brush teeth; may use mouth swabs; give chap stick for dry lips -Suppository -Anti-emetics (Zofran) PRN -PT/OT to evaluate the pt 2. Hyponatremia: he has had poor PO intake and vomiting for a few days now. -IV NS 3. Acute Renal failure on chronic renal failure -Consult nephrology; message left with Dr. Marylou Arango to consult -CBC/CMP tomorrow -Gentle IV NS -Avoid nephrotoxic medications 4. Insomnia -Avoid narcotics if possible -Reduce stimulation an hour before going to bed - no television, no cell phones or computers. Dim the lights. -May continue Melatonin and Ambien 5. Recent stent placement -Cont tele/pulse ox monitoring -Cycle trops x 2 -May continue plavix, aspirin -May use Nitroglycerin PRN 6. Atrial Fibrillation -Stable. May continue Eliquis and amiodarone. -May use Nitroglycerin PRN 7. COPD -Reiterated to the pt he needs to f/u outpatient for the pulmonary nodules found on CXR. -Continue to use ipratropium/albuterol and tiotropium bromide Diet: NPO Code: DNR VTE ppx: SCDs, Eliquis Dispo: Admit to inpatient <Murray Whitfield - Last Filed: 09/29/18 19:52> History and Physical - History of Present Illness Review of Systems Review of Systems: Physical Exam Physical Exam: Temp Pulse Resp BP Pulse Ox 36.7 C 67 17 112/62 96 09/29/18 19:25 09/29/18 19:25 09/29/18 19:25 09/29/18 19:25 09/29/18 19:25 O2 (L/minute) 4 Lab Data & Imaging Review 09/29/18 12:07 09/29/18 12:07 WBC 10.06 10^3/uL (3.80-9.50) H 09/29/18 12:07 RBC 2.75 10^6/uL (4.40-6.38) L 09/29/18 12:07 Hgb 8.4 g/dL (13.7-17.5) L 09/29/18 12:07 Hct 25.6 % (40.0-51.0) L 09/29/18 12:07 MCV 93.1 fL (81.5-99.8) 09/29/18 12:07 MCH 30.5 pg (27.9-34.1) 09/29/18 12:07 MCHC 32.8 g/dL (32.4-36.7) 09/29/18 12:07 RDW 14.6 % (11.5-15.2) 09/29/18 12:07 Plt Count 368 10^3/uL (150-400) 09/29/18 12:07 MPV 8.6 fL (8.7-11.7) L 09/29/18 12:07 Neut % (Auto) Not Reported 09/29/18 12:07 Lymph % (Auto) Not Reported 09/29/18 12:07 [place] % (Auto) Not Reported 09/29/18 12:07 Eos % (Auto) Not Reported 09/29/18 12:07 Baso % (Auto) Not Reported 09/29/18 12:07 Nucleat RBC Rel Count Not Reported 09/29/18 12:07 Absolute Neuts (auto) Not Reported 09/29/18 12:07 Absolute Lymphs (auto) Not Reported 09/29/18 12:07 Absolute Monos (auto) Not Reported 09/29/18 12:07 Absolute Eos (auto) Not Reported 09/29/18 12:07 Absolute Basos (auto) Not Reported 09/29/18 12:07 Absolute Nucleated RBC Not Reported 09/29/18 12:07 Immature Gran % Not Reported 09/29/18 12:07 Seg Neutrophils % 91.0 % 09/29/18 12:07 Band Neutrophils % 0.0 % 09/29/18 12:07 Lymphocytes % 3.0 % 09/29/18 12:07 Monocytes % 4.0 % 09/29/18 12:07 Eosinophils % 0.0 % 09/29/18 12:07 Basophils % 2.0 % 09/29/18 12:07 Metamyelocytes % 0.0 % 09/29/18 12:07 Myelocytes % 0.0 % 09/29/18 12:07 Promyelocytes % 0.0 % 09/29/18 12:07 Blast Cells % 0.0 % 09/29/18 12:07 Immature Gran # Not Reported 09/29/18 12:07 Absolute Seg Neuts 9.15 10^3/uL (1.70-6.50) H 09/29/18 12:07 Absolute Band Neuts 0.00 10^3/uL (0.00-0.70) 09/29/18 12:07 Absolute Lymphocytes 0.30 10^3/uL (1.00-3.00) L 09/29/18 12:07 Absolute Monocytes 0.40 10^3/uL (0.30-0.80) 09/29/18 12:07 Absolute Eosinophils 0.00 10^3/uL (0.03-0.40) L 09/29/18 12:07 Absolute Basophils 0.20 10^3/uL (0.02-0.10) H 09/29/18 12:07 Absolute Metamyelocyte 0.00 10^3/mL (0.00-0.00) 09/29/18 12:07 Absolute Myelocytes 0.00 10^3/mL (0.00-0.00) 09/29/18 12:07 Absolute Promyelocytes 0.00 10^3/uL (0.00-0.00) 09/29/18 12:07 Absolute Plasma Cells 0.00 10^3/uL (0.00-0.00) 09/29/18 12:07 Nucleated RBCs 0 /100 WBC (0-0) 09/29/18 12:07 Absolute Blast Cells 0.00 10^3/uL (0.00-0.00) 09/29/18 12:07 Plasma Cells % 0.0 % 09/29/18 12:07 Platelet Estimate ADEQUATE (ADEQ) 09/29/18 12:07 PT 20.8 SEC (12.0-15.0) H 09/29/18 12:07 INR 1.78 (0.83-1.16) H 09/29/18 12:07 Sodium 132 mEq/L (135-145) L 09/29/18 12:07 Potassium 4.6 mEq/L (3.5-5.2) 09/29/18 12:07 Chloride 97 mEq/L (97-110) 09/29/18 12:07 Carbon Dioxide 27 mEq/l (22-31) 09/29/18 12:07 Anion Gap 8 mEq/L (6-14) 09/29/18 12:07 BUN 41 mg/dL (7-23) H 09/29/18 12:07 Creatinine 2.8 mg/dL (0.7-1.3) H 09/29/18 12:07 Estimated GFR 22 09/29/18 12:07 Glucose 126 mg/dL (70-100) H 09/29/18 12:07 Calcium 8.2 mg/dL (8.5-10.4) L 09/29/18 12:07 Total Bilirubin 1.1 mg/dL (0.1-1.4) 09/29/18 12:07 Conjugated Bilirubin 0.6 mg/dL (0.0-0.5) H 09/29/18 12:07 Unconjugated Bilirubin 0.5 mg/dL (0.0-1.1) 09/29/18 12:07 AST 23 IU/L (17-59) 09/29/18 12:07 ALT 19 IU/L (21-72) L 09/29/18 12:07 Alkaline Phosphatase 73 IU/L (38-126) 09/29/18 12:07 POC Troponin I 0.31 ng/mL (0.00-0.08) H 09/29/18 13:02 Troponin I 0.369 ng/mL (0.000-0.034) H 09/29/18 12:07 NT-Pro-B Natriuret Pep 30559 pg/mL (0-450) H 09/29/18 12:07 Total Protein 6.1 g/dL (6.3-8.2) L 09/29/18 12:07 Albumin 3.0 g/dL (3.5-5.0) L 09/29/18 12:07 Urine Color YELLOW 09/29/18 15:47 Urine Appearance CLEAR 09/29/18 15:47 Urine pH 5.0 (5.0-7.5) 09/29/18 15:47 Ur Specific [place] 1.013 (1.002-1.030) 09/29/18 15:47 Urine Protein NEGATIVE (NEGATIVE) 09/29/18 15:47 Urine Ketones NEGATIVE (NEGATIVE) 09/29/18 15:47 Urine Blood NEGATIVE (NEGATIVE) 09/29/18 15:47 Urine Nitrate NEGATIVE (NEGATIVE) 09/29/18 15:47 Urine Bilirubin NEGATIVE (NEGATIVE) 09/29/18 15:47 Urine Urobilinogen 2.0 EU (0.2-1.0) H 09/29/18 15:47 Ur Leukocyte Esterase NEGATIVE (NEGATIVE) 09/29/18 15:47 Urine RBC 1-3 /hpf (0-3) 09/29/18 15:47 Urine WBC 1-3 /hpf (0-3) 09/29/18 15:47 Ur Epithelial Cells TRACE /lpf (NONE-1+) 09/29/18 15:47 Urine Bacteria TRACE /hpf (NONE SEEN) H 09/29/18 15:47 Urine Mucus TRACE /lpf (NONE-1+) 09/29/18 15:47 Urine Glucose NEGATIVE (NEGATIVE) 09/29/18 15:47 Assessment & Plan Assessment: Abdominal pain (Acute) Dehydration (Acute) Obstipation (Acute) Renal failure (Acute) I saw this patient today with ROSALINA Barnes of hospital Medicine and I agree with the assessment and plan outlined.
[2018-09-29] MEDS ORDERED: BISACODYL 10 MG SUPP PR ONE (15:08)
[2018-09-29] MEDS ORDERED: NITROGLYCERIN 0.4 MG BTL SL PRN (15:55)
[2018-09-29] MEDS ORDERED: SCOPOLAMINE HYDROBROMIDE 1 MG/3 DAYS PATCH TD SCH (17:15)
[2018-09-29] MEDS ORDERED: traMADol 50 MG TAB PO PRN (17:16)
[2018-09-29] MEDS: IPRATROPIUM/ALBUTEROL 3 ML DEYVIAL IH SCH ×2 (18:05→21:36)
[2018-09-29] MEDS: NS 1,000 ML IV SCH (18:35)
[2018-09-29] MEDS: METOCLOPRAMIDE 5 MG TAB PO SCH ×2 (18:38→20:24)
--- NOTE | 2018-09-29 19:54 | PDGENHP ---
History and Physical History and Physical: I saw this patient today with him Mohamud and agree with her assessment plans This patient comes in with nausea vomiting and dehydration which I believe is probably due to an ileus. The ileus seems to be related to his recent hip fracture and surgery for that. There does not appear to be any kind of intra- abdominal process specifically. He has been receiving some Reglan and this is not helping with the bowel function. It helped a bit with the nausea but he has had no bowel movement for 4+ days at this time. I do not see anything that suggested obstruction at this time based on the current assessment. Notably he has not required any narcotic medicines for his hip pain for the last few days he says. I think he is stable from his recent cardiac events and treatments during the last hospitalization. He seems to be making good progress healing from his hip fracture and surgery. His renal function is a bit higher than his baseline at this time I think from dehydration.
--- NOTE | 2018-09-29 20:36 | SOAPPROG ---
SOAP Progress Note Assessment/Plan: Assessment: NIRMALA on CKD4- non-oliguric -recent contrast 09/19 for cardiac stent, now with poor po intake/ileus- looks dry on exam and agree with IVF -will ask nursing to bladder scan as well to ensure not retaining urine (has history of BPH and recent narcotics/surgery) -no NSAIDs, IV Contrast -not on brandon inhib and would avoid for now given worsening renal function, lower BP -allow BP to run a bit higher with NIRMALA Abd pain, constipation- Xray suggestive of ileus vs obstipation -NPO and IVF for hydration -getting reglan -abd exam benign currently, continued close monitoring -?narcotic related from recent surgery Recent R total hip- incision looks good, pain controlled CAD s/p stent RCA 09/19 and SVG -on plavix, statin, eliquis, bblocker -no brandon inhib given NIRMALA Anemia ckd/acute illness- hct stable since d/c but on lower end -check iron stores -transfuse if Hb <7 A fib- on amiodarone and eliquis I discussed with RN Marylou Keith MD [facility] pager [phone] 09/29/18 20:55 Subjective: 77 M with CAD (s/p recent stent RCA and SVG 09/19/18), recent total R hip, A fib , CKD4 admitted from rehab facility with abd pain, poor po intake. Baseline Cr low 2, now Cr up to 2.8. He notes no BM since Friday. No n/v but notes less po intake. Xray with ileus and started on reglan and IVF. Denies dysuria, hematuria, difficulty emptying bladder. No sob, cp. [place] removed from R hip incision and notes pain controlled. No fevers, drainage from wound. Currently getting IVF, and is NPO. [place] weak since arrival and has not gotten out of bed. Objective: Vital Signs Temp Pulse Resp BP Pulse Ox 36.7 C 67 17 112/62 96 09/29/18 19:25 18 19:25 18 19:25 09/29/18 19:25 09/29/18 19:25 18 18 09/30/18 05:59 05:59 05:59 Output Total 350 Balance -350 PT 20.8 SEC (12.0-15.0) H 09/29/18 12:07 INR 1.78 (0.83-1.16) H 09/29/18 12:07 Physical Exam - Physical Exam General Appearance: alert, no apparent distress EENT: other (dry MM) Neck: supple Respiratory: lungs clear, normal breath sounds Cardiac/Chest: regular rate, rhythm, other (no rub) Abdomen: non-tender, distended, other (no rebound, no guarding) Skin: warm/dry, other (no rash) Extremities: other (no edema, R hip incision c/d/i) Neuro/Psych: alert, oriented x 3 ICD10 Worksheet Patient Problems: Problems Problem Status Onset Abdominal pain Acute Dehydration Acute Obstipation Acute Renal failure Acute Chest pain Acute Chronic Disease Mgmt/Transitional Care Acute Elevated troponin Acute Fracture of femoral neck, right Acute NSTEMI (non-ST elevated myocardial infarction) Acute
--- NOTE | 2018-09-29 22:13 | CPEKG ---
Test Reason : OPEN Blood Pressure : / mmHG Vent. Rate : 067 BPM Atrial Rate : 067 BPM P-R Int : 153 ms QRS Dur : 147 ms QT Int : 517 ms P-R-T Axes : 034 -27 -40 degrees QTc Int : 546 ms Sinus rhythm Right bundle branch block Confirmed by Gina Rivera [id number]) on 09/29/2018 10:13:06 PM Referred By: Confirmed By:Gina Rivera
[2018-09-29] MEDS: BIOTENE DRY MOUTH ORAL RINSE 237 ML BTL MM PRN (22:40)
[2018-09-29] MEDS: TAMSULOSIN HCL 0.4 MG CAP PO SCH (22:41)
[2018-09-29] MEDS: APIXABAN 5 MG TAB PO SCH (22:41)
[2018-09-29] MEDS: MELATONIN 3 MG TAB PO SCH (22:41)
[2018-09-29] MEDS: ATORVASTATIN CALCIUM 40 MG TAB PO SCH (22:41)
[2018-09-29] MEDS: METOPROLOL TARTRATE 25 MG TAB PO SCH (22:53)
[2018-09-30] MEDS: Zolpidem Tartrate [Ambien Cr] 6.25 MG PO SCH (00:06)
[2018-09-30 04:56] LABS: PLATELET COUNT 297 10^3/uL (150-400)
[2018-09-30] MEDS: NS 1,000 ML IV SCH (05:05)
[2018-09-30] MEDS: BIOTENE DRY MOUTH ORAL RINSE 237 ML BTL MM PRN ×2 (05:27→23:54)
[2018-09-30] MEDS: IPRATROPIUM/ALBUTEROL 3 ML DEYVIAL IH SCH ×4 (06:12→22:25)
--- NOTE | 2018-09-30 08:11 | SOAPPROG ---
SOAP Progress Note Assessment/Plan: Assessment: NIRMALA on CKD4- non-oliguric -baseline Cr low 2, now up to 2.9-- suspect ATN in setting of recent contrast, ileus with poor po intake, lower BP -recent contrast 09/19 for cardiac stent -looked dry on admit and started on IVF -bladder scan 180 cc- will recheck today as could have some retention contributing. Will check renal u/s as well. -no NSAIDs, IV Contrast -not on brandon inhib and would avoid for now given worsening renal function, lower BP. Holding beta temitope currently as well. -allow BP to run a bit higher with NIRMALA -continue IVF for now-- reassess after nebs given SOB- I think this is more reactive airway rather than fluid overload but could get CXR to help better assess if not improving with nebs -would give PRBCs today with Hb and known CAD SOB -tight sounding with poor air movement on exam-- will give nebs now -consider CXR if not improving Abd pain, constipation- Xray suggestive of ileus vs obstipation -NPO and IVF for hydration -getting reglan, has not had BM since Friday -abd exam benign currently, continued close monitoring -?narcotic related from recent surgery -defer to hospitalist for further eval Recent R total hip- incision looks good, pain controlled CAD s/p stent RCA 09/19 and SVG -on plavix, statin, eliquis -no brandon inhib given NIRMALA Anemia ckd/acute illness- hct stable since d/c but on lower end, no active bleeding noted -check iron stores -would transfuse today A fib- on amiodarone and eliquis I discussed with RN Marylou Keith MD [facility] pager [phone] 09/30/18 08:11 Subjective: More SOB and feels like hard to exhale. No BM. No CP. No fevers. Objective: Vital Signs Temp Pulse Resp BP Pulse Ox 36.6 C 67 20 111/72 99 09/30/18 03:38 09/30/18 03:38 09/30/18 03:38 09/30/18 05:15 09/30/18 03:38 Laboratory Results 09/30/18 03:22 09/30/18 03:22 09/29/18 09/30/18 10/01/18 05:59 05:59 05:59 Intake Total 900 Output Total 1030 Balance -130 PT 20.8 SEC (12.0-15.0) H 09/29/18 12:07 INR 1.78 (0.83-1.16) H 09/29/18 12:07 Physical Exam - Physical Exam General Appearance: other (tachypneic, pursed lip breathing, NAD) EENT: other (mmm) Neck: supple Respiratory: decreased breath sounds (tight) Cardiac/Chest: regular rate, rhythm, other (no m/r) Abdomen: non-tender, distended Skin: warm/dry Extremities: other (trace LE edema) Neuro/Psych: alert, oriented x 3 ICD10 Worksheet Patient Problems: Problems Problem Status Onset Abdominal pain Acute Dehydration Acute Elevated troponin Acute Obstipation Acute Renal failure Acute Chest pain Acute Chronic Disease Mgmt/Transitional Care Acute Fracture of femoral neck, right Acute NSTEMI (non-ST elevated myocardial infarction) Acute
--- NOTE | 2018-09-30 08:26 | ASMTLACE ---
SHANNEN Comorbidities - select Answers: Chronic pulmonary disease all that apply Congestive heart failure Coronary Artery Disease Moderate or severe liver or renal disease Previous myocardial infarction Other Notes: HTN; HLD # of Emergency department Answers: 3-4 visits in the last 6 months Score: 15 Date Signed: 09/30/2018 08:26 AM Electronically Signed By:Barbara Gomez
[2018-09-30] MEDS: METOCLOPRAMIDE 5 MG TAB PO SCH ×3 (08:50→21:02)
[2018-09-30] MEDS: Tiotropium Bromide [Spiriva Respimat] IH SCH (08:58)
[2018-09-30] MEDS: Fluticasone/Vilanterol [Breo Ellipta 100-25 Mcg Inh] IH SCH (09:02)
[2018-09-30] MEDS: CLOPIDOGREL BISULFATE 75 MG TAB PO SCH (10:02)
[2018-09-30] MEDS: guaiFENesin 600 MG TAB.ER PO SCH (10:02)
[2018-09-30] MEDS: AMIODARONE HCL 200 MG TAB PO SCH (10:02)
[2018-09-30] MEDS: ASPIRIN EC 325 MG TAB PO SCH (10:02)
[2018-09-30] MEDS: METOPROLOL TARTRATE 25 MG TAB PO SCH ×2 (10:02→23:53)
[2018-09-30] MEDS: APIXABAN 5 MG TAB PO SCH (10:02)
--- NOTE | 2018-09-30 10:38 | PDMN ---
Medical Necessity Medical necessity: [facility] M200 Ileus: 77 yo w/ acute abd pain, prob ileus, hyponatremia (132), and acute on chronic renal fx (creat 2.8). Meets [facility] IP criteria for ileus, inability to maintain PO hydration. NPO status, IVF started. Recent hospitalization for DA secondary hip fx complicated by NSTEMI. Sig medical hx w/ CKD, HTN, AAA repair 2015, CAD/CABG 1987, recent ME w / stent placement, COPD, sCHF.
--- NOTE | 2018-09-30 13:04 | HOSPPROG ---
Hospitalist Progress Note Assessment/Plan: 77 y/o male presents with approximately 4 days worth of nausea, vomiting, and abdominal discomfort and distention; imaging suggests possible ileus. 1. Acute Abdominal pain: Abdominal x-ray demonstrates possible ileus. -NPO status; may brush teeth; may use mouth swabs; give chap stick for dry lips -Suppository -Anti-emetics (Zofran) PRN -PT/OT to evaluate the pt 2. Hyponatremia: he has had poor PO intake and vomiting for a few days now. -IV NS, improved to 136 this AM 3. Acute Renal failure on chronic renal failure -Nephrology following, Cr 2.9 this AM, 2.8 yesterday -Gentle IV NS per Nephrology -Continue H/H, Avoid nephrotoxic medications 4. Encephalopathy -Patient with waxing and waning mental status, although oriented x3 upon questioning this afternoon - Avoid narcotics if possible -Reduce stimulation an hour before going to bed - no television, no cell phones or computers. Dim the lights. -May continue Melatonin -D/c scopolamine patch 5. Recent stent placement -Cont tele/pulse ox monitoring -Continue plavix, aspirin -Nitroglycerin PRN 6. Atrial Fibrillation -Stable. Continue Eliquis and amiodarone. 7. COPD -Reiterated to the pt he needs to f/u outpatient for the pulmonary nodules found on CXR. -Continue to use ipratropium/albuterol and tiotropium bromide Diet: NPO Code: DNR VTE ppx: SCDs, Eliquis Dispo: Pending clinical course Subjective: Patient AAOx3 but having some visual hallucinations Objective: Vital Signs Temp Pulse Resp BP Pulse Ox 36.3 C 77 22 H 118/59 L 92 09/30/18 12:27 09/30/18 12:27 09/30/18 12:27 09/30/18 12:27 09/30/18 12:27 Laboratory Results 09/30/18 03:22 09/30/18 03:22 09/29/18 09/30/18 10/01/18 05:59 05:59 05:59 Intake Total 900 Output Total 1030 100 Balance -130 -100 PT 20.8 SEC (12.0-15.0) H 09/29/18 12:07 INR 1.78 (0.83-1.16) H 09/29/18 12:07 - Physical Exam Constitutional: chronically ill appearing Eyes: PERRL Ears, Nose, Mouth, Throat: moist mucous membranes Cardiovascular: irregularly irregular Gastrointestinal: soft, non-tender abdomen Skin: warm Musculoskeletal: generalized weakness Neurologic: AAOx3 Psychiatric: encephalopathic, poor memory ICD10 Worksheet Patient Problems: Problems Problem Status Onset Abdominal pain Acute Dehydration Acute Elevated troponin Acute Obstipation Acute Renal failure Acute Chest pain Acute Chronic Disease Mgmt/Transitional Care Acute Fracture of femoral neck, right Acute NSTEMI (non-ST elevated myocardial infarction) Acute
--- NOTE | 2018-09-30 13:58 | CPEKG ---
Test Reason : OPEN Blood Pressure : / mmHG Vent. Rate : 067 BPM Atrial Rate : 067 BPM P-R Int : 153 ms QRS Dur : 147 ms QT Int : 517 ms P-R-T Axes : 034 -27 -40 degrees QTc Int : 546 ms Sinus rhythm Right bundle branch block Confirmed by Vincenzo Lombardo ([id number]) on 09/30/2018 1:57:42 PM Referred By: Confirmed By:Vincenzo Lombardo
--- NOTE | 2018-09-30 14:45 | ASMTCMCOM ---
CM Note CM Note Notes: Pt is a 77 y/o man admitted for renal failure, dehydration and obstipation and abdominal pain. CM met w/ pts ex Mali and pt for dispo planning. Pt is confused and appears to be hallucinating. Mali lives in [place]. Pts daughter Gabby lives here in [place] and is a pharmacist. Mali did not want CM to call Gabby today. Gabby is MDPOA. Her number is [phone]. Pt recently getting rehab at [facility]. Pt nor Mali would like to return there. Mali would like CM to speak to Gabby tomorrow when she has a day off. CM to follow. Plan: Most likely SNF Date Signed: 09/30/2018 02:44 PM Electronically Signed By:RADHA Shannon
[2018-09-30] MEDS ORDERED: MAGNESIUM HYDROXIDE 30 ML UDCUP PO PRN (17:46)
[2018-09-30] MEDS ORDERED: LACTULOSE 20 GM/30 ML UDCUP PO PRN (17:46)
[2018-09-30] MEDS ORDERED: BISACODYL 10 MG SUPP PR PRN (17:46)
[2018-09-30] MEDS: ATORVASTATIN CALCIUM 40 MG TAB PO SCH (23:52)
[2018-09-30] MEDS: SENNOSIDES/DOCUSATE SODIUM TAB PO SCH (23:52)
[2018-09-30] MEDS: FERRO-SEQUELS 65 MG TAB.ER PO SCH (23:53)
[2018-09-30] MEDS: TAMSULOSIN HCL 0.4 MG CAP PO SCH (23:53)
[2018-09-30] MEDS: MELATONIN 3 MG TAB PO SCH (23:53)
[2018-09-30] MEDS: APIXABAN 2.5 MG TAB PO SCH (23:53)
[2018-10-01] MEDS: NS 1,000 ML IV SCH ×2 (00:07→12:27)
[2018-10-01] MEDS: ONDANSETRON 4 MG/2 ML VIAL IVP PRN (01:08)
[2018-10-01] MEDS: Zolpidem Tartrate [Ambien Cr] 6.25 MG PO SCH ×2 (02:33→21:12)
[2018-10-01] MEDS ORDERED: HALOPERIDOL LACT 5 MG/ML INJ IVP PRN (03:30)
[2018-10-01 04:49] LABS: PLATELET COUNT 352 10^3/uL (150-400)
[2018-10-01] MEDS: IPRATROPIUM/ALBUTEROL 3 ML DEYVIAL IH SCH ×4 (05:44→21:54)
--- NOTE | 2018-10-01 08:27 | SOAPPROG ---
SOAP Progress Note Assessment/Plan: Assessment: NIRMALA, looks a bit vol depleted, creat 3 today CKD 4, baseline as outpatient 2.2-2.4 CAD, recent PTCI/stent SVG of RCA Fall at home with R hip fx/repair in late August Plan: continue IVF continue physical therapy follow lytes vol and renal function No HD needs, suspect will start to see renal recovery soon He doesn't want to go back to [facility] 10/01/18 08:24 Subjective: feels better today slept well no cp sob nausea or vomiting appetite not great energy about the same, maybe a little better than yesterday Objective: Vital Signs Temp Pulse Resp BP Pulse Ox 37.4 C 66 22 H 141/84 H 96 10/01/18 07:49 10/01/18 07:49 10/01/18 07:49 10/01/18 07:49 10/01/18 07:49 Laboratory Results 10/01/18 03:40 10/01/18 03:40 09/30/18 10/01/18 10/02/18 05:59 05:59 05:59 Intake Total 900 2030 Output Total 1030 375 Balance -130 1655 PT 20.8 SEC (12.0-15.0) H 09/29/18 12:07 INR 1.78 (0.83-1.16) H 09/29/18 12:07 Physical Exam - Physical Exam General Appearance: alert, other (ill appearing as compared to how he looked when I saw him last) Neck: normal inspection Respiratory: No rhonchi, No wheezing Cardiac/Chest: edema (RLE after hip surg, no sig edema on L), systolic murmur, irregularly irregular, No friction rub Abdomen: normal bowel sounds, non-tender, soft Skin: warm/dry Extremities: other (edema on right (side of surgery)) Neuro/Psych: alert, normal mood/affect, oriented x 3 ICD10 Worksheet Patient Problems: Problems Problem Status Onset Abdominal pain Acute Dehydration Acute Elevated troponin Acute Obstipation Acute Renal failure Acute Chest pain Acute Chronic Disease Mgmt/Transitional Care Acute Fracture of femoral neck, right Acute NSTEMI (non-ST elevated myocardial infarction) Acute
[2018-10-01] MEDS: APIXABAN 2.5 MG TAB PO SCH ×2 (10:44→21:00)
[2018-10-01] MEDS: CLOPIDOGREL BISULFATE 75 MG TAB PO SCH (10:44)
[2018-10-01] MEDS: SENNOSIDES/DOCUSATE SODIUM TAB PO SCH ×2 (10:44→21:00)
[2018-10-01] MEDS: FERRO-SEQUELS 65 MG TAB.ER PO SCH ×2 (10:44→20:59)
[2018-10-01] MEDS: AMIODARONE HCL 200 MG TAB PO SCH (10:44)
[2018-10-01] MEDS: METOPROLOL TARTRATE 25 MG TAB PO SCH ×2 (10:45→20:59)
[2018-10-01] MEDS: guaiFENesin 600 MG TAB.ER PO SCH (10:45)
[2018-10-01] MEDS: Tiotropium Bromide [Spiriva Respimat] IH SCH (10:45)
[2018-10-01] MEDS: METOCLOPRAMIDE 5 MG TAB PO SCH ×3 (10:45→20:59)
[2018-10-01] MEDS: ASPIRIN EC 325 MG TAB PO SCH (10:45)
[2018-10-01] MEDS: Fluticasone/Vilanterol [Breo Ellipta 100-25 Mcg Inh] IH SCH (10:46)
--- NOTE | 2018-10-01 12:42 | ASMTCMCOM ---
CM Note CM Note Notes: Pts case discussed in morning rounds. Pt is still confused and it may be hospital delirium. CM met w/ daughter and ex for dispo planning. Daughter would like referrals sent to [facility] and [facility] in [place]. First choice is [facility] because they want to stay in [place]. PASRR completed. CM informed [facility] that pt does not want to return. CM to follow. Plan: SNF Date Signed: 10/01/2018 12:42 PM Electronically Signed By:RADHA Shannon
--- NOTE | 2018-10-01 13:51 | HOSPPROG ---
Hospitalist Progress Note Assessment/Plan: 77 y/o male presents with approximately 4 days worth of nausea, vomiting, and abdominal discomfort and distention; imaging suggests possible ileus. 1. Acute Abdominal pain: Abdominal x-ray demonstrates possible ileus. -NPO status; may brush teeth; may use mouth swabs; give chap stick for dry lips -Suppository , Bowel Regimen ordered on 09/30 -Anti-emetics (Zofran) PRN -PT/OT to evaluate the pt 2. Hyponatremia: he has had poor PO intake and vomiting for a few days now. -IV NS, improved to 138 this AM 3. Acute Renal failure on chronic renal failure -Nephrology following, Cr 3.1 this AM, 2.8 yesterday -Nephrology following, appreciate recs, continue IV -Continue monitoring BMP, I/O, Avoid nephrotoxic medications 4. Encephalopathy -Patient with waxing and waning mental status, although oriented x3 upon questioning -Avoid narcotics if possible -Reduce stimulation an hour before going to bed - no television, no cell phones or computers. Dim the lights. -Continue Ambien, added Trazodone for tonight -D/c scopolamine patch 5. Recent stent placement -Cont tele/pulse ox monitoring -Continue plavix, aspirin -Nitroglycerin PRN 6. Atrial Fibrillation -Stable. Continue Eliquis and amiodarone. 7. COPD -Reiterated to the pt he needs to f/u outpatient for the pulmonary nodules found on CXR. -Continue to use ipratropium/albuterol and tiotropium bromide Diet: NPO Code: DNR VTE ppx: SCDs, Eliquis Dispo: Pending clinical course Subjective: Patient reports feeling tired this morning, having tangential thought process Objective: Vital Signs Temp Pulse Resp BP Pulse Ox 36.8 C 66 20 116/49 L 99 10/01/18 11:33 10/01/18 11:33 10/01/18 11:33 10/01/18 11:33 10/01/18 11:33 Laboratory Results 10/01/18 03:40 10/01/18 03:40 09/30/18 10/01/18 10/02/18 05:59 05:59 05:59 Intake Total 900 2030 Output Total 1030 375 200 Balance -130 1655 -200 PT 20.8 SEC (12.0-15.0) H 09/29/18 12:07 INR 1.78 (0.83-1.16) H 09/29/18 12:07 - Physical Exam Constitutional: chronically ill appearing Eyes: PERRL Ears, Nose, Mouth, Throat: dry mucous membranes Cardiovascular: regular rate and rhythym Respiratory: no respiratory distress Gastrointestinal: soft, non-tender abdomen, distension Skin: warm Musculoskeletal: full muscle strength Neurologic: AAOx3 Psychiatric: No thought process linear ICD10 Worksheet Patient Problems: Problems Problem Status Onset Abdominal pain Acute Dehydration Acute Elevated troponin Acute Obstipation Acute Renal failure Acute Chest pain Acute Chronic Disease Mgmt/Transitional Care Acute Fracture of femoral neck, right Acute NSTEMI (non-ST elevated myocardial infarction) Acute
[2018-10-01] MEDS: MELATONIN 3 MG TAB PO SCH (20:59)
[2018-10-01] MEDS: TAMSULOSIN HCL 0.4 MG CAP PO SCH (20:59)
[2018-10-01] MEDS: ATORVASTATIN CALCIUM 40 MG TAB PO SCH (20:59)
[2018-10-01] MEDS: traZODone 100 MG TAB PO SCH (20:59)
[2018-10-01] MEDS: FLUTICASONE/SALMETER 250/50MCG DISKUS IH SCH (21:54)
[2018-10-02] MEDS: NS 1,000 ML IV SCH ×2 (02:49→18:20)
[2018-10-02 04:39] LABS: PLATELET COUNT 324 10^3/uL (150-400)
[2018-10-02] MEDS: IPRATROPIUM/ALBUTEROL 3 ML DEYVIAL IH SCH ×6 (05:48→23:43)
[2018-10-02] MEDS: SENNOSIDES/DOCUSATE SODIUM TAB PO SCH ×2 (08:06→20:43)
[2018-10-02] MEDS: guaiFENesin 600 MG TAB.ER PO SCH (08:06)
[2018-10-02] MEDS: METOPROLOL TARTRATE 25 MG TAB PO SCH ×2 (08:07→20:43)
[2018-10-02] MEDS: METOCLOPRAMIDE 5 MG TAB PO SCH (08:07)
[2018-10-02] MEDS: FERRO-SEQUELS 65 MG TAB.ER PO SCH ×2 (08:07→20:44)
[2018-10-02] MEDS: CLOPIDOGREL BISULFATE 75 MG TAB PO SCH (08:07)
[2018-10-02] MEDS: ASPIRIN EC 325 MG TAB PO SCH (08:07)
[2018-10-02] MEDS: AMIODARONE HCL 200 MG TAB PO SCH (08:07)
[2018-10-02] MEDS: APIXABAN 2.5 MG TAB PO SCH ×2 (08:07→20:43)
--- NOTE | 2018-10-02 08:37 | SOAPPROG ---
SOAP Progress Note Assessment/Plan: Assessment: NIRMALA, still looks a bit vol depleted, creat down to 2.8 today, UOP picking up nicely today CKD 4, baseline as outpatient 2.2-2.4 CAD, recent PTCI/stent SVG of RCA Fall at home with R hip fx/repair in late August obstipation Plan: continue IVF consider a more aggressive bowel regimen continue physical therapy follow lytes vol and renal function No HD needs, suspect will start to see renal recovery soon He doesn't want to go back to [facility] 10/01/18 08:24 10/02/18 08:33 Subjective: mouth sore still no BM since last Friday no cp sob nausea or vomiting getting up with help hip feels better remains NPO Objective: Vital Signs Temp Pulse Resp BP Pulse Ox 36.9 C 76 18 149/76 H 94 10/02/18 07:13 10/02/18 07:13 10/02/18 07:13 10/02/18 07:13 10/02/18 07:13 Laboratory Results 10/02/18 03:38 10/02/18 03:38 10/01/18 10/02/18 10/03/18 05:59 05:59 05:59 Intake Total 2030 1795 Output Total 375 1010 Balance 1655 785 PT 20.8 SEC (12.0-15.0) H 09/29/18 12:07 INR 1.78 (0.83-1.16) H 09/29/18 12:07 Physical Exam - Physical Exam General Appearance: alert Neck: normal inspection Respiratory: rales (bases), No rhonchi, No wheezing, No pleural rub Cardiac/Chest: regular rate, rhythm, edema, systolic murmur, No gallop Abdomen: normal bowel sounds, non-tender, soft Extremities: pedal edema Neuro/Psych: alert, normal mood/affect, oriented x 3 ICD10 Worksheet Patient Problems: Problems Problem Status Onset Abdominal pain Acute Dehydration Acute Elevated troponin Acute Obstipation Acute Renal failure Acute Chest pain Acute Chronic Disease Mgmt/Transitional Care Acute Fracture of femoral neck, right Acute NSTEMI (non-ST elevated myocardial infarction) Acute
[2018-10-02] MEDS: Tiotropium Bromide [Spiriva Respimat] IH SCH (09:46)
[2018-10-02] MEDS: FLUTICASONE/SALMETER 250/50MCG DISKUS IH SCH ×2 (09:47→20:23)
--- NOTE | 2018-10-02 11:28 | ASMTCMCOM ---
CM Note CM Note Notes: 10/02/2018 Case Management Note Discussed pt during rounds. Anticipating d/c early next week. Phone call to Jh at [facility]. FM is full, pt was declined. Pt has been accepted to [facility] in [place]. Informed pt and ex . Case Management d/c poc: [facility] rehab Case Management to follow. Date Signed: 10/02/2018 11:27 AM Electronically Signed By:Zoe Arriola RN
--- NOTE | 2018-10-02 11:38 | HOSPPROG ---
Hospitalist Progress Note Assessment/Plan: 77 y/o male presents with approximately 4 days worth of nausea, vomiting, and abdominal discomfort and distention; imaging suggests possible ileus. 1. Acute Abdominal pain: Abdominal x-ray demonstrates possible ileus. -Had 2 BMs this AM -Continue Suppository , Bowel Regimen ordered on 09/30 -Anti-emetics (Zofran) PRN -Advance diet as tolerated, clears ordered for this morning 2. Hyponatremia: he has had poor PO intake and vomiting for a few days now. -IV NS, improved to 144 this AM 3. Acute Renal failure on chronic renal failure -Nephrology following, Cr 2.9 this AM, 3.1, 2.8 yesterday -Nephrology following, appreciate recs, continue IV -Continue monitoring BMP, I/O, Avoid nephrotoxic medications 4. Encephalopathy -Patient with waxing and waning mental status, seems improved this morning although oriented x3 upon questioning -Avoid narcotics if possible -Reduce stimulation an hour before going to bed - no television, no cell phones or computers. Dim the lights. -Continue Ambien, added Trazodone -D/c scopolamine patch 5. Recent stent placement -Cont tele/pulse ox monitoring -Continue plavix, aspirin -Nitroglycerin PRN 6. Atrial Fibrillation -Stable. Continue Eliquis and amiodarone. 7. COPD -Reiterated to the pt he needs to f/u outpatient for the pulmonary nodules found on CXR. -Continue to use ipratropium/albuterol and tiotropium bromide Diet: NPO Code: DNR VTE ppx: SCDs, Eliquis Dispo: Pending clinical course, d/c to [facility] per CM Subjective: Patient reports BM this AM, denies abdominal discomfort Objective: Vital Signs Temp Pulse Resp BP Pulse Ox 36.9 C 61 18 149/76 H 95 10/02/18 07:13 10/02/18 09:53 10/02/18 09:53 10/02/18 07:13 10/02/18 09:53 Laboratory Results 10/02/18 03:38 10/02/18 03:38 10/01/18 10/02/18 10/03/18 05:59 05:59 05:59 Intake Total 2030 1795 Output Total 375 1010 Balance 1655 785 PT 20.8 SEC (12.0-15.0) H 09/29/18 12:07 INR 1.78 (0.83-1.16) H 09/29/18 12:07 - Physical Exam Constitutional: no apparent distress Eyes: PERRL Ears, Nose, Mouth, Throat: moist mucous membranes Cardiovascular: regular rate and rhythym Respiratory: reduced air movement Skin: warm Musculoskeletal: full muscle strength Neurologic: AAOx3 Psychiatric: interacting appropriately ICD10 Worksheet Patient Problems: Problems Problem Status Onset Abdominal pain Acute Dehydration Acute Elevated troponin Acute Obstipation Acute Renal failure Acute Chest pain Acute Chronic Disease Mgmt/Transitional Care Acute Fracture of femoral neck, right Acute NSTEMI (non-ST elevated myocardial infarction) Acute
[2018-10-02] MEDS: ALBUTEROL 3 ML DEYVIAL IH PRN (20:23)
[2018-10-02] MEDS: METOCLOPRAMIDE 5 MG TAB PO PRN (20:42)
[2018-10-02] MEDS: TAMSULOSIN HCL 0.4 MG CAP PO SCH (20:43)
[2018-10-02] MEDS: MELATONIN 3 MG TAB PO SCH (20:43)
[2018-10-02] MEDS: ATORVASTATIN CALCIUM 40 MG TAB PO SCH (20:44)
[2018-10-02] MEDS: Zolpidem Tartrate [Ambien Cr] 6.25 MG PO SCH (20:44)
[2018-10-02] MEDS: traZODone 100 MG TAB PO SCH (20:44)
[2018-10-03] MEDS: ALBUTEROL 3 ML DEYVIAL IH PRN (01:14)
[2018-10-03] MEDS: IPRATROPIUM/ALBUTEROL 3 ML DEYVIAL IH SCH ×4 (05:19→22:40)
[2018-10-03] MEDS: ONDANSETRON 4 MG/2 ML VIAL IVP PRN ×2 (08:13→20:25)
[2018-10-03] MEDS: Tiotropium Bromide [Spiriva Respimat] IH SCH (08:55)
[2018-10-03] MEDS: FLUTICASONE/SALMETER 250/50MCG DISKUS IH SCH ×2 (09:02→22:41)
--- NOTE | 2018-10-03 11:13 | SOAPPROG ---
BEVERLEY Progress Note Assessment/Plan: Assessment: I've bet Rahul in the past as an outpatient. He has really been through a lot lately 1. NIRMALA on CKD Cr improving, but now he is volume overloaded. I will stop IVF and follow. 2. Cardiac Recent trop likely due to past CABG. Will check one more to eval trend. He has JVD on exam. IVF stopped. Will check CXR and echo. I will give one dose of lasix. 3. Anemia Stable. I will start procrit 4. Plan of care He is quite depressed. This needs addressed, along with palliative care consult. Plan: 10/03/18 11:10 Subjective: Dyspneic, depressed. Objective: Vital Signs Temp Pulse Resp BP Pulse Ox 36.8 C 77 18 122/68 H 93 10/03/18 11:04 10/03/18 11:04 10/03/18 11:04 10/03/18 11:04 10/03/18 11:04 Laboratory Results 10/03/18 03:44 10/03/18 03:44 10/02/18 10/03/18 10/04/18 05:59 05:59 05:59 Intake Total 1795 1200 Output Total 1010 990 Balance 785 210 PT 20.8 SEC (12.0-15.0) H 09/29/18 12:07 INR 1.78 (0.83-1.16) H 09/29/18 12:07 Physical Exam - Physical Exam General Appearance: mild distress Neck: other (JVD) Respiratory: other (Diminished, rales in LLL) Cardiac/Chest: regular rate, rhythm Extremities: pedal edema Neuro/Psych: oriented x 3, depressed affect ICD10 Worksheet Patient Problems: Problems Problem Status Onset Abdominal pain Acute Dehydration Acute Elevated troponin Acute Obstipation Acute Renal failure Acute Chest pain Acute Chronic Disease Mgmt/Transitional Care Acute Fracture of femoral neck, right Acute NSTEMI (non-ST elevated myocardial infarction) Acute
[2018-10-03] MEDS: AMIODARONE HCL 200 MG TAB PO SCH (11:24)
[2018-10-03] MEDS: SENNOSIDES/DOCUSATE SODIUM TAB PO SCH ×2 (11:24→21:06)
[2018-10-03] MEDS: METOPROLOL TARTRATE 25 MG TAB PO SCH ×2 (11:24→21:06)
[2018-10-03] MEDS: APIXABAN 2.5 MG TAB PO SCH ×2 (11:24→21:07)
[2018-10-03] MEDS: METOCLOPRAMIDE 5 MG TAB PO PRN (11:24)
[2018-10-03] MEDS: FERRO-SEQUELS 65 MG TAB.ER PO SCH ×2 (11:24→21:05)
[2018-10-03] MEDS: ASPIRIN EC 325 MG TAB PO SCH (11:24)
[2018-10-03] MEDS: guaiFENesin 600 MG TAB.ER PO SCH (11:24)
[2018-10-03] MEDS: CLOPIDOGREL BISULFATE 75 MG TAB PO SCH (11:26)
[2018-10-03] MEDS ORDERED: FUROSEMIDE 40 MG/4 ML VIAL IVP ONE (12:00)
--- NOTE | 2018-10-03 13:33 | HOSPPROG ---
Hospitalist Progress Note Assessment/Plan: 77 y/o male presents with approximately 4 days worth of nausea, vomiting, and abdominal discomfort and distention; imaging suggests possible ileus. 1. Acute Abdominal pain: Abdominal x-ray on admission demonstrates possible ileus. -Had 2 BMs yesterday, n/v overnight -Continue Suppository , Bowel Regimen ordered on 09/30 -Anti-emetics (Zofran) PRN -Made NPO again this morning due to n/v, advance as tolerated 2. Acute Renal failure on chronic renal failure -Nephrology following, Cr 2.6 this AM, peaked at 3.1 -Nephrology following, appreciate recs, discontinue IVF, check CXR and TTE, gave 1 dose of IV Lasix 60 mg -Continue monitoring BMP, I/O, Avoid nephrotoxic medications 3. Encephalopathy -Patient with waxing and waning mental status -Avoid narcotics if possible -Reduce stimulation an hour before going to bed - no television, no cell phones or computers. Dim the lights. -Continue Ambien, added Trazodone 4. Anemia - H/H decreased overnight, s/p 1 unit PRBC, stable at 8.1 this AM - No signs of bleeding - Fe panel reveals Fe deficiency anemia, Anemia of Chronic disease - Continue PO Fe (started during this admission) - Continue to monitor H/H 5. Recent stent placement -Cont tele/pulse ox monitoring -Continue plavix, aspirin -Nitroglycerin PRN Troponin repeated by Nephrology, remains elevated in setting of recent PCI, denies any chest pain, TTE pending 6. Hyponatremia: he has had poor PO intake and vomiting for a few days now. -S/p IV NS, improved to 139 this AM 7. Atrial Fibrillation -Stable. Continue Eliquis and amiodarone. 8. COPD -Reiterated to the pt he needs to f/u outpatient for the pulmonary nodules found on CXR. -Continue to use ipratropium/albuterol and tiotropium bromide Diet: NPO Code: DNR VTE ppx: SCDs, Eliquis Dispo: Pending clinical course, d/c to [facility] per CM Subjective: Patient reports nausea, episode of vomiting overnight Objective: Vital Signs Temp Pulse Resp BP Pulse Ox 36.8 C 77 18 122/68 H 93 10/03/18 11:04 10/03/18 11:04 10/03/18 11:04 10/03/18 11:04 10/03/18 11:04 Laboratory Results 10/03/18 03:44 10/03/18 03:44 10/02/18 10/03/18 10/04/18 05:59 05:59 05:59 Intake Total 1795 1200 Output Total 1010 990 Balance 785 210 PT 20.8 SEC (12.0-15.0) H 09/29/18 12:07 INR 1.78 (0.83-1.16) H 09/29/18 12:07 - Physical Exam Constitutional: chronically ill appearing Eyes: PERRL Ears, Nose, Mouth, Throat: moist mucous membranes Cardiovascular: regular rate and rhythym Respiratory: no respiratory distress Gastrointestinal: soft, non-tender abdomen, distension Skin: warm Neurologic: AAOx3 Psychiatric: interacting appropriately ICD10 Worksheet Patient Problems: Problems Problem Status Onset Abdominal pain Acute Dehydration Acute Elevated troponin Acute Obstipation Acute Renal failure Acute Chest pain Acute Chronic Disease Mgmt/Transitional Care Acute Fracture of femoral neck, right Acute NSTEMI (non-ST elevated myocardial infarction) Acute
[2018-10-03] MEDS: EPOETIN ALFA 10,000 UNIT/ML VIAL SC SCH (14:42)
--- NOTE | 2018-10-03 16:23 | ECHO ---
[email or web address] [address] [address] Main: [phone] Fax: Transthoracic Echocardiogram Name: MARCI QUIGLEY MR#: [id number] Study Date: 10/03/2018 Study Time: 11:42 AM Date of : 1940 Age: 77 year(s) Height: 175.3 cm (69 in.) Weight: 83.46 kg (184 lb.) BSA: 1.99 m2 Gender: Male Examination: Echo Indication: worsening dyspnea, exam c/w increased RV pressures Image Quality: Adequate Contrast: Requested by: Jerome Barroso BP: 122 mmHg/68 mmHg Heart Rate: Rhythm: Indication: worsening dyspnea, exam c/w increased RV pressures Procedure Staff Lead Enterprise Architect: Sulma Estevez RD Reading Physician: Bradford Davis MD Requesting Provider: Conclusions: Normal size left ventricle. Mild concentric LV hypertrophy. Normal global systolic LV function. The ejection fraction is estimated to be 65-70 %. No regional wall motion abnormality. Mildly dilated right ventricle. The left atrium is severely dilated. The right atrium is moderately dilated. Mild mitral annular calcification. Trivial to mild mitral regurgitation. Aortic sclerosis is present. Moderate tricuspid regurgitation is present. The pulmonary artery pressure is severely increased. Right ventricular systolic pressure measures 71mmHg. Mildly dilated ascending aorta measuring 4.0 cm. Measurements: Chambers Valvular Assessment AV/MV Valvular Assessment TV/PV Normal Normal Normal Name Value Range Name Value Range Name Value Range Ao Mar (2D): 3.4 cm (1.4 cm-2.6 AV Vmax: 1.66 m/s (1 m/s-1.7 TR Vmax: 4.07 mm/s ( - ) cm) m/s) TR PGmax: 66 mmHg ( - ) IVSd (2D): 1.0 cm (0.6 cm-1.1 AV maxP mmHg ( - ) syst. PAP: 71 mmHg ( - ) cm) AV meanP mmHg ( - ) PV Vmax: 0.96 m/s (0.6 m/s-0.9 LVDd (2D): 5.6 cm (4.2 cm-5.9 G[place]EN[place] (VTI): 2.5 cm ( - ) m/s) cm) MV E Vmax: 1.17 m/s ( - ) PV PGmax: 4 mmHg ( - ) LVDs (2D): 3.4 cm (2.1 cm-4 MV A Vmax: 0.79 m/s ( - ) cm) MV E/A: 1.48 ( - ) MV PHT: 0.066 s ( - ) Patient: MARCI QUIGLEY Study Date: 10/03/2018 Page 1 of 3 11:42 AM LVPWd (2D): 1.2 cm (0.6 cm-1 MVA (PHT): 3.3 s ( - ) cm) LVOTd 2.0 cm 2.0 cm mm LVEF (BP): 72 % (>=55 %) EF Range: 65-70 % RVDd(2D): 3.8 cm (1.9 cm-3.8 cmmm) Continued Measurements: Chambers Valvular Assessment AV/MV Valvular Assessment TV/PV Name Value Name Value Name Value LADs: 5.0 cm MV DecTime: 222 m/s CVP (est.): 5 mmHg LADs Lon.2 cm MV E' Septal: 0.14 m/s LA Area: 30.3 cm2 MV E/E' Septal: 8.70 LA Volume: 104 ml MV E/E' Lateral: 8.20 LA Volume Index: 52.3 ml/m2 Additional Vessels Name Value Ao Ascendin.0 cm Inferior Vena Cava: 2.2 cm Findings: Left Ventricle: Normal size left ventricle. Mild concentric LV hypertrophy. Normal global systolic LV function. The ejection fraction is estimated to be 65-70 %. No regional wall motion abnormality. Abnormal septal motion suggestive of an underlying IVCD. Unable to assess diastolic dysfunction. Known basal inferior hypokinesis. Right Ventricle: Mildly dilated right ventricle. Normal RV function. Left Atrium: The left atrium is severely dilated. Right Atrium: The right atrium is moderately dilated. Mitral Valve: The mitral valve is normal in appearance and function. Mild mitral annular calcification. Trivial to mild mitral regurgitation. No mitral stenosis is present. Aortic Valve: The aortic valve is tri-leaflet. Aortic sclerosis is present. There is no significant aortic valve regurgitation. No aortic valve stenosis is present. Tricuspid Valve: The tricuspid valve is normal in appearance and function. Moderate tricuspid regurgitation is present. The pulmonary artery pressure is severely increased. Right ventricular systolic pressure measures 71mmHg. Pulmonic Valve: The pulmonic valve is normal in appearance and function. Mild pulmonic valve regurgitation is noted. Aorta: The aorta is normal. Normal size aortic root measuring 3.4 cm. Mildly dilated ascending aorta measuring 4.0 cm. IVC: The IVC is normal sized. Pericardium: Trivial pericardial effusion. No pleural effusion. Patient: MARCI QUIGLEY Study Date: 10/03/2018 Page 2 of 3 11:42 AM (No Signature Object) Patient: MARCI QUIGLEY Study Date: 10/03/2018 Page 3 of 3 11:42 AM [id number]
[2018-10-03] MEDS: traZODone 100 MG TAB PO SCH (21:05)
[2018-10-03] MEDS: MELATONIN 3 MG TAB PO SCH (21:06)
[2018-10-03] MEDS: ATORVASTATIN CALCIUM 40 MG TAB PO SCH (21:06)
[2018-10-03] MEDS: TAMSULOSIN HCL 0.4 MG CAP PO SCH (21:06)
[2018-10-03] MEDS: Zolpidem Tartrate [Ambien Cr] 6.25 MG PO SCH (21:11)
[2018-10-04 04:32] LABS: PLATELET COUNT 311 10^3/uL (150-400)
[2018-10-04] MEDS: IPRATROPIUM/ALBUTEROL 3 ML DEYVIAL IH SCH ×4 (06:00→22:04)
[2018-10-04] MEDS: FLUTICASONE/SALMETER 250/50MCG DISKUS IH SCH ×2 (09:03→22:04)
[2018-10-04] MEDS: Tiotropium Bromide [Spiriva Respimat] IH SCH (09:04)
--- NOTE | 2018-10-04 09:42 | SOAPPROG ---
SOAP Progress Note Assessment/Plan: Assessment: 1. NIRMALA on CKD Cr improving 2. Volume Overload Pulmonary exam concerning. Give additional lasix. 3. GI Abd exam benign. Wants to eat. Advance diet. 4. CXR Pneumonia vs atelectasis. Will request assistance from RT. 5. Anemia on epo 6. s/p PTCA Trops declining Subjective: Doing fair, very debilitated Objective: Vital Signs Temp Pulse Resp BP Pulse Ox 36.6 C 73 16 120/65 95 10/04/18 07:50 10/04/18 09:13 10/04/18 09:13 10/04/18 07:50 10/04/18 09:13 Laboratory Results 10/04/18 03:48 10/03/18 03:44 10/03/18 10/04/18 10/05/18 05:59 05:59 05:59 Intake Total 1200 560 Output Total 990 1230 Balance 210 -670 PT 20.8 SEC (12.0-15.0) H 09/29/18 12:07 INR 1.78 (0.83-1.16) H 09/29/18 12:07 Physical Exam - Physical Exam General Appearance: mild distress EENT: other (dry mouth, dried blood) Respiratory: other (Decreased BS with rales bilaterally lower 50 percent) Extremities: pedal edema Neuro/Psych: oriented x 3 ICD10 Worksheet Patient Problems: Problems Problem Status Onset Abdominal pain Acute Dehydration Acute Elevated troponin Acute Obstipation Acute Renal failure Acute Chest pain Acute Chronic Disease Mgmt/Transitional Care Acute Fracture of femoral neck, right Acute NSTEMI (non-ST elevated myocardial infarction) Acute
[2018-10-04] MEDS ORDERED: FUROSEMIDE 100 MG/10 ML VIAL IVP ONE (09:47)
[2018-10-04] MEDS: FERRO-SEQUELS 65 MG TAB.ER PO SCH ×2 (09:58→20:27)
[2018-10-04] MEDS: APIXABAN 2.5 MG TAB PO SCH ×2 (09:58→20:27)
[2018-10-04] MEDS: SENNOSIDES/DOCUSATE SODIUM TAB PO SCH ×2 (09:58→20:27)
[2018-10-04] MEDS: AMIODARONE HCL 200 MG TAB PO SCH (09:58)
[2018-10-04] MEDS: CLOPIDOGREL BISULFATE 75 MG TAB PO SCH (09:58)
[2018-10-04] MEDS: ASPIRIN EC 325 MG TAB PO SCH (09:58)
[2018-10-04] MEDS: guaiFENesin 600 MG TAB.ER PO SCH (09:58)
[2018-10-04] MEDS: METOPROLOL TARTRATE 25 MG TAB PO SCH ×2 (09:58→20:27)
--- NOTE | 2018-10-04 12:30 | HOSPPROG ---
Hospitalist Progress Note Assessment/Plan: 77 y/o male presents with approximately 4 days worth of nausea, vomiting, and abdominal discomfort and distention; imaging suggests possible ileus. 1. Acute Abdominal pain: Abdominal x-ray on admission demonstrates possible ileus. -Had 2 BMs on 10/02, n/v overnight on 10/03 -Continue Suppository , Bowel Regimen ordered on 09/30 -Anti-emetics (Zofran) PRN -Advanced diet to clears this morning, advance as tolerated 2. Acute Renal failure on chronic renal failure -Nephrology following, Cr 2.9 this AM, peaked at 3.1 -Nephrology following, appreciate recs, ordered additional dose of IV Lasix for today, redose as needed -Continue monitoring BMP, I/O, Avoid nephrotoxic medications 3. Encephalopathy -Patient with waxing and waning mental status, overall improving -Avoid narcotics if possible -Reduce stimulation an hour before going to bed - no television, no cell phones or computers. Dim the lights. -Continue Ambien, added Trazodone 4. Anemia - S/p 1 unit PRBC on 10/01, stable at 8.1 this AM - No signs of bleeding - Fe panel reveals Fe deficiency anemia, Anemia of Chronic disease - Continue PO Fe (started during this admission) - Continue to monitor H/H 5. Recent stent placement -Cont tele/pulse ox monitoring -Continue plavix, aspirin -Nitroglycerin PRN Troponin repeated by Nephrology, remains elevated in setting of recent PCI but downtrending 6. Hyponatremia: he has had poor PO intake and vomiting on admission -S/p IV NS, improved 7. Atrial Fibrillation -Stable. Continue Eliquis and amiodarone. 8. COPD -Reiterated to the pt he needs to f/u outpatient for the pulmonary nodules found on CXR. -Continue to use ipratropium/albuterol and tiotropium bromide Diet: Clears Code: DNR VTE ppx: SCDs, Eliquis Dispo: Pending clinical course, d/c to [facility] per CM Subjective: Patient reports being hungry this morning Objective: Vital Signs Temp Pulse Resp BP Pulse Ox 36.6 C 80 18 126/69 H 91 L 10/04/18 12:00 10/04/18 12:00 10/04/18 12:00 10/04/18 12:00 10/04/18 12:00 Laboratory Results 10/04/18 03:48 10/04/18 10:50 10/03/18 10/04/18 10/05/18 05:59 05:59 05:59 Intake Total 1200 560 Output Total 990 1230 400 Balance 210 -670 -400 PT 20.8 SEC (12.0-15.0) H 09/29/18 12:07 INR 1.78 (0.83-1.16) H 09/29/18 12:07 - Physical Exam Constitutional: chronically ill appearing Eyes: PERRL Ears, Nose, Mouth, Throat: moist mucous membranes Cardiovascular: irregularly irregular Respiratory: no respiratory distress Gastrointestinal: soft, non-tender abdomen, distension Skin: warm Neurologic: AAOx3 Psychiatric: interacting appropriately ICD10 Worksheet Patient Problems: Problems Problem Status Onset Abdominal pain Acute Dehydration Acute Elevated troponin Acute Obstipation Acute Renal failure Acute Chest pain Acute Chronic Disease Mgmt/Transitional Care Acute Fracture of femoral neck, right Acute NSTEMI (non-ST elevated myocardial infarction) Acute
[2018-10-04] MEDS: ATORVASTATIN CALCIUM 40 MG TAB PO SCH (20:27)
[2018-10-04] MEDS: traZODone 100 MG TAB PO SCH (20:27)
[2018-10-04] MEDS: POLYETHYLENE GLYCOL 3350 17 GM PKT PO PRN (20:27)
[2018-10-04] MEDS: MELATONIN 3 MG TAB PO SCH (20:27)
[2018-10-04] MEDS: TAMSULOSIN HCL 0.4 MG CAP PO SCH (20:27)
[2018-10-04] MEDS: Zolpidem Tartrate [Ambien Cr] 6.25 MG PO SCH (20:42)
[2018-10-05 04:39] LABS: PLATELET COUNT 312 10^3/uL (150-400)
[2018-10-05] MEDS: IPRATROPIUM/ALBUTEROL 3 ML DEYVIAL IH SCH ×4 (06:26→20:51)
--- NOTE | 2018-10-05 08:50 | SOAPPROG ---
SOAP Progress Note Assessment/Plan: Assessment/Plan: NIRMALA on CKD 4: Cr down to 2.8 today, lytes ok. - No need for HD. - Will continue diuresis as below. - Avoid hypotension and nephrotoxins. - Will continue to monitor. Hypervolemia: will give another dose of IV Lasix this afternoon. Hypokalemia: will order replacement KCl today, recheck BMP this afternoon and replace further as needed. Anemia: Pt on epo. Subjective: No acute events overnight. Pt states that he is feeling fine, abdomen feels empty but not painful, trying oral liquids since yesterday. He notes his breathing is a little tight but not bad, on 4L O2, same as home. He still has swelling in his legs. Objective: Vital Signs Temp Pulse Resp BP Pulse Ox 36.2 C 74 20 109/63 96 10/05/18 07:12 10/05/18 07:12 10/05/18 07:12 10/05/18 07:12 10/05/18 07:12 Laboratory Results 10/05/18 03:50 10/05/18 03:50 10/04/18 10/05/18 10/06/18 05:59 05:59 05:59 Intake Total 560 350 Output Total 1230 1600 350 Balance -670 -1250 -350 PT 20.8 SEC (12.0-15.0) H 09/29/18 12:07 INR 1.78 (0.83-1.16) H 09/29/18 12:07 General: alert and oriented, no acute distress Eyes: EOMI, PERRL OP: Clear CV: RRR Resp: nonlabored respirations on 4L O2, poor air movement Abd: Soft, NT Ext: +2 edema BLE Neuro: CN II-XII grossly intact Psych: cooperative Skin: +bruising ICD10 Worksheet Patient Problems: Problems Problem Status Onset Abdominal pain Acute Dehydration Acute Elevated troponin Acute Obstipation Acute Renal failure Acute Chest pain Acute Chronic Disease Mgmt/Transitional Care Acute Fracture of femoral neck, right Acute NSTEMI (non-ST elevated myocardial infarction) Acute
[2018-10-05] MEDS: POTASSIUM CL 20 MEQ/15 ML UDCUP PO SCH ×2 (09:45→13:53)
[2018-10-05] MEDS: ASPIRIN EC 325 MG TAB PO SCH (09:45)
[2018-10-05] MEDS: CLOPIDOGREL BISULFATE 75 MG TAB PO SCH (09:46)
[2018-10-05] MEDS: APIXABAN 2.5 MG TAB PO SCH ×2 (09:46→20:45)
[2018-10-05] MEDS: AMIODARONE HCL 200 MG TAB PO SCH (09:46)
[2018-10-05] MEDS: guaiFENesin 600 MG TAB.ER PO SCH (09:46)
[2018-10-05] MEDS: SENNOSIDES/DOCUSATE SODIUM TAB PO SCH ×2 (09:46→20:46)
[2018-10-05] MEDS: METOPROLOL TARTRATE 25 MG TAB PO SCH ×2 (09:46→20:46)
[2018-10-05] MEDS: FERRO-SEQUELS 65 MG TAB.ER PO SCH ×2 (09:46→20:46)
[2018-10-05] MEDS: FLUTICASONE/SALMETER 250/50MCG DISKUS IH SCH ×2 (10:18→20:51)
[2018-10-05] MEDS: Tiotropium Bromide [Spiriva Respimat] IH SCH (10:18)
--- NOTE | 2018-10-05 13:58 | ASMTCMCOM ---
CM Note CM Note Notes: Pt has been accepted to [facility] in [place]. Pt and ex- informed. D/C Plan: [facility] Date Signed: 10/05/2018 01:58 PM Electronically Signed By:Rachel Schneider
[2018-10-05] MEDS ORDERED: FUROSEMIDE 100 MG/10 ML VIAL IVP ONE (14:00)
[2018-10-05] MEDS ORDERED: traMADol 50 MG TAB PO PRN (15:30)
[2018-10-05] MEDS: ONDANSETRON 4 MG/2 ML VIAL IVP PRN (15:46)
--- NOTE | 2018-10-05 15:56 | HOSPPROG ---
Hospitalist Progress Note Assessment/Plan: 77 y/o male presents with approximately 4 days worth of nausea, vomiting, and abdominal discomfort and distention; imaging suggests possible ileus. Hyperbilirubinemia- patient noted to be jaundiced today. CMP ordered showing total bilirubin of over 8. Liver Ultrasound ordered showing likely obstruction which correlates with LFT pattern. Discussed case with radiology who saw stones in gallbladder and in biliary system but view was obstructed by large amount of gas. I consulted GI who will perform ERCP in am. -NPO at [place] -Family updated -GI to see and ERCP in am -trend LFT Biliary obstruction- noted on US with elevated LFTs. GI to perform ERCP in am Acute Abdominal pain: due to either ileus but now looking more like biliary obstruction. -NPO at [place] -repeat Abdominal film in am -GI to see Acute Renal failure on chronic renal failure- nephrology is consulted. redose lasix at 80mg at 1400 today. Monitor lytes closely. Creatinine to 2.8 today. No need for HD. monitor renal function daily. Encephalopathy -Patient with waxing and waning mental status, overall improving -Avoid narcotics if possible -Reduce stimulation an hour before going to bed - no television, no cell phones or computers. Dim the lights. -Continue Ambien,discontinue trazodone if Qtc remains above 500 Anemia - S/p 1 unit PRBC on 10/01, stable at 8.1 this AM - No signs of bleeding - Fe panel reveals Fe deficiency anemia, Anemia of Chronic disease - Continue PO Fe (started during this admission) - Continue to monitor H/H Recent stent placement -Cont tele/pulse ox monitoring -Continue plavix, aspirin -Nitroglycerin PRN Troponin repeated by Nephrology, remains elevated in setting of recent PCI but downtrending Hyponatremia: he has had poor PO intake and vomiting on admission -S/p IV NS, improved Atrial Fibrillation -Stable. Continue Eliquis and amiodarone. COPD -Reiterated to the pt he needs to f/u outpatient for the pulmonary nodules found on CXR. -Continue to use ipratropium/albuterol and tiotropium bromide Fluids- PO, patient appears overloaded Lytes- Monitor, WNL currently Nutrition- clears, NPO at [place] Cor- DNR Dispo- inpatient for ab pain, biliary obstruction, hyperbilirubinemia Subjective: patient asking for food, still with some abdominal distention, no bm in two days. Uncomfortable abdomen but no acute pain. Objective: Vital Signs Temp Pulse Resp BP Pulse Ox 36.4 C 71 15 93/52 L 98 10/05/18 11:02 10/05/18 11:02 10/05/18 11:02 10/05/18 11:02 10/05/18 11:02 Laboratory Results 10/05/18 03:50 10/05/18 12:15 10/04/18 10/05/18 10/06/18 05:59 05:59 05:59 Intake Total 560 350 Output Total 1230 1600 350 Balance -670 -1250 -350 PT 20.8 SEC (12.0-15.0) H 09/29/18 12:07 INR 1.78 (0.83-1.16) H 09/29/18 12:07 - Physical Exam Constitutional: no apparent distress, appears nourished, not in pain Eyes: PERRL, anicteric sclera, EOMI Ears, Nose, Mouth, Throat: moist mucous membranes, hearing normal, ears appear normal, no oral mucosal ulcers Cardiovascular: regular rate and rhythym, no murmur, rub, or gallop, edema Respiratory: inspiratory crackles Gastrointestinal: tenderness, distension Genitourinary: no bladder fullness, no bladder tenderness, no renal bruits Skin: no rashes or abrasions, no fluctuance, no induration Musculoskeletal: full muscle strength, no muscle tenderness, normal joint ROM Neurologic: sensation intact bilaterally, CN II-XII Intact Psychiatric: interacting appropriately, not anxious, not encephalopathic, thought process linear Lymph, Heme, Immunologic: no cervical LAD, no supraclavicular LAD ICD10 Worksheet Patient Problems: Problems Problem Status Onset Abdominal pain Acute Dehydration Acute Elevated troponin Acute Obstipation Acute Renal failure Acute Chest pain Acute Chronic Disease Mgmt/Transitional Care Acute Fracture of femoral neck, right Acute NSTEMI (non-ST elevated myocardial infarction) Acute
[2018-10-05] MEDS: POLYETHYLENE GLYCOL 3350 17 GM PKT PO PRN (20:45)
[2018-10-05] MEDS: METOCLOPRAMIDE 5 MG TAB PO PRN (20:46)
[2018-10-05] MEDS: MELATONIN 3 MG TAB PO SCH (20:46)
[2018-10-05] MEDS: traZODone 100 MG TAB PO SCH (20:46)
[2018-10-05] MEDS: TAMSULOSIN HCL 0.4 MG CAP PO SCH (20:46)
[2018-10-05] MEDS: Zolpidem Tartrate [Ambien Cr] 6.25 MG PO SCH (21:01)
--- NOTE | 2018-10-05 22:48 | SOAPPROG ---
[facility] Progress Note Assessment/Plan: Assessment/Plan: Chart reviewed, pt. not seen yet, formal note to follow. Jaundice, with cholestatic LFTs. With this, his symptoms and US findings of the gallbladder, suspect choledocholithiasis. Malignant obstruction of the biliary tract is possible, but less likely. - ERCP. This cannot be done until 10/07, as will require sphincterotomy, and he is on eliquis. - d/c eliquis. ASA, plavix ok - in the interim, MRI and MRCP, to better delineate etiology, in this high risk ERCP. Safe to do with a heart stent. Thanks! 10/05/18 22:50 Objective: Vital Signs Temp Pulse Resp BP Pulse Ox 36.4 C 63 20 106/59 L 100 10/05/18 20:00 10/05/18 20:00 10/05/18 20:00 10/05/18 20:00 10/05/18 20:00 Laboratory Results 10/05/18 03:50 10/05/18 16:24 10/04/18 10/05/18 10/06/18 05:59 05:59 05:59 Intake Total 560 350 250 Output Total 1230 1600 700 Balance -670 -1250 -450 PT 20.8 SEC (12.0-15.0) H 09/29/18 12:07 INR 1.78 (0.83-1.16) H 09/29/18 12:07 ICD10 Worksheet Patient Problems: Problems Problem Status Onset Abdominal pain Acute Dehydration Acute Elevated troponin Acute Obstipation Acute Renal failure Acute Chest pain Acute Chronic Disease Mgmt/Transitional Care Acute Fracture of femoral neck, right Acute NSTEMI (non-ST elevated myocardial infarction) Acute
[2018-10-06] MEDS: IPRATROPIUM/ALBUTEROL 3 ML DEYVIAL IH SCH ×4 (06:15→21:50)
[2018-10-06] MEDS ORDERED: POTASSIUM CL 20 MEQ/15 ML UDCUP PO ONE (09:16)
[2018-10-06] MEDS: CLOPIDOGREL BISULFATE 75 MG TAB PO SCH (09:26)
[2018-10-06] MEDS: METOPROLOL TARTRATE 25 MG TAB PO SCH ×2 (09:26→20:18)
[2018-10-06] MEDS: AMIODARONE HCL 200 MG TAB PO SCH (09:26)
[2018-10-06] MEDS: guaiFENesin 600 MG TAB.ER PO SCH (09:26)
[2018-10-06] MEDS: ASPIRIN EC 325 MG TAB PO SCH (09:26)
[2018-10-06] MEDS: SENNOSIDES/DOCUSATE SODIUM TAB PO SCH ×2 (09:26→20:17)
[2018-10-06] MEDS: FLUTICASONE/SALMETER 250/50MCG DISKUS IH SCH ×2 (10:02→21:45)
[2018-10-06] MEDS: Tiotropium Bromide [Spiriva Respimat] IH SCH (10:02)
--- NOTE | 2018-10-06 10:16 | SOAPPROG ---
[facility] Progress Note Assessment/Plan: Assessment: 1. NIRMALA on CKD 4: Cr up slightly to 2.9 today - No need for HD. - Hold diuresis today as he appears improved and likely to be NPO later for ERCP tomorrow - Avoid hypotension and nephrotoxins. - Will continue to monitor. 2. Hypervolemia: Weight and edema down 3. Hypokalemia: Will order 20mEq replacement KCl today 4. Anemia: Pt on epo, improving 5. Jaundice: - LFTs in cholestatic pattern, to get ERCP tomorrow, Eliquis on hold - Levels slightly improved today, possible a passed stone? Pt denies c/o Plan: 10/06/18 10:12 10/06/18 10:16 10/06/18 10:18 Subjective: Feels ok, denies CP/SOB or other complaint. Reports good appetite. Objective: Vital Signs Temp Pulse Resp BP Pulse Ox 36.2 C 65 16 126/81 H 94 10/06/18 07:29 10/06/18 10:04 10/06/18 10:04 10/06/18 07:29 10/06/18 10:04 Laboratory Results 10/05/18 03:50 10/06/18 03:54 10/05/18 10/06/18 10/07/18 05:59 05:59 05:59 Intake Total 350 350 Output Total 1600 2200 600 Balance -1250 -1850 -600 PT 20.8 SEC (12.0-15.0) H 09/29/18 12:07 INR 1.78 (0.83-1.16) H 09/29/18 12:07 Physical Exam - Physical Exam General Appearance: WD/WN, alert, no apparent distress Respiratory: rales (few at bases b/l ) Cardiac/Chest: regular rate, rhythm Abdomen: non-tender, soft Extremities: swelling (trace) ICD10 Worksheet Patient Problems: Problems Problem Status Onset Abdominal pain Acute Dehydration Acute Elevated troponin Acute Obstipation Acute Renal failure Acute Chest pain Acute Chronic Disease Mgmt/Transitional Care Acute Fracture of femoral neck, right Acute NSTEMI (non-ST elevated myocardial infarction) Acute
--- NOTE | 2018-10-06 15:10 | HOSPPROG ---
Hospitalist Progress Note Assessment/Plan: 77 y/o male presents with approximately 4 days worth of nausea, vomiting, and abdominal discomfort and distention; imaging suggests possible ileus. Hyperbilirubinemia- patient noted to be jaundiced on exam yesterday. Bilirubin was 8 but today down to 4 and transaminitis improved as well. Liver Ultrasound ordered showing likely obstruction which correlates with LFT pattern. Discussed case with radiology who saw stones in gallbladder and in biliary system but view was obstructed by large amount of gas. I consulted GI who will perform ERCP in am. -GI saw and recommends MRCP/MRI today -Patient refusing MRI MRCP due -ERCP in am -monitor LFTs Biliary obstruction- noted on US with elevated LFTs. GI to perform ERCP in am Acute Abdominal pain: due to either ileus but now looking more like biliary obstruction. Large BM today, tolerating PO without [place] or pain. -NPO at [place] for ERCP -MRCP and MRI ordered today but patient refusing -GI following Acute Renal failure on chronic renal failure- Creatinine up to 2.9 from 2.8 today. I discussed with neprhology who recommends hold diuresis today and monitor renal function Encephalopathy -Patient with waxing and waning mental status, overall improving -Avoid narcotics if possible -Reduce stimulation an hour before going to bed - no television, no cell phones or computers. Dim the lights. -Continue Ambien,discontinue trazodone if Qtc remains above 500 Anemia - S/p 1 unit PRBC on 10/01, H/H appears stable. Repeat h/h in am. - No signs of bleeding - Fe panel reveals Fe deficiency anemia, Anemia of Chronic disease - Continue PO Fe (started during this admission) - Continue to monitor H/H Recent stent placement -Cont tele/pulse ox monitoring -Continue plavix, aspirin -Nitroglycerin PRN Troponin repeated by Nephrology, remains elevated in setting of recent PCI but downtrending Hyponatremia: he has had poor PO intake and vomiting on admission, normalized at this point with todays Na 140. monitor -S/p IV NS, improved Atrial Fibrillation -Stable. Continue Eliquis and amiodarone. COPD -Reiterated to the pt he needs to f/u outpatient for the pulmonary nodules found on CXR. -Continue to use ipratropium/albuterol and tiotropium bromide Fluids- PO, patient appears overloaded Lytes- Monitor, WNL currently Nutrition- clears, NPO at [place] Cor- DNR Dispo- inpatient for ab pain, biliary obstruction, hyperbilirubinemia Subjective: patient with minimal ab pain. tolerated PO today without issue. wants to have a BM Objective: Vital Signs Temp Pulse Resp BP Pulse Ox 36.7 C 65 13 94/47 L 94 10/06/18 11:14 10/06/18 14:17 10/06/18 14:17 10/06/18 11:14 10/06/18 14:17 Laboratory Results 10/05/18 03:50 10/06/18 03:54 10/05/18 10/06/18 10/07/18 05:59 05:59 05:59 Intake Total 350 350 Output Total 1600 2200 850 Balance -1250 -1850 -850 PT 20.8 SEC (12.0-15.0) H 09/29/18 12:07 INR 1.78 (0.83-1.16) H 09/29/18 12:07 - Physical Exam Constitutional: no apparent distress, appears nourished, not in pain Eyes: PERRL, anicteric sclera, EOMI Ears, Nose, Mouth, Throat: moist mucous membranes, hearing normal, ears appear normal, no oral mucosal ulcers Cardiovascular: regular rate and rhythym, no murmur, rub, or gallop, edema Respiratory: no respiratory distress, no rales or rhonchi, clear to auscultation Gastrointestinal: normoactive bowel sounds, soft, non-tender abdomen, no palpable masses Genitourinary: no bladder fullness, no bladder tenderness, no renal bruits Skin: no rashes or abrasions, no fluctuance, no induration Musculoskeletal: full muscle strength, no muscle tenderness, normal joint ROM Neurologic: AAOx3, sensation intact bilaterally Psychiatric: interacting appropriately, not anxious, not encephalopathic, thought process linear Lymph, Heme, Immunologic: no cervical LAD, no supraclavicular LAD ICD10 Worksheet Patient Problems: Problems Problem Status Onset Abdominal pain Acute Dehydration Acute Elevated troponin Acute Obstipation Acute Renal failure Acute Chest pain Acute Chronic Disease Mgmt/Transitional Care Acute Fracture of femoral neck, right Acute NSTEMI (non-ST elevated myocardial infarction) Acute
--- NOTE | 2018-10-06 16:38 | GCON ---
DATE OF CONSULTATION: 10/06/2018 REFERRING PHYSICIAN: Shade Herrera MD I was kindly requested to see the patient by Dr. Herrera in consultation for chief complaint of abnormal liver tests. He is a 77-year-old white male who was admitted from his rehab facility with abdominal discomfort, nausea. The discomfort is approximately 3/10 in intensity. While here at the hospital, he was noted to be jaundiced. Indeed, yesterday, his total bilirubin was 8.6. Today, it is better, at 4.1. His alkaline phosphatase has also improved, but only slightly, from 702 to 685. AST and ALT are elevated, but better today. Workup has included ultrasound showing moderate intrahepatic biliary duct dilation. Sludge and cholelithiasis are seen in the gallbladder. The gallbladder, itself, is mildly distended with some wall thickening and mild pericholecystic fluid. PAST MEDICAL HISTORY: 1. As above. 2. Recent fall that resulted in a right hip fracture with need for surgery. 3. Atrial fibrillation requiring cardioversion. 4. High-grade right coronary artery blockage, requiring recent heart stent. 5. Renal insufficiency. 6. Hypertension. 7. Peripheral vascular disease. 8. Past AAA repair. 9. COPD. 10. Anemia of chronic disease. 11. Otherwise, noncontributory. INPATIENT MEDICATIONS: Lopressor, iron, amiodarone, metered-dose inhaler, Procrit, Eliquis which was stopped yesterday, aspirin, Plavix. He is also on Lipitor, but this is being held with his elevated liver tests. ALLERGIES: Nonsteroidals. SOCIAL HISTORY: Former smoker. FAMILY HISTORY: Negative for similar jaundice. REVIEW OF SYSTEMS: Positive pertinent review of systems as per my HPI. Otherwise, complete review of systems is negative. PHYSICAL EXAM: CONSTITUTIONAL: Pleasant somewhat chronically ill-appearing gentleman. VITAL SIGNS: Stable. SKIN: Ecchymotic, warm. EYES: Pupils equal , round, reactive to light and accommodation. EARS, NOSE, MOUTH, AND THROAT: Oropharynx without masses, moist mucosa. CARDIOVASCULAR: Normal S2, normal PMI. RESPIRATORY: Lungs clear to auscultation and percussion anteriorly. GASTROINTESTINAL: Abdomen soft, nontender. NEUROLOGIC: Grossly nonfocal, cranial nerves grossly intact. PSYCHIATRIC: Orientation, insight appropriate. MUSCULOSKELETAL: Strength grossly normal throughout, normal station. LABORATORIES: Creatinine of 2.9. Hematocrit stable at 25.8%. Prothrombin time 20.8. Urinalysis negative. Otherwise, as above. ASSESSMENT: Abdominal discomfort, nausea. With his cholestatic liver function tests and ultrasound showing moderate intrahepatic duct dilation, I suspect the symptoms are, indeed, due to partial bile duct obstruction. In turn, with the gallstones seen and some improvement in his values today, choledocholithiasis is most likely. Other possibilities such as malignant obstruction, etc., are possible, but less likely. PLAN: 1. We will repeat his liver function tests tomorrow. If they continue to improve dramatically, then he may have passed a possible common bile duct stone and not require biliary intervention. However, if continues to be suspicious for obstruction, we will then proceed with ERCP. Certainly, with his recent hip surgery, atrial fibrillation, use of anticoagulants, CAD, renal disease, hypertension, COPD, etc., he is at increased risk for this procedure. However, suspected benefits would outweigh the risks and suspect he would do well. 2. In anticipation of the above, his Eliquis is being held. We will hold aspirin as well. Plavix okay. 3. If we do proceed with ERCP, we will give him a dose of Unasyn pre procedure. 4. I agree with holding Lipitor until his liver function tests improve. 5. Depending on the above, I suspect he will need cholecystectomy at some point. Thank you for allowing me to help in the management of the patient. /[id number]/MODL MTDD
[2018-10-06 16:50] LABS: PLATELET COUNT 303 10^3/uL (150-400)
[2018-10-06] MEDS: PANTOPRAZOLE SODIUM 40 MG VIAL IVP SCH ×2 (18:18→20:18)
[2018-10-06] MEDS: TAMSULOSIN HCL 0.4 MG CAP PO SCH (20:17)
[2018-10-06] MEDS: MELATONIN 3 MG TAB PO SCH (20:17)
[2018-10-06] MEDS: traZODone 100 MG TAB PO SCH (20:17)
[2018-10-06] MEDS: ALBUTEROL 3 ML DEYVIAL IH PRN (21:44)
[2018-10-06] MEDS: Zolpidem Tartrate [Ambien Cr] 6.25 MG PO SCH (22:04)
[2018-10-07 04:45] LABS: PLATELET COUNT 291 10^3/uL (150-400)
[2018-10-07] MEDS: IPRATROPIUM/ALBUTEROL 3 ML DEYVIAL IH SCH ×3 (05:56→16:16)
[2018-10-07] MEDS ORDERED: AMPICILLIN/SULBACTAM 1.5 GM in NS 100 ML IV ONE ×2 (06:00→09:00)
[2018-10-07] MEDS ORDERED: 1/2 NS 1,000 ML IV SCH (07:00)
[2018-10-07] MEDS: PANTOPRAZOLE SODIUM 40 MG VIAL IVP SCH (09:15)
[2018-10-07] MEDS: FLUTICASONE/SALMETER 250/50MCG DISKUS IH SCH ×2 (09:21→20:53)
[2018-10-07] MEDS: Tiotropium Bromide [Spiriva Respimat] IH SCH (09:21)
[2018-10-07] MEDS: METOPROLOL TARTRATE 25 MG TAB PO SCH (09:35)
[2018-10-07] MEDS: AMIODARONE HCL 200 MG TAB PO SCH (09:36)
[2018-10-07] MEDS: SENNOSIDES/DOCUSATE SODIUM TAB PO SCH ×2 (09:36→23:25)
--- NOTE | 2018-10-07 09:50 | SOAPPROG ---
[facility] Progress Note Assessment/Plan: Assessment: 1. NIRMALA on CKD Cr now upper 2's. His baseline had been in lower 2's. There may be a hemodynamic component. Will follow. 2. Hemoccult positive Will address with primary team. This is likely better off of Eliquis. His Hg is stable. 3. Inc'd LFT's These are improving. He has GI eval ongoing relating to bile duct dilatation. 4. Cards Appears better, although BP low. I remain concerned about R heart pressures and function. At this point, he likely needs additional preload. Cards will see to help delineate. 5. Pulmonary Status Improved. 10/07/18 09:56 Subjective: Doing fair Objective: Vital Signs Temp Pulse Resp BP Pulse Ox 36.8 C 60 14 112/63 96 10/07/18 04:00 10/07/18 09:32 10/07/18 09:32 10/07/18 04:00 10/07/18 09:32 Laboratory Results 10/07/18 04:12 10/07/18 04:12 10/06/18 10/07/18 10/08/18 05:59 05:59 05:59 Intake Total 350 810 Output Total 2200 1525 Balance -1850 -715 PT 20.8 SEC (12.0-15.0) H 09/29/18 12:07 INR 1.78 (0.83-1.16) H 09/29/18 12:07 Physical Exam - Physical Exam General Appearance: no apparent distress Respiratory: lungs clear, other (diminished on the right) Cardiac/Chest: regular rate, rhythm Extremities: pedal edema Neuro/Psych: oriented x 3 ICD10 Worksheet Patient Problems: Problems Problem Status Onset Abdominal pain Acute Dehydration Acute Elevated troponin Acute Obstipation Acute Renal failure Acute Chest pain Acute Chronic Disease Mgmt/Transitional Care Acute Fracture of femoral neck, right Acute NSTEMI (non-ST elevated myocardial infarction) Acute
[2018-10-07] MEDS: guaiFENesin 600 MG TAB.ER PO SCH (10:35)
[2018-10-07] MEDS: CLOPIDOGREL BISULFATE 75 MG TAB PO SCH (10:36)
--- NOTE | 2018-10-07 12:17 | SOAPPROG ---
SOAP Progress Note Assessment/Plan: Assessment/Plan: 1. Abnormal LFTs. Continue to improve. Suspect a passed cbd stone. - recommend lap ashley. At the time of surgery, if possible, recommend intraoperative cholangiogram, to make sure normal, as I suspect. If positive, please recall us. 2. ? of dark/black stool. Hct stable, however, x 2 values. Doubt clinically significant. - no EGD needed at this juncture - feed - change to oral PPI bid, while here in the hospital - ok to restart eliquis tomorrow, if Hct remains stable. OK to restart aspirin in 5 days. Will sign off; please call if we can be of further help in the future [phone]). Thanks! 10/07/18 12:14 Subjective: cc: abnormal LFTs Without complaints. No abdominal pain, nausea, vomiting. No rigors, chills. Description from nursing of a possible dark/black stool. Objective: Vital Signs Temp Pulse Resp BP Pulse Ox 36.6 C 65 13 114/65 95 10/07/18 11:56 10/07/18 11:56 10/07/18 11:56 10/07/18 11:56 10/07/18 11:56 Laboratory Results 10/07/18 11:19 10/07/18 04:12 10/06/18 10/07/18 10/08/18 05:59 05:59 05:59 Intake Total 350 810 Output Total 2200 1525 Balance -1850 -715 PT 20.8 SEC (12.0-15.0) H 09/29/18 12:07 INR 1.78 (0.83-1.16) H 09/29/18 12:07 Physical Exam - Physical Exam General Appearance: WD/WN, alert, no apparent distress EENT: PERRL/EOMI, normal ENT inspection, pharynx normal, TMs normal Neck: non-tender, full range of motion, supple, normal inspection Respiratory: chest non-tender, lungs clear, normal breath sounds Cardiac/Chest: normal peripheral pulses, regular rate, rhythm Peripheral Pulses: 2+: carotid (R), carotid (L), femoral (R), femoral (L), dorsalis-pedis (R), dorsalis-pedis (L) Abdomen: normal bowel sounds, non-tender, soft Male Genitalia: deferred Rectal: deferred Back: Normal inspection Skin: normal color, warm/dry Lymphatic: no adenopathy Extremities: normal range of motion, non-tender, normal inspection, normal capillary refill Neuro/Psych: no motor/sensory deficits, alert, normal mood/affect, oriented x 3 ICD10 Worksheet Patient Problems: Problems Problem Status Onset Abdominal pain Acute Dehydration Acute Elevated troponin Acute Obstipation Acute Renal failure Acute Chest pain Acute Chronic Disease Mgmt/Transitional Care Acute Fracture of femoral neck, right Acute NSTEMI (non-ST elevated myocardial infarction) Acute
--- NOTE | 2018-10-07 15:39 | HOSPPROG ---
Hospitalist Progress Note Assessment/Plan: 77 y/o male presents with approximately 4 days worth of nausea, vomiting, and abdominal discomfort and distention; imaging suggests possible ileus. ileus resolved, but patient with worsening renal function, fluid overload, debility. Hyperbilirubinemia-Seems to be resolving. Thought to have a possible CBD stone but patients LFTs are trending down, he no longer appears jaundiced either. He refused MRCP/MRI and so no eval was ever undertaken. -Continue to monitor LFTs Ileus- patient admitted initially with what was thought to be an ileus. He had multiple large Bms yesterday and is now tolerating PO. NIRMALA on CKD- baseline appears to be stage 4 CKD. nephrology is consulted and is following. Creatinine was initially up to about 3 but seems to have stabilized around 2.8. he does appear edematous but may be preload dependent and so we are hesitant to overdiurese. Anemia- anemic earlier in hospitalization, H/H has remained stable, but patient did have multiple large black Bms yesterday. started on PPI, eliquis stopped for now and H/H being monitored. CAD- Had PCI to saphenous vein graft to RCA in September 2018. On asa, statin, plavix as outpatient, asa held, on statin Atrial Fibrillation- was on eliquis and amiodarone. Had to hold eliquis in setting of possible bleed. continue amiodarone. COPD- severe COPD in reviewing chart. FEV1 of 33%. On advair and duonebs Pulmonary Hypertension- has had consistently elevated RVSP on all of his last echos with last RVSP of over 70. Cardiology was consulted to consider a right heart cath to obtain PCWP. Fluids- PO, patient appears overloaded Lytes- Monitor, WNL currently Nutrition- clears, NPO at [facility]- DNR Dispo- inpatient for ab pain, biliary obstruction, hyperbilirubinemia Subjective: no longer with ab pain. wants to eat. No chest pain, sob, or other complaints. Objective: Vital Signs Temp Pulse Resp BP Pulse Ox 36.5 C 62 20 86/52 L 96 10/07/18 15:19 10/07/18 15:19 10/07/18 15:19 10/07/18 15:19 10/07/18 15:19 Laboratory Results 10/07/18 11:19 10/07/18 04:12 10/06/18 10/07/18 10/08/18 05:59 05:59 05:59 Intake Total 350 810 Output Total 2200 1525 Balance -1850 -715 PT 20.8 SEC (12.0-15.0) H 09/29/18 12:07 INR 1.78 (0.83-1.16) H 09/29/18 12:07 - Physical Exam Constitutional: no apparent distress, appears nourished, not in pain Eyes: PERRL, anicteric sclera, EOMI Ears, Nose, Mouth, Throat: moist mucous membranes, hearing normal, ears appear normal, no oral mucosal ulcers Cardiovascular: regular rate and rhythym, no murmur, rub, or gallop, edema (2+ pitting edema in LE) Respiratory: no respiratory distress, no rales or rhonchi, clear to auscultation Gastrointestinal: normoactive bowel sounds, soft, non-tender abdomen, no palpable masses Genitourinary: no bladder fullness, no bladder tenderness, no renal bruits Skin: no rashes or abrasions, no fluctuance, no induration Musculoskeletal: full muscle strength, no muscle tenderness, normal joint ROM Neurologic: AAOx3, sensation intact bilaterally Psychiatric: interacting appropriately, not anxious, not encephalopathic, thought process linear Lymph, Heme, Immunologic: no cervical LAD, no supraclavicular LAD ICD10 Worksheet Patient Problems: Problems Problem Status Onset Abdominal pain Acute Dehydration Acute Elevated troponin Acute Obstipation Acute Renal failure Acute Chest pain Acute Chronic Disease Mgmt/Transitional Care Acute Fracture of femoral neck, right Acute NSTEMI (non-ST elevated myocardial infarction) Acute
--- NOTE | 2018-10-07 18:12 | GCON ---
CARDIOLOGY CONSULTATION DATE OF CONSULTATION: 10/07/2018 REFERRING PHYSICIAN: Jerome Barroso MD INDICATION FOR CONSULTATION: Assessment of pulmonary hypertension and volume status. HISTORY OF PRESENT ILLNESS: The patient is a pleasant 77-year-old gentleman well known to our [facility] who has had multiple admissions over the last several months in the setting of a known histor y of coronary artery disease with repeated admissions for substernal chest pain who ultimately underw ent high-risk intervention with PCI to distal saphenous vein graft to the RCA in mid September on 09/12. He tolerated the procedure well. He had no further episodes of chest pain. In between admi ssions for chest pain in late August, he was admitted after a fall and a hip fracture. His postope rative course after his hip fracture resulted in atrial fibrillation with RVR. He had previous atria l fibrillation postoperatively after his AAA repair. He was started on anticoagulation with Eliquis. He was ultimately discharged from the hospital on September 24, 2018, back to rehab facility after his hip surgery. He returned to the hospital 5 days later on September 29, 2018, with increasing abdominal pain and blo ating and distention. He was found to have mildly elevated transaminases and was thought to have had a common bile duct stone. He has been evaluated by GI. His liver enzymes are now trending down. H e was thought to have possibly passed a stone from the common bile duct. We were asked to see him to evaluate his volume status as well as pulmonary hypertension. His most r ecent echocardiogram from October 03, 2018, demonstrates RV systolic pressure of 71 mmHg. In reviewing his records dating back to July, he has had 3 previous echocardiograms. In March 2018 , RV systolic pressure was 67. In July, RV systolic pressure was 51. He does have a known history of severe COPD. He has greater than [id number] history of smoking. Pulmonary function studies from January 2018 demonstrated FEV1/FVC ratio of 55, FEV1 of 33%, increased lung volumes, and markedly declined DLCO less than 30% consistent with severe COPD. He is followed b y Pulmonary Medicine. Of note, he does have chronic renal insufficiency. He is followed by [facility]. Creatinine typically runs in the mid 2s. His creatinine is currently within normal range at 2.8. His peak dur ing his admission was 3.1. The patient denies any complaints of shortness of breath or dyspnea on exertion. He has no complaint s of PND or orthopnea. He does have moderate 2+ pitting edema, right leg greater than left. He has no evidence of jugular venous distention. Lungs are clear to auscultation anteriorly. Of note, his hemoglobin has declined significantly over the last 2 months. In July, his hemoglobi n was 12, currently 8.6. The remainder of review of systems is unremarkable. PAST MEDICAL HISTORY: 1. Coronary artery disease status post 3-vessel CABG in in 1987. 2. History of PCI to the distal saphenous vein graft on September 24, 2018. 3. Hypertension. 4. Severe COPD. 5. Moderate pulmonary hypertension due to underlying COPD and untreated obstructive sleep apnea. 6. Hypertension. 7. Hyperlipidemia. 8. Peripheral vascular disease status post AAA repair. 9. Chronic renal insufficiency. 10. IgA monoclonal gammopathy. PAST SURGICAL HISTORY: 1. AAA repair. 2. CABG. 3. Laminectomy. MEDICATIONS: Cardiac medications on admission include: 1. Eliquis 5 mg p.o. b.i.d. 2. Plavix 75 mg daily. 3. Metoprolol tartrate 12.5 mg p.o. b.i.d. 4. Lasix 20 mg daily. 5. Atorvastatin 40 mg daily. 6. Aspirin 325 mg daily. 7. Amiodarone 200 mg daily. ALLERGIES: Allergies to medication include NSAIDs. SOCIAL HISTORY: history of smoking, smoked for over 60 years, quit 3 years ago. EXAM: VITAL SIGNS: Most recent blood pressure of 86/52, heart rate of 68 in sinus rhythm, respirato ry rate of 18, oxygen saturation 94% on 2 L. GENERAL: He is awake, alert, oriented, and appropriate in no apparent distress. NECK: No evidence of JVP or carotid bruit. CARDIAC: S1, S2. Regular ra te and rhythm. No murmurs, rubs, or gallops. ABDOMEN: Soft, nontender. EXTREMITIES: He does have 2+ soft pitting edema just below the knee, right greater than left. DATA: Hemoglobin of 8.6, hematocrit 27.2, platelet count 291, white blood cell count 7.79. Sodium 1 39, potassium 3.4, chloride 102, bicarb 31, BUN 39, creatinine 2.8, GFR 22, glucose 111, calcium 7.9. Total bilirubin 2.1, conjugated bilirubin 1.7, AST 94, ALT 152, alkaline phosphatase 552, albumin 2 .5, total protein 5.8. N-terminal proBNP from September 29 at 19,000; previous value on September 24 a t 8215; previous one before that in July 2018 at 3810. Telemetry demonstrates sinus rhythm. ECG, from October 05, 2018, demonstrates sinus rhythm, right bundle branch block. IMPRESSION: 1. Severe pulmonary hypertension in the setting of underlying chronic obstructive pulmonary disease (COPD) and untreated sleep apnea with a [id number] history of smoking. 2. Coronary artery disease status post percutaneous intervention (PCI) to the saphenous vein graft o n September 24, 2018. 3. Preserved left ventricular function with left ventricular ejection fraction (LVEF) of 60% to 65% on most recent echocardiogram. 4. Moderate tricuspid regurgitation. 5. Intermittent hypotension, asymptomatic. 6. Elevated brain natriuretic peptide (BNP) of 19,000 last week. The patient is a pleasant 77-year-old gentleman with multiple medical comorbidities over the past sev eral months including recurrent chest pain requiring high-risk saphenous vein graft RCA percutaneous coronary intervention in September after several admissions for chest pain. He also had a recent admi ssion in late August and into mid September secondary to fall resulting in hip fracture requiring douglas rgery with new onset of paroxysmal atrial fibrillation requiring long-term anticoagulation with Eliqu is. He has known stable chronic renal insufficiency with creatinine between 2 and 3, currently 2.8. Recent data demonstrates marked decline in creatinine over the last several months dropping from a m arked drop in hemoglobin dropping from 12.2 in July 30, 2018, and currently 8.6 today. He has had heme-positive stools. He has been evaluated by GI. His Eliquis is temporarily on hold. We will pl an for upper endoscopy. His medical course has also been complicated by new onset of abdominal pain and elevated transaminitis and alkaline phosphatase and bilirubin consistent with common bile duct st one. The values are trending down without intervention consistent with passage of stone. No plan fo r intervention from GI at this point with watchful waiting and monitoring of liver enzymes. In reviewing his medical records, his pulmonary hypertension has been consistently elevated and I thi nk this is due to his underlying pulmonary issues as outlined above. Certainly, his most recent BNP value is markedly different from previous values. This has not been repeated in 8 days. Recommend r epeat BMP. I agree that most likely his low blood pressures are suggestive of intravascularly low vo lume at this point in the setting of absence of JVP or concerning breath sounds on examination. Agre e with avoiding further diuretics at this point. Would recommend compression stockings to mobilize t he remainder of the fluid in his lower extremities. Before considering IV hydration, would plan to recheck BNP. If BNP continues to remain elevated out of proportion with exam, would recommend right heart catheterization. PLAN: 1. Check BNP and lab work tomorrow morning. 2. Will reassess hemoglobin, creatinine, and BMP in the morning and consider right heart catheteriza tion. 3. He may also improve with transfusion. Will discuss with Dr. Barroso of the hospitalist service tomorrow. 4. Recommend keeping patient n.p.o. After midnight for consideration of right heart catheterization tomorrow. /[id number]/MODL
[2018-10-07] MEDS: ONDANSETRON 4 MG/2 ML VIAL IVP PRN (21:34)
[2018-10-07] MEDS: TAMSULOSIN HCL 0.4 MG CAP PO SCH (23:15)
[2018-10-07] MEDS: METOCLOPRAMIDE 5 MG TAB PO PRN (23:15)
[2018-10-07] MEDS: PANTOPRAZOLE SODIUM 40 MG TAB PO SCH (23:15)
[2018-10-07] MEDS: MELATONIN 3 MG TAB PO SCH (23:16)
[2018-10-07] MEDS: traZODone 100 MG TAB PO SCH (23:16)
[2018-10-07] MEDS: Zolpidem Tartrate [Ambien Cr] 6.25 MG PO SCH (23:31)
[2018-10-08] MEDS: IPRATROPIUM/ALBUTEROL 3 ML DEYVIAL IH SCH ×5 (00:40→23:25)
[2018-10-08] MEDS: AMIODARONE HCL 200 MG TAB PO SCH (09:34)
[2018-10-08] MEDS: CLOPIDOGREL BISULFATE 75 MG TAB PO SCH (09:34)
[2018-10-08] MEDS: guaiFENesin 600 MG TAB.ER PO SCH (09:34)
[2018-10-08] MEDS: PANTOPRAZOLE SODIUM 40 MG TAB PO SCH ×2 (09:34→21:04)
[2018-10-08] MEDS: SENNOSIDES/DOCUSATE SODIUM TAB PO SCH ×2 (09:34→21:03)
--- NOTE | 2018-10-08 09:35 | CPEKG ---
Test Reason : OPEN Blood Pressure : / mmHG Vent. Rate : 066 BPM Atrial Rate : 065 BPM P-R Int : 105 ms QRS Dur : 153 ms QT Int : 600 ms P-R-T Axes : 144 061 -72 degrees QTc Int : 629 ms Sinus or ectopic atrial rhythm Short OK interval Right bundle branch block Confirmed by Raman Hinojosa ([id number]) on 10/08/2018 9:34:49 AM Referred By: Confirmed By:Raman Hinojosa
--- NOTE | 2018-10-08 10:48 | SOAPPROG ---
SOAP Progress Note Assessment/Plan: Assessment: 1. NIRMALA on CKD Cr moving toward baseline. He is having net diuresis. He is making progress. 2.Hg Stable 3. Inc'd LFT's These are improving. Likely passed stone. To get lap ashley at later time. 4. Cards Cardiology assess R heart function and pressures. 5. Pulmonary Status Improving. Objective: Vital Signs Temp Pulse Resp BP Pulse Ox 36.7 C 61 18 105/64 94 10/08/18 09:39 10/08/18 09:39 10/08/18 09:39 10/08/18 09:39 10/08/18 09:39 Laboratory Results 10/08/18 05:07 10/08/18 05:07 10/07/18 10/08/18 10/09/18 05:59 05:59 05:59 Intake Total 810 Output Total 1525 750 Balance -715 -750 PT 20.8 SEC (12.0-15.0) H 09/29/18 12:07 INR 1.78 (0.83-1.16) H 09/29/18 12:07 Physical Exam - Physical Exam General Appearance: no apparent distress Respiratory: decreased breath sounds Cardiac/Chest: regular rate, rhythm, systolic murmur Extremities: pedal edema Neuro/Psych: oriented x 3 ICD10 Worksheet Patient Problems: Problems Problem Status Onset Abdominal pain Acute Dehydration Acute Elevated troponin Acute Obstipation Acute Renal failure Acute Chest pain Acute Chronic Disease Mgmt/Transitional Care Acute Fracture of femoral neck, right Acute NSTEMI (non-ST elevated myocardial infarction) Acute
[2018-10-08] MEDS: Tiotropium Bromide [Spiriva Respimat] IH SCH (11:42)
[2018-10-08] MEDS: FLUTICASONE/SALMETER 250/50MCG DISKUS IH SCH ×2 (11:42→23:09)
--- NOTE | 2018-10-08 11:50 | PDCARPN ---
Cardiology Progress Note Assessment/Plan: Assessment: -Diastolic CHF -Moderate to severe PUlmonary Hypertension -Moderate TR -COPD in setting of 60 pack year hx of smoking -CAD with recent PCI to sVG to rCA mid September -Low Hgb, followed by GI. Off of Eliquis since 10/05 -Elevated transaminase thought to be secondary to CBD stone, resolving Plan: -right heart catheterization -further management pending the results 10/08/18 11:50 Subjective: Mr. Delgado remains stable. LFT continue to improve. Renal function within baseline range. Hgb low but stable in mid 8's. BP without any low readings since yesterday afternoon. BNP of 15,000. 19,000 last week on admission. He has LE edema, Right greater than left. BNP are markedly elevated compared to mid September. NOrmal LVEF of Echo 10/03/2018. Plan for RHC to assess PCWP and RA pressure in the setting of elevated BNP out of proportion with LVEF and exam findings. Reviewed/Discussed With: multidisciplinary team Objective: Vital Signs (8 Hrs) Temp Pulse Resp BP Pulse Ox 10/08/18 09:39 36.7 C 61 18 105/64 94 10/08/18 08:00 16 10/08/18 05:42 66 17 96 Intake/Output (24 Hrs) 10/07/18 10/08/18 10/09/18 05:59 05:59 05:59 Intake Total 810 Output Total 1525 750 Balance -715 -750 Intake: Oral (ml) 810 Output: Urine (ml) 1525 450 Urinal 1525 450 Emesis (ml) 300 Other: Intake Quantity Yes Sufficient Number of Voids Incontinence 1 Urinal 1 Number of Stools Incontinence 1 Number of Emesis 1 Occurrences Result Diagrams: 10/08/18 05:07 10/08/18 05:07 - Physical Exam Cardiovascular: regular rate and rhythm, no murmurs, no rubs, no gallops, other (2+ edema R>L. No JVD) Peripheral Pulses: 2+: carotid (R), carotid (L) Respiratory: clear to auscultate bilat Neurologic: AAOx3, CN II-XII grossly intact Psychiatric: cooperative, interactive, following commands ICD10 Worksheet Patient Problems: Problems Problem Status Onset Abdominal pain Acute Dehydration Acute Elevated troponin Acute Obstipation Acute Renal failure Acute Chest pain Acute Chronic Disease Mgmt/Transitional Care Acute Fracture of femoral neck, right Acute NSTEMI (non-ST elevated myocardial infarction) Acute
[2018-10-08] MEDS ORDERED: LIDOCAINE 1% 300 MG/30 ML SDV ONE (11:56)
[2018-10-08] MEDS ORDERED: fentaNYL 100 MCG/2 ML INJ ONE (12:22)
[2018-10-08] MEDS ORDERED: MIDAZOLAM 2 MG/2 ML VIAL ONE (12:22)
--- NOTE | 2018-10-08 13:36 | PDCTREPORT ---
Cardiothoracic Procedure Rpt Cardiothoracic Procedure Report: Right Heart Catheterization: PA: 48/16 mean 27 RV: 53/5 mean 14 RA: 8 mmHg (mean) PCW: 19 mmHg [place]: 3.59 [place] C.I.: 1.79 Tolerated procedure well. Patient Problems: Problems Problem Status Onset Abdominal pain Acute Dehydration Acute Elevated troponin Acute Obstipation Acute Renal failure Acute Chest pain Acute Chronic Disease Mgmt/Transitional Care Acute Fracture of femoral neck, right Acute NSTEMI (non-ST elevated myocardial infarction) Acute
--- NOTE | 2018-10-08 18:12 | HOSPPROG ---
Hospitalist Progress Note Assessment/Plan: 77 y/o male presents with approximately 4 days worth of nausea, vomiting, and abdominal discomfort and distention; imaging suggested possible ileus. ileus resolved, patient developed likely CBD stone, which then passed, but patient with worsening renal function, fluid overload, debility[place] [address], down from 19k on admission. He still has substantial 1cm dependent pitting edema in his legs to his thighs. TTE showed normal LVEF and does not seem to accurately represent how he looks clinically. He likely is preload dependent and with some element of RHF 2/2 longstanding COPD and pulmonary HTN. He was diuresed earlier in his admission but renal function ultimately worsened and diuretics had to be held. -I/O -daily weights -optimize medical management to the extent we are able. -cardiology and nephrology consulted for assistance. Pulmonary Hypertension- has had consistently elevated RVSP on all of his last echos with last RVSP of over 70. RHC today with results pending to evaluate. NIRMALA on CKD- baseline appears to be stage 4 CKD. nephrology is consulted and is following. Creatinine was initially up to about 3 but he has since recovered and creatinine improving down to 2.6 today. he does appear edematous but may be preload dependent and so we are hesitant to overdiurese. COPD- severe COPD in reviewing chart. FEV1 of 33%. On advair and duonebs Hyperbilirubinemia-Seems to be resolving. Thought to have a possible CBD stone but patients LFTs are trending down, he no longer appears jaundiced either. He refused MRCP/MRI and so no eval was ever undertaken. -Continue to monitor LFTs -consider surgical eval for ashley, although patieint likely not a good candidate at this point until stabilized more. Ileus- patient admitted initially with what was thought to be an ileus. this seems to have resolved as patient was able to tolerate PO and had multiple large BMs Anemia- anemic earlier in hospitalization, H/H has remained stable, but patient did have multiple large black Bms yesterday. started on PPI, eliquis stopped for now and H/H being monitored. CAD- Had PCI to saphenous vein graft to RCA in September 2018. On asa, statin, plavix as outpatient, asa held, on statin Atrial Fibrillation- was on eliquis and amiodarone. Had to hold eliquis in setting of possible bleed. continue amiodarone. -may need to restart eliquis as he is now a few days out from bleed. Pulmonary Hypertension- has had consistently elevated RVSP on all of his last echos with last RVSP of over 70. RHC today Fluids- PO, patient appears overloaded Lytes- Monitor, WNL currently Nutrition- clears, NPO at [facility]- DNR Dispo- inpatient NIRMALA on CKD, fluid overload, CHF, Debility, resolving ileus, CBD stone Subjective: patient tired. Wants to know if he is getting heart cath, if not wants to eat. Objective: Vital Signs Temp Pulse Resp BP Pulse Ox 36.8 C 63 16 123/79 H 67 L 10/08/18 14:53 10/08/18 14:53 10/08/18 14:53 10/08/18 14:53 10/08/18 17:37 Laboratory Results 10/08/18 05:07 10/08/18 05:07 10/07/18 10/08/18 10/09/18 05:59 05:59 05:59 Intake Total 810 Output Total 1525 750 450 Balance -715 -750 -450 PT 20.8 SEC (12.0-15.0) H 09/29/18 12:07 INR 1.78 (0.83-1.16) H 09/29/18 12:07 - Physical Exam Constitutional: no apparent distress, appears nourished, not in pain Eyes: PERRL, anicteric sclera, EOMI Ears, Nose, Mouth, Throat: moist mucous membranes, hearing normal, ears appear normal, no oral mucosal ulcers Cardiovascular: regular rate and rhythym, no murmur, rub, or gallop, edema Respiratory: no respiratory distress, no rales or rhonchi, clear to auscultation Gastrointestinal: normoactive bowel sounds, soft, non-tender abdomen, no palpable masses Genitourinary: no bladder fullness, no bladder tenderness, no renal bruits Skin: no rashes or abrasions, no fluctuance, no induration Musculoskeletal: full muscle strength, no muscle tenderness, normal joint ROM Neurologic: AAOx3, sensation intact bilaterally Psychiatric: interacting appropriately, not anxious, not encephalopathic, thought process linear Lymph, Heme, Immunologic: no cervical LAD, no supraclavicular LAD ICD10 Worksheet Patient Problems: Problems Problem Status Onset Abdominal pain Acute Dehydration Acute Elevated troponin Acute Obstipation Acute Renal failure Acute Chest pain Acute Chronic Disease Mgmt/Transitional Care Acute Fracture of femoral neck, right Acute NSTEMI (non-ST elevated myocardial infarction) Acute
[2018-10-08] MEDS: MELATONIN 3 MG TAB PO SCH (21:04)
[2018-10-08] MEDS: TAMSULOSIN HCL 0.4 MG CAP PO SCH (21:04)
[2018-10-08] MEDS: traZODone 100 MG TAB PO SCH (21:04)
[2018-10-08] MEDS: Zolpidem Tartrate [Ambien Cr] 6.25 MG PO SCH (23:10)
[2018-10-09] MEDS: IPRATROPIUM/ALBUTEROL 3 ML DEYVIAL IH SCH ×4 (05:45→21:40)
--- NOTE | 2018-10-09 09:17 | PDCARPN ---
Cardiology Progress Note Assessment/Plan: Assessment: -Diastolic CHF (BNP 44669 on admit, most recent 15,000) -Moderate PUlmonary Hypertension -Moderate TR -COPD in setting of 60 pack year hx of smoking -CAD with recent PCI to sVG to rCA mid September -Low Hgb, followed by GI. Off of Eliquis since 10/05 -Elevated transaminase thought to be secondary to CBD stone, resolving -Increased work of breathing Plan: -CXR PA and LAT this AM -If no pleural effusions large enough for thoracentesis, will give low dose lasix in setting of PCW of 19, BNP 15,000 and LE edema and sob. -Decrease Amiodarone to 100 mg daily -No metoprolol in setting of hypotension -Please check daily weights -Labwork tomorrow: BNP, Mg, CMP -If LFT improving and no indication for surgery or further procedures, would restart Eliquis tomorrow. -Restart Atorvastatin tomorrow if LfT improving -Continue Plavix 75 mg daily 10/09/18 09:22 Subjective: Mr. Delgado complained of some nausea this morning. No vomiting. Symptoms have resolved. RHC yesterday with PCW of 19 mmHg and mean RA pressure of 8 mmhg, PA of 48/16 and RV 52/5. SBP over last 24 range from mid 90's to 119. He has some pursed lip breathing on exam. Noted yesterday as well. Will plan for CXR today. Tele demonstrates NSR. He remains on Amiodarone 200 mg qd. He is off of metoprolol secondary to hypotension. Eliquis is on hold secondary to elevated transaminase and concern for possible Bile Duct obsruction and need for surgery. LFTs are improving with no plan for surgery. Hgb has trended down over the last 4 months from mid 12 to mid 8's. I think this is due to multiple hospitalizaitons with [facility] surgery and [facility] x 2. He remains on plavix secondary to PCI to SVG to RCA on Sep 24, 2018. CR is 2.5 today, within baseline range. Reviewed/Discussed With: hospitalist, multidisciplinary team Objective: Vital Signs (8 Hrs) Temp Pulse Resp BP Pulse Ox 10/09/18 08:00 36.8 C 74 18 119/63 96 10/09/18 05:45 68 18 95 10/09/18 04:00 36.9 C 71 20 119/74 97 Intake/Output (24 Hrs) 10/08/18 10/09/18 10/10/18 05:59 05:59 05:59 Intake Total 800 Output Total 750 850 Balance -750 -50 Intake: Oral (ml) 800 Output: Urine (ml) 450 850 Toilet 150 Urinal 450 700 Emesis (ml) 300 Other: Intake Quantity Yes Sufficient Number of Voids Urinal 1 Number of Emesis 1 Occurrences Result Diagrams: 10/08/18 05:07 10/09/18 03:40 - Physical Exam Constitutional: no apparent distress Cardiovascular: regular rate and rhythm, no murmurs, no rubs, no gallops Peripheral Pulses: 2+: carotid (R), carotid (L) Respiratory: clear to auscultate bilat Gastrointestinal: no tenderness, other (abdomen is distended and tympanitic to percussion. ) Musculoskeletal: no muscular tenderness Neurologic: AAOx3, CN II-XII grossly intact Psychiatric: cooperative, interactive, following commands ICD10 Worksheet Patient Problems: Problems Problem Status Onset Abdominal pain Acute Dehydration Acute Elevated troponin Acute Obstipation Acute Renal failure Acute Chest pain Acute Chronic Disease Mgmt/Transitional Care Acute Fracture of femoral neck, right Acute NSTEMI (non-ST elevated myocardial infarction) Acute
[2018-10-09] MEDS: METOCLOPRAMIDE 5 MG TAB PO PRN (09:39)
[2018-10-09] MEDS: FLUTICASONE/SALMETER 250/50MCG DISKUS IH SCH ×2 (09:43→21:41)
[2018-10-09] MEDS: Tiotropium Bromide [Spiriva Respimat] IH SCH (09:43)
[2018-10-09] MEDS ORDERED: METOCLOPRAMIDE 10 MG/2 ML VIAL IVP ONE (11:30)
[2018-10-09] MEDS: guaiFENesin 600 MG TAB.ER PO SCH (11:34)
[2018-10-09] MEDS: SENNOSIDES/DOCUSATE SODIUM TAB PO SCH ×2 (11:34→22:03)
[2018-10-09] MEDS: CLOPIDOGREL BISULFATE 75 MG TAB PO SCH ×2 (11:34→13:44)
[2018-10-09] MEDS: AMIODARONE HCL 200 MG TAB PO SCH ×3 (11:34→13:44)
[2018-10-09] MEDS: PANTOPRAZOLE SODIUM 40 MG TAB PO SCH ×3 (11:34→22:03)
--- NOTE | 2018-10-09 14:36 | HOSPPROG ---
Hospitalist Progress Note Assessment/Plan: 77 y/o male presents with approximately 4 days worth of nausea, vomiting, and abdominal discomfort and distention; imaging suggested possible ileus. ileus resolved, patient developed likely CBD stone, which then passed, but patient with worsening renal function, fluid overload, debility[place] [address], down from 19k on admission. He still has substantial 1cm dependent pitting edema in his legs to his thighs. TTE showed normal LVEF and does not seem to accurately represent how he looks clinically. He likely is preload dependent and with some element of RHF 2/2 longstanding COPD and pulmonary HTN. He was diuresed earlier in his admission but renal function ultimately worsened and diuretics had to be held. -I/O -daily weights -optimize medical management to the extent we are able. -cardiology and nephrology consulted for assistance. CXR pending, per cardiology , if effusions persist will redose Lasix Pulmonary Hypertension- has had consistently elevated RVSP on all of his last echos with last RVSP of over 70. s/p RHC on 10/08 NIRMALA on CKD- baseline appears to be stage 4 CKD. nephrology is consulted and is following. Creatinine was initially up to about 3 but he has since recovered and creatinine improving down to 2.5 today. he does appear edematous but may be preload dependent and so we are hesitant to overdiurese. COPD- severe COPD in reviewing chart. FEV1 of 33%. On advair and duonebs Hyperbilirubinemia-Seems to be resolving. Thought to have a possible CBD stone but patients LFTs are trending down, he no longer appears jaundiced either. He refused MRCP/MRI and so no eval was ever undertaken. -Continue to monitor LFTs -consider surgical eval for ashley, although patient likely not a good candidate at this point until stabilized more. Ileus- patient admitted initially with what was thought to be an ileus. this seems to have resolved as patient was able to tolerate PO and had multiple large BMs Repeat Abdominal XR today to reevaluate given nausea this AM Anemia- anemic earlier in hospitalization, H/H has remained stable, but patient did have multiple large black Bms yesterday. started on PPI, eliquis stopped for now and H/H being monitored. CAD- Had PCI to saphenous vein graft to RCA in September 2018. On asa, statin, plavix as outpatient, asa held, on statin Atrial Fibrillation- was on eliquis and amiodarone. Had to hold eliquis in setting of possible bleed. continue amiodarone. -may need to restart eliquis as he is now a few days out from bleed. Pulmonary Hypertension- has had consistently elevated RVSP on all of his last echos with last RVSP of over 70. RHC today Fluids- PO, patient appears overloaded Lytes- Monitor, WNL currently Nutrition- clears, NPO at [place]- DNR Dispo- inpatient NIRMALA on CKD, fluid overload, CHF, Debility, resolving ileus, CBD stone Subjective: Patient reports nausea this morning with episode of emesis Objective: Vital Signs Temp Pulse Resp BP Pulse Ox 36.4 C 79 18 93/59 L 95 10/09/18 13:41 10/09/18 12:00 10/09/18 12:00 10/09/18 12:00 10/09/18 12:00 Laboratory Results 10/08/18 05:07 10/09/18 03:40 10/08/18 10/09/18 10/10/18 05:59 05:59 05:59 Intake Total 800 Output Total 750 850 Balance -750 -50 PT 20.8 SEC (12.0-15.0) H 09/29/18 12:07 INR 1.78 (0.83-1.16) H 09/29/18 12:07 - Physical Exam Constitutional: chronically ill appearing Eyes: PERRL Ears, Nose, Mouth, Throat: moist mucous membranes Cardiovascular: irregularly irregular Respiratory: no respiratory distress, reduced air movement Gastrointestinal: soft, non-tender abdomen Skin: warm Neurologic: AAOx3 Psychiatric: interacting appropriately ICD10 Worksheet Patient Problems: Problems Problem Status Onset Abdominal pain Acute Dehydration Acute Elevated troponin Acute Obstipation Acute Renal failure Acute Chest pain Acute Chronic Disease Mgmt/Transitional Care Acute Fracture of femoral neck, right Acute NSTEMI (non-ST elevated myocardial infarction) Acute
--- NOTE | 2018-10-09 14:49 | ASMTCMCOM ---
CM Note CM Note Notes: Pt was to have a palliative consult today. He continues to require medical treatment; he is not medically stable enough for d/c. My Hood was sent additional reports. D/C Plan: Accel Date Signed: 10/09/2018 02:49 PM Electronically Signed By:Rachel Schneider
--- NOTE | 2018-10-09 15:51 | SOAPPROG ---
SOAP Progress Note Assessment/Plan: Assessment: 77 yo with recent acute NC s/p PCI to saphenous vein graft to RCA and hip fracture admitted with abdominal pain and N/V on 09/29 likely related to gallstone 1. NIRMALA on CKD Cr now back to around baseline Recorded UOP not great but Cr stable suggesting maybe some urinary retention vs. inaccurate measurement --Check bladder scan 2.Hg Stable previously --Recheck CBC in AM 3. Inc'd LFT's These are improving. Likely passed stone. To get lap ashley at later time. 4. pHTN- moderate based on RHC with PCWP of 19. Some shortness of breath and evidence of volume overload on exam. --Agree with diuresis --Cards following 5. Borderline hypotension- not on any antihypertensive meds --asymptomatic 6. Pulmonary infiltrates-- pulmonary edema +/- pneumonia. Patient also reported that he has "cancer nodules" in his lungs found recently --Will look to see if recent CT, if not, might be warranted >30 min spent on the care of this patient with >50% of time spent on counseling and coordination of care Subjective: Patient feels "blah" today. He is not sure exactly what has changed. He thinks it might be because his kids that were visiting just went home. He denies shortness of breath (though has to stop mid-sentence for a breath). He felt a little nauseated this morning. No dizziness. Objective: Vital Signs Temp Pulse Resp BP Pulse Ox 36.4 C 79 18 93/59 L 95 10/09/18 13:41 10/09/18 12:00 10/09/18 12:00 10/09/18 12:00 10/09/18 12:00 Laboratory Results 10/08/18 05:07 10/09/18 03:40 10/08/18 10/09/18 10/10/18 05:59 05:59 05:59 Intake Total 800 Output Total 750 850 Balance -750 -50 PT 20.8 SEC (12.0-15.0) H 09/29/18 12:07 INR 1.78 (0.83-1.16) H 09/29/18 12:07 General- chronically ill-appearing, NAD, washcloth on forehead Eyes- anicteric sclera, no conjunctival injection HEENT- MMM, no gross oral lesions Pulm- rales at L base, decreased breath sounds at R base, on O2 NC, stops for breath mid-sentence CV- NRRR, no g/m/r, 2+ edema (R>L) Abd- soft, non-tender, + BS - no davis Psych- pleasant, answers questions appropriately Imaging Impressions Chest X-Ray 10/09/18 09:27 Impression: 1. Persistent patchy consolidation left lower lobe with mild increase in patchy infiltrate at the right base along with small effusions. Consider underlying pneumonia versus CHF. Abdomen X-Ray 10/09/18 11:12 Impression: 1. Interval resolution of ileus type pattern as well as decrease in constipation.. - Time Spent With Patient Time Spent With Patient: >30min ICD10 Worksheet Patient Problems: Problems Problem Status Onset Abdominal pain Acute Dehydration Acute Elevated troponin Acute Obstipation Acute Renal failure Acute Chest pain Acute Chronic Disease Mgmt/Transitional Care Acute Fracture of femoral neck, right Acute NSTEMI (non-ST elevated myocardial infarction) Acute
[2018-10-09] MEDS ORDERED: FUROSEMIDE 100 MG/10 ML VIAL IVP ONE (15:58)
[2018-10-09] MEDS: TAMSULOSIN HCL 0.4 MG CAP PO SCH (22:02)
[2018-10-09] MEDS: traZODone 100 MG TAB PO SCH (22:02)
[2018-10-09] MEDS: Zolpidem Tartrate [Ambien Cr] 6.25 MG PO SCH (22:03)
[2018-10-09] MEDS: MELATONIN 3 MG TAB PO SCH (22:04)
[2018-10-10] MEDS: IPRATROPIUM/ALBUTEROL 3 ML DEYVIAL IH SCH ×2 (05:15→11:13)
[2018-10-10] MEDS ORDERED: FUROSEMIDE 100 MG/10 ML VIAL IVP ONE (08:42)
--- NOTE | 2018-10-10 09:03 | SOAPPROG ---
SOAP Progress Note Assessment/Plan: Assessment: 1. COPD/cor pulmonale. He appears stable today. He does have scant expiratory wheezes without a significant oxygen requirement. He has mild bipedal edema. 2. Paroxysmal atrial fibrillation. He appears to be maintaining sinus rhythm. His chads Vasc score is 3. As such, he has been appropriately anticoagulated. He does have currently has been followed by Gastroenterology. 3. Anemia. Hemoglobin and hematocrit have been stable. His guaiacs have been positive. 4. Coronary artery disease. He has had previous bypass surgery as well as recent PCI of the saphenous vein graft to the right coronary artery. He is stable at the present time on Plavix. Atorvastatin has been held in light of his elevated liver function tests which are now improving. 5. Hyperlipidemia. 6. Cholecystitis. Liver function tests are gradually improving. Plan: 1. I wrote for an additional dose of Lasix to be given today. His electrolytes and renal function will be carefully followed. 2. At this point, I think that his systemic anticoagulation in the form of Eliquis can be restarted if there are not plans for him to be taken to the OR any time soon. 3. His atorvastatin likewise can be restarted. 4. We will follow along with you. Subjective: The patient was seen and examined. His chart was reviewed. Today states he has been feeling well. He has no symptoms of chest discomfort or breathlessness. He denies abdominal discomfort, nausea and vomiting. He does note continued lower extremity edema. He received IV Lasix yesterday with a modest diuresis. LFTs have been gradually improving. Objective: Vital Signs Temp Pulse Resp BP Pulse Ox 36.9 C 69 19 113/62 94 10/10/18 08:00 10/10/18 08:00 10/10/18 08:00 10/10/18 08:00 10/10/18 08:00 Laboratory Results 10/10/18 03:57 10/10/18 03:57 10/09/18 10/10/18 10/11/18 05:59 05:59 05:59 Intake Total 800 880 Output Total 850 1480 550 Balance -50 -600 -550 PT 20.8 SEC (12.0-15.0) H 09/29/18 12:07 INR 1.78 (0.83-1.16) H 09/29/18 12:07 Laboratory Tests 10/06/18 10/10/18 16:20 03:57 AST 34 ALT 68 Alkaline Phosphatase 344 H NT-Pro-B Natriuret Pep 66186 H Albumin 2.5 L Stool Occult Bld Scrn POSITIVE H Physical Exam - Physical Exam General Appearance: WD/WN, other (Pursed lip breathing) EENT: PERRL/EOMI, normal ENT inspection, pharynx normal, TMs normal Neck: non-tender, full range of motion, supple, normal inspection Respiratory: chest non-tender, lungs clear, other (Scattered expiratory wheezes) , No crackles, No rales, No rhonchi Cardiac/Chest: normal peripheral pulses, regular rate, rhythm, edema (1 quarter- inch by pedal edema) Peripheral Pulses: 2+: carotid (R), carotid (L), femoral (R), femoral (L), dorsalis-pedis (R), dorsalis-pedis (L) Abdomen: normal bowel sounds, non-tender, soft Male Genitalia: deferred Rectal: deferred Back: Normal inspection Skin: normal color, warm/dry Lymphatic: no adenopathy Extremities: normal range of motion, non-tender, normal inspection, normal capillary refill Neuro/Psych: no motor/sensory deficits, alert, normal mood/affect, oriented x 3 ICD10 Worksheet Patient Problems: Problems Problem Status Onset NSTEMI (non-ST elevated myocardial infarction) Acute Fracture of femoral neck, right Acute Abdominal pain Acute Renal failure Acute Obstipation Acute Dehydration Acute Chronic Disease Mgmt/Transitional Care Acute Chest pain Acute Elevated troponin Acute
[2018-10-10] MEDS: guaiFENesin 600 MG TAB.ER PO SCH (10:28)
[2018-10-10] MEDS: AMIODARONE HCL 200 MG TAB PO SCH (10:28)
[2018-10-10] MEDS: PANTOPRAZOLE SODIUM 40 MG TAB PO SCH ×2 (10:28→22:02)
[2018-10-10] MEDS: CLOPIDOGREL BISULFATE 75 MG TAB PO SCH (10:28)
[2018-10-10] MEDS: SENNOSIDES/DOCUSATE SODIUM TAB PO SCH ×2 (10:29→22:13)
[2018-10-10] MEDS: FLUTICASONE/SALMETER 250/50MCG DISKUS IH SCH ×2 (11:13→22:12)
[2018-10-10] MEDS: Tiotropium Bromide [Spiriva Respimat] IH SCH (11:13)
[2018-10-10] MEDS: EPOETIN ALFA 10,000 UNIT/ML VIAL SC SCH ×2 (13:31→23:41)
--- NOTE | 2018-10-10 14:13 | HOSPPROG ---
Hospitalist Progress Note Assessment/Plan: 77 y/o male presents with approximately 4 days worth of nausea, vomiting, and abdominal discomfort and distention; imaging suggested possible ileus. ileus resolved, patient developed likely CBD stone, which then passed, but patient with worsening renal function, fluid overload, debility[place] [address], down from 19k on admission. He still has substantial 1cm dependent pitting edema in his legs to his thighs. TTE showed normal LVEF and does not seem to accurately represent how he looks clinically. He likely is preload dependent and with some element of RHF 2/2 longstanding COPD and pulmonary HTN. He was diuresed earlier in his admission but renal function ultimately worsened and diuretics had to be held. -I/O -daily weights -optimize medical management to the extent we are able. -cardiology and nephrology consulted for assistance. Cardiology ordered additional IVP Lasix for today. Pulmonary Hypertension- has had consistently elevated RVSP on all of his last echos with last RVSP of over 70. s/p RHC on 10/08 NIRMALA on CKD- baseline appears to be stage 4 CKD. nephrology is consulted and is following. Creatinine was initially up to about 3 but he has since recovered and creatinine improving down to 2.6 today. he does appear edematous but may be preload dependent and so we are hesitant to overdiurese. COPD- severe COPD in reviewing chart. FEV1 of 33%. On advair and duonebs Hyperbilirubinemia-Seems to be resolving. Thought to have a possible CBD stone but patients LFTs are trending down, he no longer appears jaundiced either. He refused MRCP/MRI and so no eval was ever undertaken. -Continue to monitor LFTs -consider surgical eval for ashley, although patient likely not a good candidate at this point until stabilized more. Ileus- patient admitted initially with what was thought to be an ileus. this seems to have resolved as patient was able to tolerate PO and had multiple large BMs Repeat Abdominal XR on 10/09 showed resolution of ileus, improvement of constipation Anemia- anemic earlier in hospitalization, H/H has remained stable, but patient did have multiple large black BMs yesterday. started on PPI, eliquis stopped and H/H being monitored. Will restart Elaquis today. CAD- Had PCI to saphenous vein graft to RCA in September 2018. On asa, statin, plavix as outpatient, asa held, on statin Atrial Fibrillation- was on eliquis and amiodarone. Had to hold eliquis in setting of possible bleed. continue amiodarone. -Restarting elaquis today Pulmonary Hypertension- has had consistently elevated RVSP on all of his last echos with last RVSP of over 70. RHC today Fluids- PO, patient appears overloaded Lytes- Monitor, WNL currently Nutrition- clears, NPO at [place] [facility]- DNR Dispo- inpatient NIRMALA on CKD, fluid overload, CHF, Debility, resolving ileus, CBD stone Subjective: Patient reports no nausea this morning, had large loose BM Objective: Vital Signs Temp Pulse Resp BP Pulse Ox 36.6 C 79 19 95/57 L 94 10/10/18 11:43 10/10/18 11:43 10/10/18 11:43 10/10/18 11:43 10/10/18 11:43 Laboratory Results 10/10/18 03:57 10/10/18 03:57 10/09/18 10/10/18 10/11/18 05:59 05:59 05:59 Intake Total 800 880 Output Total 850 1480 870 Balance -50 -600 -870 PT 20.8 SEC (12.0-15.0) H 09/29/18 12:07 INR 1.78 (0.83-1.16) H 09/29/18 12:07 - Physical Exam Constitutional: chronically ill appearing Eyes: PERRL Ears, Nose, Mouth, Throat: moist mucous membranes Cardiovascular: regular rate and rhythym Respiratory: no respiratory distress, reduced air movement Skin: warm Neurologic: AAOx3 Psychiatric: interacting appropriately ICD10 Worksheet Patient Problems: Problems Problem Status Onset Abdominal pain Acute Dehydration Acute Elevated troponin Acute Obstipation Acute Renal failure Acute Chest pain Acute Chronic Disease Mgmt/Transitional Care Acute Fracture of femoral neck, right Acute NSTEMI (non-ST elevated myocardial infarction) Acute
[2018-10-10] MEDS: ALBUTEROL 3 ML DEYVIAL IH SCH ×2 (16:20→22:32)
[2018-10-10] MEDS: ASPIRIN EC 325 MG TAB PO SCH (17:06)
[2018-10-10] MEDS: TAMSULOSIN HCL 0.4 MG CAP PO SCH (22:01)
[2018-10-10] MEDS: Zolpidem Tartrate [Ambien Cr] 6.25 MG PO SCH (22:02)
[2018-10-10] MEDS: traZODone 100 MG TAB PO SCH (22:02)
[2018-10-10] MEDS: APIXABAN 2.5 MG TAB PO SCH (22:02)
[2018-10-10] MEDS: MELATONIN 3 MG TAB PO SCH (22:02)
--- NOTE | 2018-10-10 23:17 | SOAPPROG ---
SOAP Progress Note Assessment/Plan: Assessment: 77 yo with recent acute [place] s/p PCI to saphenous vein graft to RCA and hip fracture admitted with abdominal pain and N/V on 09/29 likely related to gallstone 1. NIRMALA on CKD Cr now back to around baseline, maybe a little higher, stable around 2.6 --PVR recorded as >200mL. Patient not keen on idea of davis. *Wrote order for if PVR >200mL on 3 consecutive bladder scans, would recommend a davis 2.Hg Stable previously --Continue Epo 10k units q7d for now, may need to be increased with time *Check iron studies in AM 3. Inc'd LFT's These are improving. Likely passed stone. To get lap ashley at later time. 4. pHTN- moderate based on RHC with PCWP of 19. Some shortness of breath and evidence of volume overload on exam. --Agree with diuresis *Ordered another 80mg IV lasix for 10/11 AM, seems to be responding well --Cards following 5. Borderline hypotension- not on any antihypertensive meds --asymptomatic 6. Pulmonary infiltrates-- pulmonary edema +/- pneumonia. Patient also reported that he has "cancer nodules" in his lungs found recently --Continue diuresis for now, may warrant repeat CT scan in the near future Subjective: Patient feels about the same. No acute events overnight. Responding well to the IV lasix, significant volume of incontinent urine. Objective: Vital Signs Temp Pulse Resp BP Pulse Ox 36.8 C 65 16 114/69 92 10/10/18 22:49 10/10/18 22:49 10/10/18 22:49 10/10/18 22:49 10/10/18 22:49 Laboratory Results 10/10/18 03:57 10/10/18 03:57 10/09/18 10/10/18 10/11/18 05:59 05:59 05:59 Intake Total 800 880 Output Total 850 1480 2470 Balance -50 -600 -2470 PT 20.8 SEC (12.0-15.0) H 09/29/18 12:07 INR 1.78 (0.83-1.16) H 09/29/18 12:07 General- chronically ill-appearing, NAD, sleeping comfortably Eyes- anicteric sclera, no conjunctival injection HEENT- MMM, no gross oral lesions Pulm- rales at L base, decreased breath sounds at R base, on O2 NC, stops for breath mid-sentence, some pursed-lip breathing CV- NRRR, no g/m/r, 2+ edema (R>L) Abd- soft, non-tender, + BS - no davis Psych- pleasant, answers questions appropriately ICD10 Worksheet Patient Problems: Problems Problem Status Onset Abdominal pain Acute Dehydration Acute Elevated troponin Acute Obstipation Acute Renal failure Acute Chest pain Acute Chronic Disease Mgmt/Transitional Care Acute Fracture of femoral neck, right Acute NSTEMI (non-ST elevated myocardial infarction) Acute
[2018-10-11] MEDS: ALBUTEROL 3 ML DEYVIAL IH SCH ×4 (06:14→21:19)
[2018-10-11] MEDS ORDERED: FUROSEMIDE 100 MG/10 ML VIAL IVP ONE (08:00)
[2018-10-11] MEDS: SENNOSIDES/DOCUSATE SODIUM TAB PO SCH ×2 (08:34→21:35)
[2018-10-11] MEDS ORDERED: PROTOCOL MAGNESIUM 1 DOSE IV PRN (08:46)
[2018-10-11] MEDS: FLUTICASONE/SALMETER 250/50MCG DISKUS IH SCH ×2 (08:50→21:16)
[2018-10-11] MEDS: Tiotropium Bromide [Spiriva Respimat] IH SCH (08:50)
[2018-10-11] MEDS ORDERED: MAGNESIUM SULF 1 GM/DEXTROSE 100 ML IV ONE (09:26)
--- NOTE | 2018-10-11 10:12 | SOAPPROG ---
SOAP Progress Note Assessment/Plan: Assessment: 1. COPD/cor pulmonale. He appears stable today. He does have scant expiratory wheezes without a significant oxygen requirement. He has mild bipedal edema. 2. Paroxysmal atrial fibrillation. He appears to be maintaining sinus rhythm. His chads Vasc score is 3. As such, he has been appropriately anticoagulated. He does have currently has been followed by Gastroenterology. 3. Anemia. Hemoglobin and hematocrit have been stable. His guaiacs have been positive. 4. Coronary artery disease. He has had previous bypass surgery as well as recent PCI of the saphenous vein graft to the right coronary artery. He is stable at the present time on Plavix. Atorvastatin has been held in light of his elevated liver function tests which are now improving. 5. Hyperlipidemia. 6. Cholecystitis. Liver function tests are gradually improving. 10/11/2018: He is doing well. In the setting of a reasonable diuresis his renal function has been stable. He has no current complaints and no arrhythmias have been noted on telemetry. He has been transitioned over to oral anticoagulants. He has not had any further abdominal pain, nausea or vomiting. Plan: 1. He has been given a dose of IV Lasix today. I think that this can be his last IV dose. Tomorrow he can be transitioned over to p.o.. 2. His other medications will be continued. 3. We will follow along with you. 10/11/18 10:12 Subjective: Today he has no complaints. He received a dose of IV Lasix yesterday with a 6 stand chilled diuresis. His renal function has been stable. Lower extremity edema has improved. He has not had any arrhythmias noted on telemetry. Objective: Vital Signs Temp Pulse Resp BP Pulse Ox 36.6 C 72 16 108/67 92 10/11/18 08:34 10/11/18 08:56 10/11/18 08:56 10/11/18 08:34 10/11/18 08:56 Laboratory Results 10/11/18 03:22 10/11/18 03:22 10/10/18 10/11/18 10/12/18 05:59 05:59 05:59 Intake Total 880 100 Output Total 1480 2720 200 Balance -600 -2620 -200 PT 20.8 SEC (12.0-15.0) H 09/29/18 12:07 INR 1.78 (0.83-1.16) H 09/29/18 12:07 Physical Exam - Physical Exam General Appearance: WD/WN, alert, no apparent distress EENT: PERRL/EOMI, normal ENT inspection, pharynx normal, TMs normal Neck: non-tender, full range of motion, supple, normal inspection Respiratory: chest non-tender, lungs clear, normal breath sounds Cardiac/Chest: normal peripheral pulses, regular rate, rhythm, edema (Trace bilateral lower extremity edema) Abdomen: normal bowel sounds, non-tender, soft Male Genitalia: deferred Rectal: deferred Back: Normal inspection Skin: normal color, warm/dry Lymphatic: no adenopathy Extremities: normal range of motion, non-tender, normal inspection, normal capillary refill Neuro/Psych: no motor/sensory deficits, alert, normal mood/affect, oriented x 3 ICD10 Worksheet Patient Problems: Problems Problem Status Onset NSTEMI (non-ST elevated myocardial infarction) Acute Fracture of femoral neck, right Acute Abdominal pain Acute Renal failure Acute Obstipation Acute Dehydration Acute Chronic Disease Mgmt/Transitional Care Acute Chest pain Acute Elevated troponin Acute
[2018-10-11] MEDS: guaiFENesin 600 MG TAB.ER PO SCH (10:41)
[2018-10-11] MEDS: CLOPIDOGREL BISULFATE 75 MG TAB PO SCH (10:41)
[2018-10-11] MEDS: PANTOPRAZOLE SODIUM 40 MG TAB PO SCH ×2 (10:41→21:33)
[2018-10-11] MEDS: ASPIRIN EC 325 MG TAB PO SCH (10:42)
[2018-10-11] MEDS: APIXABAN 2.5 MG TAB PO SCH ×2 (10:42→21:33)
[2018-10-11] MEDS: AMIODARONE HCL 200 MG TAB PO SCH (10:42)
--- NOTE | 2018-10-11 13:27 | HOSPPROG ---
Hospitalist Progress Note Assessment/Plan: 77 y/o male presents with approximately 4 days worth of nausea, vomiting, and abdominal discomfort and distention; imaging suggested possible ileus. ileus resolved, patient developed likely CBD stone, which then passed, but patient with worsening renal function, fluid overload, debility[place] [address], down from 19k on admission. He still has substantial 1cm dependent pitting edema in his legs to his thighs. TTE showed normal LVEF and does not seem to accurately represent how he looks clinically. He likely is preload dependent and with some element of RHF 2/2 longstanding COPD and pulmonary HTN. He was diuresed earlier in his admission but renal function ultimately worsened and diuretics had to be held. -I/O -daily weights -optimize medical management to the extent we are able. -cardiology and nephrology consulted for assistance. Cardiology ordered additional IVP Lasix for today. Plan to transition to PO Diuretic tomorrow Pulmonary Hypertension- has had consistently elevated RVSP on all of his last echos with last RVSP of over 70. s/p RHC on 10/08 NIRMALA on CKD- baseline appears to be stage 4 CKD. nephrology is consulted and is following. Creatinine was initially up to about 3 but he has since recovered and creatinine improving down to 2.7 today. Continue to monitor COPD- severe COPD in reviewing chart. FEV1 of 33%. On advair and duonebs Hyperbilirubinemia-Seems to be resolving. Thought to have a possible CBD stone but patients LFTs are trending down, he no longer appears jaundiced either. He refused MRCP/MRI and so no eval was ever undertaken. -Continue to monitor LFTs -consider surgical eval for ashley, although patient likely not a good candidate at this point until stabilized more, will have patient f/u after discharge Ileus- patient admitted initially with what was thought to be an ileus. this seems to have resolved as patient was able to tolerate PO and had multiple large BMs Repeat Abdominal XR on 10/09 showed resolution of ileus, improvement of constipation Anemia- anemic earlier in hospitalization, H/H has remained stable, but patient did have multiple large black BMs yesterday. started on PPI, eliquis stopped and H/H being monitored. Restarted Elaquis and ASA on 10/10 CAD- Had PCI to saphenous vein graft to RCA in September 2018. On asa, statin, plavix as outpatient Atrial Fibrillation- was on eliquis and amiodarone. Had to hold eliquis in setting of possible bleed. continue amiodarone. -Restarted elaquis on 10/10 Pulmonary Hypertension- has had consistently elevated RVSP on all of his last echos with last RVSP of over 70. RHC today Fluids- PO, patient appears overloaded Lytes- Monitor, WNL currently Nutrition- clears, NPO at [place] [facility]- DNR Dispo- inpatient NIRMALA on CKD, fluid overload, CHF, Debility, resolving ileus, CBD stone Subjective: Patient reports no complaints this AM Objective: Vital Signs Temp Pulse Resp BP Pulse Ox 36.4 C 66 16 90/61 L 92 10/11/18 12:15 10/11/18 13:04 10/11/18 13:04 10/11/18 12:15 10/11/18 13:04 Laboratory Results 10/11/18 03:22 10/11/18 03:22 10/10/18 10/11/18 10/12/18 05:59 05:59 05:59 Intake Total 880 100 Output Total 1480 2720 375 Balance -600 -2620 -375 PT 20.8 SEC (12.0-15.0) H 09/29/18 12:07 INR 1.78 (0.83-1.16) H 09/29/18 12:07 - Physical Exam Constitutional: no apparent distress, chronically ill appearing Eyes: PERRL Ears, Nose, Mouth, Throat: moist mucous membranes Cardiovascular: regular rate and rhythym Respiratory: reduced air movement Gastrointestinal: soft, non-tender abdomen Skin: warm Neurologic: AAOx3 Psychiatric: interacting appropriately ICD10 Worksheet Patient Problems: Problems Problem Status Onset Abdominal pain Acute Dehydration Acute Elevated troponin Acute Obstipation Acute Renal failure Acute Chest pain Acute Chronic Disease Mgmt/Transitional Care Acute Fracture of femoral neck, right Acute NSTEMI (non-ST elevated myocardial infarction) Acute
--- NOTE | 2018-10-11 17:06 | SOAPPROG ---
[facility] Progress Note Assessment/Plan: Assessment: 77 yo with recent acute MA s/p PCI to saphenous vein graft to RCA and hip fracture admitted with abdominal pain and N/V on 09/29 likely related to gallstone 1. NIRMALA on CKD Cr now back to a little higher than previous baseline. stable around 2.5-2.7 --PVR recorded as >200mL on 10/10. Patient not keen on idea of davis. *Wrote order for if PVR >200mL on 3 consecutive bladder scans, would recommend a davis *On 10/11, patient said that he would never want to do dialysis again if/when the time comes 2.Hg Stable previously --Continue Epo 10k units q7d for now, may need to be increased with time *Iron sat 17% on 10/11, will start IV iron 3. Inc'd LFT's These are improving. Likely passed stone. To get lap ashley at later time. 4. pHTN- moderate based on RHC with PCWP of 19. Some shortness of breath and evidence of volume overload on exam. --IV lasix again on 10/11 *Agree with transitioning to oral lasix on 10/12, would recommend 80mg PO lasix daily with recs to increase to BID if weight starts increasing --Cards following 5. Borderline hypotension- not on any antihypertensive meds --asymptomatic *Patient reports some orthostatic hypotension, could try compression stockings and possibly abdominal bindr 6. Pulmonary infiltrates-- pulmonary edema +/- pneumonia. Patient also reported that he has "cancer nodules" in his lungs found recently --Continue diuresis for now, may warrant repeat CT scan in the near future Subjective: Feels about the same today. Has gotten up to walk. Breathing is "same old, same old." Hopeful to be discharged to rehab soon. Objective: Vital Signs Temp Pulse Resp BP Pulse Ox 36.7 C 64 16 108/68 94 10/11/18 15:11 10/11/18 16:58 10/11/18 16:58 10/11/18 15:11 10/11/18 16:58 Laboratory Results 10/11/18 03:22 10/11/18 03:22 10/10/18 10/11/18 10/12/18 05:59 05:59 05:59 Intake Total 880 100 Output Total 1480 2720 375 Balance -600 -2620 -375 PT 20.8 SEC (12.0-15.0) H 09/29/18 12:07 INR 1.78 (0.83-1.16) H 09/29/18 12:07 General- chronically ill-appearing, NAD Eyes- anicteric sclera, no conjunctival injection HEENT- dry cracked lips, no gross oral lesions Pulm- decreased breath sounds at R base slightly improved from prior, on O2 NC, stops for breath mid-sentence, some pursed-lip breathing CV- NRRR, no g/m/r, 2+ edema (R>L) Abd- soft, non-tender, + BS - no davis Psych- pleasant, answers questions appropriately - Time Spent With Patient Time Spent With Patient: >30min spent on the care of this patient with >50% of time spent on counseling and coordination of care ICD10 Worksheet Patient Problems: Problems Problem Status Onset Abdominal pain Acute Dehydration Acute Elevated troponin Acute Obstipation Acute Renal failure Acute Chest pain Acute Chronic Disease Mgmt/Transitional Care Acute Fracture of femoral neck, right Acute NSTEMI (non-ST elevated myocardial infarction) Acute
[2018-10-11] MEDS: SODIUM FERRIC GLUCONAT/SUCROSE 125 MG in NS 100 ML IV SCH (18:04)
[2018-10-11] MEDS: traZODone 100 MG TAB PO SCH (21:33)
[2018-10-11] MEDS: TAMSULOSIN HCL 0.4 MG CAP PO SCH (21:33)
[2018-10-11] MEDS: MELATONIN 3 MG TAB PO SCH (21:33)
[2018-10-11] MEDS: ATORVASTATIN CALCIUM 40 MG TAB PO SCH (21:33)
[2018-10-11] MEDS: Zolpidem Tartrate [Ambien Cr] 6.25 MG PO SCH (22:32)
[2018-10-12 04:41] LABS: PLATELET COUNT 266 10^3/uL (150-400)
[2018-10-12] MEDS: ALBUTEROL 3 ML DEYVIAL IH SCH ×4 (05:51→20:04)
[2018-10-12] MEDS: SODIUM FERRIC GLUCONAT/SUCROSE 125 MG in NS 100 ML IV SCH (09:49)
[2018-10-12] MEDS: ASPIRIN EC 325 MG TAB PO SCH (09:53)
[2018-10-12] MEDS: CLOPIDOGREL BISULFATE 75 MG TAB PO SCH (09:53)
[2018-10-12] MEDS: guaiFENesin 600 MG TAB.ER PO SCH (09:53)
[2018-10-12] MEDS: AMIODARONE HCL 200 MG TAB PO SCH (09:53)
[2018-10-12] MEDS: PANTOPRAZOLE SODIUM 40 MG TAB PO SCH ×2 (09:54→21:21)
[2018-10-12] MEDS: APIXABAN 2.5 MG TAB PO SCH ×2 (09:54→21:20)
[2018-10-12] MEDS: SENNOSIDES/DOCUSATE SODIUM TAB PO SCH ×2 (09:55→21:21)
[2018-10-12] MEDS: FUROSEMIDE 80 MG TAB PO SCH (10:00)
--- NOTE | 2018-10-12 10:13 | PDCARPN ---
Cardiology Progress Note Chief Complaint: SOB Assessment/Plan: Assessment: COPD PAF elevated LFTs CRI Plan: 10/12/18 10:10 Patient still has mild OLIVAS but feels improved from yesterday continue po lasix add low dose KCL Continue AC tx as well as plavix (currently NSR) Will follow as needed, please call with any questions Subjective: stable Reviewed/Discussed With: multidisciplinary team Time Spent with Patient: greater than 25 minutes Time Spent with Patient: Greater than 25 minutes spent on this patients care, greater than 50% of time spent counseling, educating, and coordinating care regarding the above mentioned plan. Objective: Vital Signs (8 Hrs) Temp Pulse Resp BP Pulse Ox 10/12/18 09:50 36.7 C 74 18 93/56 L 94 10/12/18 05:51 62 18 97 10/12/18 05:34 36.7 C 65 20 115/72 94 Intake/Output (24 Hrs) 10/11/18 10/12/18 10/13/18 05:59 05:59 05:59 Intake Total 100 780 Output Total 2720 875 200 Balance -2620 -95 -200 Intake: Oral (ml) 100 680 IV Infused (ml) 100 Magnesium Sulf 1 gm/ 100 Dextrose 100 ml @ 100 mls /hr IV ONCE ONE Rx#: [id number] Output: Urine (ml) 2720 875 200 Toilet 670 500 200 Urinal 2050 375 Other: Intake Quantity Yes Sufficient Number of Voids Incontinence 1 1 Toilet 1 1 Urinal 1 Number of Stools Incontinence 1 Toilet 1 Post Void Residual Scan Volume (ml) Toilet 0 Result Diagrams: 10/12/18 03:40 10/12/18 03:40 - Physical Exam Constitutional: no apparent distress Eyes: PERRL Ears, Nose, Mouth, Throat: dry mucous membranes Cardiovascular: regular rate and rhythm Peripheral Pulses: 1+: femoral (R), femoral (L) Respiratory: expiratory wheeze Gastrointestinal: normoactive bowel sounds Genitourinary: no suprapubic tenderness Skin: no rashes Musculoskeletal: no muscular tenderness Neurologic: AAOx3 Psychiatric: cooperative ICD10 Worksheet Patient Problems: Problems Problem Status Onset Abdominal pain Acute Dehydration Acute Elevated troponin Acute Obstipation Acute Renal failure Acute Chest pain Acute Chronic Disease Mgmt/Transitional Care Acute Fracture of femoral neck, right Acute NSTEMI (non-ST elevated myocardial infarction) Acute
[2018-10-12] MEDS: FLUTICASONE/SALMETER 250/50MCG DISKUS IH SCH ×2 (10:33→20:04)
[2018-10-12] MEDS: Tiotropium Bromide [Spiriva Respimat] IH SCH (10:34)
--- NOTE | 2018-10-12 10:37 | SOAPPROG ---
[facility] Progress Note Assessment/Plan: Assessment: 1. NIRMALA on CKD Pt has CKD with BL in low 2's. He has one kidney that is atrophic. His Cr has now been running in the upper 2's. His BP has been lowish. He appears to be on the dry side given his pulmonary hypertension and need for preload. I will review his diuretic dosing with the primary service. 2.Hg Stable His Ferritin is ok. I will stop his IV iron. 3. Inc'd LFT's These are improving. Likely passed stone. To get lap ashley at later time. 4. Cards He has preserved LV function, and pulmonary hypertension cw his lung disease. 5. Pulmonary Status He has severe baseline emphysema, and chronic respiratory failure. He sees Dr. Rodriguez of pulmonary. He likely now has a superimposed pneumonia. Finally, he also has a probable RUL Lung CA. He has follow up scheduled with [facility] for a PET. Subjective: Doing fair. Looks better in general Objective: Vital Signs Temp Pulse Resp BP Pulse Ox 36.7 C 74 18 93/56 L 94 10/12/18 09:50 10/12/18 09:50 10/12/18 09:50 10/12/18 09:50 10/12/18 09:50 Laboratory Results 10/12/18 03:40 10/12/18 03:40 10/11/18 10/12/18 10/13/18 05:59 05:59 05:59 Intake Total 100 780 Output Total 2720 875 200 Balance -2620 -95 -200 PT 20.8 SEC (12.0-15.0) H 09/29/18 12:07 INR 1.78 (0.83-1.16) H 09/29/18 12:07 Physical Exam - Physical Exam General Appearance: no apparent distress Respiratory: other (purse lipped breathing, dullness in bases) Cardiac/Chest: regular rate, rhythm Extremities: other (Trace thigh edema) Neuro/Psych: oriented x 3 ICD10 Worksheet Patient Problems: Problems Problem Status Onset Abdominal pain Acute Dehydration Acute Elevated troponin Acute Obstipation Acute Renal failure Acute Chest pain Acute Chronic Disease Mgmt/Transitional Care Acute Fracture of femoral neck, right Acute NSTEMI (non-ST elevated myocardial infarction) Acute
[2018-10-12] MEDS: LORazepam 0.5 MG TAB PO PRN (11:05)
--- NOTE | 2018-10-12 11:34 | ASMTCMCOM ---
CM Note CM Note Notes: Per hospitalist, patient will likely d.c tomorrow. I notified the staff at [facility]. Case Management will follow. Date Signed: 10/12/2018 11:33 AM Electronically Signed By:Orin Huber RN
[2018-10-12] MEDS: POTASSIUM CL 10 MEQ TAB PO SCH (11:58)
--- NOTE | 2018-10-12 13:59 | HOSPPROG ---
Hospitalist Progress Note Assessment/Plan: 77 y/o male presents with approximately 4 days worth of nausea, vomiting, and abdominal discomfort and distention; imaging suggested possible ileus. ileus resolved, patient developed likely CBD stone, which then passed, but patient with worsening renal function, fluid overload, debility[place] [address], down from 19k on admission. He still has substantial 1cm dependent pitting edema in his legs to his thighs. TTE showed normal LVEF and does not seem to accurately represent how he looks clinically. He likely is preload dependent and with some element of RHF 2/2 longstanding COPD and pulmonary HTN. He was diuresed earlier in his admission but renal function ultimately worsened and diuretics had to be held. -I/O -daily weights -optimize medical management to the extent we are able. -cardiology and nephrology consulted for assistance. S/p multiple days of IVP Lasix. Transitioned to PO Lasix 80 mg per Nephrology - Appears dry today with lower BP's, will hold off on IVF, encourage PO intake Pulmonary Hypertension- has had consistently elevated RVSP on all of his last echos with last RVSP of over 70. s/p RHC on 10/08 NIRMALA on CKD- baseline appears to be stage 4 CKD. nephrology is consulted and is following. Creatinine was initially up to about 3 but he has since recovered and creatinine improving down to 2.7 today. Continue to monitor COPD- severe COPD in reviewing chart. FEV1 of 33%. On advair and duonebs Hyperbilirubinemia-Seems to be resolving. Thought to have a possible CBD stone but patients LFTs are trending down, he no longer appears jaundiced either. He refused MRCP/MRI and so no eval was ever undertaken. -Continue to monitor LFTs -consider surgical eval for ashley, although patient likely not a good candidate at this point until stabilized more, will have patient f/u after discharge Ileus- patient admitted initially with what was thought to be an ileus. this seems to have resolved as patient was able to tolerate PO and had multiple large BMs Repeat Abdominal XR on 10/09 showed resolution of ileus, improvement of constipation Anemia- anemic earlier in hospitalization, H/H has remained stable, but patient did have multiple large black BMs yesterday. started on PPI, eliquis stopped and H/H being monitored. Restarted Elaquis and ASA on 10/10. S/p IV FE by Nephrology CAD- Had PCI to saphenous vein graft to RCA in September 2018. On asa, statin, plavix as outpatient Atrial Fibrillation- was on eliquis and amiodarone. Had to hold eliquis in setting of possible bleed. continue amiodarone. -Restarted elaquis on 10/10 Pulmonary Hypertension- has had consistently elevated RVSP on all of his last echos with last RVSP of over 70. RHC today Possible Lung Mass- Noted in past, has PET scheduled with [facility] as outpatient Fluids- PO, patient appears overloaded Lytes- Monitor, WNL currently Nutrition- clears, NPO at [place] [facility]- DNR Dispo- inpatient NIRMALA on CKD, fluid overload, CHF, Debility, resolving ileus, CBD stone, likely tomorrow Subjective: Patient with no complaints this AM Objective: Vital Signs Temp Pulse Resp BP Pulse Ox 37.1 C 83 20 94/49 L 92 10/12/18 12:00 10/12/18 12:00 10/12/18 12:00 10/12/18 13:47 10/12/18 12:00 Laboratory Results 10/12/18 03:40 10/12/18 03:40 10/11/18 10/12/18 10/13/18 05:59 05:59 05:59 Intake Total 100 780 Output Total 2720 875 450 Balance -2620 -95 -450 PT 20.8 SEC (12.0-15.0) H 09/29/18 12:07 INR 1.78 (0.83-1.16) H 09/29/18 12:07 - Physical Exam Constitutional: chronically ill appearing Eyes: PERRL Ears, Nose, Mouth, Throat: moist mucous membranes Cardiovascular: regular rate and rhythym Respiratory: no respiratory distress Skin: warm Neurologic: AAOx3 Psychiatric: interacting appropriately ICD10 Worksheet Patient Problems: Problems Problem Status Onset Abdominal pain Acute Dehydration Acute Elevated troponin Acute Obstipation Acute Renal failure Acute Chest pain Acute Chronic Disease Mgmt/Transitional Care Acute Fracture of femoral neck, right Acute NSTEMI (non-ST elevated myocardial infarction) Acute
[2018-10-12] MEDS: TAMSULOSIN HCL 0.4 MG CAP PO SCH (21:20)
[2018-10-12] MEDS: ATORVASTATIN CALCIUM 40 MG TAB PO SCH (21:20)
[2018-10-12] MEDS: traZODone 100 MG TAB PO SCH (21:21)
[2018-10-12] MEDS: MELATONIN 3 MG TAB PO SCH (21:21)
[2018-10-12] MEDS: Zolpidem Tartrate [Ambien Cr] 6.25 MG PO SCH (21:39)
[2018-10-13] MEDS: ALBUTEROL 3 ML DEYVIAL IH SCH ×2 (05:08→11:56)
[2018-10-13] MEDS: FLUTICASONE/SALMETER 250/50MCG DISKUS IH SCH (08:51)
[2018-10-13] MEDS: Tiotropium Bromide [Spiriva Respimat] IH SCH (08:51)
--- NOTE | 2018-10-13 08:56 | SOAPPROG ---
[facility] Progress Note Assessment/Plan: Assessment: 77 yo with recent acute NM s/p PCI to saphenous vein graft to RCA and hip fracture admitted with abdominal pain and N/V on 09/29 likely related to gallstone 1. NIRMALA on CKD Cr now back to a little higher than previous baseline. stable at 2.7 with underlying severe pulm HTN, need for diuretics --PVR recorded as >200mL on 10/10. Patient not keen on idea of davis- continue to monitor -transitioned to 80mg po lasix and would keep here for now as BP on lower end, R heart cath pressures -On 10/11, patient said that he would never want to do dialysis again if/when the time comes Anemia --Continue Epo 10k units q7d for now, may need to be increased with time -needs IV iron course Inc'd LFT's These are improving. Likely passed stone. To get lap ashley at later time. Severe pHTN- moderate based on RHC with PCWP of 19. --Cards following -diuretics as above -replacing K now,c heck Mg COPD severe- ongoing nebs with RT Suspected lung CA needing further eval with PET CAD s/p stent RCA 09/19 and SVG -on plavix, statin, eliquis I discussed with RN Marylou Keith MD [facility] pager [phone] 10/13/18 08:55 Subjective: Just had breathing treatment with RT and notes about same. No cp, n/v, f/c. Had questions about PET for me. Less UOP with lasix po but denies increasing sob. Objective: Vital Signs Temp Pulse Resp BP Pulse Ox 36.8 C 81 20 101/70 98 10/13/18 08:00 10/13/18 08:00 10/13/18 08:00 10/13/18 08:00 10/13/18 08:00 Laboratory Results 10/13/18 03:26 10/13/18 03:26 10/12/18 10/13/18 10/14/18 05:59 05:59 05:59 Intake Total 780 425 Output Total 875 1100 Balance -95 -675 PT 20.8 SEC (12.0-15.0) H 09/29/18 12:07 INR 1.78 (0.83-1.16) H 09/29/18 12:07 Physical Exam - Physical Exam General Appearance: alert, no apparent distress, other (sitting up in bed, mild tachypnea) EENT: other (mmm) Neck: supple Respiratory: rhonchi (bilat) Cardiac/Chest: regular rate, rhythm, other (no rub) Abdomen: normal bowel sounds, non-tender, soft Skin: warm/dry Extremities: other (+edema bilat- better) Neuro/Psych: alert, oriented x 3 ICD10 Worksheet Patient Problems: Problems Problem Status Onset Abdominal pain Acute Dehydration Acute Elevated troponin Acute Obstipation Acute Renal failure Acute Chest pain Acute Chronic Disease Mgmt/Transitional Care Acute Fracture of femoral neck, right Acute NSTEMI (non-ST elevated myocardial infarction) Acute
[2018-10-13] MEDS ORDERED: POTASSIUM CL 20 MEQ TAB PO ONE (09:15)
[2018-10-13] MEDS: SODIUM FERRIC GLUCONAT/SUCROSE 125 MG in NS 100 ML IV SCH (09:21)
[2018-10-13] MEDS: METOCLOPRAMIDE 5 MG TAB PO PRN (09:25)
[2018-10-13] MEDS: guaiFENesin 600 MG TAB.ER PO SCH (10:05)
[2018-10-13] MEDS: FUROSEMIDE 80 MG TAB PO SCH (10:05)
[2018-10-13] MEDS: APIXABAN 2.5 MG TAB PO SCH (10:05)
[2018-10-13] MEDS: CLOPIDOGREL BISULFATE 75 MG TAB PO SCH (10:05)
[2018-10-13] MEDS: PANTOPRAZOLE SODIUM 40 MG TAB PO SCH (10:06)
[2018-10-13] MEDS: ASPIRIN EC 325 MG TAB PO SCH (10:06)
[2018-10-13] MEDS: POTASSIUM CL 10 MEQ TAB PO SCH (10:06)
[2018-10-13] MEDS: AMIODARONE HCL 200 MG TAB PO SCH (10:06)
[2018-10-13] MEDS: SENNOSIDES/DOCUSATE SODIUM TAB PO SCH (10:08)
[2018-10-13 12:18] VITALS: BP 98/52
--- NOTE | 2018-10-13 12:36 | ASMTDCNOTE ---
Case Management Discharge Discharge Order Complete? Answers: Yes Patient to Obtain Answers: Other Notes: [facility] Medications Transportation Arranged Answers: Other Notes: [facility] will Pick (Date 10/13/2018 01:45 PM & Time) Faxed Final Orders Answers: Yes Discharge Comments Notes: Patient discharged to [facility]. Transport arranged by Sheila at [facility] DHRUV Parry to call report. Date Signed: 10/13/2018 12:35 PM Electronically Signed By:Orin Huber RN
--- NOTE | 2018-10-13 12:44 | PDIAF ---
- Diagnosis Code Status: Do Not Resuscitate - Medication Management Discharge Medications: electronically signed and located in the Home Medication List. - Orders Services needed: Registered Nurse, Physical Therapy, Occupational Therapy - Follow Up Care Current Providers and Referrals: David Espino MD [Primary Care Provider] - As per Instructions
[2018-10-13] MEDS: LORazepam 0.5 MG TAB PO PRN (13:08)
--- NOTE | 2018-10-13 14:54 | PDDCSUM ---
Discharge Summary Discharge Summary: Date of Admission: 09/29/2018 Date of Discharge: 10/13/2018 Consults: Nephrology, Cardiology Followup: Nephrology, Cardiology, Oncology, Surgery Hospital Course Problem List: 77 y/o male presents with approximately 4 days worth of nausea, vomiting, and abdominal discomfort and distention; imaging suggested possible ileus. ileus resolved, patient developed likely CBD stone, which then passed, but patient with worsening renal function, fluid overload, debility[place] [address], down from 19k on admission. He still has substantial 1cm dependent pitting edema in his legs to his thighs. TTE showed normal LVEF and does not seem to accurately represent how he looks clinically. He likely is preload dependent and with some element of RHF 2/2 longstanding COPD and pulmonary HTN. He was diuresed earlier in his admission but renal function ultimately worsened and diuretics had to be held. -I/O -daily weights -optimize medical management to the extent we are able. -cardiology and nephrology consulted for assistance. S/p multiple days of IVP Lasix. Transitioned to PO Lasix 80 mg per Nephrology Pulmonary Hypertension- has had consistently elevated RVSP on all of his last echos with last RVSP of over 70. s/p RHC on 10/08 NIRMALA on CKD- baseline appears to be stage 4 CKD. nephrology is consulted and is following. Creatinine was initially up to about 3 but he has since recovered and creatinine improving down to 2.7 today. Continue to monitor COPD- severe COPD in reviewing chart. FEV1 of 33%. On advair and duonebs Hyperbilirubinemia-Seems to be resolving. Thought to have a possible CBD stone but patients LFTs are trending down, he no longer appears jaundiced either. He refused MRCP/MRI and so no eval was ever undertaken. -Continue to monitor LFTs -consider surgical eval for ashley, although patient likely not a good candidate at this point until stabilized more, will have patient f/u after discharge Ileus- patient admitted initially with what was thought to be an ileus. this seems to have resolved as patient was able to tolerate PO and had multiple large BMs Repeat Abdominal XR on 10/09 showed resolution of ileus, improvement of constipation Anemia- anemic earlier in hospitalization, H/H has remained stable, but patient did have multiple large black BMs yesterday. started on PPI, eliquis stopped and H/H being monitored. Restarted Elaquis and ASA on 10/10. S/p IV FE by Nephrology CAD- Had PCI to saphenous vein graft to RCA in September 2018. On asa, statin, plavix as outpatient Atrial Fibrillation- was on eliquis and amiodarone. Had to hold eliquis in setting of possible bleed. continue amiodarone. -Restarted elaquis on 10/10 Pulmonary Hypertension- has had consistently elevated RVSP on all of his last echos with last RVSP of over 70. RHC today Possible Lung Mass- Noted in past, has PET scheduled with [facility] as outpatient Time spent on discharge was >35 minutes with >50% of time spent on patient education and counseling.
--- NOTE | 2018-10-13 15:48 | ASDISCHSUM ---
Discharge Information Plan Status:SNF Medically Cleared to Leave: Discharge Date:10/13/2018 01:56 PM CM D/C Disposition: ADT D/C Disposition:Long Term Facility Projected Discharge Date:10/03/2018 11:00 AM Transportation at D/C: Discharge Delay Reason: Follow-Up Date:10/03/2018 11:00 AM Discharge Slot: Final Diagnosis: Placement Information Referral Type:*Intermediate/SNF Referral ID:[id number] Provider Name:Osvaldo nassar [place] Address 1:[address] [facility] Address 2: City:[place] Selection Factors: State:[place] Patient Contact Information Contact Name:TASHA Relationship:Daughter Address:[address] City:[place] Alternate Phone: State/Zip Code:[place] [address] Email: Financial Information Financial Class:Medicare Primary Plan Desc:MEDICARE INPATIENT Primary Plan Number:[id number] Secondary Plan Desc:AARP/MDR SUPPLEMENT Secondary Plan Number:[id number] Assessment Information LACE LACE Comorbidities - select Answers: Chronic pulmonary disease all that apply Congestive heart failure Coronary Artery Disease Moderate or severe liver or renal disease Previous myocardial infarction Other Notes: HTN; HLD # of Emergency department Answers: 3-4 visits in the last 6 months Score: 15 Date Signed: 09/30/2018 08:26 AM Electronically Signed By:Barbara Gomez BC CM Progress Note CM Note CM Note Notes: Pt is a 77 y/o man admitted for renal failure, dehydration and obstipation and abdominal pain. CM met w/ pts ex Mali and pt for dispo planning. Pt is confused and appears to be hallucinating. Mali lives in [place]. Pts daughter Gabby lives here in [place] and is a pharmacist. Mali did not want CM to call Gabby today. Gabby is [place]. Her number is [phone]. Pt recently getting rehab at [facility]. Pt nor Mali would like to return there. Mali would like CM to speak to Gabby tomorrow when she has a day off. CM to follow. Plan: Most likely [facility] Date Signed: 09/30/2018 02:44 PM Electronically Signed By:RADHA Shannon [facility] SAL Progress Note CM Note CM Note Notes: Pts case discussed in morning rounds. Pt is still confused and it may be hospital delirium. CM met w/ daughter and ex for dispo planning. Daughter would like referrals sent to [facility] and [facility] in [place]. First choice is [facility] because they want to stay in [place]. PASRR completed. CM informed [facility] that pt does not want to return. CM to follow. Plan: [facility] Date Signed: 10/01/2018 12:42 PM Electronically Signed By:RADHA Shannon [facility] Progress Note CM Note CM Note Notes: 10/02/2018 Case Management Note Discussed pt during rounds. Anticipating d/c early next week. Phone call to Jh at [facility] is full, pt was declined. Pt has been accepted to [email or web address] in [place]. Informed pt and ex . Case Management [facility] Case Management to follow. Date Signed: 10/02/2018 11:27 AM Electronically Signed By:Zoe Arriola RN [facility] CM Progress Note CM Note CM Note Notes: Pt has been accepted to [email or web address] in [place]. Pt and ex- informed. D/C Plan: [facility] Signed: 10/05/2018 01:58 PM Electronically Signed By:Rachel Schneider [facility] CM Progress Note CM Note CM Note Notes: Pt was to have a palliative consult today. He continues to require medical treatment; he is not medically stable enough for d/c. [email or web address] was sent additional reports. D/C Plan: [facility] Date Signed: 10/09/2018 02:49 PM Electronically Signed By:Rachel Schneider [facility] CM Progress Note CM Note CM Note Notes: Per hospitalist, patient will likely d.c tomorrow. I notified the staff at [facility]. Case Management will follow. Date Signed: 10/12/2018 11:33 AM Electronically Signed By:Orin Huber RN Case Management Discharge Plan Note Case Management Discharge Discharge Order Complete? Answers: Yes Patient to Obtain Answers: Other Notes: [facility] Medications Transportation Arranged Answers: Other Notes: [facility] will Pick (Date 10/13/2018 01:45 PM & Time) Faxed Final Orders Answers: Yes Discharge Comments Notes: Patient discharged to [facility]. Transport arranged by Sheila at [facility] ([place]). DHRUV Parry to call report. Date Signed: 10/13/2018 12:35 PM Electronically Signed By:Orin Huber RN Intervention Information Intervention Type:*Incorrect Registration Date of Service:09/30/2018 09:33 AM Patient Type:Observation Staff Member:Christy Bermudez Hours: Discipline: Severity: Comment:
== END 2018-10-13 13:56 | DRG 394 ==
LOC: EDUNIT# → SUPCPDRO 11:46 → OBSVTOIN 13:54 → F2W 17:26
PROVIDERS: ADMIT Internal Medicine; ATTEND Internal Medicine
PROC: 30233N1 Transfusion of Nonautologous Red Blood Cells into Peripheral Vein, Percutaneous Approach (ICD-10-PCS; 2018-09-30)
PROC: 4A023N6 Measurement of Cardiac Sampling and Pressure, Right Heart, Percutaneous Approach (ICD-10-PCS; principal; 2018-10-08)
DX: K91.89 Other postprocedural complications and disorders of digestive system (principal); K80.51 Calculus of bile duct without cholangitis or cholecystitis with obstruction; N17.9 Acute kidney failure, unspecified; I13.0 Hypertensive heart and chronic kidney disease with heart failure and stage 1 through stage 4 chronic kidney disease, or unspecified chronic kidney disease; N18.4 Chronic kidney disease, stage 4 (severe); I50.9 Heart failure, unspecified; J44.9 Chronic obstructive pulmonary disease, unspecified; I27.23 Pulmonary hypertension due to lung diseases and hypoxia; D64.9 Anemia, unspecified; I25.10 Atherosclerotic heart disease of native coronary artery without angina pectoris; I48.91 Unspecified atrial fibrillation; E86.0 Dehydration; G47.00 Insomnia, unspecified; I07.1 Rheumatic tricuspid insufficiency; Z87.891 Personal history of nicotine dependence; Z95.5 Presence of coronary angioplasty implant and graft; Z79.01 Long term (current) use of anticoagulants; Z66 Do not resuscitate
CPT/HCPCS: 84484-ER; 96374; 97110-GP; 97116-GP; 97163-GP; 97167-GO; 97530-GO; 97530-GP; 97535-GO; G8978-GP-CM; G8979-GP-CK; G8987-GO-CK; G8987-GO-CL; G8988-GO-CJ; J0295; J0885; J1630; J1644; J1940; J2250; J2405; J2765; J2916; J3010; J3475; J7613; P9016

== ENCOUNTER 2018-10-21 15:31 | Inpatient (IN) | payer OTHER, MEDICARE ==
--- NOTE | 2018-10-21 15:38 | EDPHY ---
H & P Stated Complaint: SOB Time Seen by Provider: 10/21/18 15:36 HPI/ROS: CHIEF COMPLAINT: Acute dyspnea HISTORY OF PRESENT ILLNESS: The patient presents the emergency department with acute dyspnea. The patient does have a history of atrial fibrillation and congestive heart failure. He also has COPD. The patient was recently diagnosed with a small lung mass and is waiting further workup. The patient is brought in by paramedics with increased work of breathing and expiratory wheezing. The patient denies fever or productive cough. He denies significant weight gain. The patient denies any chest pain currently. He does report moderate to severe dyspnea which is worsened with exertion. The patient recently had a prolonged admission to the hospital for an ileus and ultimately was found to have a common bile duct stone. The patient developed fluid overload and did require some prolonged stay in the hospital that point time. The patient has been on his stable dose of diuretics as an outpatient. He has been compliant with his anticoagulant medications. REVIEW OF SYSTEMS: A comprehensive 10 point review of systems is otherwise negative aside from elements mentioned in the history of present illness. Source: Patient Exam Limitations: No limitations - Medical/Surgical History Hx Asthma: No Hx Chronic Respiratory Disease: Yes Hx Diabetes: No Hx Cardiac Disease: Yes Hx Renal Disease: Yes Hx Cirrhosis: No Hx Alcoholism: No Hx HIV/AIDS: No Hx Splenectomy or Spleen Trauma: No Other PMH: COPD 4l O2 at home, CKD, CABG 1997, angioplasty, abdominal aortic repair x2, HLD, anemia, HTN, OR unable to stent JUL 30, right femur fx - Family History Significant Family History: No pertinent family hx - Social History Smoking Status: Former smoker Alcohol Use: None - Physical Exam Exam: General Appearance: Alert, no distress Eyes: Pupils equal and round no pallor or injection ENT, Mouth: Mucous membranes moist Respiratory: Accessory muscle use noted, scant expiratory wheezing Cardiovascular: Tachycardic Gastrointestinal: Abdomen is soft and nontender, no masses, bowel sounds normal Neurological: 5/5 strength noted all 4 extremities Skin: Warm and dry, no rashes Musculoskeletal: Neck is supple nontender Extremities: No asymmetric calf pain or swelling Constitutional: Initial Vital Signs Temperature (C) 36.7 C 10/21/18 15:34 Heart Rate 88 10/21/18 15:34 Respiratory Rate 30 H 10/21/18 15:34 Blood Pressure 102/62 10/21/18 15:34 O2 Sat (%) 95 10/21/18 15:34 O2 Delivery Mode Nasal Cannula O2 (L/minute) 3 Allergies/Adverse Reactions: NSAIDS (Non-Steroidal Anti-Inflamma [NSAIDS (Non-Steroidal Anti-Inflammatory Drug)] Allergy (Unknown, Verified 10/21/18 15:38) Other-Enter Comments Home Medications: Medication Instructions Recorded Melatonin [Melatonin 3 MG (*)] 3 mg PO HS 07/28/18 Tiotropium [place] [Spiriva 2 inh IH DAILY 07/28/18 Respimat] Zolpidem Tartrate [Ambien Cr] 6.25 mg PO HS 07/28/18 Tamsulosin HCl [Flomax 0.4 MG (*)] 0.4 mg PO HS 07/30/18 Clopidogrel Bisulfate [Plavix (*)] 75 mg PO DAILY #30 tab 08/01/18 Nitroglycerin [Nitrostat 0.4 mg 0.4 mg SL Q5M PRN #30 bottle 08/01/18 (*)] Albuterol Sulfate [Ventolin Hfa] 1 - 2 puffs IH DAILY PRN 09/01/18 Aspirin EC [Aspirin EC 325 mg (*)] 325 mg PO DAILY #30 tab 09/24/18 Atorvastatin Calcium [Lipitor 40 40 mg PO HS 09/29/18 mg (*)] Ipratropium/Albuterol [Duoneb (*)] 3 ml IH Q6HRS 09/29/18 guaiFENesin [Mucinex 600 MG (*)] 600 mg PO DAILY 09/29/18 Fluticasone/Salmeter 250/50Mcg 1 puffs IH BID 10/01/18 [Advair 250/50 (*)] traZODone [traZODONE 100MG (*)] 100 mg PO HS 10/01/18 Albuterol [Proventil Neb] 3 ml IH Q4HRS PRN deyvial 10/13/18 Amiodarone HCl [Pacerone (*)] 100 mg PO DAILY tab 10/13/18 Apixaban [Eliquis] 2.5 mg PO BID tab 10/13/18 Epoetin Richard [Procrit 81031 10,000 unit SC Q7D vial 10/13/18 UNIT/ML] Fluticasone/Salmeter 250/50Mcg 1 puffs IH BID disk 10/13/18 [Advair 250/50 (*)] Furosemide [Lasix 80 MG (*)] 80 mg PO DAILY tab 10/13/18 LORazepam [Ativan (*)] 0.5 mg PO Q4HRS PRN tab 10/13/18 Pantoprazole Sodium [Protonix 40mg 40 mg PO BID tab 10/13/18 (*)] Polyethylene Glycol 3350 [Miralax 17 gm PO DAILY PRN pkt 10/13/18 17 gm (*)] Potassium Cl [Klor-Con 10 meq (RX)] 10 meq PO DAILY #0 tab 10/13/18 Saliva Substitute Combo No.9 15 ml MM QID PRN bottle 10/13/18 [Biotene (*)] traMADol [Ultram 50 mg (*)] 50 mg PO Q12 PRN tab 10/13/18 Medical Decision Making - Diagnostics EKG Interpretation: EKG: Complete interpretation has been separately recorded in the [employer] archive. Summary impression: Sinus rhythm, rate 83, nonspecific ST T wave changes noted Imaging Results: Imaging Impressions Chest X-Ray 10/21/18 15:36 Impression: Improvement in the degree of airspace opacities in the left lung base when compared to 10/09/2018. ED Course/Re-evaluation: I reviewed the patient's past medical records including his hospitalization from September. The patient's chest x-ray is stable without evidence of pneumonia or worsening heart failure. The patient's proBNP level has improved from discharge. The patient was noted to have expiratory wheezing on exam. He was started on a continuous albuterol neb. The patient is currently anticoagulated admit doubt pulmonary embolism as a presentation of his acute dyspnea today. Patient's troponin is negative. The patient was placed on a radiation monitor. He underwent serial examinations in the ED over a 2 hr. The patient's creatinine is stable 2.8. I re-evaluated the patient at 5:00 p.m.. He continues to be dyspneic. At this point time I feel that his dyspnea secondary to COPD and not pneumonia or worsening heart failure. The patient will be treated with IV Solu-Medrol. Consultation is made with Dr. Shelley who will admit the patient. The patient continues to be on a continuous albuterol nebulizer. Differential Diagnosis: Differential diagnosis considered includes asthma, bronchitis, pneumonia, congestive heart failure, dehydration, metabolic derangement, worsening renal failure - Data Points Laboratory Results: Laboratory Results 10/21/18 15:35 10/21/18 15:35 10/21/18 10/21/18 10/21/18 15:52 15:50 15:35 WBC RBC Hgb Hct MCV MCH MCHC RDW Plt Count MPV Neut % (Auto) Lymph % (Auto) [place] % (Auto) Eos % (Auto) Baso % (Auto) Nucleat RBC Rel Count Absolute Neuts (auto) Absolute Lymphs (auto) Absolute Monos (auto) Absolute Eos (auto) Absolute Basos (auto) Absolute Nucleated RBC Immature Gran % Immature Gran # RBC/WBC/PLT Morphology Platelet Estimate PT INR Puncture Site LEFT RADIAL Patient Temperature 37.0 DEGREES DEGREES pCO2 29 mmHg L mmHg (34-38) pO2 64 mmHg L mmHg (65-75) Total CO2 25 mEq/L mEq/L (23-27) ABG pH 7.53 H (7.35-7.45) ABG PO2/FiO2 Ratio 1598 RATIO RATIO ABG HCO3 24 mEq/L mEq/L (22-26) ABG O2 Saturation 94 % % (92-95) ABG Base Excess 2.2 mEq/L mEq/L (-2.5-2.5) O2 Concentration % 4 % % (0-100) Sodium 135 mEq/L mEq/L (135-145) Potassium 4.9 mEq/L mEq/L (3.5-5.2) Chloride 99 mEq/L mEq/L (97-110) Carbon Dioxide 27 mEq/l mEq/l (22-31) Anion Gap 9 mEq/L mEq/L (6-14) BUN 41 mg/dL H mg/dL (7-23) Creatinine 2.8 mg/dL H mg/dL (0.7-1.3) Estimated GFR 22 Glucose 80 mg/dL mg/dL (70-100) Calcium 8.5 mg/dL mg/dL (8.5-10.4) POC Troponin I 0.03 ng/mL ng/mL (0.00-0.08) NT-Pro-B Natriuret Pep 38093 pg/mL H pg/mL (0-450) 10/21/18 10/21/18 15:35 15:35 WBC 7.02 10^3/uL 10^3/uL (3.80-9.50) RBC 3.12 10^6/uL L 10^6/uL (4.40-6.38) Hgb 9.4 g/dL L g/dL (13.7-17.5) Hct 29.8 % L % (40.0-51.0) MCV 95.5 fL fL (81.5-99.8) MCH 30.1 pg pg (27.9-34.1) MCHC 31.5 g/dL L g/dL (32.4-36.7) RDW 15.9 % H % (11.5-15.2) Plt Count 342 10^3/uL 10^3/uL (150-400) MPV 8.5 fL L fL (8.7-11.7) Neut % (Auto) 87.6 % H % (39.3-74.2) Lymph % (Auto) 2.3 % L % (15.0-45.0) [place] % (Auto) 7.7 % % (4.5-13.0) Eos % (Auto) 1.0 % % (0.6-7.6) Baso % (Auto) 0.3 % % (0.3-1.7) Nucleat RBC Rel Count 0.0 % % (0.0-0.2) Absolute Neuts (auto) 6.15 10^3/uL 10^3/uL (1.70-6.50) Absolute Lymphs (auto) 0.16 10^3/uL L 10^3/uL (1.00-3.00) Absolute Monos (auto) 0.54 10^3/uL 10^3/uL (0.30-0.80) Absolute Eos (auto) 0.07 10^3/uL 10^3/uL (0.03-0.40) Absolute Basos (auto) 0.02 10^3/uL 10^3/uL (0.02-0.10) Absolute Nucleated RBC 0.00 10^3/uL 10^3/uL (0-0.01) Immature Gran % 1.1 % % (0.0-1.1) Immature Gran # 0.08 10^3/uL 10^3/uL (0.00-0.10) RBC/WBC/PLT Morphology TNP Platelet Estimate TNP PT 17.8 SEC H SEC (12.0-15.0) INR 1.45 H (0.83-1.16) Puncture Site Patient Temperature pCO2 pO2 Total CO2 ABG pH ABG PO2/FiO2 Ratio ABG HCO3 ABG O2 Saturation ABG Base Excess O2 Concentration % Sodium Potassium Chloride Carbon Dioxide Anion Gap BUN Creatinine Estimated GFR Glucose Calcium POC Troponin I NT-Pro-B Natriuret Pep Medications Given: Discontinued Medications Albuterol (Proventil Neb) 10 ml IH CONT ONE Stop: 10/21/18 15:52 Last Admin: 10/21/18 15:58 Dose: 10 ml Point of Care Test Results: Chemistry 10/21/18 15:52 POC Troponin I 0.03 ng/mL ng/mL (0.00-0.08) Departure - Departure Disposition: [facility] Inpatient Acute Clinical Impression: Dyspnea Qualifiers: Dyspnea type: dyspnea on exertion Qualified Code(s): R06.09 - Other forms of dyspnea Condition: Good Referrals: SAIRA MCGHEE [Other] - As per Instructions
[2018-10-21 15:49] LABS: PLATELET COUNT 342 10^3/uL (150-400)
[2018-10-21] MEDS ORDERED: ALBUTEROL 3 ML DEYVIAL IH ONE (15:51)
--- NOTE | 2018-10-21 15:53 | CPEKG ---
Test Reason : OPEN Blood Pressure : / mmHG Vent. Rate : 083 BPM Atrial Rate : 086 BPM P-R Int : 065 ms QRS Dur : 142 ms QT Int : 457 ms P-R-T Axes : 000 268 014 degrees QTc Int : 537 ms Sinus rhythm Short OH interval Nonspecific IVCD with LAD Confirmed by Mike Mensah ([id number]) on 10/21/2018 3:52:24 PM Referred By: Confirmed By:Mike Mensah
[2018-10-21 16:00] LABS: INR 1.45 (0.83-1.16); PROTIME(PATIENT) 17.8 SEC (12.0-15.0)
[2018-10-21] MEDS ORDERED: methylPREDNISolone SOD SUCC 125 MG/2 ML VIAL IVP ONE (17:06)
--- NOTE | 2018-10-21 18:01 | PDGENHP ---
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 His dyspnea occurs with exertion. He denies fevers, acute weight gain, and productive cough. No chest pains. Denies issues with urination or bowel movements, however he reports BM occurrence Q3 days. He has spent a great amount of time in the hospital for various medical events. He was recently admitted for an ileus and found to have a common bile duct stone. He developed fluid overload and require prolonged stay in the hospital. Prior to that admittance, he sustained a mechanical fall that fractured his right hip, subsequently requiring hemiarthroplasty. After surgery, his hospital stay was prolonged d/t cardiac decompensation, NSTEMI, atrial fibrillation requiring cardioversion and ventricular tachycardia. He went to cardiac catheterization and had a stent placed to his SVG graft. In regards to his new onset of atrial fibrillation, he was placed on amiodarone and metoprolol as well as Eliquis for stroke prevention. He was on triple therapy of aspirin, plavix, and eliquis for 30 days (dated 09/08/18) and then after 30 days, use only plavix and eliquis alone. The ventricular tachycardia noted prior to his cardiac stent and presumed due to ischemia as he has had no recurrence of ventricular tachycardia since. Past Medical/Surgical 1. COPD (chronically utilizes supplemental oxygen 4LNC baseline) 2. NSTEMI, unable to stent in July 2018, stented in September 2018 3. CAD s/p PCI to saphenous vein graft to RCA in September 2018 4. AAA repair x 2 5. HTN 6. CABG x 3 (1997) 7. Angioplasty 8. HLD 9. CKD IV 10. Cauda equina syndrome (1993 - residual RLE weakness) 11. Laminectomy Social 1. Former smoker of cigarettes. Quit in 2015. He vapes flavors (i.e., mint, strawberry, watermelon), no nicotine. Denies alcohol or illicit drug use. 2. Daughter lives in [place] 3. He lives independently in a senior-living community. It is not an assisted- living. Does not use any ambulation device. History Information - Allergies/Home Medication List Allergies/Adverse Reactions: NSAIDS (Non-Steroidal Anti-Inflamma [NSAIDS (Non-Steroidal Anti-Inflammatory Drug)] Allergy (Unknown, Verified 10/21/18 15:38) Other-Enter Comments Home Medications: Melatonin [Melatonin 3 MG (*)] 3 mg PO HS 07/28/18 [Last Taken 10/20/18] Tiotropium [place] [Spiriva Respimat] 2 inh IH DAILY 07/28/18 [Last Taken ] Zolpidem Tartrate [Ambien Cr] 6.25 - 12.5 mg PO HS PRN 07/28/18 [Last Taken 05/31] Tamsulosin HCl [Flomax 0.4 MG (*)] 0.4 mg PO HS 07/30/18 [Last Taken 10/20/18] Albuterol Sulfate [Ventolin Hfa] 1 - 2 puffs IH DAILY PRN 09/01/18 [Last Taken Unknown] Atorvastatin Calcium [Lipitor 40 mg (*)] 40 mg PO HS 09/29/18 [Last Taken ] Ipratropium/Albuterol [Duoneb (*)] 3 ml IH Q6HRS 09/29/18 [Last Taken Unknown] guaiFENesin [Mucinex 600 MG (*)] 600 mg PO DAILY 09/29/18 [Last Taken 10/21/18] traZODone [traZODONE 100MG (*)] 100 mg PO HS 10/01/18 [Last Taken 10/20/18] Clopidogrel Bisulfate [Plavix (*)] 75 mg PO DAILY@17 10/21/18 [Last Taken ] Furosemide [Lasix 80 MG (*)] 20 - 80 mg PO DAILY PRN 10/21/18 [Last Taken Unknown] I have personally reviewed and updated: family history, medical history, social history, surgical history Past Medical History: See HPI list - Past Medical History coronary artery disease Additional medical history: AAA. CKD - Surgical History Reports: coronary bypass surgery Additional surgical history: AAA repair - Family History Positive for: non-pertinent - Social History Smoking Status: Former smoker Alcohol Use: None Drug Use: None Additional social history: See HPI list Review of Systems Review of Systems: ROS: 10pt was reviewed & negative except for what was stated in HPI & below Constitutional: Reports: no symptoms EENMT: Reports: no symptoms Cardiac: Reports: no symptoms Respiratory: Reports: shortness of breath, wheezing Gastrointestinal: Reports: no symptoms Genitourinary: Reports: no symptoms Muscolosketal: Reports: no symptoms Skin: Reports: no symptoms Neurological: Reports: no symptoms Hematologic/Lymphatic: Reports: easy bruising Immunologic/Allergy: Reports: other (See allergy list) Physical Exam Physical Exam: Lab data and imaging reviewed Temp Pulse Resp BP Pulse Ox 36.8 C 89 24 H 133/80 H 92 10/21/18 17:38 10/21/18 17:38 10/21/18 17:38 10/21/18 17:38 10/21/18 17:38 O2 (L/minute) 5 Constitutional: appears nourished, not in pain, other (Mildly respiratory distress; using accessory muscles ) Eyes: PERRL, anicteric sclera, EOMI Ears, Nose, Mouth, Throat: moist mucous membranes, ears appear normal, no oral mucosal ulcers, hard of hearing Cardiovascular: regular rate and rhythym, no murmur, rub, or gallop, edema Peripheral Pulses: 2+: dorsalis-pedis (R) (2+ pitting edema; radial 2+), dorsalis-pedis (L) (2+ pitting edema; Radial 2+) Respiratory: expiratory wheeze (scant expiratory wheezing), respiratory distress Gastrointestinal: normoactive bowel sounds, soft, non-tender abdomen, no palpable masses Genitourinary: no bladder fullness, no bladder tenderness Skin: warm, normal color, no rashes or abrasions, no fluctuance, no induration, No mottled Musculoskeletal: full muscle strength, no muscle tenderness, normal joint ROM, no joint effusions Neurologic: AAOx3, sensation intact bilaterally, CN II-XII Intact Psychiatric: interacting appropriately, not anxious, not encephalopathic, thought process linear Lymph, Heme, Immunologic: no cervical LAD, no supraclavicular LAD Lab Data & Imaging Review 10/21/18 15:35 10/21/18 15:35 WBC 7.02 10^3/uL (3.80-9.50) 10/21/18 15:35 RBC 3.12 10^6/uL (4.40-6.38) L 10/21/18 15:35 Hgb 9.4 g/dL (13.7-17.5) L 10/21/18 15:35 Hct 29.8 % (40.0-51.0) L 10/21/18 15:35 MCV 95.5 fL (81.5-99.8) 10/21/18 15:35 MCH 30.1 pg (27.9-34.1) 10/21/18 15:35 MCHC 31.5 g/dL (32.4-36.7) L 10/21/18 15:35 RDW 15.9 % (11.5-15.2) H 10/21/18 15:35 Plt Count 342 10^3/uL (150-400) 10/21/18 15:35 MPV 8.5 fL (8.7-11.7) L 10/21/18 15:35 Neut % (Auto) 87.6 % (39.3-74.2) H 10/21/18 15:35 Lymph % (Auto) 2.3 % (15.0-45.0) L 10/21/18 15:35 [place] % (Auto) 7.7 % (4.5-13.0) 10/21/18 15:35 Eos % (Auto) 1.0 % (0.6-7.6) 10/21/18 15:35 Baso % (Auto) 0.3 % (0.3-1.7) 10/21/18 15:35 Nucleat RBC Rel Count 0.0 % (0.0-0.2) 10/21/18 15:35 Absolute Neuts (auto) 6.15 10^3/uL (1.70-6.50) 10/21/18 15:35 Absolute Lymphs (auto) 0.16 10^3/uL (1.00-3.00) L 10/21/18 15:35 Absolute Monos (auto) 0.54 10^3/uL (0.30-0.80) 10/21/18 15:35 Absolute Eos (auto) 0.07 10^3/uL (0.03-0.40) 10/21/18 15:35 Absolute Basos (auto) 0.02 10^3/uL (0.02-0.10) 10/21/18 15:35 Absolute Nucleated RBC 0.00 10^3/uL (0-0.01) 10/21/18 15:35 Immature Gran % 1.1 % (0.0-1.1) 10/21/18 15:35 Immature Gran # 0.08 10^3/uL (0.00-0.10) 10/21/18 15:35 RBC/WBC/PLT Morphology TNP 10/21/18 15:35 Platelet Estimate TNP 10/21/18 15:35 PT 17.8 SEC (12.0-15.0) H 10/21/18 15:35 INR 1.45 (0.83-1.16) H 10/21/18 15:35 Puncture Site LEFT RADIAL 10/21/18 15:50 Patient Temperature 37.0 DEGREES 10/21/18 15:50 pCO2 29 mmHg (34-38) L 10/21/18 15:50 pO2 64 mmHg (65-75) L 10/21/18 15:50 Total CO2 25 mEq/L (23-27) 10/21/18 15:50 ABG pH 7.53 (7.35-7.45) H 10/21/18 15:50 ABG PO2/FiO2 Ratio 1598 RATIO 10/21/18 15:50 ABG HCO3 24 mEq/L (22-26) 10/21/18 15:50 ABG O2 Saturation 94 % (92-95) 10/21/18 15:50 ABG Base Excess 2.2 mEq/L (-2.5-2.5) 10/21/18 15:50 O2 Concentration % 4 % (0-100) 10/21/18 15:50 Sodium 135 mEq/L (135-145) 10/21/18 15:35 Potassium 4.9 mEq/L (3.5-5.2) 10/21/18 15:35 Chloride 99 mEq/L (97-110) 10/21/18 15:35 Carbon Dioxide 27 mEq/l (22-31) 10/21/18 15:35 Anion Gap 9 mEq/L (6-14) 10/21/18 15:35 BUN 41 mg/dL (7-23) H 10/21/18 15:35 Creatinine 2.8 mg/dL (0.7-1.3) H 10/21/18 15:35 Estimated GFR 22 10/21/18 15:35 Glucose 80 mg/dL (70-100) 10/21/18 15:35 Calcium 8.5 mg/dL (8.5-10.4) 10/21/18 15:35 POC Troponin I 0.03 ng/mL (0.00-0.08) 10/21/18 15:52 NT-Pro-B Natriuret Pep 97887 pg/mL (0-450) H 10/21/18 15:35 Assessment & Plan Plan: 77 y/o male presenting with acute dyspnea upon exertion after working with physical therapy at his rehab facility. CXR reveals no acute processes, also improvement in the degree of airspace opacities in the left lung base when compared to CXR dated 10/09/2018. EKG SR, rate 83, nonspecific ST-T wave changes. 1. Acute exacerbation on severe chronic obstructive pulmonary disease: chronically on supplemental oxygen at 4LNC. FEV1 of 33%. Low suspicion of pulmonary embolism as he is anticoagulated with eliquis and was placed on triple therapy of eliquis, plavix and asa 325mg for 30 days. He is compliant with medications. Also low suspicion this is reactive to his lung nodules as it appears the nodules were present during previous hospital stays and he did not have an exacerbation. He is f/u with [facility] re: lung nodules. -Received neb treatment/solu-medrol 125 mg IVP in emergency room -Will receive PO prednisone 40 mg tomorrow -Cont tele/pulse ox monitoring -Respiratory PCR pending -Duoneb treatments 2. CAD: first trop negative 0.03 -May continue statin, plavix -Cardiac rehab -Cycle one more trop 3. Atrial fibrillation -Cont tele/pulse ox monitoring -Cont plavix, eliquis, amiodarone. Holding ASA as triple therapy has ended after 30 days (09/08/18). 4. CKD IV: creatinine 2.8. Baseline ~2.3-2.9. Stage IV, contributes to elevated BNP. -Avoid nephrotoxic agents -Continue to monitor 5. Possible small cell lung mass: this was noted on previous images. He has f/u 'ed with [facility] with an appointment yesterday and he reports they are still in need of scheduling a PET scan for him. 6. Congestive heart failure: BNP (89899). Three weeks prior was 30315. Considered elevated but can be seen in acute events such as exacerbation of COPD placing additional stress on heart -Cont tele/pulse ox monitoring -Lasix 40 mg BID IVP tomorrow; will check CBC/CMP tomorrow -Continue potassium chloride packet Diet: Sodium 2g + cardiac Code: DNR VTE ppx: SCDs, Jennifer Dispo: Admit to inpatient
--- NOTE | 2018-10-21 18:31 | HOSPPROG ---
Hospitalist Progress Note Assessment/Plan: Saw and examined patient. Discussed case w/ Gina Mallory NP -- see other note. Pt is a 77yo M sent from acute Rehab for shortness of breath that began this afternoon -- still on his baseline O2 of 4L NC, but labored in breathing. Acute COPD exacerbation Severe COPD/Emphysema, on home O2 Pulmonary hypertension Pulmonary nodules PAF, on Eliquis CAD, s/p CABG and stent Recent NSTEMI Systolic CHF, EF 40% H/o AAA repair HTN CKD stage IV, stable Chronic anemia H/o ileus H/o hip fracture -Monitor on telemetry. -Diurese. Fluid restrict, low sodium diet. -IV Solumedrol given in ED. Continue po prednisone in AM. -SVNs, O2. -Resp panel. -Continue most home meds. -DDx etiology - low suspicion for PE as pt is on Eliquis. Low suspicion that pulm nodules would have changed and are contributing to current shortness of breath. Consider additional workup if O2 demand increases despite above Tx. -VTE ppx - Eliquis. Code status - DNR. Inpatient stay for multiple complex comorbidities, Objective: Vital Signs Temp Pulse Resp BP Pulse Ox 36.8 C 89 24 H 133/80 H 92 10/21/18 17:38 10/21/18 17:38 10/21/18 17:38 10/21/18 17:38 10/21/18 17:38 PT 17.8 SEC (12.0-15.0) H 10/21/18 15:35 INR 1.45 (0.83-1.16) H 10/21/18 15:35 ICD10 Worksheet Patient Problems: Problems Problem Status Onset Dyspnea Acute Abdominal pain Acute Chest pain Acute Chronic Disease Mgmt/Transitional Care Acute Dehydration Acute Elevated troponin Acute Fracture of femoral neck, right Acute NSTEMI (non-ST elevated myocardial infarction) Acute Obstipation Acute Renal failure Acute
[2018-10-21] MEDS ORDERED: FUROSEMIDE 80 MG TAB PO PRN (19:32)
[2018-10-21] MEDS ORDERED: POLYETHYLENE GLYCOL 3350 17 GM PKT PO PRN (19:32)
[2018-10-21] MEDS ORDERED: BIOTENE DRY MOUTH ORAL RINSE 237 ML BTL MM PRN (19:32)
[2018-10-21] MEDS ORDERED: CLOPIDOGREL BISULFATE 75 MG TAB PO SCH (19:45)
[2018-10-21] MEDS ORDERED: METOCLOPRAMIDE 10 MG/2 ML VIAL IVP PRN (20:05)
[2018-10-21] MEDS: FLUTICASONE/SALMETER 250/50MCG DISKUS IH SCH (20:18)
[2018-10-21] MEDS: IPRATROPIUM/ALBUTEROL 3 ML DEYVIAL IH SCH (20:19)
[2018-10-21] MEDS: ATORVASTATIN CALCIUM 40 MG TAB PO SCH (22:04)
[2018-10-21] MEDS: APIXABAN 2.5 MG TAB PO SCH (22:05)
[2018-10-21] MEDS: PANTOPRAZOLE SODIUM 40 MG TAB PO SCH (22:05)
[2018-10-21] MEDS: MELATONIN 3 MG TAB PO SCH (22:05)
[2018-10-21] MEDS: traZODone 100 MG TAB PO SCH (22:05)
[2018-10-21] MEDS: TAMSULOSIN HCL 0.4 MG CAP PO SCH (22:05)
[2018-10-22] MEDS: IPRATROPIUM/ALBUTEROL 3 ML DEYVIAL IH SCH ×4 (04:56→21:07)
--- NOTE | 2018-10-22 07:41 | PDMN ---
Medical Necessity Medical necessity: Pt meets INPT criteria per MD as of 10/21/18 and MCG M-100 COPD (est. LOS >2 MN for eval/mgmt of acute exacerbation on severe COPD requiring IV solu-medrol; with comorbid CAD, recent NSTEMI, afib, CKD stage IV, CHF, pulmonary htn, pulmonary nodules; hx ileus, hip fracture).
[2018-10-22] MEDS ORDERED: POTASSIUM CL 10 MEQ TAB PO SCH (09:00)
--- NOTE | 2018-10-22 09:21 | ASMTLACE ---
THOMASE Acuity / Level of Answers: Yes Care: Did the patient have an inpatient admission? Comorbidities - select Answers: Chronic pulmonary disease all that apply Congestive heart failure Moderate or severe liver or renal disease Previous myocardial infarction Other Notes: AFib; HTN; HLD # of Emergency department Answers: 5-8 visits in the last 6 months Score: 17 Date Signed: 10/22/2018 09:21 AM Electronically Signed By:Barbara Gomez
[2018-10-22] MEDS: PANTOPRAZOLE SODIUM 40 MG TAB PO SCH ×2 (09:35→22:24)
[2018-10-22] MEDS: predniSONE 20 MG TAB PO SCH (09:35)
[2018-10-22] MEDS: AMIODARONE HCL 200 MG TAB PO SCH (09:36)
[2018-10-22] MEDS: APIXABAN 2.5 MG TAB PO SCH ×2 (09:36→22:24)
[2018-10-22] MEDS: FUROSEMIDE 40 MG/4 ML VIAL IVP SCH ×2 (09:37→15:38)
[2018-10-22] MEDS: FLUTICASONE/SALMETER 250/50MCG DISKUS IH SCH ×2 (09:38→21:07)
--- NOTE | 2018-10-22 13:39 | HOSPPROG ---
Hospitalist Progress Note Assessment/Plan: 77 yo M w cad, copd, 08/30 hip fracture w continuous hospitalizations and rehab stays since. presented 10/20 w [facility]. dyspnea: improved w pred/duonebs as well as diuresis, although I/O not that neg copd: exam w decreased breath sounds continue pred 40 for total of five days duonebs sCHF: mildly elevtaed jvd 2+ LE edema but alb 2.4 continue IV diuretics add'l day as he will be getting a unit of packed cells anemia: hg 7.2 this AM w no clear blood loss AC noted transfuse 1 unit hold on GI eval follow cad: plavix/bb/statin recent SVG stent hip fracture: PT dispo: inpt code: dnr Subjective: cxr w no pulm edema (interp by me). feels better than on arrival Objective: Vital Signs Temp Pulse Resp BP Pulse Ox 36.5 C 74 13 106/63 98 10/22/18 12:30 10/22/18 12:30 10/22/18 12:30 10/22/18 12:30 10/22/18 12:30 Microbiology 10/21/18 18:40 Respiratory Panel (PCR) - Final Nasal, Sinus - Swab No Organism Detected By Pcr Laboratory Results 10/22/18 03:30 10/22/18 03:30 10/21/18 10/22/18 10/23/18 05:59 05:59 05:59 Intake Total 100 Output Total 200 225 Balance -100 -225 PT 17.8 SEC (12.0-15.0) H 10/21/18 15:35 INR 1.45 (0.83-1.16) H 10/21/18 15:35 - Physical Exam Constitutional: no apparent distress, appears nourished Eyes: PERRL, anicteric sclera Ears, Nose, Mouth, Throat: moist mucous membranes, hearing normal Cardiovascular: regular rate and rhythym, no murmur, rub, or gallop, edema, other (jvd 2 cm above clavicle at 30 degrees) Respiratory: no respiratory distress, no rales or rhonchi Gastrointestinal: normoactive bowel sounds, soft, non-tender abdomen Genitourinary: no bladder fullness, No davis in urethra Skin: warm, normal color Musculoskeletal: full muscle strength Neurologic: AAOx3 Psychiatric: interacting appropriately Lymph, Heme, Immunologic: no cervical LAD ICD10 Worksheet Patient Problems: Problems Problem Status Onset Dyspnea Acute Abdominal pain Acute Chest pain Acute Chronic Disease Mgmt/Transitional Care Acute Dehydration Acute Elevated troponin Acute Fracture of femoral neck, right Acute NSTEMI (non-ST elevated myocardial infarction) Acute Obstipation Acute Renal failure Acute
--- NOTE | 2018-10-22 14:54 | ASMTCMCOM ---
CM Note CM Note Notes: 10/22/2018 Case Management Note Pt admitted for dyspnea from [facility] in [place]. Discussed pt during rounds. Daughter Gabby present during rounds. Transitional care following pt. Hamidakendra Humphreys met w/pt and daughter Gabby today. Pt requesting palliative care consult. Notified MD of need for order. Confirmed with pt desire to return to [facility]. Faxed updates. Onsite visit from Minnie from [facility] today. Pt brother is flying in to visit dorene. Case Management d/c poc: return to [facility] with palliative support Case Management to follow. Date Signed: 10/22/2018 02:53 PM Electronically Signed By:Zoe Arriola RN
[2018-10-22] MEDS: CLOPIDOGREL BISULFATE 75 MG TAB PO SCH (17:41)
[2018-10-22] MEDS: MELATONIN 3 MG TAB PO SCH (22:24)
[2018-10-22] MEDS: traZODone 100 MG TAB PO SCH (22:24)
[2018-10-22] MEDS: ATORVASTATIN CALCIUM 40 MG TAB PO SCH (22:24)
[2018-10-22] MEDS: TAMSULOSIN HCL 0.4 MG CAP PO SCH (22:25)
[2018-10-23] MEDS: IPRATROPIUM/ALBUTEROL 3 ML DEYVIAL IH SCH ×4 (06:00→21:18)
[2018-10-23] MEDS: FUROSEMIDE 40 MG/4 ML VIAL IVP SCH ×2 (08:35→16:57)
[2018-10-23] MEDS: AMIODARONE HCL 200 MG TAB PO SCH (08:35)
[2018-10-23] MEDS: APIXABAN 2.5 MG TAB PO SCH ×2 (08:35→22:53)
[2018-10-23] MEDS: predniSONE 20 MG TAB PO SCH (08:35)
[2018-10-23] MEDS: PANTOPRAZOLE SODIUM 40 MG TAB PO SCH ×2 (08:36→21:36)
[2018-10-23] MEDS: FLUTICASONE/SALMETER 250/50MCG DISKUS IH SCH ×2 (08:37→21:18)
[2018-10-23] MEDS: CLOPIDOGREL BISULFATE 75 MG TAB PO SCH (16:57)
--- NOTE | 2018-10-23 19:22 | HOSPPROG ---
Hospitalist Progress Note Assessment/Plan: DIAGNOSES: * acute orthostasis, likely related to anemia and cardiac issues * acute dyspnea, due to congestive heart failure, COPD, anemia * acute systolic congestive heart failure * acute on chronic anemia of uncertain etiology, requiring transfusion of red blood cells during this admission * elevated ferritin levels with normal iron levels suggest some type of ongoing chronic inflammatory issue The patient feels better after some diuresis and transfusion of a unit of red blood cells. He is not orthostatic by our measures here and he is up walking in the hallway with more easily though he still feels somewhat lightheaded with getting up. Remarkable is that he has anemia that is been getting worse over the last couple of months. He has got to the point of requiring transfusion here at this time. This is a normocytic anemia. Remarkably reviewing his chart he was here in September 1 month ago and had some black stools. At that time stool study showed Hemoccult-positive. However notably here at this time he has normal iron saturation and has a ferritin that is elevated at 810. This was in the 600s last month. A Hemoccult of stool at this time is negative. The cause of this worsening anemia is uncertain. It is possible that he has some type of anemia that is not of blood loss or iron deficiency anemia that was aggravated by his bleeding episode last month. Reticulocyte count has been ordered and this may be helpful. PLANS: * Continue diuresis here now * Recheck hemoglobin tomorrow * Check reticulocyte count * He may well need a hematology assessment at some point in the near future to look for the cause and manage progress of his anemia * Continue physical occupational therapy * Recheck orthostatic vital signs again tomorrow * Likely transfer back to shelter tomorrow SUBJECTIVE: Feel somewhat better today and is up ambulating on his feet better but still moderately symptomatic Has not seen any bleeding or melenic stools No cough, no fever symptoms Breathing feels somewhat better OBJECTIVE Vitals reviewed: All stable overall, and had no orthostatic changes 1 physical therapy tested that today [employer], my review: Sinus Exam: alert oriented skin warm dry color ok resps not labored lungs clear BSs heart regular abd soft nondistended nontender, bowel sounds present limbs warm, still with some by pedal edema iv site ok Lab data: I read of ferritin level which come back greater than 800 I ordered iron studies which show iron saturation normal at 36% improvement in hemoglobin today 8.7 after transfusion Slight improvement in creatinine today at 2.7 Objective: Vital Signs Temp Pulse Resp BP Pulse Ox 36.5 C 72 21 H 90/57 L 97 10/23/18 15:33 10/23/18 15:33 10/23/18 15:33 10/23/18 15:33 10/23/18 15:33 Laboratory Results 10/23/18 04:15 10/23/18 04:15 10/22/18 10/23/18 10/24/18 06:59 06:59 06:59 Intake Total 100 650 Output Total 425 1280 450 Balance -325 -630 -450 PT 17.8 SEC (12.0-15.0) H 10/21/18 15:35 INR 1.45 (0.83-1.16) H 10/21/18 15:35 - Time Spent With Patient Time Spent with Patient: greater than 35 minutes Time Spent with Patient: Greater than 35 minutes spent on this patients care, greater than 50% of time spent counseling, educating, and coordinating care regarding the above mentioned plan. ICD10 Worksheet Patient Problems: Problems Problem Status Onset Dyspnea Acute Abdominal pain Acute Chest pain Acute Chronic Disease Mgmt/Transitional Care Acute Dehydration Acute Elevated troponin Acute Fracture of femoral neck, right Acute NSTEMI (non-ST elevated myocardial infarction) Acute Obstipation Acute Renal failure Acute
[2018-10-23] MEDS ORDERED: ZOLPIDEM TARTRATE 5 MG TAB PO PRN (19:58)
[2018-10-23] MEDS: TAMSULOSIN HCL 0.4 MG CAP PO SCH (21:36)
[2018-10-23] MEDS: traZODone 100 MG TAB PO SCH (21:36)
[2018-10-23] MEDS: MELATONIN 3 MG TAB PO SCH (21:36)
[2018-10-23] MEDS: ATORVASTATIN CALCIUM 40 MG TAB PO SCH (21:36)
[2018-10-24] MEDS: IPRATROPIUM/ALBUTEROL 3 ML DEYVIAL IH SCH ×4 (05:58→20:40)
[2018-10-24] MEDS: FUROSEMIDE 40 MG/4 ML VIAL IVP SCH ×2 (08:44→15:45)
[2018-10-24] MEDS: APIXABAN 2.5 MG TAB PO SCH ×2 (08:44→21:15)
[2018-10-24] MEDS: predniSONE 20 MG TAB PO SCH (08:51)
[2018-10-24] MEDS: AMIODARONE HCL 200 MG TAB PO SCH (08:51)
[2018-10-24] MEDS: PANTOPRAZOLE SODIUM 40 MG TAB PO SCH ×2 (08:51→21:15)
[2018-10-24] MEDS ORDERED: EPOETIN ALFA 10,000 UNIT/ML VIAL SC SCH (09:00)
[2018-10-24] MEDS ORDERED: TIOTROPIUM INHALER 18 MCG/DOSE 5 DOSE/MDI IH SCH (09:00)
[2018-10-24] MEDS: FLUTICASONE/SALMETER 250/50MCG DISKUS IH SCH ×2 (10:04→20:42)
[2018-10-24] MEDS: Tiotropium Bromide [Spiriva Respimat] IH SCH (10:08)
[2018-10-24] MEDS ORDERED: ZOLPIDEM TARTRATE 5 MG TAB PO PRN (15:30)
[2018-10-24] MEDS ORDERED: ALBUMIN 25% 200 ML IV ONE (15:32)
--- NOTE | 2018-10-24 15:41 | HOSPPROG ---
Hospitalist Progress Note Assessment/Plan: DIAGNOSES: * acute orthostasis and now with hypotension even supine, likely related to anemia, cardiac issues, past the point of optimal diuresis at present, medications including trazodone and Ambien, low albumin, and quite prominently also did likely due to the fact that he has been spending so much time supine and sitting with his feet elevated over the last several weeks, likely has functional atrophy of autonomic systems * acute dyspnea, due to congestive heart failure, COPD, anemia * Improved with diuresis and transfusion * acute on chronic right-sided congestive heart failure * Clearly of reach point of maximum diuresis and there is still some degree of edema * Wonder if he is being optimally treated with other heart failure medicines, his echocardiographies may be helpful in that regard * acute on chronic anemia likely all due to renal disease * No evidence of iron deficiency at this time, has had previous evaluation for possible marrow disorder with nothing found * elevated ferritin levels with normal iron levels suggest some type of ongoing chronic inflammatory issue * COPD, chronic respiratory failure hypoxemic * severe deconditioning and weakness * recent hip fracture The patient feels better after some diuresis and transfusion of a unit of red blood cells. He is not orthostatic by our measures here and he is up walking in the hallway with more easily though he still feels somewhat lightheaded with getting up. Remarkable is that he has anemia that is been getting worse over the last couple of months. He has got to the point of requiring transfusion here at this time. This is a normocytic anemia. Remarkably reviewing his chart he was here in September 1 month ago and had some black stools. At that time stool study showed Hemoccult-positive. However notably here at this time he has normal iron saturation and has a ferritin that is elevated at 810. This was in the 600s last month. A Hemoccult of stool at this time is negative. The cause of this worsening anemia is uncertain. It is possible that he has some type of anemia that is not of blood loss or iron deficiency anemia that was aggravated by his bleeding episode last month. Reticulocyte count has been ordered and this may be helpful. Note that the patient is currently receiving moderate doses of prednisone for COPD. Given his orthostasis and osteoporosis it would be good to get him off of that medicine as soon as we can but he will clearly need to have a tapering schedule so that we do not aggravate orthostasis. PLANS: * Stop diuresis at this time * A have recommended to the patient and nurse that he spends much time upright as possible including sitting in chair with his feet down, and multiple episodes of standing and walking per day * Stop trazodone, decreased dose of Ambien as these can both lower blood pressure * 200 mg IV albumin today * Have recommended that the patient continue to eat as best possible including significant protein intake for the time being * I will review his recent echocardiograms with Dr. Adalberto Newell to determine whether there would appear to be room to increase cardiac medicines aside from diuretic, including either beta-temitope, angiotensin medicines or other * Recheck hemoglobin tomorrow; this will need to be followed in ongoing fashion , determine over time whether he needs to increase dose of report in * Continue physical occupational therapy * Recheck orthostatic vital signs again tomorrow * Continue his current amiodarone and Eliquis * Will decrease his prednisone dose at this time with plans to continue tapering that, continue inhaled long-acting bronchodilator steroid combo * Likely transfer back to long-term tomorrow Seen by me today on hospitals rounds as well as multidisciplinary rounds SUBJECTIVE: Feel somewhat better today and is up ambulating on his feet better but still moderately symptomatic Has not seen any bleeding or melenic stools No cough, no fever symptoms Breathing feels somewhat better OBJECTIVE Vitals reviewed: All stable overall, and had no orthostatic changes 1 physical therapy tested that today Electronic Data Interchange Specialist, my review: Sinus Exam: alert oriented skin warm dry color ok resps not labored lungs clear BSs heart regular abd soft nondistended nontender, bowel sounds present limbs warm, still with some by pedal edema iv site ok Lab data: Hemoglobin slightly better 8.9 Creatinine stable at 2.8 with BUN stable 51 Albumin stable though still low at 2.7 Echocardiogram: I have reviewed his most recent echocardiogram which was October 03 His EF is preserved at 60s. However he has pulmonary hypertension at 70, tricuspid regurg with tricuspid regurgitation and with dilation of the right atria and right ventricle. There is not significant mitral regurgitation or stenosis. Objective: Vital Signs Temp Pulse Resp BP Pulse Ox 36.8 C 81 18 67/44 L 91 L 10/24/18 11:59 10/24/18 11:59 10/24/18 11:59 10/24/18 14:24 10/24/18 11:59 Laboratory Results 10/24/18 04:15 10/24/18 04:15 10/23/18 10/24/18 10/25/18 06:59 06:59 06:59 Intake Total 650 220 Output Total 1280 750 400 Balance -630 -530 -400 PT 17.8 SEC (12.0-15.0) H 10/21/18 15:35 INR 1.45 (0.83-1.16) H 10/21/18 15:35 - Time Spent With Patient Time Spent with Patient: greater than 35 minutes Time Spent with Patient: Greater than 35 minutes spent on this patients care, greater than 50% of time spent counseling, educating, and coordinating care regarding the above mentioned plan. ICD10 Worksheet Patient Problems: Problems Problem Status Onset Dyspnea Acute Abdominal pain Acute Chest pain Acute Chronic Disease Mgmt/Transitional Care Acute Dehydration Acute Elevated troponin Acute Fracture of femoral neck, right Acute NSTEMI (non-ST elevated myocardial infarction) Acute Obstipation Acute Renal failure Acute
[2018-10-24] MEDS: CLOPIDOGREL BISULFATE 75 MG TAB PO SCH (17:23)
[2018-10-24] MEDS: ATORVASTATIN CALCIUM 40 MG TAB PO SCH (21:15)
[2018-10-24] MEDS: MELATONIN 3 MG TAB PO SCH (21:15)
[2018-10-24] MEDS: TAMSULOSIN HCL 0.4 MG CAP PO SCH (21:15)
[2018-10-25] MEDS: IPRATROPIUM/ALBUTEROL 3 ML DEYVIAL IH SCH ×3 (03:58→15:31)
[2018-10-25] MEDS: AMIODARONE HCL 200 MG TAB PO SCH (08:58)
[2018-10-25] MEDS: APIXABAN 2.5 MG TAB PO SCH (08:58)
[2018-10-25] MEDS: PANTOPRAZOLE SODIUM 40 MG TAB PO SCH (08:58)
[2018-10-25] MEDS ORDERED: predniSONE 20 MG TAB PO SCH (09:00)
[2018-10-25] MEDS: Tiotropium Bromide [Spiriva Respimat] IH SCH (09:58)
[2018-10-25] MEDS: FLUTICASONE/SALMETER 250/50MCG DISKUS IH SCH (09:58)
[2018-10-25] MEDS ORDERED: ALBUMIN 25% 200 ML IV ONE (10:59)
[2018-10-25 11:16] VITALS: BP 93/60
--- NOTE | 2018-10-25 13:33 | SOAPPROG ---
[facility] Progress Note Assessment/Plan: Assessment: CHF consultation performed and dictated. 77 y/o man with multiple medical problems including COPD, anemia, CRI with serum creatinine of 2.8cm, PAF on PO Amiodarone, CAD s/p CABG with recent NSTEMI 09/29 s/p PCI BMS SVG to RCA and chronic diastolic CHF mostly RV related. He clinically got much better s/p PRBC and started back on PO Prednisone. I think he is compensated from a CHF standpoint and would not put on beta temitope or Lasix currently. REC: 1)no change in current cardiac meds. 2)would not restart Metoprolol or Lasix 3)okay to transfer back to SNF today or tomorrow. 4)daily weights at SNF and if gains > 5-7 lbs in four days to call Nursing Service Director or [facility] to probably restart Lasix. Thanks. 10/25/18 13:28 Objective: Vital Signs Temp Pulse Resp BP Pulse Ox 36.7 C 70 15 93/60 L 98 10/25/18 11:15 10/25/18 11:35 10/25/18 11:35 10/25/18 11:15 10/25/18 11:35 Laboratory Results 10/25/18 04:05 10/25/18 04:05 10/24/18 10/25/18 10/26/18 05:59 05:59 05:59 Intake Total 220 600 Output Total 750 650 250 Balance -530 -50 -250 PT 17.8 SEC (12.0-15.0) H 10/21/18 15:35 INR 1.45 (0.83-1.16) H 10/21/18 15:35 ICD10 Worksheet Patient Problems: Problems Problem Status Onset Dyspnea Acute Abdominal pain Acute Chest pain Acute Chronic Disease Mgmt/Transitional Care Acute Dehydration Acute Elevated troponin Acute Fracture of femoral neck, right Acute NSTEMI (non-ST elevated myocardial infarction) Acute Obstipation Acute Renal failure Acute
--- NOTE | 2018-10-25 13:50 | PDIAF ---
- Diagnosis Diagnosis: Acute right-sided CHF, P HTN, CKD, hypotension Code Status: Do Not Resuscitate - Medication Management Discharge Medications: electronically signed and located in the Home Medication List. - Orders Services needed: Registered Nurse, Certified Social Media Campaign Manager, Master Industrial Gas Fitter , Physical Therapy, Occupational Therapy (2 gm per day) Diet Recommendation: sodium restricted Diet Texture: Regular Texture Diet Esteban Stockings Discontinue Date: Continue Esteban stockings indefinitely during the daytime Additional Instructions: The patient is strongly encouraged to be sitting with his feet down, and standing or walking as much as possible during the day times in order to use his anti orthostasis reflexes firs is gravity. Low-sodium diet is necessary, 2 g daily Any ambulation should be accompanied by facility staff at this time - Labs/Radiology BMP Date: 11/01/18 - Follow Up Care Current Providers and Referrals: SAIRA MCGHEE [Other] - As per Instructions
--- NOTE | 2018-10-25 14:00 | PDDCSUM ---
Discharge Summary Discharge Summary: DISCHARGE DIAGNOSES: * acute right-sided congestive heart failure * acute hypoxemic respiratory failure * COPD appears stable at this time * chronic kidney disease stage 4-5 * chronic severe anemia due to renal disease * hypotension * deconditioning weakness, gait instability * recent hip fracture * history of coronary artery disease appear stable at this time CONSULTANTS: Dr. Adalberto Newell PROCEDURES: Transfusion 1 unit red blood cells HOSPITAL COURSE SUMMARY: This patient who has chronic respiratory failure came into the hospital complaining of shortness of breath. He is hypoxemic which is known to be a chronic issue for him. He was found to be in right-sided congestive heart failure with significant peripheral edema but no significant pulmonary edema. An echocardiogram had been done stick couple weeks ago here showing 70% LV ejection fraction, pulmonary hypertension in the 70s, significant right ventricular distension and decreased function. In addition the patient has a chronic anemia and his anemia was significantly worse here with hemoglobin of 7. Iron studies show no evidence of iron deficiency. It is felt that his anemia is due to his renal disease. He does take some Procrit for that weekly The patient was given 1 unit of transfusion red blood cells along with some diuresis and these measures did lead to significant improvement in his dyspnea and oxygen needs. He is basically back to his baseline and notably improved and was been for the last few weeks with his breathing at this point. However he has also been having orthostasis symptoms and he is fairly hypotensive here overall. It is felt that at this point he is really at his optimal fluid balance with low blood pressures, however the ability to get up and ambulate notably better than he has been. He has significant orthostatic changes by numbers. His creatinine is a bit higher than it has been over the last few weeks but it is felt that he will likely have to tolerate that in order to be at his optimum fluid balance for his breathing and mobility issues. It is felt that he should only use diuretics when he starts to gain weight or have worsening breathing or limitation of activity issues. The patient has a recent hip fracture and surgery for that and he is still recovering from that needing ongoing physical therapy. He had come to us here at this time from local nursing facility where he is getting physical therapy. At this point he is stable for discharge back to nursing facility. Recommendations there will include a 2 g sodium diet, discontinuation of his long-acting Ambien and replacement with a lower dose of short-acting due to his hypotension, no use of trazodone due to hypotension, at this time no diuretic unless he starts to gain significant volume again due to his ongoing hypotension. Ongoing physical occupational therapy are necessary. PENDING TEST RESULTS: None MEDICATION CHANGES: Discontinuation of trazodone Discontinuation of Lasix FOLLOW-UP PLAN: Continue routine follow-up with Dr. Rodriguez at pulmonology Clinic Continue routine follow up at cardiology clinic Continue routine follow-up with Nephrology Clinic Greater than 35 minutes bedside and care coordination time today
--- NOTE | 2018-10-25 14:43 | ASMTCMCOM ---
CM Note CM Note Notes: Medically cleared for discharge back to [facility] in [place]. Orders faxed to [facility] to call report. supervisory aide at 4pm with oxygen. CM available should other needs arise. Plan: DC to [facility]. Date Signed: 10/25/2018 02:42 PM Electronically Signed By:Leena Solomon RN
--- NOTE | 2018-10-26 03:33 | GCON ---
CONGESTIVE HEART FAILURE CONSULT DATE OF CONSULTATION: 10/25/2018 REFERRING PHYSICIAN: Murray Whitfield MD REASON FOR CONSULTATION: Evaluate gentleman with tenuous multiple organ problems including diastolic heart failure and recommend future management. HISTORY OF PRESENT ILLNESS: I was asked by Dr. Murray Whitfield to consult for the above reasons. The patient is a 78-year-old gentleman with the following cardiac and medical problems: 1. Coronary artery disease, status post remote bypass surgery and recent non-Q-wave IL in September, treated with bare-metal stent of a diseased saphenous vein graft to right coronary artery. 2. Chronic diastolic heart failure. 3. COPD. 4. Chronic renal insufficiency with a creatinine of 2.8. 5. Paroxysmal atrial fibrillation on p.o. amiodarone. 6. Abdominal aortic aneurysm repair. 7. Recent fall with fracture of right hip. The patient had a heart catheterization on 09/19/2018, where he got a bare-metal stent to a diseased saphenous vein graft to right coronary artery. His last echo on 10/03/2018, demonstrated an LVEF of 67% with moderate tricuspid insufficiency and estimated PA systolic pressure of 71 mmHg with an ascen ding thoracic aorta of 4.0 cm. He was over at a rehab hospital and was admitted on 10/21/2018, for t iredness and near syncope and shortness of breath. He got a transfusion of blood and has felt much b cristiane since then. He has also gotten some IV Lasix and IV albumin. Today, he has mild dizziness whe n he stands. He is walking in the hallways 20-30 feet with mild shortness of breath. He denies ches t pain, heart palpitations, or syncope. He is feeling better. He has trivial leg edema, improved wi th wearing compression stockings. PAST MEDICAL HISTORY: As per HPI. PAST SURGICAL HISTORY: CABG, bare-metal stent to SVG to right coronary artery, as per HPI. CURRENT MEDICATIONS: Amiodarone 100 mg per day, Eliquis 2.5 mg b.i.d., atorvastatin 40 mg per day, P lavix 75 mg per day, Protonix 40 mg b.i.d., prednisone 20 mg per day, Flomax 0.4 mg per day. Note pa wilfred was on daily metoprolol and Lasix in the past, and these have been stopped. ALLERGIES: No known drug allergies. SOCIAL HISTORY: The patient denies tobacco or excessive alcohol intake. FAMILY HISTORY: Positive for premature coronary artery disease. REVIEW OF SYSTEMS: The patient has lost approximately 10 kg in the last 2 months. He reports no fev ers or chills or GI-bleed symptoms such as hematemesis, melena, or bright red blood per rectum. Rest of 10-point review of systems is negative. PHYSICAL EXAM: VITAL SIGNS: Afebrile, pulse 70 and regular, blood pressure 93/60, respirations 24, 98% on 3.5 L/minute supplemental oxygen, weight 73.1 kg. GENERAL: A normal-appearing gentleman in n o acute distress without chest pain or using accessory respiratory muscles. EYES: Pupils equal and reactive to light. ENT: Oral mucosa with no cyanosis. NECK: Jugular venous pressure to 7-8 cm. C arotid pulses 2+ bilaterally with no obvious bruits. LUNGS: Poor E/A ratio consistent with underlyi ng COPD. No wheezes, rales, or rhonchi are heard. HEART: Distant heart sounds. Regular rate and r hythm with 1/6 nonradiating systolic murmur, and no S3. ABDOMEN: Soft and nontender. No guarding o r rebound. No ascites. EXTREMITIES: 1+ peripheral pulses including femoral and pedal pulses. Trac e bilateral pretibial edema. MUSCULOSKELETAL: No scoliosis. NEURO: Normal affect and mood. NECK: No nuchal rigidity. SKIN: No bleeding or cyanosis. LABS: White count 8.4, hematocrit 27, platelets 260,000, MCV 93. Sodium 136, potassium 3.9, chlorid e 97, bicarb 29, BUN 50, creatinine 2.8, glucose 176, albumin 2.8. IMPRESSION AND RECOMMENDATIONS: A 78-year-old gentleman with multiple medical problems as described above including coronary artery disease, status post coronary artery bypass graft and most recently b are-metal stent to a diseased saphenous vein graft to right coronary artery in September of 2018. He has chronic diastolic heart failure, more right ventricular related from his pulmonary hypertension f rom his chronic obstructive pulmonary disease. From a heart standpoint, he appears in sinus rhythm a nd euvolemic and compensated. I would not start him back on metoprolol or daily Lasix as I think thi s will exacerbate his orthostatic blood pressure issues. Clinically, he seems to have improved this hospitalization with transfusion of blood and starting back on prednisone for his tenuous lung functi on. RECOMMENDATIONS: 1. No change in current cardiac medications. 2. No new cardiac testing needed. 3. I feel it is okay from a Cardiology standpoint to transfer back to his rehab hospital today or to [facility]. 4. On prednisone and off Lasix. He needs his weight checked daily. If he gains more than 5-7 pound s in 1 week, should call his mri technician or the [facility] and probably restart back on [place] six. 5. Will arrange for followup in [facility] in 7-10 days to make sure he continues to be compensat ed from a heart standpoint. /[id number]/MODL
--- NOTE | 2018-10-26 09:15 | ASDISCHSUM ---
Discharge Information Plan Status:SNF Medically Cleared to Leave:10/24/2018 Discharge Date:10/25/2018 04:10 PM CM D/C Disposition:Group Home Facility ADT D/C Disposition:Group Home Facility Projected Discharge Date:10/24/2018 11:00 AM Transportation at D/C:Wheelchair Van Discharge Delay Reason: Follow-Up Date:10/24/2018 11:00 AM Discharge Slot: Final Diagnosis: Placement Information Referral Type:*Senior Living/SNF Referral ID:[id number] Provider Name:Osvaldo nassar [place] Address 1:[address] [facility] Address 2: City:[place] Selection Factors: State:[place] Patient Contact Information Contact Name:TASHA Relationship:Daughter Address:[address] City:[place] Alternate Phone: [facility]/Zip Code:[place] [address] Email: Financial Information Financial Class:Medicare Primary Plan Desc:MEDICARE INPATIENT Primary Plan Number:[id number] Secondary Plan Desc:[employer]ARP/MDR SUPPLEMENT Secondary Plan Number:[id number] Assessment Information LACE LACE Acuity / Level of Answers: Yes Care: Did the patient have an inpatient admission? Comorbidities - select Answers: Chronic pulmonary disease all that apply Congestive heart failure Moderate or severe liver or renal disease Previous myocardial infarction Other Notes: AFib; HTN; HLD # of Emergency department Answers: 5-8 visits in the last 6 months Score: 17 Date Signed: 10/22/2018 09:21 AM Electronically Signed By:Barbara Gomez [facility] CM Progress Note CM Note CM Note Notes: 10/22/2018 Case Management Note Pt admitted for dyspnea from [facility] in [place]. Discussed pt during rounds. Daughter Gabby present during rounds. Transitional care following pt. Hamida Humphreys met w/pt and daughter Gabby today. Pt requesting palliative care consult. Notified MD of need for order. Confirmed with pt desire to return to [facility]. Faxed updates. Onsite visit from Minnie from [facility] today. Pt brother is flying in to visit dorene. Case Management d/c poc: return to [facility] with palliative support Case Management to follow. Date Signed: 10/22/2018 02:53 PM Electronically Signed By:Zoe Arriola RN [facility] CM Progress Note CM Note CM Note Notes: Medically cleared for discharge back to [facility] in [place]. Orders faxed to [facility] to call report. 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 CM available should other needs arise. Plan: DC to [facility]. Date Signed: 10/25/2018 02:42 PM Electronically Signed By:Leena Solomon RN Intervention Information Intervention Type:*IM-Signed Date of Service:10/23/2018 03:05 PM Patient Type:Inpatient Staff Member:Barbara Gomez Hours: Discipline: Severity: Comment:
== END 2018-10-25 16:10 | DRG 291 ==
LOC: EDUNIT# → OBSVTOIN 16:59 → F2W 17:35
PROVIDERS: ADMIT Internal Medicine; ATTEND Internal Medicine
PROC: 30233N1 Transfusion of Nonautologous Red Blood Cells into Peripheral Vein, Percutaneous Approach (ICD-10-PCS; principal; 2018-10-25)
DX: I13.0 Hypertensive heart and chronic kidney disease with heart failure and stage 1 through stage 4 chronic kidney disease, or unspecified chronic kidney disease (principal); I50.811 Acute right heart failure; N18.4 Chronic kidney disease, stage 4 (severe); J96.21 Acute and chronic respiratory failure with hypoxia; D63.1 Anemia in chronic kidney disease; I48.0 Paroxysmal atrial fibrillation; I25.10 Atherosclerotic heart disease of native coronary artery without angina pectoris; J44.9 Chronic obstructive pulmonary disease, unspecified; R91.1 Solitary pulmonary nodule; Z95.1 Presence of aortocoronary bypass graft; Z99.81 Dependence on supplemental oxygen; Z95.5 Presence of coronary angioplasty implant and graft; Z79.01 Long term (current) use of anticoagulants; Z66 Do not resuscitate; Z91.81 History of falling; Z87.81 Personal history of (healed) traumatic fracture; Z87.891 Personal history of nicotine dependence
CPT/HCPCS: 84484-ER; 97116-GP; 97162-GP; 97166-GO; J0885; J1940; J7512; J7613; P9016; P9047

== ENCOUNTER 2018-12-01 10:23 | Inpatient (IN) | payer OTHER, MEDICARE ==
[2018-12-01] MEDS ORDERED: PROPOFOL/EMULSION 500 MG/50 ML BOTTLE IV ONE (10:27)
[2018-12-01] MEDS ORDERED: PROPOFOL 200 MG/20 ML VIAL ONE (10:27)
[2018-12-01] MEDS ORDERED: SUCCINYLCHOLINE CHLORIDE 200 MG/10 ML VIAL ONE (10:30)
[2018-12-01] MEDS ORDERED: ROCURONIUM 100 MG/10 ML VIAL ONE (10:30)
[2018-12-01] MEDS ORDERED: HEPARIN 10,000 UNIT/10 ML MDV (1,000 UNIT/ML) IVP PRN (10:54)
[2018-12-01] MEDS ORDERED: ALTEPLASE 2 MG VIAL IVP PRN (10:54)
[2018-12-01] MEDS ORDERED: GLUCAGON HCL 1 MG VIAL IVP PRN (10:54)
[2018-12-01] MEDS ORDERED: PROTAMINE SULFATE 50 MG/5 ML VIAL IVP PRN (10:54)
[2018-12-01] MEDS ORDERED: NS 1,000 ML IV SCH (11:00)
--- NOTE | 2018-12-01 11:08 | POSTANESTH ---
Post Anesthetic Evaluation Cardiovascular Status: Normal, Stable Respiratory Status: Normal, Stable Level of Consciousness/Mental Status: Can Participate in Eval, Alert and Oriented Pain Control: Adequate, Prn Tx Ordered Nausea/Vomiting Control: Adequate, Prn Tx Ordered Complications Possibly Related to Anesthesia: None Noted
--- NOTE | 2018-12-01 11:11 | PDANEPAE ---
ANE History of Present Illness 78 yo male with multiple medical problems including advanced COPD, severe CAD with recent NSTEMI in Jul and Aug 2018, CHF, stage 4 CKD, elevated LFTs for CT guided R lung biopsy. ANE Past Medical History - Cardiovascular History Hx Hypertension: Yes Hx Arrhythmias: Yes Hx Chest Pain: Yes Hx Coronary Artery / Peripheral Vascular Disease: Yes Hx CHF / Valvular Disease: Yes Hx Palpitations: No Cardiovascular History Comment: s/p FL 07-30 and 08-30, no PCI possible. Atherosclerosis - Pulmonary History Hx COPD: Yes Hx Asthma/Reactive Airway Disease: No Hx Recent Upper Respiratory Infection: No Hx Oxygen in Use at Home: Yes O2 in Use at Home (L/minute): 4L/ NC continuous Hx Sleep Apnea: No - Neurologic History Hx Cerebrovascular Accident: No Hx Seizures: No Hx Dementia: No - Endocrine History Hx Diabetes: No Hypothyroid: No Hyperthyroid: No Obesity: no - Renal History Hx Renal Disorders: Yes Renal History Comment: Stage 4 kidney failure - Liver History Hx Hepatic Disorders: No - Neurological & Psychiatric Hx Hx Neurological and Psychiatric Disorders: Yes Neurological / Psychiatric History Comment: Bilateral foot neuropathy - Cancer History Hx Cancer: Yes Cancer History Comment: Skin cancer - Congenital Disorder History Hx Congenital Disorders: No - GI History Hx Gastrointestinal Disorders: Yes Gastrointestinal History Comment: 08/2018 GIB. elevated LFTs - Other Health History Other Health History: Fragile skin. Bruises easily - Chronic Pain History Chronic Pain: No - Surgical History Prior Surgeries: 1993 laminectomy. 1993 AAA open. 1997 CABG x 3. 2012 AAA open. 2018 Stent to RCA. 2019 R hip replacement ANE Review of Systems Review of Systems: - Exercise capacity METS (RN): 2 METS - Systems Constitutional: Reports: no symptoms Cardiac: Reports: chest pain, irregular heart rate Respiratory: Reports: shortness of breath Gastrointestinal: Reports: vomitting (in September) ANE Patient History - Allergies Allergies/Adverse Reactions: NSAIDS (Non-Steroidal Anti-Inflamma [NSAIDS (Non-Steroidal Anti-Inflammatory Drug)] Allergy (Unknown, Verified 11/20/18 12:45) Other-Enter Comments - Home Medications Home Medications: Melatonin [Melatonin 3 MG (*)] 3 mg PO HS 07/28/18 [Last Taken 11/30/18 21:00] Tiotropium Weir [Spiriva Respimat] 2 inh IH DAILY 07/28/18 [Last Taken 09:30] Tamsulosin HCl [Flomax 0.4 MG (*)] 0.4 mg PO HS 07/30/18 [Last Taken 11/30/18 21 :00] Albuterol Sulfate [Ventolin Hfa] 1 - 2 puffs IH DAILY PRN 09/01/18 [Last Taken Unknown] Atorvastatin Calcium [Lipitor 40 mg (*)] 40 mg PO HS 09/29/18 [Last Taken 21:00] Clopidogrel Bisulfate [Plavix (*)] 75 mg PO DAILY@17 10/21/18 [Last Taken 09:00] Ambien Cr 6.25 mg PO HS 11/20/18 [Last Taken 11/30/18 21:00] Fluticasone/Salmeter 250/50Mcg [Advair 250/50 (*)] 1 puffs IH DAILY 11/20/18 [ Last Taken 11/30/18 16:00] Ipratropium/Albuterol [Duoneb (*)] 3 ml IH QID PRN 11/20/18 [Last Taken 09:00] Pantoprazole Sodium [Protonix 40mg (*)] 40 mg PO DAILY 11/20/18 [Last Taken 21:00] - Anes Hx Anes Hx: no prior problems - Smoking Hx Smoking Status: Former smoker - Family Anes Hx Family Hx Anesthesia Complications: Yes; daughter - LAST ANE Labs/Vital Signs - Labs Result Diagrams: 12/01/18 10:55 - Vital Signs Vital Signs: reviewed preoperatively; see RN documention for details Height: 172.72 cm Weight: 75.75 kg ANE Physical Exam - Airway Neck exam: FROM Mallampati Score: Class 2 - Pulmonary Pulmonary: reduced air movement, rhonchi - Cardiovascular Cardiovascular: irregularly irregular - ASA Status ASA Status: IV ANE Anesthesia Plan Anesthesia Plan: MAC Total IV Anesthesia: Yes
[2018-12-01 11:36] LABS: INR 0.95 (0.83-1.16); PROTIME(PATIENT) 12.9 SEC (12.0-15.0)
[2018-12-01] MEDS ORDERED: LIDOCAINE 1% 300 MG/30 ML SDV ONE (11:56)
[2018-12-01] MEDS ORDERED: DEXMEDETOMIDINE HCL 400 MCG in NS 100 ML IV SCH (12:00)
--- NOTE | 2018-12-01 12:37 | PDGENHP ---
History & Physical Chief Complaint: RUL NODULE History of Present Illness: Emphysema, significant medical co-morbidities including AAA x 2 open repair, laminectomy, CABG x 3, RCA stent, RT hip replacement, stage 4 renal dz not on dialysis. Pertinent Past, Social, Family History: here with daughter. smoker. Relevant Physical Exam: rales bilaterally. on O2. Cardiorespiratory Assessment: rales. rrr.
[2018-12-01] MEDS ORDERED: fentaNYL 100 MCG/2 ML INJ ONE (13:13)
--- NOTE | 2018-12-01 13:44 | PDRADPN ---
Radiology Procedure Note Date of Procedure: 12/01/18 Radiologist: Rosa Diop Anesthesia: IV Sedation Pre-op Diagnosis: RUL NODULE Post-op Diagnosis: SAME Indication: EMPHYSEMA. R/O CA Procedure: CT GUIDED RUL NODULE BX Finding(s): ATYPIA SEEN ON TOUCH PREP. PNEUMOTHORAX. Inf/Abcess present in the surg proc area at time of surgery?: No Drains: Other (HYMLICH VALVE PLACED INTO RUL.)
[2018-12-01] MEDS ORDERED: ONDANSETRON DISINTEGRATING 4 MG TAB PO PRN (15:19)
[2018-12-01] MEDS ORDERED: ACETAMINOPHEN 325 MG TAB PO PRN (15:19)
[2018-12-01] MEDS ORDERED: ONDANSETRON 4 MG/2 ML VIAL IVP PRN (15:19)
[2018-12-01] MEDS ORDERED: POLYETHYLENE GLYCOL 3350 17 GM PKT PO PRN (15:22)
--- NOTE | 2018-12-01 17:15 | SOAPPROG ---
SOAP Progress Note Assessment/Plan: Assessment: PTX post lung biopsy: air nearly completely evacuated based on recent CXR Contusion: not clinically symptomatic. Plan: 1. 6am CXR 2. Will clamp chest tube after that 3. 2 hour post clamping CXR mid morning tomorrow 4. Will D/C if that Xray looks good. D/W patient and his daughter. 12/01/18 17:13 Subjective: No complaints. Wants to stay overnight as a precaution. Objective: Vital Signs Temp Pulse Resp BP Pulse Ox 36.6 C 67 18 105/68 98 12/01/18 16:58 12/01/18 16:58 12/01/18 16:58 12/01/18 16:58 12/01/18 16:58 Laboratory Results 12/01/18 10:55 11/30/18 12/01/18 12/02/18 05:59 05:59 05:59 Intake Total 690 Output Total 5 Balance 685 PT 12.9 SEC (12.0-15.0) 12/01/18 10:55 INR 0.95 (0.83-1.16) 12/01/18 10:55 Chest tube site looks good. ICD10 Worksheet Patient Problems: Problems Problem Status Onset Abdominal pain Acute Chest pain Acute Chronic Disease Mgmt/Transitional Care Acute Dehydration Acute Dyspnea Acute Elevated troponin Acute Fracture of femoral neck, right Acute NSTEMI (non-ST elevated myocardial infarction) Acute Obstipation Acute Renal failure Acute
[2018-12-01] MEDS: MELATONIN 3 MG TAB PO SCH (21:35)
[2018-12-01] MEDS: PANTOPRAZOLE SODIUM 40 MG TAB PO SCH (21:35)
[2018-12-01] MEDS: ATORVASTATIN CALCIUM 40 MG TAB PO SCH (21:35)
[2018-12-01] MEDS: ZOLPIDEM 6.25 MG PO SCH (21:35)
[2018-12-01] MEDS: TAMSULOSIN HCL 0.4 MG CAP PO SCH (21:36)
[2018-12-02] MEDS: IPRATROPIUM/ALBUTEROL 3 ML DEYVIAL IH PRN ×3 (01:03→20:03)
[2018-12-02] MEDS: Tiotropium Bromide [Spiriva Respimat] IH SCH (08:33)
[2018-12-02] MEDS ORDERED: FLUTICASONE/SALMETER 250/50MCG DISKUS IH SCH (09:00)
--- NOTE | 2018-12-02 09:01 | ASMTLACE ---
SHANNEN Comorbidities - select Answers: Chronic pulmonary disease all that apply Congestive heart failure Coronary Artery Disease Moderate or severe liver or renal disease Previous myocardial infarction Other Notes: HTN # of Emergency department Answers: 5-8 visits in the last 6 months Score: 16 Date Signed: 12/02/2018 09:01 AM Electronically Signed By:Barbara Gomez
--- NOTE | 2018-12-02 11:21 | SOAPPROG ---
SOAP Progress Note Assessment/Plan: Assessment: PTX post lung biopsy: air nearly completely evacuated based on recent CXR Contusion: not clinically symptomatic. Plan: 1. 6am CXR 2. Will clamp chest tube after that 3. 2 hour post clamping CXR mid morning tomorrow 4. Will D/C if that Xray looks good. D/W patient and his daughter. 12/01/18 17:13 12/02/18 11:19 Hand aspirated air this am. Chest tube now attached to continuous wall suction. Will repeat CXR at 2pm. Will need to change status to inpatient due to continued PTX and need for management. Patient is high risk to discharge with residual PTX given other comorbidities. Subjective: NO NEW COMPLAINTS Objective: Vital Signs Temp Pulse Resp BP Pulse Ox 36.1 C 89 20 88/59 L 95 12/02/18 08:00 12/02/18 08:36 12/02/18 08:36 12/02/18 08:00 12/02/18 08:36 Laboratory Results 12/01/18 10:55 12/01/18 12/02/18 12/03/18 05:59 05:59 05:59 Intake Total 1230 Output Total 505 400 Balance 725 -400 PT 12.9 SEC (12.0-15.0) 12/01/18 10:55 INR 0.95 (0.83-1.16) 12/01/18 10:55 SMALL RESIDUAL PTX ON AM CXR; ICD10 Worksheet Patient Problems: Problems Problem Status Onset Abdominal pain Acute Chest pain Acute Chronic Disease Mgmt/Transitional Care Acute Dehydration Acute Dyspnea Acute Elevated troponin Acute Fracture of femoral neck, right Acute NSTEMI (non-ST elevated myocardial infarction) Acute Obstipation Acute Renal failure Acute
--- NOTE | 2018-12-02 11:32 | ASMTCMCOM ---
CM Note CM Note Notes: 12/02/2018 Case Management Note Pt admitted for pneumothorax. Discussed with MD. Visited with pt today to assess for discharge needs. Pt has chest tube. Pt has hired [facility] non skilled care for 3 hours a day/7 days a week from 9 - 12 pm. [facility] RN PT OT were providing care prior to admission. Faxed updates to [facility]. Case Management d/c poc: home resuming previous services with [facility] and [facility]. Case Management to follow. Date Signed: 12/02/2018 11:32 AM Electronically Signed By:Zoe Arriola RN
[2018-12-02] MEDS: AMIODARONE HCL 200 MG TAB PO SCH (11:41)
[2018-12-02] MEDS: FUROSEMIDE 20 MG TAB PO SCH (11:41)
[2018-12-02] MEDS: FLUTICASONE NASAL 120 SPRAYS/16 GM MDI EACHNARE SCH (12:01)
--- NOTE | 2018-12-02 12:56 | PDMN ---
Medical Necessity Medical necessity: Change to IP, as of 12/02/18, per MD & MCG M-500; los >2 mn for ongoing management of pneumothorax s/p lung biopsy; requiring further monitoring, chest tube to continuous suction & repeat CXR; comorbid advanced age , emphysema, AAA x2 repairs, CABG x3, stage IV renal disease
[2018-12-02] MEDS: FLUTICASONE/SALMETER 250/50MCG DISKUS IH SCH (20:07)
[2018-12-02] MEDS: ATORVASTATIN CALCIUM 40 MG TAB PO SCH (20:24)
[2018-12-02] MEDS: LORazepam 0.5 MG TAB PO SCH (20:24)
[2018-12-02] MEDS: PANTOPRAZOLE SODIUM 40 MG TAB PO SCH (20:24)
[2018-12-02] MEDS: TAMSULOSIN HCL 0.4 MG CAP PO SCH (20:24)
[2018-12-02] MEDS: MELATONIN 3 MG TAB PO SCH (20:24)
[2018-12-02] MEDS: ZOLPIDEM 6.25 MG PO SCH (21:45)
[2018-12-03] MEDS: FUROSEMIDE 20 MG TAB PO SCH (08:50)
[2018-12-03] MEDS: AMIODARONE HCL 200 MG TAB PO SCH (08:51)
[2018-12-03] MEDS: Tiotropium Bromide [Spiriva Respimat] IH SCH (08:54)
[2018-12-03] MEDS: FLUTICASONE/SALMETER 250/50MCG DISKUS IH SCH ×2 (08:58→20:24)
[2018-12-03] MEDS: IPRATROPIUM/ALBUTEROL 3 ML DEYVIAL IH PRN ×2 (09:09→20:23)
[2018-12-03] MEDS ORDERED: LORazepam 2 MG/ML INJ ONE (10:26)
[2018-12-03] MEDS ORDERED: LORazepam 1 MG TAB PO ONE (10:30)
[2018-12-03] MEDS ORDERED: fentaNYL 100 MCG/2 ML INJ ONE (10:54)
[2018-12-03] MEDS ORDERED: LIDOCAINE 1% 5 ML SDV IF ONE ×2 (11:00→12:15)
[2018-12-03] MEDS ORDERED: fentaNYL 100 MCG/2 ML INJ IV ONE (11:15)
--- NOTE | 2018-12-03 11:19 | SOAPPROG ---
SOAP Progress Note Assessment/Plan: Assessment: PTX post lung biopsy: air nearly completely evacuated based on recent CXR Contusion: not clinically symptomatic. Plan: 1. 6am CXR 2. Will clamp chest tube after that 3. 2 hour post clamping CXR mid morning tomorrow 4. Will D/C if that Xray looks good. D/W patient and his daughter. 12/01/18 17:13 12/02/18 11:19 Hand aspirated air this am. Chest tube now attached to continuous wall suction. Will repeat CXR at 2pm. Will need to change status to inpatient due to continued PTX and need for management. Patient is high risk to discharge with residual PTX given other comorbidities. 12/03/18 11:11 This morning's events: Early AM CXR with much smaller PTX. 8:30: chest tube clamped 9:30 Nurse called about SOB; STAT Xray showed no PTX. Patient states he has h/ o panic attacks. Chest tube removed at bed side Patient had accumulation of air under dressing. Air leak presumed. Observed at bed side for a while, with no immediate issues. STAT team called within short time after that. Repeat CXR shows re- accumulation of RT PTX. Patient basically now has failed small bore chest tube management. Dr. Houston called to place large bore chest tube. Dr. Howard consulted. Called Elizabeth, patient's daughter, with update of above events. Path result is negative for CA, which can be c/w imaging findings. Subjective: no complaints overnight Objective: Vital Signs Temp Pulse Resp BP Pulse Ox 36.6 C 82 14 113/72 93 12/03/18 08:00 12/03/18 09:09 12/03/18 09:09 12/03/18 08:00 12/03/18 09:09 Laboratory Results 12/01/18 10:55 12/02/18 12/03/18 12/04/18 05:59 05:59 05:59 Intake Total 1230 500 Output Total 505 908 400 Balance 725 -408 -400 PT 12.9 SEC (12.0-15.0) 12/01/18 10:55 INR 0.95 (0.83-1.16) 12/01/18 10:55 vitals stable overnight. please see CXR reports from this am. ICD10 Worksheet Patient Problems: Problems Problem Status Onset Abdominal pain Acute Chest pain Acute Chronic Disease Mgmt/Transitional Care Acute Dehydration Acute Dyspnea Acute Elevated troponin Acute Fracture of femoral neck, right Acute NSTEMI (non-ST elevated myocardial infarction) Acute Obstipation Acute Renal failure Acute
--- NOTE | 2018-12-03 11:29 | GCON ---
[f rep st] CONSULTATION DATE OF CONSULTATION: 12/03/2018 HISTORY OF PRESENT ILLNESS: The patient is a pleasant 78-year-old gentleman with history of COPD/emp hysema and lung nodule who underwent lung biopsy. He has been in the hospital since the . Today , he had a chest x-ray this morning showing no pneumothorax, results interpreted by me. The chest tu be was pulled with subsequent evidence of subcutaneous emphysema and tachypnea. A subsequent chest x -ray shows left pneumothorax. The patient had tachypnea, evidence pf subcutaneous emphysema on exam, anxiety and increased work of breathing. Stat team was called. I responded. I discussed the case with Dr. Diop and Dr. Houston. Large-bore tamir st tube is currently being placed. The patient is familiar to me from previous hospitalizations. He is chronically on 4 liters of oxyge n. Notably during this hospital stay shows no evidence of malignancy. REVIEW OF SYSTEMS: Complete 10-point review of systems conducted negative, except as noted in the HP I. PAST MEDICAL HISTORY: 1. COPD on 4 liters of oxygen chronically. 2. Coronary artery disease with PCI to saphenous vein graft of his RCA in 2017. 3. He has a history of AAA repair x2. 4. Hypertension. 5. 3-vessel CABG in 1997. 6. Hyperlipidemia. 7. Stage 4 kidney disease. 8. Cauda equina syndrome with residual right-sided weakness. SOCIAL HISTORY: He quit smoking in 2015. No alcohol. No drugs. He lives independently in [facility]. FAMILY HISTORY: Parents are . ALLERGIES: NSAIDs. CURRENT MEDICATIONS: Ambien, amiodarone, atorvastatin, fluticasone, furosemide, ipratropium, lorazep am, melatonin, ondansetron, pantoprazole, MiraLax, tamsulosin. PHYSICAL EXAMINATION: VITAL SIGNS: Temp 36.6, respirations probably about 30, blood pressure 113/72 , pulse 90s, oxygen saturation is 94% on a non-rebreather. GENERAL: No acute distress. Obviously t achypneic. HEENT: Sclerae anicteric. Oropharynx clear. Mucous membranes moist. NECK: Supple wit hout lymphadenopathy or JVD. CHEST: Shows subcutaneous emphysema in the right upper chest. There i s a Tegaderm with a 2 x 2 over his superior anterior chest tube site. HEART: S1, S2, without murmur s. ABDOMEN: Soft, nontender, nondistended. LOWER EXTREMITIES: No edema. Calves are nontender. S KIN: Without rash. NEUROLOGIC: Exam is nonfocal. LABORATORY/IMAGING: Labs this morning show hematocrit is 31, platelets 215,000. Recent coagulation normal. There are no recent chemistries. Baseline creatinine is in the high 2s. Chest x-rays are as discussed in the HPI. I have discussed the case with Dr. Houston and Dr. Rosa Diop. ASSESSMENT/PLAN: A 78-year-old gentleman with Iatrogenic pneumothorax, bronchopleural fistula, tachy pnea. 1. Pneumothorax. Patient needs a large bore chest tube, which is being placed by Surgery at this ti wv. He will be on Pleur-evac thereafter. I suspect this will take a number of days to heal. 2. Lung nodule, benign pathology. 3. Chronic obstructive pulmonary disease. Continue his oxygen and inhalers. 4. Coronary artery disease. I note he is not on aspirin. We will discuss this in the future. 5. Prophylaxis. He is currently not on prophylaxis. He is probably a candidate for long-term venou s thromboembolism prophylaxis given his extended stay. 6. BPH. Continue his tamsulosin. 7. History of abdominal aortic aneurysm. Blood pressure is well controlled. We will transfer the patient to the hospital medicine service. 40 minutes critical care. /[id number]/MODL
[2018-12-03] MEDS ORDERED: LORazepam 2 MG/ML INJ IVP ONE (12:15)
[2018-12-03] MEDS ORDERED: LIDOCAINE 1% 5 ML SDV NB ONE (12:30)
[2018-12-03] MEDS ORDERED: LIDOCAINE 1% 5 ML SDV ID ONE (12:45)
[2018-12-03] MEDS: oxyCODONE IR 5 MG TAB PO PRN ×3 (12:46→19:55)
--- NOTE | 2018-12-03 13:13 | POSTOPPROG ---
Post Op Note Date of Operation: 12/03/18 Surgeon: Yanick Houston Anesthesia: Local (Specify) Pre-op Diagnosis: LARGE RIGHT PNEUMOTHORAX Post-op Diagnosis: SAME Indication: SHORTNESS OF BREATH Procedure: RIGHT TUBE THORACOSTOMY Findings: RELEASE OF A LARGE RIGHT PNEUMOTHORAX Inf/Abcess present in the surg proc area at time of surgery?: No Depth: Organ Space EBL: Minimal Complications: NONE Drains: Constavac
[2018-12-03] MEDS ORDERED: HYDROmorphONE/DILAUDID 1 MG/ML INJ IVP PRN (13:49)
[2018-12-03] MEDS ORDERED: KETOROLAC 15 MG/1 ML SDV IVP PRN (14:56)
--- NOTE | 2018-12-03 14:57 | PDINTPN ---
Mon[facility]er Progress Note Assessment/Plan: 78 M with advanced COPD (FEV1= 33%) well known to me from outpatient clinic. He had several chest CT scans since 2017 for non-specific pulmonary nodules, but developed a new 1.4 cm RUL nodule in 09/2018. PET scanning showed minimal SUV, but my clinical suspicion was high for malignancy so recommended CT guided biopsy. This occurred on 12/01/18 and was complicated by a small PTX requiring a small bore CT, however, that was dc'd earlier today but he developed acute SOB and anxiety while a fullowup CXR showed significant increase in PTX. A large bore tube was placed by Dr. Houston without difficulty with resolution of symptoms other than discomfort. * Iatrogenic pneumothorax- we discussed this likelihood prior to the biopsy as well, knowing he was high risk. He now is much more stable with resolution of the PTX though there is still an air leak. This may take several days to heal given the severity of his emphysema. Toradol may be useful for pain control better than narcotics. * COPD- currently stable. Continue outpatient medications but no systemic steroids. He has end stage disease and has already completed pulmonary rehab. I dont favor daliresp or chronic macrolide therapy at this point. * Hypoxia- cheronic. Titrate to sat 90-94% * Lung nodule- pathology is benign. Not likely sarcoid Subjective: Events reviewed in detail. Patient complaining of chest wall pain at chest tube site but much less SOB Objective: Vital Signs Temp Pulse Resp BP Pulse Ox 36.8 C 78 20 111/69 97 12/03/18 11:44 12/03/18 11:44 12/03/18 11:44 12/03/18 11:44 12/03/18 11:44 Laboratory Results 12/01/18 10:55 12/02/18 12/03/18 12/04/18 05:59 05:59 05:59 Intake Total 1230 500 Output Total 505 908 400 Balance 725 -408 -400 PT 12.9 SEC (12.0-15.0) 12/01/18 10:55 INR 0.95 (0.83-1.16) 12/01/18 10:55 Physical Exam - Physical Exam General Appearance: WD/WN, alert, no apparent distress EENT: PERRL/EOMI Neck: supple Respiratory: decreased breath sounds, wheezing (likely suction sound over right chest), No respiratory distress, No accessory muscle use Cardiac/Chest: regular rate, rhythm, No edema Abdomen: non-tender, soft, No distended Skin: normal color, warm/dry, No cyanosis Lymphatic: no adenopathy Extremities: No pedal edema Neuro/Psych: alert, normal mood/affect, oriented x 3 ICD10 Worksheet Patient Problems: Problems Problem Status Onset Abdominal pain Acute Chest pain Acute Chronic Disease Mgmt/Transitional Care Acute Dehydration Acute Dyspnea Acute Elevated troponin Acute Fracture of femoral neck, right Acute NSTEMI (non-ST elevated myocardial infarction) Acute Obstipation Acute Renal failure Acute
[2018-12-03] MEDS: FLUTICASONE NASAL 120 SPRAYS/16 GM MDI EACHNARE SCH (16:04)
[2018-12-03] MEDS: PANTOPRAZOLE SODIUM 40 MG TAB PO SCH (19:54)
[2018-12-03] MEDS: ATORVASTATIN CALCIUM 40 MG TAB PO SCH (19:55)
[2018-12-03] MEDS: MELATONIN 3 MG TAB PO SCH (19:55)
[2018-12-03] MEDS: TAMSULOSIN HCL 0.4 MG CAP PO SCH (19:55)
[2018-12-03] MEDS: LORazepam 0.5 MG TAB PO SCH (19:55)
[2018-12-03] MEDS ORDERED: ZOLPIDEM TARTRATE 5 MG TAB PO SCH (21:00)
[2018-12-03] MEDS: ZOLPIDEM 6.25 MG PO SCH (21:34)
--- NOTE | 2018-12-04 00:27 | SOAPPROG ---
SOAP Progress Note Assessment/Plan: Assessment: 78 male sp lung bx for granuloma but with 50% pneumo after pulling permacath quite sob with decreased bs on right and subcut emphysema pt has significant COPD Plan:urgent chest tube placement 12/04/18 00:24 Objective: Vital Signs Temp Pulse Resp BP Pulse Ox 36.6 C 73 16 109/53 L 92 12/03/18 22:26 12/03/18 22:26 12/03/18 22:26 12/03/18 22:26 12/03/18 22:26 Laboratory Results 12/01/18 10:55 12/02/18 12/03/18 12/04/18 05:59 05:59 05:59 Intake Total 1230 500 742 Output Total 508 515 3827 Balance 725 -408 -365 PT 12.9 SEC (12.0-15.0) 12/01/18 10:55 INR 0.95 (0.83-1.16) 12/01/18 10:55 ICD10 Worksheet Patient Problems: Problems Problem Status Onset Abdominal pain Acute Chest pain Acute Chronic Disease Mgmt/Transitional Care Acute Dehydration Acute Dyspnea Acute Elevated troponin Acute Fracture of femoral neck, right Acute NSTEMI (non-ST elevated myocardial infarction) Acute Obstipation Acute Renal failure Acute
[2018-12-04] MEDS: AMIODARONE HCL 200 MG TAB PO SCH (09:02)
--- NOTE | 2018-12-04 09:02 | HOSPPROG ---
Hospitalist Progress Note Assessment/Plan: 78 yo M w copd, cad, recent lung biopsy w post procedure pneumothorax pneumothorax: failled pigtail catheter, now w large bor chest tube still w air leak suspect it will take several days to heal- i discussed this w patient copd: at baseline continue meds cad: statin proph: start sc heparin dispo: in pt Subjective: AM cxr w re exapnded lung, minimal to no pneumothorax (interp by me) . case d/w dr torres Objective: Vital Signs Temp Pulse Resp BP Pulse Ox 36.8 C 70 16 132/74 H 97 12/04/18 07:56 12/04/18 07:56 12/04/18 07:56 12/04/18 07:56 12/04/18 07:56 Laboratory Results 12/01/18 10:55 12/03/18 12/04/18 12/05/18 05:59 05:59 05:59 Intake Total 500 992 Output Total 908 1107 150 Balance -408 -115 -150 PT 12.9 SEC (12.0-15.0) 12/01/18 10:55 INR 0.95 (0.83-1.16) 12/01/18 10:55 - Physical Exam Constitutional: no apparent distress, appears nourished Eyes: PERRL, anicteric sclera Ears, Nose, Mouth, Throat: moist mucous membranes, hearing normal Cardiovascular: regular rate and rhythym, no murmur, rub, or gallop, No tachycardia Respiratory: no respiratory distress, other (rhonchi on R, no wheeze) Gastrointestinal: normoactive bowel sounds, soft, non-tender abdomen Genitourinary: no bladder fullness, No davis in urethra Skin: warm, normal color Musculoskeletal: full muscle strength Neurologic: AAOx3 ICD10 Worksheet Patient Problems: Problems Problem Status Onset Abdominal pain Acute Chest pain Acute Chronic Disease Mgmt/Transitional Care Acute Dehydration Acute Dyspnea Acute Elevated troponin Acute Fracture of femoral neck, right Acute NSTEMI (non-ST elevated myocardial infarction) Acute Obstipation Acute Renal failure Acute
[2018-12-04] MEDS: FLUTICASONE/SALMETER 250/50MCG DISKUS IH SCH ×2 (09:04→21:29)
[2018-12-04] MEDS: Tiotropium Bromide [Spiriva Respimat] IH SCH (09:04)
[2018-12-04] MEDS: IPRATROPIUM/ALBUTEROL 3 ML DEYVIAL IH PRN ×2 (09:33→21:27)
--- NOTE | 2018-12-04 09:50 | SOAPPROG ---
SOAP Progress Note Assessment/Plan: Assessment/plan: 78 y/o M with a history of COPD, CAD, recent lung biopsy w post procedure pneumothorax POD #1 S/p chest tube placement. Chest xray today shows resolved pneumothorax, but chest tube still with air leak. Continue chest tube to LWS. S: Feeling better today. R sided chest pain is biggest complaint. O: Alert Afebrile VSS CTAB, no increased WOB. Chest tube with +continuous air leak. 12/04/18 09:47 Objective: Vital Signs Temp Pulse Resp BP Pulse Ox 36.8 C 71 14 132/74 H 95 12/04/18 07:56 12/04/18 09:29 12/04/18 09:29 12/04/18 07:56 12/04/18 09:29 Laboratory Results 12/01/18 10:55 12/03/18 12/04/18 12/05/18 05:59 05:59 05:59 Intake Total 500 992 Output Total 908 1107 150 Balance -408 -115 -150 PT 12.9 SEC (12.0-15.0) 12/01/18 10:55 INR 0.95 (0.83-1.16) 12/01/18 10:55 ICD10 Worksheet Patient Problems: Problems Problem Status Onset Abdominal pain Acute Chest pain Acute Chronic Disease Mgmt/Transitional Care Acute Dehydration Acute Dyspnea Acute Elevated troponin Acute Fracture of femoral neck, right Acute NSTEMI (non-ST elevated myocardial infarction) Acute Obstipation Acute Renal failure Acute
[2018-12-04 10:19] LABS: PLATELET COUNT 180 10^3/uL (150-400)
[2018-12-04] MEDS: FLUTICASONE NASAL 120 SPRAYS/16 GM MDI EACHNARE SCH (14:20)
--- NOTE | 2018-12-04 14:45 | ASMTCMCOM ---
CM Note CM Note Notes: 12/04/2018 Case Management Note Discussed with this morning. Pt had stat team called yesterday. Chest tube in place. D/C possible mid week. Case Management d/c poc: remains [facility] RN PT OT with [facility]skilled care. Case Management to follow. Date Signed: 12/04/2018 02:45 PM Electronically Signed By:Zoe Arriola RN
--- NOTE | 2018-12-04 15:09 | PDINTPN ---
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 He had several chest CT scans since 2017 for non-specific pulmonary nodules, but developed a new 1.4 cm RUL nodule in 09/2018. PET scanning showed minimal SUV, but my clinical suspicion was high for malignancy so recommended CT guided biopsy. This occurred on 12/01/18 and was complicated by a small PTX requiring a small bore CT, however, that was dc'd earlier today but he developed acute SOB and anxiety while a fullowup CXR showed significant increase in PTX. A large bore tube was placed by Dr. Houston without difficulty with resolution of symptoms other than discomfort. * Iatrogenic pneumothorax- we discussed this likelihood prior to the biopsy as well, knowing he was high risk. He now is much more stable with resolution of the PTX but an air leak remains. This may take several days to heal given the severity of his emphysema. Toradol contraindicated given his CKD, but pain better today. * COPD- currently stable. Continue outpatient medications but no systemic steroids. He has end stage disease and has already completed pulmonary rehab. I dont favor daliresp or chronic macrolide therapy at this point. * Hypoxia- chronic. Titrate to sat 90-94% * Lung nodule- pathology is benign. Not likely sarcoid 12/04/18 15:08 Subjective: feels better, less pain Objective: Vital Signs Temp Pulse Resp BP Pulse Ox 36.6 C 75 16 134/80 H 97 12/04/18 11:43 12/04/18 11:43 12/04/18 11:43 12/04/18 11:43 12/04/18 11:43 Laboratory Results 12/04/18 10:05 12/04/18 10:05 12/03/18 12/04/18 12/05/18 05:59 05:59 05:59 Intake Total 500 992 Output Total 908 1107 150 Balance -408 -115 -150 PT 12.9 SEC (12.0-15.0) 12/01/18 10:55 INR 0.95 (0.83-1.16) 12/01/18 10:55 Physical Exam - Physical Exam General Appearance: WD/WN, alert, no apparent distress EENT: PERRL/EOMI Neck: supple Respiratory: lungs clear, normal breath sounds, decreased breath sounds, No respiratory distress, No accessory muscle use Cardiac/Chest: regular rate, rhythm, No edema, No JVD Abdomen: non-tender, soft, No distended Skin: normal color, warm/dry, No cyanosis Lymphatic: no adenopathy Extremities: No pedal edema Neuro/Psych: alert, normal mood/affect, oriented x 3 ICD10 Worksheet Patient Problems: Problems Problem Status Onset Abdominal pain Acute Chest pain Acute Chronic Disease Mgmt/Transitional Care Acute Dehydration Acute Dyspnea Acute Elevated troponin Acute Fracture of femoral neck, right Acute NSTEMI (non-ST elevated myocardial infarction) Acute Obstipation Acute Renal failure Acute
[2018-12-04] MEDS: HEPARIN 5,000 UNIT/0.5 ML INJ SC SCH ×2 (15:10→21:40)
[2018-12-04] MEDS: LORazepam 0.5 MG TAB PO SCH (19:58)
[2018-12-04] MEDS: ZOLPIDEM 6.25 MG PO SCH (21:39)
[2018-12-04] MEDS: PANTOPRAZOLE SODIUM 40 MG TAB PO SCH (21:40)
[2018-12-04] MEDS: ATORVASTATIN CALCIUM 40 MG TAB PO SCH (21:40)
[2018-12-04] MEDS: MELATONIN 3 MG TAB PO SCH (21:41)
[2018-12-04] MEDS: TAMSULOSIN HCL 0.4 MG CAP PO SCH (21:41)
[2018-12-05] MEDS ORDERED: NS 500 ML IV ONE (04:12)
[2018-12-05] MEDS: HEPARIN 5,000 UNIT/0.5 ML INJ SC SCH ×3 (05:10→21:31)
[2018-12-05] MEDS: FLUTICASONE/SALMETER 250/50MCG DISKUS IH SCH ×2 (09:53→20:22)
[2018-12-05] MEDS: Tiotropium Bromide [Spiriva Respimat] IH SCH (09:53)
[2018-12-05] MEDS: IPRATROPIUM/ALBUTEROL 3 ML DEYVIAL IH PRN ×2 (09:53→20:20)
[2018-12-05] MEDS: AMIODARONE HCL 200 MG TAB PO SCH (11:39)
--- NOTE | 2018-12-05 11:57 | SOAPPROG ---
SOAP Progress Note Assessment/Plan: Assessment/Plan: 78 y/o M with a history of COPD, CAD, recent lung biopsy w post procedure pneumothorax POD #2 S/p chest tube. still with air leak. Serosanguinous fluid. Continue chest tube to LWS. Awaiting airleak to seal S: Feeling better today. O: Alert Afebrile VSS CTAB, no increased WOB. Chest tube with +continuous air leak. Plan: 12/05/18 11:57 12/05/18 13:43 Objective: Vital Signs Temp Pulse Resp BP Pulse Ox 37.0 C 72 20 124/67 H 94 12/05/18 11:31 12/05/18 11:31 12/05/18 11:31 12/05/18 11:31 12/05/18 11:31 Laboratory Results 12/04/18 10:05 12/05/18 05:00 12/04/18 12/05/18 12/06/18 05:59 05:59 05:59 Intake Total 992 300 500 Output Total 1107 382 Balance -115 -82 500 PT 12.9 SEC (12.0-15.0) 12/01/18 10:55 INR 0.95 (0.83-1.16) 12/01/18 10:55 ICD10 Worksheet Patient Problems: Problems Problem Status Onset Abdominal pain Acute Chest pain Acute Chronic Disease Mgmt/Transitional Care Acute Dehydration Acute Dyspnea Acute Elevated troponin Acute Fracture of femoral neck, right Acute NSTEMI (non-ST elevated myocardial infarction) Acute Obstipation Acute Renal failure Acute
[2018-12-05] MEDS ORDERED: NS 1,000 ML IV SCH (13:30)
--- NOTE | 2018-12-05 14:10 | HOSPPROG ---
Hospitalist Progress Note Assessment/Plan: 78 yo M w copd, cad, recent lung biopsy w post procedure pneumothorax. #Right pneumothorax: failed pigtail catheter, now w large bor chest tube - ptx resolved on x-ray but still with air leak - may take several days to heal given degree of emphysema #Orthostatic hypotension: poor PO intake over several days, not tension ptx - starting gentle fluids, plan to discontinue in AM (likely has diastolic dysfunction) #COPD: no flare - home meds #CHRF: at baseline 4L #CAD: statin VTE ppx: SQH Code: full Dispo: Remain inpatient Subjective: Breathing ok. Bummed that he needs to stay in hospital. Objective: Vital Signs Temp Pulse Resp BP Pulse Ox 37.0 C 72 20 124/67 H 94 12/05/18 11:31 12/05/18 11:31 12/05/18 11:31 12/05/18 11:31 12/05/18 11:31 Laboratory Results 12/04/18 10:05 12/05/18 05:00 12/04/18 12/05/18 12/06/18 05:59 05:59 05:59 Intake Total 992 300 500 Output Total 1107 382 Balance -115 -82 500 PT 12.9 SEC (12.0-15.0) 12/01/18 10:55 INR 0.95 (0.83-1.16) 12/01/18 10:55 - Physical Exam Constitutional: no apparent distress, appears nourished, not in pain Eyes: PERRL, anicteric sclera, EOMI Ears, Nose, Mouth, Throat: moist mucous membranes, hearing normal, ears appear normal, no oral mucosal ulcers Cardiovascular: regular rate and rhythym, no murmur, rub, or gallop, No edema Respiratory: no respiratory distress, other (right sided chest tube) Gastrointestinal: normoactive bowel sounds, soft, non-tender abdomen, no palpable masses Genitourinary: no bladder fullness, no bladder tenderness, no renal bruits Skin: no rashes or abrasions, no fluctuance, no induration Musculoskeletal: full muscle strength, no muscle tenderness, normal joint ROM Neurologic: AAOx3, sensation intact bilaterally Psychiatric: interacting appropriately ICD10 Worksheet Patient Problems: Problems Problem Status Onset Abdominal pain Acute Chest pain Acute Chronic Disease Mgmt/Transitional Care Acute Dehydration Acute Dyspnea Acute Elevated troponin Acute Fracture of femoral neck, right Acute NSTEMI (non-ST elevated myocardial infarction) Acute Obstipation Acute Renal failure Acute
--- NOTE | 2018-12-05 14:42 | PDINTPN ---
Rn Lpn Cna Progress Note Assessment/Plan: 78 M with advanced COPD (FEV1= 33%) well known to me from outpatient clinic. He had several chest CT scans since 2017 for non-specific pulmonary nodules, but developed a new 1.4 cm RUL nodule in 09/2018. PET scanning showed minimal SUV, but my clinical suspicion was high for malignancy so recommended CT guided biopsy. This occurred on 12/01/18 and was complicated by a small PTX requiring a small bore CT, however, that was dc'd earlier today but he developed acute SOB and anxiety while a fullowup CXR showed significant increase in PTX. A large bore tube was placed by Dr. Houston without difficulty with resolution of symptoms other than discomfort. * Iatrogenic pneumothorax- we discussed this likelihood prior to the biopsy as well, knowing he was high risk. He now is much more stable with resolution of the PTX but an air leak remains. This may take several days to heal given the severity of his emphysema. * hypotension sounds orthostatic. Start IVF for now until orthostatics resolve then dc. VERY LIKELY WITH DIASTOLIC DYSFUNCTION SO EASILY OVER-HYDRATED. * COPD- currently stable. Continue outpatient medications but no systemic steroids. He has end stage disease and has already completed pulmonary rehab. I dont favor daliresp or chronic macrolide therapy at this point. * Hypoxia- chronic. Titrate to sat 90-94% * Lung nodule- pathology is benign. Not likely sarcoid Subjective: feels OK, but poor sleep overnight related to orthostatic hypotension Objective: Vital Signs Temp Pulse Resp BP Pulse Ox 37.0 C 72 20 124/67 H 94 12/05/18 11:31 12/05/18 11:31 12/05/18 11:31 12/05/18 11:31 12/05/18 11:31 Laboratory Results 12/04/18 10:05 12/05/18 05:00 12/04/18 12/05/18 12/06/18 05:59 05:59 05:59 Intake Total 992 300 500 Output Total 1107 382 Balance -115 -82 500 PT 12.9 SEC (12.0-15.0) 12/01/18 10:55 INR 0.95 (0.83-1.16) 12/01/18 10:55 Physical Exam - Physical Exam General Appearance: alert, no apparent distress EENT: PERRL/EOMI Neck: supple Respiratory: lungs clear, normal breath sounds, decreased breath sounds, No respiratory distress, No accessory muscle use Cardiac/Chest: regular rate, rhythm, No edema Abdomen: non-tender, soft, No distended Skin: normal color, warm/dry, No cyanosis Lymphatic: no adenopathy Extremities: No pedal edema Neuro/Psych: alert, normal mood/affect, oriented x 3 ICD10 Worksheet Patient Problems: Problems Problem Status Onset Abdominal pain Acute Chest pain Acute Chronic Disease Mgmt/Transitional Care Acute Dehydration Acute Dyspnea Acute Elevated troponin Acute Fracture of femoral neck, right Acute NSTEMI (non-ST elevated myocardial infarction) Acute Obstipation Acute Renal failure Acute
[2018-12-05] MEDS: FLUTICASONE NASAL 120 SPRAYS/16 GM MDI EACHNARE SCH (15:05)
[2018-12-05] MEDS: LORazepam 0.5 MG TAB PO SCH (21:31)
[2018-12-05] MEDS: MELATONIN 3 MG TAB PO SCH (21:31)
[2018-12-05] MEDS: ATORVASTATIN CALCIUM 40 MG TAB PO SCH (21:31)
[2018-12-05] MEDS: TAMSULOSIN HCL 0.4 MG CAP PO SCH (21:31)
[2018-12-05] MEDS: PANTOPRAZOLE SODIUM 40 MG TAB PO SCH (21:31)
[2018-12-05] MEDS: ZOLPIDEM 6.25 MG PO SCH (21:32)
--- NOTE | 2018-12-06 01:02 | GOP ---
[f rep st] OPERATIVE REPORT DATE OF OPERATION: 12/03/2018 SURGEON: Yanick Houston MD PREOPERATIVE DIAGNOSIS: Right tension pneumothorax. POSTOPERATIVE DIAGNOSIS: Right tension pneumothorax. PROCEDURE PERFORMED: Right tube thoracostomy. FINDINGS: Patient was found with a large tension pneumothorax. Patient with COPD. DESCRIPTION OF PROCEDURE: The patient was given a slight amount of sedation with Ativan and fentanyl . He was prepped and draped in the usual sterile fashion. A short incision was made in the midaxill rut line in the sixth intercostal space. This was done using 1% Xylocaine local infiltration. A sub cu tunnel was created up over the next rib which was then entered bluntly into the right thorax. Thi s again was done with 1% Xylocaine local infiltration. This released the tension pneumothorax, and a 28-Uzbek chest tube was introduced and positioned in the apex of the chest. It was secured to the exit site with 2-0 silk sutures. It was connected to a Pleur-evac drainage system. The wound was dr essed. He tolerated the procedure well. There were no complications. He was taken to recovery room in good condition. /[id number]/MODL
[2018-12-06] MEDS: HEPARIN 5,000 UNIT/0.5 ML INJ SC SCH ×3 (05:51→21:33)
[2018-12-06] MEDS: AMIODARONE HCL 200 MG TAB PO SCH (08:18)
[2018-12-06] MEDS: Tiotropium Bromide [Spiriva Respimat] IH SCH (10:24)
[2018-12-06] MEDS: FLUTICASONE/SALMETER 250/50MCG DISKUS IH SCH ×2 (10:24→21:49)
[2018-12-06] MEDS: IPRATROPIUM/ALBUTEROL 3 ML DEYVIAL IH PRN ×2 (10:25→21:41)
--- NOTE | 2018-12-06 11:27 | SOAPPROG ---
SOAP Progress Note Assessment/Plan: Assessment/Plan: 78 y/o M with a history of COPD, CAD, recent lung biopsy w post procedure iatrogenic pneumothorax (known high risk due to emphysema) S/p chest tube. slight air leak, reduced from yesterday. Serosanguinous fluid. Continue chest tube to suction Awaiting airleak to seal S: Feeling better today. O: Alert, NAD Afebrile VSS Inspiratory "squeak" on right, CTA left. no increased WOB. Chest tube with + continuous air leak 1-2 chambers. Plan: 12/05/18 11:57 12/05/18 13:43 12/06/18 11:26 12/06/18 12:39 Objective: Vital Signs Temp Pulse Resp BP Pulse Ox 36.7 C 68 16 121/69 H 94 12/06/18 08:00 12/06/18 08:00 12/06/18 08:00 12/06/18 08:00 12/06/18 08:00 Laboratory Results 12/04/18 10:05 12/05/18 05:00 12/05/18 12/06/18 12/07/18 05:59 05:59 05:59 Intake Total 300 500 Output Total 382 317 Balance -82 183 PT 12.9 SEC (12.0-15.0) 12/01/18 10:55 INR 0.95 (0.83-1.16) 12/01/18 10:55 ICD10 Worksheet Patient Problems: Problems Problem Status Onset Abdominal pain Acute Chest pain Acute Chronic Disease Mgmt/Transitional Care Acute Dehydration Acute Dyspnea Acute Elevated troponin Acute Fracture of femoral neck, right Acute NSTEMI (non-ST elevated myocardial infarction) Acute Obstipation Acute Renal failure Acute
--- NOTE | 2018-12-06 14:21 | HOSPPROG ---
Hospitalist Progress Note Assessment/Plan: 78 yo M w copd, cad, recent lung biopsy w post procedure pneumothorax. #Right pneumothorax: failed pigtail catheter, now w large bore chest tube - ptx resolved on x-ray but still with air leak - may take several days to heal given degree of emphysema #Orthostatic hypotension: Persistent today. Poor PO intake over several days, not tension ptx - continue gentle fluids (holding lasix), re-assess for orthostasis again in AM #COPD: no flare - home meds #CHRF: at baseline 4L #CAD: statin #CKD: Creatinine better than baseline. Avoid nephrotoxins. VTE ppx: SQH Code: full Dispo: Remain inpatient Subjective: Feeling ok. Some discomfort with right chest tube but breathing ok. No leg swelling. Still quite dizzy with sitting on side of bed/standing. Objective: Vital Signs Temp Pulse Resp BP Pulse Ox 36.7 C 66 16 129/61 H 96 12/06/18 11:55 12/06/18 11:55 12/06/18 11:55 12/06/18 11:55 12/06/18 11:55 Laboratory Results 12/04/18 10:05 12/05/18 05:00 12/05/18 12/06/18 12/07/18 05:59 05:59 05:59 Intake Total 300 500 Output Total 382 317 250 Balance -82 183 -250 PT 12.9 SEC (12.0-15.0) 12/01/18 10:55 INR 0.95 (0.83-1.16) 12/01/18 10:55 - Physical Exam Constitutional: no apparent distress, appears nourished, not in pain Eyes: PERRL, anicteric sclera, EOMI Ears, Nose, Mouth, Throat: moist mucous membranes, hearing normal, ears appear normal, no oral mucosal ulcers Cardiovascular: regular rate and rhythym, no murmur, rub, or gallop, No edema Respiratory: no respiratory distress, no rales or rhonchi, clear to auscultation , other (R chest tube in place) Gastrointestinal: normoactive bowel sounds, soft, non-tender abdomen, no palpable masses Genitourinary: no bladder fullness, no bladder tenderness, no renal bruits Skin: no rashes or abrasions, no fluctuance, no induration Musculoskeletal: full muscle strength, no muscle tenderness, normal joint ROM Neurologic: AAOx3 Psychiatric: interacting appropriately ICD10 Worksheet Patient Problems: Problems Problem Status Onset Abdominal pain Acute Chest pain Acute Chronic Disease Mgmt/Transitional Care Acute Dehydration Acute Dyspnea Acute Elevated troponin Acute Fracture of femoral neck, right Acute NSTEMI (non-ST elevated myocardial infarction) Acute Obstipation Acute Renal failure Acute
[2018-12-06] MEDS: FLUTICASONE NASAL 120 SPRAYS/16 GM MDI EACHNARE SCH (14:34)
--- NOTE | 2018-12-06 15:17 | PDINTPN ---
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 He had several chest CT scans since 2017 for non-specific pulmonary nodules, but developed a new 1.4 cm RUL nodule in 09/2018. PET scanning showed minimal SUV, but my clinical suspicion was high for malignancy so recommended CT guided biopsy. This occurred on 12/01/18 and was complicated by a small PTX requiring a small bore CT, however, that was dc'd earlier today but he developed acute SOB and anxiety while a fullowup CXR showed significant increase in PTX. A large bore tube was placed by Dr. Houston without difficulty with resolution of symptoms other than discomfort. * Iatrogenic pneumothorax- we discussed this likelihood prior to the biopsy as well, knowing he was high risk. He now is much more stable with resolution of the PTX but an air leak continues. This may take several days to heal given the severity of his emphysema. * hypotension sounds orthostatic. Start IVF for now until orthostatics resolve then dc. VERY LIKELY WITH DIASTOLIC DYSFUNCTION SO EASILY OVER-HYDRATED. Continue IVF today since still with symptomatic orthostatics * COPD- currently stable. Continue outpatient medications but no systemic steroids. He has end stage disease and has already completed pulmonary rehab. I dont favor daliresp or chronic macrolide therapy at this point. * Hypoxia- chronic. Titrate to sat 90-94% * Lung nodule- pathology is benign. Not likely sarcoid 12/06/18 15:14 Subjective: remains stable with ongoing leak. Symptomatic orthostatics this am. Objective: Vital Signs Temp Pulse Resp BP Pulse Ox 36.7 C 66 16 129/61 H 96 12/06/18 11:55 12/06/18 11:55 12/06/18 11:55 12/06/18 11:55 12/06/18 11:55 Laboratory Results 12/04/18 10:05 12/05/18 05:00 12/05/18 12/06/18 12/07/18 05:59 05:59 05:59 Intake Total 300 500 Output Total 382 317 250 Balance -82 183 -250 PT 12.9 SEC (12.0-15.0) 12/01/18 10:55 INR 0.95 (0.83-1.16) 12/01/18 10:55 Physical Exam - Physical Exam General Appearance: WD/WN, alert, no apparent distress EENT: PERRL/EOMI Neck: supple Respiratory: lungs clear, normal breath sounds, decreased breath sounds, No respiratory distress, No accessory muscle use Cardiac/Chest: regular rate, rhythm, No edema Abdomen: non-tender, soft, No distended Skin: normal color, warm/dry, No cyanosis Lymphatic: no adenopathy Extremities: No pedal edema Neuro/Psych: alert, normal mood/affect, oriented x 3 ICD10 Worksheet Patient Problems: Problems Problem Status Onset Abdominal pain Acute Chest pain Acute Chronic Disease Mgmt/Transitional Care Acute Dehydration Acute Dyspnea Acute Elevated troponin Acute Fracture of femoral neck, right Acute NSTEMI (non-ST elevated myocardial infarction) Acute Obstipation Acute Renal failure Acute
[2018-12-06] MEDS: TAMSULOSIN HCL 0.4 MG CAP PO SCH (21:33)
[2018-12-06] MEDS: PANTOPRAZOLE SODIUM 40 MG TAB PO SCH (21:33)
[2018-12-06] MEDS: ATORVASTATIN CALCIUM 40 MG TAB PO SCH (21:33)
[2018-12-06] MEDS: MELATONIN 3 MG TAB PO SCH (21:33)
[2018-12-06] MEDS: LORazepam 0.5 MG TAB PO SCH (21:33)
[2018-12-06] MEDS: ZOLPIDEM 6.25 MG PO SCH (21:34)
[2018-12-06] MEDS: oxyCODONE IR 5 MG TAB PO PRN (23:22)
[2018-12-07] MEDS: HEPARIN 5,000 UNIT/0.5 ML INJ SC SCH ×3 (05:52→21:35)
[2018-12-07] MEDS: AMIODARONE HCL 200 MG TAB PO SCH (08:54)
[2018-12-07] MEDS: Tiotropium Bromide [Spiriva Respimat] IH SCH (09:03)
[2018-12-07] MEDS: FLUTICASONE/SALMETER 250/50MCG DISKUS IH SCH ×2 (09:03→20:33)
[2018-12-07] MEDS: IPRATROPIUM/ALBUTEROL 3 ML DEYVIAL IH PRN ×2 (09:09→20:33)
--- NOTE | 2018-12-07 09:33 | SOAPPROG ---
SOAP Progress Note Assessment/Plan: Assessment/plan: 78 y/o M with a history of COPD, CAD, recent lung biopsy w post procedure pneumothorax S/p chest tube placement. Chest xray shows resolved pneumothorax, but chest tube still with air leak. Continue chest tube to LWS. S: R sided chest pain is biggest complaint. Oxycodone helping. O: Alert Afebrile VSS Breath sounds diminished bilaterally, no increased WOB. Chest tube with + continuous air leak. 12/07/18 09:32 Objective: Vital Signs Temp Pulse Resp BP Pulse Ox 36.6 C 74 16 96/59 L 97 12/07/18 08:03 12/07/18 09:09 12/07/18 09:09 12/07/18 08:03 12/07/18 09:09 Laboratory Results 12/04/18 10:05 12/05/18 05:00 12/06/18 12/07/18 12/08/18 05:59 05:59 05:59 Intake Total 500 750 Output Total 317 511 300 Balance 183 239 -300 PT 12.9 SEC (12.0-15.0) 12/01/18 10:55 INR 0.95 (0.83-1.16) 12/01/18 10:55 ICD10 Worksheet Patient Problems: Problems Problem Status Onset Abdominal pain Acute Chest pain Acute Chronic Disease Mgmt/Transitional Care Acute Dehydration Acute Dyspnea Acute Elevated troponin Acute Fracture of femoral neck, right Acute NSTEMI (non-ST elevated myocardial infarction) Acute Obstipation Acute Renal failure Acute
--- NOTE | 2018-12-07 10:43 | SOAPPROG ---
SOAP Progress Note Assessment/Plan: Assessment: 78 male sp lung bx for granuloma but with 50% pneumo after pulling permacath quite sob with decreased bs on right and subcut emphysema pt has significant COPD Plan:urgent chest tube placement 12/04/18 00:24 12/07/18 10:41 Please refer to note by Marianne Shea nurse-practitioner/ persistent continuous small air leak/breath sounds symmetrical but diminished secondary to COPD Chest x-ray shows good expansion yesterday and not repeated today/no significant drainage impression: Persistent air leak which will take some time to resolve secondary to COPD Objective: Vital Signs Temp Pulse Resp BP Pulse Ox 36.6 C 74 16 96/59 L 97 12/07/18 08:03 12/07/18 09:09 12/07/18 09:09 12/07/18 08:03 12/07/18 09:09 Laboratory Results 12/04/18 10:05 12/05/18 05:00 12/06/18 12/07/18 12/08/18 05:59 05:59 05:59 Intake Total 500 750 Output Total 317 511 300 Balance 183 239 -300 PT 12.9 SEC (12.0-15.0) 12/01/18 10:55 INR 0.95 (0.83-1.16) 12/01/18 10:55 ICD10 Worksheet Patient Problems: Problems Problem Status Onset Abdominal pain Acute Chest pain Acute Chronic Disease Mgmt/Transitional Care Acute Dehydration Acute Dyspnea Acute Elevated troponin Acute Fracture of femoral neck, right Acute NSTEMI (non-ST elevated myocardial infarction) Acute Obstipation Acute Renal failure Acute
--- NOTE | 2018-12-07 12:26 | HOSPPROG ---
Hospitalist Progress Note Assessment/Plan: 78 yo M w copd, cad, recent lung biopsy w post procedure pneumothorax. #Right pneumothorax: failed pigtail catheter, now w large bore chest tube - ptx resolved on x-ray but still with air leak - may take several days to heal given degree of emphysema #Orthostatic hypotension: Persistent. Poor PO intake over several days, not tension ptx - reasonable to stop IVF and continue to hold lasix, encouraged adequate PO intake - re-assess for orthostasis again in AM #COPD: no flare - home meds #CHRF: at baseline 4L #CAD: statin #CKD: Creatinine better than baseline. Avoid nephrotoxins. VTE ppx: SQH Code: full Dispo: Remain inpatient Subjective: No significant changes. Sleeping well. Still with air leak. Objective: Vital Signs Temp Pulse Resp BP Pulse Ox 36.4 C 67 16 90/61 L 97 12/07/18 11:25 12/07/18 11:25 12/07/18 11:25 12/07/18 11:25 12/07/18 11:25 Laboratory Results 12/04/18 10:05 12/05/18 05:00 12/06/18 12/07/18 12/08/18 05:59 05:59 05:59 Intake Total 500 750 Output Total 317 511 300 Balance 183 239 -300 PT 12.9 SEC (12.0-15.0) 12/01/18 10:55 INR 0.95 (0.83-1.16) 12/01/18 10:55 - Physical Exam Constitutional: no apparent distress, appears nourished, not in pain Eyes: PERRL, anicteric sclera, EOMI Ears, Nose, Mouth, Throat: moist mucous membranes, hearing normal, ears appear normal, no oral mucosal ulcers Cardiovascular: regular rate and rhythym, no murmur, rub, or gallop Respiratory: no respiratory distress, no rales or rhonchi, clear to auscultation , other (R chest tubes) Gastrointestinal: normoactive bowel sounds, soft, non-tender abdomen, no palpable masses Genitourinary: no bladder fullness, no bladder tenderness, no renal bruits Skin: no rashes or abrasions, no fluctuance, no induration Musculoskeletal: full muscle strength, no muscle tenderness, normal joint ROM Neurologic: AAOx3, sensation intact bilaterally Psychiatric: interacting appropriately, not anxious, not encephalopathic, thought process linear ICD10 Worksheet Patient Problems: Problems Problem Status Onset Abdominal pain Acute Chest pain Acute Chronic Disease Mgmt/Transitional Care Acute Dehydration Acute Dyspnea Acute Elevated troponin Acute Fracture of femoral neck, right Acute NSTEMI (non-ST elevated myocardial infarction) Acute Obstipation Acute Renal failure Acute
--- NOTE | 2018-12-07 12:32 | ASMTCMCOM ---
CM Note CM Note Notes: Pts case discussed w/ Dr. Navarro. Pt is not medically stable to d/c at this time. PT is recommending HC. CM to follow. Plan: [facility]; PT, OT, RN with 3hrs/day 7 days a week for non skilled care through [facility] Date Signed: 12/07/2018 12:28 PM Electronically Signed By:RADHA Shannon
[2018-12-07] MEDS: CLOPIDOGREL BISULFATE 75 MG TAB PO SCH (17:01)
[2018-12-07] MEDS: ASPIRIN EC 81 MG TAB PO SCH (17:01)
[2018-12-07] MEDS: FLUTICASONE NASAL 120 SPRAYS/16 GM MDI EACHNARE SCH (17:02)
[2018-12-07] MEDS: PANTOPRAZOLE SODIUM 40 MG TAB PO SCH (21:34)
[2018-12-07] MEDS: TAMSULOSIN HCL 0.4 MG CAP PO SCH (21:34)
[2018-12-07] MEDS: ATORVASTATIN CALCIUM 40 MG TAB PO SCH (21:34)
[2018-12-07] MEDS: MELATONIN 3 MG TAB PO SCH (21:34)
[2018-12-07] MEDS: LORazepam 0.5 MG TAB PO SCH (21:35)
[2018-12-07] MEDS: ZOLPIDEM 6.25 MG PO SCH (21:36)
[2018-12-08] MEDS: HEPARIN 5,000 UNIT/0.5 ML INJ SC SCH ×3 (06:03→21:25)
--- NOTE | 2018-12-08 08:21 | HOSPPROG ---
Hospitalist Progress Note Assessment/Plan: 78 yo M w copd, cad, recent lung biopsy w post procedure pneumothorax. #Right pneumothorax: failed pigtail catheter, now w large bore chest tube - ptx resolved on x-ray - air leak seems to have resolved overnight, will discuss chest tube removal w/pulm and surgery #Orthostatic hypotension: Improving. Poor PO intake over several days - continue to hold lasix, encouraged adequate PO intake - re-assess for orthostasis in AM #COPD: no flare - home meds #CHRF: at baseline 4L #CAD: statin #CKD: Creatinine better than baseline. Avoid nephrotoxins. VTE ppx: SQ Code: full Dispo: Remain inpatient, dicharge once chest tube out Subjective: No new symptoms, breathing well. Air leak seems to have resolved. Objective: Vital Signs Temp Pulse Resp BP Pulse Ox 36.6 C 62 14 111/60 98 12/08/18 04:00 12/08/18 04:00 12/08/18 04:00 12/08/18 04:00 12/08/18 04:00 Laboratory Results 12/04/18 10:05 12/05/18 05:00 12/07/18 12/08/18 12/09/18 05:59 05:59 05:59 Intake Total 750 300 Output Total 511 570 Balance 239 -270 PT 12.9 SEC (12.0-15.0) 12/01/18 10:55 INR 0.95 (0.83-1.16) 12/01/18 10:55 - Physical Exam Constitutional: no apparent distress, appears nourished, not in pain Eyes: PERRL, anicteric sclera, EOMI Ears, Nose, Mouth, Throat: moist mucous membranes, hearing normal, ears appear normal, no oral mucosal ulcers Cardiovascular: regular rate and rhythym, no murmur, rub, or gallop Respiratory: no respiratory distress, reduced air movement, other (right sided chest tube) Gastrointestinal: normoactive bowel sounds, soft, non-tender abdomen, no palpable masses Genitourinary: no bladder fullness, no bladder tenderness, no renal bruits Skin: no rashes or abrasions, no fluctuance, no induration Musculoskeletal: full muscle strength, no muscle tenderness, normal joint ROM Neurologic: AAOx3 Psychiatric: interacting appropriately ICD10 Worksheet Patient Problems: Problems Problem Status Onset Abdominal pain Acute Chest pain Acute Chronic Disease Mgmt/Transitional Care Acute Dehydration Acute Dyspnea Acute Elevated troponin Acute Fracture of femoral neck, right Acute NSTEMI (non-ST elevated myocardial infarction) Acute Obstipation Acute Renal failure Acute
[2018-12-08] MEDS: AMIODARONE HCL 200 MG TAB PO SCH (08:56)
[2018-12-08] MEDS: ASPIRIN EC 81 MG TAB PO SCH (08:56)
[2018-12-08] MEDS: FLUTICASONE/SALMETER 250/50MCG DISKUS IH SCH ×2 (09:17→21:01)
[2018-12-08] MEDS: Tiotropium Bromide [Spiriva Respimat] IH SCH (09:18)
[2018-12-08] MEDS: IPRATROPIUM/ALBUTEROL 3 ML DEYVIAL IH PRN ×2 (09:18→21:01)
[2018-12-08] MEDS: CLOPIDOGREL BISULFATE 75 MG TAB PO SCH (16:30)
[2018-12-08] MEDS: FLUTICASONE NASAL 120 SPRAYS/16 GM MDI EACHNARE SCH (16:30)
[2018-12-08] MEDS: ATORVASTATIN CALCIUM 40 MG TAB PO SCH (21:26)
[2018-12-08] MEDS: TAMSULOSIN HCL 0.4 MG CAP PO SCH (21:26)
[2018-12-08] MEDS: LORazepam 0.5 MG TAB PO SCH (21:26)
[2018-12-08] MEDS: MELATONIN 3 MG TAB PO SCH (21:26)
[2018-12-08] MEDS: PANTOPRAZOLE SODIUM 40 MG TAB PO SCH (21:26)
[2018-12-08] MEDS: ZOLPIDEM 6.25 MG PO SCH (21:27)
[2018-12-09] MEDS: HEPARIN 5,000 UNIT/0.5 ML INJ SC SCH ×3 (05:36→21:54)
[2018-12-09] MEDS: AMIODARONE HCL 200 MG TAB PO SCH (08:48)
[2018-12-09] MEDS: ASPIRIN EC 81 MG TAB PO SCH (08:49)
[2018-12-09] MEDS: IPRATROPIUM/ALBUTEROL 3 ML DEYVIAL IH PRN ×2 (09:08→21:23)
[2018-12-09] MEDS: Tiotropium Bromide [Spiriva Respimat] IH SCH (09:08)
[2018-12-09] MEDS: FLUTICASONE/SALMETER 250/50MCG DISKUS IH SCH ×2 (09:08→21:24)
--- NOTE | 2018-12-09 12:40 | HOSPPROG ---
Hospitalist Progress Note Assessment/Plan: 78 yo M w copd, cad, recent lung biopsy w post procedure pneumothorax. #Right pneumothorax: failed pigtail catheter, now w large bore chest tube - ptx resolved on x-ray - air leak seems to have resolved - Surgery has stopped suction today. Plan for chest tube removal tomorrow #Orthostatic hypotension: resolved. Due to Poor PO intake over several days - continue to hold lasix, encouraged adequate PO intake #Labile Blood pressure - chronic -reports bp always variable at baseline with occasional hypotension -cont to hold diuretics #Hx of Pedal Edema: was on diuretics. No edema currently. holding diuretics #COPD: no flare - home meds #CHRF: at baseline 4L #CAD: statin #CKD: Creatinine better than baseline. Avoid nephrotoxins. #Chronic Anticoagulation: -currently holding Apixaban. Will need to restart soon. Will discuss with surgical team VTE ppx: [facility] Code: full Dispo: Remain inpatient, dicharge once chest tube out, possibly tomorrow Subjective: suction to chest tube has been turned off. no cp or sob. Objective: Vital Signs Temp Pulse Resp BP Pulse Ox 36.7 C 84 16 84/56 L 96 12/09/18 11:30 12/09/18 11:30 12/09/18 11:30 12/09/18 11:30 12/09/18 11:30 Laboratory Results 12/04/18 10:05 12/05/18 05:00 12/08/18 12/09/18 12/10/18 05:59 05:59 05:59 Intake Total 300 Output Total 570 665 Balance -270 -665 PT 12.9 SEC (12.0-15.0) 12/01/18 10:55 INR 0.95 (0.83-1.16) 12/01/18 10:55 - Physical Exam Constitutional: no apparent distress Eyes: PERRL Ears, Nose, Mouth, Throat: moist mucous membranes, hearing normal Cardiovascular: regular rate and rhythym, No edema Respiratory: no respiratory distress, no rales or rhonchi, clear to auscultation Gastrointestinal: normoactive bowel sounds, soft, non-tender abdomen Skin: warm Neurologic: AAOx3 Psychiatric: interacting appropriately, not anxious, not encephalopathic Lymph, Heme, Immunologic: No petechiae ICD10 Worksheet Patient Problems: Problems Problem Status Onset Abdominal pain Acute Chest pain Acute Chronic Disease Mgmt/Transitional Care Acute Dehydration Acute Dyspnea Acute Elevated troponin Acute Fracture of femoral neck, right Acute NSTEMI (non-ST elevated myocardial infarction) Acute Obstipation Acute Renal failure Acute
[2018-12-09] MEDS: FLUTICASONE NASAL 120 SPRAYS/16 GM MDI EACHNARE SCH (15:41)
[2018-12-09] MEDS: CLOPIDOGREL BISULFATE 75 MG TAB PO SCH (17:49)
[2018-12-09] MEDS: LORazepam 0.5 MG TAB PO SCH (21:54)
[2018-12-09] MEDS: TAMSULOSIN HCL 0.4 MG CAP PO SCH (21:55)
[2018-12-09] MEDS: ZOLPIDEM 6.25 MG PO SCH (21:55)
[2018-12-09] MEDS: ATORVASTATIN CALCIUM 40 MG TAB PO SCH (21:55)
[2018-12-09] MEDS: MELATONIN 3 MG TAB PO SCH (21:55)
[2018-12-09] MEDS: PANTOPRAZOLE SODIUM 40 MG TAB PO SCH (21:55)
[2018-12-10] MEDS: HEPARIN 5,000 UNIT/0.5 ML INJ SC SCH ×3 (05:18→22:08)
--- NOTE | 2018-12-10 05:36 | GCON ---
[f rep st] CONSULTATION HISTORY OF PRESENT ILLNESS: The patient is a 78-year-old male who has recently undergone a percutane ous needle biopsy of a lung lesion which turned out to be a granuloma. He however developed a pneumo thorax which was treated with a small bore chest tube that was removed. However, now he has a 50% or greater tension pneumothorax. He is quite short of breath. He has underlying COPD. He is admitted at this time for treatment. I was consulted for chest tube placement. Risks and options were fully discussed and he wished to proceed. 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 SOCIAL HISTORY: Nick is an ex-smoker who lives independently. FAMILY HISTORY: Noncontributory. ALLERGIES: NSAIDs. CURRENT MEDICATIONS: Include Lorazepam, Lasix, Lipitor, amiodarone, Prilosec, MiraLAX, Flomax, Zofra n, melatonin, Ambien, ipratropium. PHYSICAL EXAMINATION: GENERAL: Reveals an alert, cooperative 78-year-old male who is in slight disc omfort with respiratory distress. VITAL SIGNS: He is afebrile. HEENT: Reveals no icterus, adenopa thy, or oral lesions. NECK: Supple. Full range of motion. He does have subcu crepitus in his neck . There is no thyromegaly and no bruits. CHEST: Reveals markedly decreased breath sounds on the ri ght with subcutaneous emphysema. CARDIAC: Reveals a regular rhythm without murmurs. ABDOMEN: Soft and nontender without organomegaly. GENITALIA: Normal. EXTREMITIES: Reveal full range of motion, full pulses. NEUROLOGIC: Physiologic and symmetric. IMPRESSION: Tension right pneumothorax. PLAN: Chest tube placement and admission to the hospital. Risks and options fully discussed and he wishes to proceed. /[id number]/MODL
[2018-12-10] MEDS: Tiotropium Bromide [Spiriva Respimat] IH SCH (09:31)
[2018-12-10] MEDS: FLUTICASONE/SALMETER 250/50MCG DISKUS IH SCH ×2 (09:32→21:04)
[2018-12-10] MEDS: AMIODARONE HCL 200 MG TAB PO SCH (09:40)
[2018-12-10] MEDS: ASPIRIN EC 81 MG TAB PO SCH (09:40)
[2018-12-10] MEDS: IPRATROPIUM/ALBUTEROL 3 ML DEYVIAL IH PRN ×3 (09:46→21:04)
--- NOTE | 2018-12-10 10:38 | SOAPPROG ---
SOAP Progress Note Assessment/Plan: Assessment/plan: 78 y/o M with a history of COPD, CAD, recent lung biopsy w post procedure pneumothorax S/p chest tube placement. Chest xray shows resolved pneumothorax. Chest tube with no air leak. Placed to water seal yesterday. Plan: pull chest tube today. S: No complaints. Eager to have tube pulled. O: Alert Afebrile VSS Breath sounds diminished bilaterally, no increased WOB. Chest tube with no air leak on water seal. 12/10/18 10:36 12/10/18 10:37 12/10/18 10:37 Objective: Vital Signs Temp Pulse Resp BP Pulse Ox 36.7 C 68 20 101/66 95 12/10/18 08:29 12/10/18 09:35 12/10/18 09:35 12/10/18 08:29 12/10/18 09:35 Laboratory Results 12/04/18 10:05 12/05/18 05:00 12/09/18 12/10/18 12/11/18 05:59 05:59 05:59 Intake Total 150 Output Total 665 408 250 Balance -665 -258 -250 PT 12.9 SEC (12.0-15.0) 12/01/18 10:55 INR 0.95 (0.83-1.16) 12/01/18 10:55 ICD10 Worksheet Patient Problems: Problems Problem Status Onset Abdominal pain Acute Chest pain Acute Chronic Disease Mgmt/Transitional Care Acute Dehydration Acute Dyspnea Acute Elevated troponin Acute Fracture of femoral neck, right Acute NSTEMI (non-ST elevated myocardial infarction) Acute Obstipation Acute Renal failure Acute
[2018-12-10] MEDS: FLUTICASONE NASAL 120 SPRAYS/16 GM MDI EACHNARE SCH (14:25)
--- NOTE | 2018-12-10 16:34 | HOSPPROG ---
Hospitalist Progress Note Assessment/Plan: 78 yo M w copd, cad, recent lung biopsy w post procedure pneumothorax. #Right pneumothorax: failed pigtail catheter, now w large bore chest tube - ptx resolved on x-ray - air leak seems to have resolved - Chest tube removed today. Repeat CXR is due at 4 p.m. #Orthostatic hypotension: resolved. Due to Poor PO intake over several days - continue to hold lasix, encouraged adequate PO intake #Labile Blood pressure - chronic -reports bp always variable at baseline with occasional hypotension -cont to hold diuretics #Hx of Pedal Edema: was on diuretics. No edema currently. holding diuretics #COPD: no flare - home meds #CHRF: at baseline 4L #CAD: statin #CKD: Creatinine better than baseline. Avoid nephrotoxins. #Chronic Anticoagulation: -currently holding Apixaban. Will need to restart soon. Will discuss with surgical team #Generalized Weakness -the pt was evaluated by PT this afternoon. Their evaluation revealed that the pt is not safe for discharge today. VTE ppx: [facility] Code: full Dispo: Remain inpatient, CXR pending this afternoon. Not safe for d/c today per PT. Will eval tomorrow. May need SNF, awaiting reccs. Subjective: no cp or sob. will have chest tube removed today. Objective: Vital Signs Temp Pulse Resp BP Pulse Ox 36.9 C 64 20 126/69 H 94 12/10/18 15:28 12/10/18 16:01 12/10/18 16:01 12/10/18 15:28 12/10/18 16:01 Laboratory Results 12/04/18 10:05 12/05/18 05:00 12/09/18 12/10/18 12/11/18 05:59 05:59 05:59 Intake Total 150 Output Total 665 408 250 Balance -665 -258 -250 PT 12.9 SEC (12.0-15.0) 12/01/18 10:55 INR 0.95 (0.83-1.16) 12/01/18 10:55 - Physical Exam Constitutional: no apparent distress Eyes: PERRL, EOMI Ears, Nose, Mouth, Throat: moist mucous membranes, hearing normal Cardiovascular: regular rate and rhythym, edema (trace) Respiratory: no respiratory distress, no rales or rhonchi, clear to auscultation Gastrointestinal: normoactive bowel sounds Skin: warm Musculoskeletal: generalized weakness Neurologic: AAOx3 Psychiatric: interacting appropriately, not anxious, not encephalopathic ICD10 Worksheet Patient Problems: Problems Problem Status Onset Abdominal pain Acute Chest pain Acute Chronic Disease Mgmt/Transitional Care Acute Dehydration Acute Dyspnea Acute Elevated troponin Acute Fracture of femoral neck, right Acute NSTEMI (non-ST elevated myocardial infarction) Acute Obstipation Acute Renal failure Acute
--- NOTE | 2018-12-10 16:51 | ASMTCMCOM ---
CM Note CM Note Notes: Pt not ready for dc today. When medically stable will dc home w/ [facility] and [facility] [employer] (private pay) and 's support. DC Plan: [facility] + Private Pay Date Signed: 12/10/2018 04:51 PM Electronically Signed By:Eunice Diamond RN
[2018-12-10] MEDS: CLOPIDOGREL BISULFATE 75 MG TAB PO SCH (17:21)
[2018-12-10] MEDS: TAMSULOSIN HCL 0.4 MG CAP PO SCH (22:03)
[2018-12-10] MEDS: MELATONIN 3 MG TAB PO SCH (22:03)
[2018-12-10] MEDS: ZOLPIDEM 6.25 MG PO SCH (22:03)
[2018-12-10] MEDS: PANTOPRAZOLE SODIUM 40 MG TAB PO SCH (22:03)
[2018-12-10] MEDS: ATORVASTATIN CALCIUM 40 MG TAB PO SCH (22:03)
[2018-12-10] MEDS: LORazepam 0.5 MG TAB PO SCH (22:06)
[2018-12-11] MEDS: HEPARIN 5,000 UNIT/0.5 ML INJ SC SCH ×2 (06:30→16:19)
[2018-12-11] MEDS: IPRATROPIUM/ALBUTEROL 3 ML DEYVIAL IH PRN (09:05)
[2018-12-11] MEDS: FLUTICASONE/SALMETER 250/50MCG DISKUS IH SCH (09:07)
[2018-12-11] MEDS: Tiotropium Bromide [Spiriva Respimat] IH SCH (09:07)
[2018-12-11] MEDS: AMIODARONE HCL 200 MG TAB PO SCH (09:29)
[2018-12-11] MEDS: ASPIRIN EC 81 MG TAB PO SCH (09:30)
[2018-12-11 11:20] VITALS: BP 129/84
--- NOTE | 2018-12-11 13:02 | PDIAF ---
- Diagnosis Diagnosis: PNEUMOTHORAX Code Status: Full Code - Medication Management Discharge Medications: electronically signed and located in the Home Medication List. - Orders Services needed: Home Care, Physical Therapy, Occupational Therapy Home Care Face to Face: I certify that this patient was under my care and that I had the required [id number] encounter meeting the encounter requirements on the discharge day. My findings support the fact that the patient is homebound as defined in Home Care Face to Face Continued: CMS Chapter 7 Medicare Benefits Manual 30.1.1 , The condition of the patient is such that there exists a normal inability to leave home and consequently, leaving home would require a considerable and taxing effort. Diet Recommendation: no restrictions on diet Diet Texture: Regular Texture Diet Additional Instructions: Leave dressing on for 5 days. You may shower, but avoid getting dressing wet. Follow up in Dr. Houston' office next week. Get a chest xray prior to your visit. Call with fever, chills or increased shortness of breath. - Labs/Radiology Imaging Orders: CHEST XRAY ON 12/[address] HOUSTON - Follow Up Care Current Providers and Referrals: David Espino MD [Primary Care Provider] - Yanick Houston MD [Medical Doctor] - 3-5 days
--- NOTE | 2018-12-11 13:07 | PDDCSUM ---
Discharge Summary Discharge Summary: HPI/HOSPITAL COURSE: 78 yo M w copd, cad, admitted after lung biopsy w post procedure pneumothorax. Pt was admitted and treated accordingly. A chest tube was placed and managed by Dr. Houston. This was removed on 12/10 with CXR showing stable right small apical pneumothorax. He was kept overnight and CXR was repeated again today and this is c/w resolution. He will f/u with Dr. Houston next week with a CXR on Friday. He was also evaluated by PT and had some deconditioning but stable for d/c to home with [facility] and home PT. Home medications including Eliquis have been restarted. Lasix 20mg has been changed from daily to every other day. DDXL #Right pneumothorax: failed pigtail catheter, chest tube now out #Orthostatic hypotension: resolved. #Labile Blood pressure - chronic -reports bp always variable at baseline with occasional hypotension -he is being restarted on every other day Lasix and BP will need to be managed closely. He has developed some pedal edema w/o it. #Hx of Pedal Edema: #COPD: no flare - home meds #CHRF: at baseline 4L #CAD: statin #CKD: Creatinine better than baseline. Avoid nephrotoxins. #Chronic Anticoagulation: -currently holding Apixaban. Will need to restart soon. Will discuss with surgical team #Generalized Weakness -the pt was evaluated by PT this afternoon. Their evaluation revealed that the pt is not safe for discharge today. Exam: NAD AAOX3 RRR CTAB TRACE PEDAL EDEMA MEDS: PER MED REC TOTAL TIME SPENT ON D/C IS 35 MINS
--- NOTE | 2018-12-11 14:20 | ASMTDCNOTE ---
Case Management Discharge Discharge Order Complete? Answers: Yes Patient to Obtain Answers: via Family Medications Transportation Arranged Answers: Family/Friends Faxed Final Orders Answers: Yes Agency/Facility Transfer Answers: Yes Report Printed & Faxed to Receiving Agency Family Notified Answers: Yes Discharge Comments Notes: D/w , final orders faxed. Joanne at [facility] notified, RN to call report. Date Signed: 12/11/2018 02:19 PM Electronically Signed By:Eunice Diamond RN
[2018-12-11] MEDS: FLUTICASONE NASAL 120 SPRAYS/16 GM MDI EACHNARE SCH (16:00)
[2018-12-11] MEDS: CLOPIDOGREL BISULFATE 75 MG TAB PO SCH (16:19)
== END 2018-12-11 16:53 | disposition home health service (06) | DRG 200 ==
LOC: FIMAGING 10:23 → F3N 15:19 → F3E 16:34 → OBSVTOIN 12-02 11:37 → F2N 12-09 10:12 → F3E 12-09 10:12
PROVIDERS: ADMIT Radiology Diagnostic Radiology; ATTEND Internal Medicine
PROC: 0BBC3ZX Excision of Right Upper Lung Lobe, Percutaneous Approach, Diagnostic (ICD-10-PCS; 2018-12-01)
PROC: 0W9930Z Drainage of Right Pleural Cavity with Drainage Device, Percutaneous Approach (ICD-10-PCS; principal; 2018-12-03)
DX: J95.811 Postprocedural pneumothorax (principal); J96.11 Chronic respiratory failure with hypoxia; I12.9 Hypertensive chronic kidney disease with stage 1 through stage 4 chronic kidney disease, or unspecified chronic kidney disease; N18.4 Chronic kidney disease, stage 4 (severe); G83.4 Cauda equina syndrome; I95.1 Orthostatic hypotension; J44.9 Chronic obstructive pulmonary disease, unspecified; I25.10 Atherosclerotic heart disease of native coronary artery without angina pectoris; E78.5 Hyperlipidemia, unspecified; D14.31 Benign neoplasm of right bronchus and lung; N40.0 Benign prostatic hyperplasia without lower urinary tract symptoms; Z79.01 Long term (current) use of anticoagulants; Z95.1 Presence of aortocoronary bypass graft; Z96.641 Presence of right artificial hip joint
CPT/HCPCS: 97110-GP; 97116-GP; 97161-GP; 97530-GP; J0330; J1170; J1644; J1885; J2060; J2704; J3010

== ENCOUNTER → 2018-12-24 | Outpatient (CLI) | payer OTHER, MEDICARE | LOC: FIMAGING 12:31 | PROVIDERS: ATTEND Internal Medicine Cardiovascular Disease | DX: J98.11 Atelectasis (principal); J42 Unspecified chronic bronchitis ==

== ENCOUNTER → 2019-03-10 | Outpatient (CLI) | payer OTHER, MEDICARE | LOC: FIMAGING 14:18 ==